=== PATIENT | male | born 1955 | race Caucasian/White ===

== ENCOUNTER 2019-02-27 08:40 | Inpatient (IN) ==
--- NOTE | 2019-02-27 09:02 | Emergency Department Note ---
Disposition Clinical Impression: Ulcer of left foot Qualifiers: Non-pressure ulcer stage: unspecified non-pressure ulcer stage Qualified Code(s): L97.529 - Non-pressure chronic ulcer of other part of left foot with unspecified severity Disposition: Admitted As Inpatient Condition: Good Forms: ED Satisfaction Letter Time of Disposition: 10:56 Extremity Problem HPI - General Chief complaint: ED Extremity Problem,Nontraumatic Stated complaint: Foot Wound Time Seen by Provider: 02/27/19 08:55 Source: patient Mode of arrival: wheelchair Limitations: no limitations Nursing Notes Reviewed: Yes Vital Signs Reviewed: Yes - History of Present Illness HPI Narrative: This is a 63-year-old male with a history of diabetes, status post recent debridement to the left great toe, currently on IV Ancef as per infectious disease 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 Patient reports he started having subjective fevers as well as chills yesterday. He was seen by podiatry today who sent him here for evaluation believing that his toe will need to be amputated. The patient denies any nausea vomiting or diarrhea. He does have pain in the first digit. Denies any other complaints. Pt Subjective Complaint: other (Left foot wound) Onset (ago): week(s) Pain Scale: 8 Improves with: nothing Worsens with: nothing Associated symptoms: Reports: fever - Related Data Home Medications Medication Instructions Recorded Confirmed Aspirin [Lo-Dose Aspirin EC] 81 mg PO DAILY 11/27/17 02/27/19 Cetirizine HCl [Zyrtec] 10 mg PO DAILY 11/27/17 02/27/19 Cyanocobalamin (Vitamin B-12) 1,000 mcg PO DAILY 11/27/17 02/27/19 [Vitamin B-12] Ferrous Gluconate 324 mg PO DAILY 11/27/17 02/27/19 Omeprazole [PriLOSEC] 20 mg PO DAILY 11/27/17 02/27/19 Potassium Chloride [K-Tab ER] 20 meq PO DAILY 11/27/17 02/27/19 Simvastatin [Zocor] 20 mg PO DAILY 11/27/17 02/27/19 metFORMIN [Glucophage] 1,000 mg PO BIDWM 11/27/17 02/27/19 Calcium Citrate/Vitamin D3 1 each PO DAILY 01/28/19 02/27/19 [Calcium Cit 315-Vit D3 250 Cpt] Fluticasone Propionate Nasal 50 mcg NS DAILY 01/28/19 02/27/19 [Flonase] Insulin Glargine [Lantus] 55 unit SQ BID 01/28/19 02/27/19 Ipratropium/Albuterol Neb [Duoneb] 3 ml IH Q6H PRN 01/28/19 02/27/19 Ketotifen Fumarate [Zaditor] 1 drp BOTH EYES BID 01/28/19 02/27/19 Magnesium Oxide [Magnesium] 400 mg PO DAILY 01/28/19 02/27/19 Montelukast [Singulair] 10 mg PO DAILY 01/28/19 02/27/19 Sennosides/Docusate Sodium 1 each PO BID 01/28/19 02/27/19 [Docusate Sodium-Senna Tablet] Venlafaxine HCl [Venlafaxine HCl 37.5 mg PO DAILY 01/28/19 02/27/19 ER] guaiFENesin [Guaifenesin] 800 mg PO BID 01/28/19 02/27/19 Previous Rx's Medication Instructions Recorded Insulin ASPART [NovoLOG] 0 unit SQ TIDWM #1 mls 02/10/19 Isosorbide MONOnitrate (24 HR) 120 mg PO DAILY #60 tab.er.24h 02/10/19 [Imdur] OxyCODONE Immed Rel [Roxicodone 5 15 mg PO Q3H PRN 7 Days #60 tablet 02/10/19 MG] Polyethylene Glycol 3350 [MiraLAX] 17 gm PO BID #60 powd.pack 02/10/19 amLODIPine [Norvasc] 5 mg PO DAILY #30 tablet 02/10/19 Carvedilol 3.125 mg PO BID #60 tab 02/11/19 Allergies Allergy/AdvReac Type Severity Reaction Status Date / Time bee venom protein (honey bee) Allergy Anaphylaxis Verified 01/28/19 14:25 tetracycline [Tetracycline] Allergy Hives Verified 01/28/19 14:25 influenza virus vacc AdvReac Weakness Verified 01/28/19 14:25 trivalent, split [From Fluzone] All systems ED: reviewed and negative except as stated. Constitutional: Reports: fever, chills Cardiovascular: Denies: chest pain Respiratory: Denies: dyspnea Gastrointestinal: Denies: abdominal pain, nausea, vomiting, diarrhea Neurological: Reports: paresthesias (Chronic lower extremities) Past Medical History - Past Medical History Attestation: Yes The following information was validated with the patient. Source: patient Medical history: Reports: CHF, COPD, coronary artery disease, diabetes, hyperlipidemia, hypertension Surgical history: Reports: appendectomy Psychiatric history: Reports: PTSD - Social History Smoking Status: Former smoker Smokeless Tobacco Status: No Alcohol use: Reports: none Drug use: Reports: none Physical Exam - General Limitations: no limitations General appearance: alert, in no apparent distress - Head Head exam: atraumatic, normocephalic - Eye Eye exam: Present: normal appearance - ENT ENT exam: normal exam - Neck Neck exam: Present: normal inspection - Chest Chest inspection: Present: normal inspection - Respiratory Respiratory exam: Present: normal lung sounds bilaterally - Cardiovascular Cardiovascular exam: Present: regular rate, normal rhythm, normal heart sounds - Abdominal Exam Abdominal exam: Present: soft, Non-Tender. Absent: tenderness, distention, rigidity - Extremities Exam Extremities exam: Present: normal inspection, full ROM - Expanded Upper Extremity Exam Shoulder exam: Present: normal inspection, full ROM Arm exam: Present: normal inspection, full ROM Elbow exam: Present: normal inspection, full ROM Forearm/Wrist exam: Present: normal inspection, full ROM Hand exam: Present: normal inspection, full ROM - Expanded Lower Extremity Exam Hip/Pelvis exam: Present: normal inspection, full ROM Upper leg exam: Present: normal inspection, full ROM Knee exam: Present: normal inspection, full ROM Lower leg exam: Present: normal inspection, full ROM Ankle exam: Present: normal inspection, full ROM 1 - There is a large ulceration to the medial aspect of the left first toe. No drainage currently. Neurovascular/Tendon exam: Present: sensory deficit, other (The foot is warm to the touch. Capillary refill less than 3 seconds. Does have a 1/4 posterior tibial pulse.) - Skin Skin exam: Present: warm, dry Course Course Narrative: Review prior admission with debridement on 02/04 by podiatry. The patient was bacteremic with MSSA and was seen by infectious disease and was placed on IV Ancef at discharge. Plan to recheck labs, imaging, and admission. - Reevaluation(s) Reevaluation #1: Patient had a brief fainting episode here. An Accu-Chek was checked and was normal. He returned to baseline almost immediately. Patient is complaining of pain again we will give him another dose of analgesics. Labs reviewed. Starting broad-spectrum antibiotics. - Consultations Consultation #1: I spoke with Dr. Kowalski with podiatry. Discussed the x-ray shows possible soft tissue gas. He will see the patient in consultation. Vital Signs Temperature 97.4 F L 02/27/19 08:50 Pulse Rate 84 02/27/19 08:50 Respiratory Rate 20 02/27/19 08:50 Blood Pressure 177/70 02/27/19 08:50 O2 Sat by Pulse Oximetry 99 02/27/19 08:50 Temperature 98.2 F 02/27/19 09:59 Pulse Rate 68 02/27/19 10:36 Respiratory Rate 13 02/27/19 10:36 Blood Pressure 171/75 02/27/19 10:36 O2 Sat by Pulse Oximetry 100 02/27/19 10:36 Oxygen Delivery Oxygen Delivery Room Air Extremity Problem, Nontraumati - MDM Narrative Medical decision making narrative: 63-year-old male presenting with left foot wound. Hemodynamically stable here. Labs are grossly unremarkable. Broad-spectrum anabiotic symptoms started. The patient is admitted to the hospitalist service with podiatric consultation. - Lab Data Lab results reviewed: Yes I reviewed the patient's lab results. Result diagrams: 02/27/19 09:16 02/27/19 09:16 Lab Results 02/27/19 02/27/19 02/27/19 Range/Units 09:16 09:16 09:16 WBC 7.1 (4.3-11.1) K/mcL RBC 3.96 L (4.19-5.50) M/mcL Hgb 11.6 L D (12.9-16.9) g/dL Hct 35.8 L (37.5-50.1) % MCV 90.4 (83.0-100.0) fL MCH 29.3 (28.0-33.3) pg MCHC 32.4 (31.6-35.5) g/dL RDW 14.2 (11.5-14.5) % Plt Count 60 L (140-400) K/mcL MPV 8.5 L (9.4-12.4) fL Immature Gran % 1.4 (0-4) % Seg Neutrophils % 75.0 % Lymphocytes % 15.2 % Monocytes % 7.5 % Eosinophils % 0.6 % Basophils % 0.3 % Neutrophils # 5.3 (1.6-8.9) K/mcL Lymphocytes # 1.1 (0.6-4.6) K/mcL Monocytes # 0.5 (0.0-1.3) K/mcL Eosinophils # 0.0 (0.0-0.6) K/mcL Basophils # 0.0 (0.0-0.2) K/mcL PT 14.8 H (9.4-12.1) Seconds INR 1.3 Sodium 138 (136-145) mEq/L Potassium 4.0 (3.5-5.1) mEq/L Chloride 105 (98-107) mEq/L Carbon Dioxide 27 (23-29) mEq/L BUN 16 (8-23) mg/dL Creatinine 0.99 (0.70-1.30) mg/dL Est GFR ( Amer) > 60 (> 60) Est GFR (Non-Af Amer) > 60 (> 60) BUN/Creatinine Ratio 16 (6-26) Glucose 129 H (70-105) mg/dL Calculated Osmolality 289 (280-300) Lactic Acid (0.5-2.2) mmol/L Calcium 9.4 (8.6-10.3) mg/dL 02/27/19 Range/Units 09:16 WBC (4.3-11.1) K/mcL RBC (4.19-5.50) M/mcL Hgb (12.9-16.9) g/dL Hct (37.5-50.1) % MCV (83.0-100.0) fL MCH (28.0-33.3) pg MCHC (31.6-35.5) g/dL RDW (11.5-14.5) % Plt Count (140-400) K/mcL MPV (9.4-12.4) fL Immature Gran % (0-4) % Seg Neutrophils % % Lymphocytes % % Monocytes % % Eosinophils % % Basophils % % Neutrophils # (1.6-8.9) K/mcL Lymphocytes # (0.6-4.6) K/mcL Monocytes # (0.0-1.3) K/mcL Eosinophils # (0.0-0.6) K/mcL Basophils # (0.0-0.2) K/mcL PT (9.4-12.1) Seconds INR Sodium (136-145) mEq/L Potassium (3.5-5.1) mEq/L Chloride (98-107) mEq/L Carbon Dioxide (23-29) mEq/L BUN (8-23) mg/dL Creatinine (0.70-1.30) mg/dL Est GFR ( Amer) (> 60) Est GFR (Non-Af Amer) (> 60) BUN/Creatinine Ratio (6-26) Glucose (70-105) mg/dL Calculated Osmolality (280-300) Lactic Acid 1.7 (0.5-2.2) mmol/L Calcium (8.6-10.3) mg/dL - Radiology Data Radiology results reviewed: Yes I reviewed the patient's radiology results. Foot X-Ray 02/27/19 09:06 IMPRESSION: Increasing soft tissue predominate in the 1st digit. Questionable soft tissue gas between the 1st and 2nd digit. No definite acute erosive changes to suggest osteomyelitis. D/ / Rosanna Robles MD / Rosanna Robles MD Interpreting Provider: oRsanna Robles MD S.Tani.Anita - SEricAKae Situation: Demographics, MOA Background: Presenting Complaint, Relevant PMH, Meds, & Allergies Assessment: Course and respsone to treatment, Exam Concerns, Patient/Family Expectation, Pertinant Lab Results Recommendation: Barrier(s) to disposition, Recommendation based on pending studies, treatments, or consults S.B.AKae Report Given to: Dr. Sandra Vargas Repor Time: 10:55
[2019-02-27] MEDS ORDERED: *HR* FentaNYL (PF) 100 MCG/2 ML VIAL IVP ONE (09:10)
[2019-02-27 09:30] LABS: Basophils % 0.3 %; Eosinophils % 0.6 %; Hematocrit 35.8 % (37.5-50.1); Immature Granulocytes % 1.4 % (0-4); Lymphocytes # 1.1 K/mcL (0.6-4.6); Lymphocytes % 15.2 %; Mean Corpuscular HGB Conc 32.4 g/dL (31.6-35.5); Mean Corpuscular Hemoglobin 29.3 pg (28.0-33.3); Mean Corpuscular Volume 90.4 fL (83.0-100.0); Mean Platelet Volume 8.5 fL (9.4-12.4); Monocytes # 0.5 K/mcL (0.0-1.3); Monocytes % 7.5 %; Neutrophils # 5.3 K/mcL (1.6-8.9); Red Blood Count 3.96 M/mcL (4.19-5.50); Red Cell Distribution Width 14.2 % (11.5-14.5); White Blood Count 7.1 K/mcL (4.3-11.1)
[2019-02-27 09:32] LABS: Hemoglobin 11.6 g/dL (12.9-16.9); Platelet Count 60 K/mcL (140-400)
[2019-02-27 09:37] LABS: INR 1.3; Prothrombin Time 14.8 Seconds (9.4-12.1)
[2019-02-27] MEDS ORDERED: 0.9 % Sodium Chloride 1,000 ML IVC ONE (09:39)
[2019-02-27 09:47] LABS: BUN/Creatinine Ratio 16 (6-26); Blood Urea Nitrogen 16 mg/dL (8-23); Calcium 9.4 mg/dL (8.6-10.3); Carbon Dioxide 27 mEq/L (23-29); Chloride 105 mEq/L (98-107); Glucose 129 mg/dL (70-105); Osmolality,Calculated 289 (280-300); Sodium 138 mEq/L (136-145); eGFR For African Americans > 60 (> 60); eGFR For Non-African Americans > 60 (> 60)
[2019-02-27] MEDS ORDERED: Piperacillin/Tazobactam 3.375 GM in 0.9 % Sodium Chloride Mini Bag 100 ML IVPB ONE (09:55)
[2019-02-27] MEDS ORDERED: *HR* HYDROmorphone (PF) 1 MG/ML SYRINGE IVP ONE (10:32)
--- NOTE | 2019-02-27 10:42 | Internal Med History&Physical ---
Date of Encounter: 02/27/19 Time of Encounter: 10:50 Internal Medicine - H&P: HPI Chief complaint: toe infection Admitted From: Home Plans for Post Hospital Care: Home History of present illness: Mr. Villagran is a 63 year old male chronic left great to diabetic wound, osteo, MSSA bactermia w recent admit for same, sent home on IV Ancef and following w Dr Roque and Dr Velázquez, HTN, DM on insulin, COPD, CAD, HLD, PTSD and chronic pain on opiates presents from Dr Hwang office due to worsened infection and need for likely surgicl intervention family at bedside. He is awake and alert. He has not had fevers, chills or vomiting at home.+ nausea. + pain in foot and LLE muscle cramping. Wound cont to become more expansive with yellow drainage and foot edema. Has been compliant with abx and follow up. He is otherwise in his usual state of health. Agreeable to any intervention that podiatry recommends. confirmed no new allergies, notes his ancef was changed but doesn't know to what, no other med changes remains full code gen- no wt loss, gain, sweats, fevers or chills cv- no cp, pressure, palpitations, syncope, presyncope or new le edema pulm- baseline sob without cough, wheezing, orthopnea, pnd, sputum production gi- no abd pain, , emesis diarrhea, + hx constipation on opiates Past Med Surg Social Fam HX - Past Medical History Medical history: CHF, COPD, coronary artery disease, diabetes, hyperlipidemia, hypertension Additional medical history: von willebrands factor Psychiatric history: PTSD - Past Surgical History Surgical History: appendectomy Additional surgical history: Back Surgery, Foot muscle repair, nose surgery - Social History Smoking Status: Former smoker Smokeless Tobacco Status: No Alcohol use: none Drug use: none - Family History Father Adopted: No Family Member Ethnicity: Non- Living Status: Hx Family Cardiac Disorders: No Hx Family Respiratory Disorders: No Hx Family Cancer: No Hx Family GI Disorders: No Hx Family Endocrine Disorder: No Hx Family Neuromuscular Disorders: No Hx Family Neurologic Disorders: No Hx Family HEENT Disorders: No Hx Family Autoimmune Disorders: No Mother Adopted: No Family Member Ethnicity: Non- Living Status: Hx Family Cardiac Disorders: Yes Hx Family Respiratory Disorders: No Hx Family Cancer: No Hx Family GI Disorders: No Hx Family Endocrine Disorder: Yes Hx Family Neuromuscular Disorders: No Hx Family Neurologic Disorders: No Hx Family HEENT Disorders: No Hx Family Autoimmune Disorders: No Internal Medicine - H&P: Meds Aspirin [Lo-Dose Aspirin EC] 81 mg PO DAILY 11/27/17 [History] Cetirizine HCl [Zyrtec] 10 mg PO DAILY 11/27/17 [History] Cyanocobalamin (Vitamin B-12) [Vitamin B-12] 1,000 mcg PO DAILY 11/27/17 [History] Ferrous Gluconate 324 mg PO DAILY 11/27/17 [History] Omeprazole [PriLOSEC] 20 mg PO DAILY 11/27/17 [History] Potassium Chloride [K-Tab ER] 20 meq PO DAILY 11/27/17 [History] Simvastatin [Zocor] 20 mg PO DAILY 11/27/17 [History] metFORMIN [Glucophage] 1,000 mg PO BIDWM 11/27/17 [History] Calcium Citrate/Vitamin D3 [Calcium Cit 315-Vit D3 250 Cpt] 1 each PO DAILY 01/28/19 [History] Fluticasone Propionate Nasal [Flonase] 50 mcg NS DAILY 01/28/19 [History] Insulin Glargine [Lantus] 55 unit SQ BID 01/28/19 [History] Ipratropium/Albuterol Neb [Duoneb] 3 ml IH Q6H PRN 01/28/19 [History] Ketotifen Fumarate [Zaditor] 1 drp BOTH EYES BID 01/28/19 [History] Magnesium Oxide [Magnesium] 400 mg PO DAILY 01/28/19 [History] Montelukast [Singulair] 10 mg PO DAILY 01/28/19 [History] Sennosides/Docusate Sodium [Docusate Sodium-Senna Tablet] 1 each PO BID 01/28/19 [History] Venlafaxine HCl [Venlafaxine HCl ER] 37.5 mg PO DAILY 01/28/19 [History] guaiFENesin [Guaifenesin] 800 mg PO BID 01/28/19 [History] Insulin ASPART [NovoLOG] 0 unit SQ TIDWM #1 mls 02/10/19 [Rx] Isosorbide MONOnitrate (24 HR) [Imdur] 120 mg PO DAILY #60 tab.er.24h 02/10/19 [Rx] OxyCODONE Immed Rel [Roxicodone 5 MG] 15 mg PO Q3H PRN 7 Days #60 tablet 02/10/19 [Rx] Polyethylene Glycol 3350 [MiraLAX] 17 gm PO BID #60 powd.pack 02/10/19 [Rx] amLODIPine [Norvasc] 5 mg PO DAILY #30 tablet 02/10/19 [Rx] Carvedilol 3.125 mg PO BID #60 tab 02/11/19 [Rx] Allergy/AdvReac Type Severity Reaction Status Date / Time bee venom protein (honey bee) Allergy Anaphylaxis Verified 01/28/19 14:25 tetracycline [Tetracycline] Allergy Hives Verified 01/28/19 14:25 influenza virus vacc AdvReac Weakness Verified 01/28/19 14:25 trivalent, split [From Fluzone] All Systems PM: A 10-system review of systems was performed and is negative for pertinent findings except as documented above in the HPI. - Constitutional Vitals: Temp Pulse Resp BP Pulse Ox 98.2 F 68 13 171/75 100 02/27/19 09:59 02/27/19 10:36 02/27/19 10:36 02/27/19 10:36 02/27/19 10:36 Exam: General: awake, alert, appears stated age, obese HEENT:EOM intact , pupils equal, round, moist mucus membranes Neck: supple, trachea midline Cardiovascular:regular rate and rhythm, normal S1 & S2, no rubs, murmurs or gallops. No JVD. trace pitting left lower extremity edema Lungs:Normal breath sounds, no wheezes, or crackles. Normal respiratory effort on o2 nc Abdomen:Soft, non-tender, non-distended, + bowel sounds Extremities:equal calf size bilaterally, visible muscle cramp of left calf Neurological: AAOx3, CN grossly intact Skin:left great toe w extensive wound, beefy appearance, no active bleeding/drainage currently, left second toe with necrotic appearing tissue Internal Med - H&P Results - Labs CBC & Chem 7: 02/27/19 09:16 02/27/19 09:16 Labs: Short CBC 02/27/19 Range/Units 09:16 WBC 7.1 (4.3-11.1) K/mcL Hgb 11.6 L D (12.9-16.9) g/dL Hct 35.8 L (37.5-50.1) % Plt Count 60 L (140-400) K/mcL Neutrophils # 5.3 (1.6-8.9) K/mcL BMP 02/27/19 09:16 Sodium 138 Potassium 4.0 Chloride 105 Carbon Dioxide 27 BUN 16 Creatinine 0.99 Glucose 129 H Calcium 9.4 - Assessment and Plan (1) Diabetic infection of left foot Current Visit: Yes Status: Chronic (2) MSSA bacteremia Current Visit: No Status: Chronic (3) Essential hypertension Current Visit: Yes Status: Chronic (4) Chronic back pain Current Visit: No Status: Chronic Qualifiers: Back pain location: low back pain Back pain laterality: bilateral Sciatica presence: with sciatica Sciatica laterality: bilateral sciatica Qualified Code(s): M54.42 - Lumbago with sciatica, left side; M54.41 - Lumbago with sciatica, right side; G89.29 - Other chronic pain (5) Diabetes mellitus Current Visit: Yes Status: Chronic Qualifiers: Diabetes mellitus type: type 2 Diabetes mellitus custodial insulin use: with travel attendants use Diabetes mellitus complication status: with circulatory complication Diabetes mellitus complication detail: with peripheral angiopathy without gangrene Qualified Code(s): E11.51 - Type 2 diabetes mellitus with diabetic peripheral angiopathy without gangrene; Z79.4 - shelter (current) use of insulin (6) Cramps of left lower extremity Current Visit: Yes Status: Chronic - Summary of Assessment and Plan Summary of Assessment and Plan: Diabetic Left Great Toe Wound, Chronic, progressively worsened Osteomyelitis Hx first and second ray left foot Sent from Dr Velázquez's office S/P Incision and drainage and debridement of all devitalized tissue multiple planes left great toe and foot and incision and drainage and debridement of all devitalized tissue multiple planes second toe left foot with Dr. Velázquez on 02/04/19 Intra op cxs MSSA He was following with ID and Podiatry outpt XR today with soft tissue gas, no bone erosion, Dr Velázquez updated to findings by ED and plan remains likely surgical intervention, non emergent at this time -cont IV vanc + zosyn based off prior cxs -ID and podiatry consulted for further recs -prn pain control -npo p mn MSSA Bacteremia hx, still on IV abx previously ancef though pt noting Dr Jude changed it to another abx, unknown to pt or family -ID consulted for further input, cont vanc + zosyn at this time based off prior cxs HTN - cont home meds, pain control DM- hold long acting 55 BID at this time as bs is 120s and he will be npo p mn, SSI + levemir 10 units HS ordered, hold metformin, will require further adjustments this admit LLE cramps in calf- check US LLE to rule out clot, check mag, K 4+ COPD- cont home meds/nebs CAD- cont home med regimen, hold ASA as may require intervention by podiatry HLD- cont home med regimen PTSD cont home med regimen Chronic pain on opiates with constipation- pain scal prns include his home oxy 15 mg q 3h prn severe pain + his home bowel regimen vte ppx is scd to right leg only at this time code status is full
[2019-02-27] MEDS ORDERED: Ondansetron 4 MG/2 ML VIAL IVP PRN (11:01)
[2019-02-27] MEDS ORDERED: Acetaminophen 325 MG TABLET PO PRN (11:01)
[2019-02-27] MEDS ORDERED: Naloxone 0.4 MG/ML INJ IVP PRN (11:01)
[2019-02-27] MEDS ORDERED: D5% in Water 1,000 ML IVC PRN (11:07)
[2019-02-27] MEDS ORDERED: Dextrose Gel 15 GM/37.5 ML TUBE PO PRN ×2 (11:07)
[2019-02-27] MEDS ORDERED: *HR* Dextrose 50 % in Water (Syg) 50 ML SYRINGE IVP PRN (11:07)
[2019-02-27] MEDS ORDERED: Ipratropium/Albuterol Neb 3 ML IH PRN (11:08)
[2019-02-27 11:18] LABS: Magnesium 2.1 mg/dL (1.6-2.6)
--- NOTE | 2019-02-27 11:28 | Podiatry Consult Note ---
Date of Encounter: 02/27/19 Time of Encounter: 11:28 Assessment and Plan (1) Diabetic infection of left foot Current visit: Yes Status: Chronic Assessment: Tyler grade III ulceration noted to left medial great toe Erythema and edema noted Ulceration noted to medial aspect of left great toe Left toe #2 with eschar noted to DIPJ Calf pain with squeeze WBC 7.1, afebrile, max temp 99.3 DAVID 01/27/19 Right PT 0.94 DP 1.01 Left PT 0.97 DP 0.99 TCPO2 01/29/19 Right ankle 19 foot 20 Left ankle 22 foot 10 MR 02/02/19 showed OM 1st and 2nd ray XR showed no OM but questionable for subcutaneous gas Plan: MR ordered for evaluation of gas/OM ESR, CRP ordered Venous duplex pending Local wound care Will allow for 48 hours of ATB prior to surgical intervention, discussed with Dr. Velázquez, will make patient NPO after MN Placed adaptic, 4x4 dry gauze, kerlix, and medipore tape Impression: XR/XR foot 2V LT IMPRESSION: Increasing soft tissue predominately in the 1st digit. Questionable soft tissue gas between the 1st and 2nd digit. No definite acute erosive changes to suggest osteomyelitis. D/ / 02/27/2019 11:01:34 Rosanna Robles MD / tremayne Interpreting Provider: Rosanna Robles MD 02/02/19 MR/MR foot LT wo/w con IMPRESSION: Osteomyelitis of the 1st and 2nd ray with cellulitis. Probable infectious tenosynovitis of the extensor hallucis tendon extending beyond field of view. Tenosynovitis of the flexor tendon of the 1st ray, with mild enhancement after contrast administration. Devitalized tissue of the distal ray. D/ / 02/02/2019 17:13:46 Geronimo Farias / leisa Interpreting Provider: Geronimo Farias (2) Osteomyelitis Current visit: No Status: Acute See above Qualifiers: Osteomyelitis type: acute hematogenous Osteomyelitis location: foot Laterality: left Qualified Code(s): M86.072 - Acute hematogenous osteomyelitis, left ankle and foot History of Present Illness HPI: Mr. Villagran is a 63 year old male who presented to the ER from the podiatry office. Family is present at bedside. Patient is known to the podiatry group and follows with Dr. Velázquez. PMH of CHF, DM, cellulitis, COPD, PTSD, diabetic wound, and chronic back pain. Briefly, patient is known to podiatry group. Recently was admitted to the hospital 3 weeks ago with bacteremia and left foot diabetic ulcer. Patient had ABIs completed on 01/27/19 Right PT 0.94 DP 1.01 Left PT 0.97 DP 0.99 and TCP02s completed on 01/29/19 right ankle 19 foot 20 and Left ankle 22 foot 10. Patient had positive blood cultures on 01/29 and positive surgical cultures on 02/04/19 testing positive for staph aureus. On 02/04/19 Incision and drainage and debridement of all devitalized tissue multiple planes left great toe and foot incision and drainage and debridement of all devitalized tissue multiple planes second toe left foot with Dr. Velázquez. Patient presented to office today for follow up appointment with worsening edema and erythema of left foot. Xray showed possible subcutaneous gas but does not suggest OM. Patient reports fevers and chills. Denies nausea, vomiting, or diarrhea. Denies any chest pain or shortness of breath. Reports left calf pain. No other questions or concerns at this time. Past Med Surg Social Fam HX - Past Medical History Medical history: CHF, COPD, coronary artery disease, diabetes, hyperlipidemia, hypertension Additional medical history: von willebrands factor Psychiatric history: PTSD - Past Surgical History Surgical History: appendectomy Additional surgical history: Back Surgery, Foot muscle repair, nose surgery - Social History Smoking Status: Former smoker Smokeless Tobacco Status: No Alcohol use: none Drug use: none - Family History Father Adopted: No Family Member Ethnicity: Non- Living Status: Hx Family Cardiac Disorders: No Hx Family Respiratory Disorders: No Hx Family Cancer: No Hx Family GI Disorders: No Hx Family Endocrine Disorder: No Hx Family Neuromuscular Disorders: No Hx Family Neurologic Disorders: No Hx Family HEENT Disorders: No Hx Family Autoimmune Disorders: No Mother Adopted: No Family Member Ethnicity: Non- Living Status: Hx Family Cardiac Disorders: Yes Hx Family Respiratory Disorders: No Hx Family Cancer: No Hx Family GI Disorders: No Hx Family Endocrine Disorder: Yes Hx Family Neuromuscular Disorders: No Hx Family Neurologic Disorders: No Hx Family HEENT Disorders: No Hx Family Autoimmune Disorders: No Medications and Allergies Aspirin [Lo-Dose Aspirin EC] 81 mg PO DAILY 11/27/17 [History] Cetirizine HCl [Zyrtec] 10 mg PO DAILY 11/27/17 [History] Cyanocobalamin (Vitamin B-12) [Vitamin B-12] 1,000 mcg PO DAILY 11/27/17 [History] Ferrous Gluconate 324 mg PO DAILY 11/27/17 [History] Omeprazole [PriLOSEC] 20 mg PO DAILY 11/27/17 [History] Potassium Chloride [K-Tab ER] 20 meq PO DAILY 11/27/17 [History] Simvastatin [Zocor] 20 mg PO DAILY 11/27/17 [History] metFORMIN [Glucophage] 1,000 mg PO BIDWM 11/27/17 [History] Calcium Citrate/Vitamin D3 [Calcium Cit 315-Vit D3 250 Cpt] 1 each PO DAILY 01/28/19 [History] Fluticasone Propionate Nasal [Flonase] 50 mcg NS DAILY 01/28/19 [History] Insulin Glargine [Lantus] 55 unit SQ BID 01/28/19 [History] Ipratropium/Albuterol Neb [Duoneb] 3 ml IH Q6H PRN 01/28/19 [History] Ketotifen Fumarate [Zaditor] 1 drp BOTH EYES BID 01/28/19 [History] Magnesium Oxide [Magnesium] 400 mg PO DAILY 01/28/19 [History] Montelukast [Singulair] 10 mg PO DAILY 01/28/19 [History] Sennosides/Docusate Sodium [Docusate Sodium-Senna Tablet] 1 each PO BID 01/28/19 [History] Venlafaxine HCl [Venlafaxine HCl ER] 37.5 mg PO DAILY 01/28/19 [History] guaiFENesin [Guaifenesin] 800 mg PO BID 01/28/19 [History] Insulin ASPART [NovoLOG] 0 unit SQ TIDWM #1 mls 02/10/19 [Rx] Isosorbide MONOnitrate (24 HR) [Imdur] 120 mg PO DAILY #60 tab.er.24h 02/10/19 [Rx] OxyCODONE Immed Rel [Roxicodone 5 MG] 15 mg PO Q3H PRN 7 Days #60 tablet 02/10/19 [Rx] Polyethylene Glycol 3350 [MiraLAX] 17 gm PO BID #60 powd.pack 02/10/19 [Rx] amLODIPine [Norvasc] 5 mg PO DAILY #30 tablet 02/10/19 [Rx] Carvedilol 3.125 mg PO BID #60 tab 02/11/19 [Rx] Allergy/AdvReac Type Severity Reaction Status Date / Time bee venom protein (honey bee) Allergy Anaphylaxis Verified 01/28/19 14:25 tetracycline [Tetracycline] Allergy Hives Verified 01/28/19 14:25 influenza virus vacc AdvReac Weakness Verified 01/28/19 14:25 trivalent, split [From Fluzone] All Systems Reviewed: The remainder of the systems were reviewed and are negative - Constitutional Constitutional: fever(s) - Cardiovascular Cardiovascular: leg edema, pedal edema, no chest pain, no dyspnea, no leg ulcers - Respiratory Respiratory: no dyspnea - Musculoskeletal Musculoskeletal: back pain, numbness Physical Exam - Constitutional Vitals: Temp Pulse Resp BP Pulse Ox 98.2 F 73 18 154/60 100 02/27/19 09:59 02/27/19 11:01 02/27/19 11:01 02/27/19 11:01 02/27/19 11:01 Exam: Constitiutional: Alert and oriented x 3. Confused at times. Well nourished. No acute distress noted Vascular: non-palpable DP LLE, 2/4 PT LLE, nonpalpable DP/PT RLE, CFT <3 sec to all digits LLE, warm to warm from tibia to toes LLE, no calf pain with squeeze LLE Neurologic: Diminished sensation to touch, normal plantar response Dermatologic: Digits #1-2 left foot with erythema noted, medial aspect of left foot with slough noted to wound bed, minimal eschar noted to periwound area, ulceration noted to lateral aspect great toe, slough noted to center of wound, sutures noted, edema, erythema, and eschar noted to toe #2 Musculoskeletal: 4/5 muscle strength and normal tone bilaterally. Results - Labs Result Diagrams: 02/27/19 09:16 02/27/19 09:16 Labs: Abnormal lab results RBC 3.96 M/mcL (4.19-5.50) L 02/27/19 09:16 Hgb 11.6 g/dL (12.9-16.9) L D 02/27/19 09:16 Hct 35.8 % (37.5-50.1) L 02/27/19 09:16 Plt Count 60 K/mcL (140-400) L 02/27/19 09:16 MPV 8.5 fL (9.4-12.4) L 02/27/19 09:16 PT 14.8 Seconds (9.4-12.1) H 02/27/19 09:16 Glucose 129 mg/dL (70-105) H 02/27/19 09:16 POC Glucose 140 mg/dL (70-99) H 02/27/19 09:33 H & H 02/27/19 Range/Units 09:16 Hgb 11.6 L D (12.9-16.9) g/dL Hct 35.8 L (37.5-50.1) % All other labs normal. - Diagnostic results Ankle/Foot x-ray: report reviewed Consult Discharge Plan - Plan [facility]errals: [facility] [Primary Care Provider] -
[2019-02-27 11:56] LABS: Bilirubin,Urine Negative (Negative); Blood,Urine Negative (Negative); Clarity,Urine Clear (Clear); Color,Urine Yellow (Yellow); Glucose,Urine (UA) Normal (Normal); Ketones,Urine Negative (Negative); Leukocyte Esterase,Urine Negative (Negative); Nitrite,Urine Negative (Negative); Protein,Urine Trace mg/dL (Neg-Trace); Specific Gravity,Urine 1.014 (1.010-1.025); Urobilinogen,Urine Normal (Normal)
[2019-02-27] MEDS ORDERED: Vancomycin 1,750 MG in 0.9 % Sodium Chloride 250 ML IVPB SCH (12:00)
[2019-02-27] MEDS: Insulin LISPRO 300 UNITS/3 ML VIAL SQ SCH ×3 (12:10→20:38)
--- NOTE | 2019-02-27 13:10 | Infectious Disease Consult ---
Infectious Disease-Consult - Encounter Date/Time Date of Encounter: 02/27/19 Time of Encounter: 13:08 - Data of Consult Patient: known to practice within the last 3 years Reason for consult: "pt of Dr Roque for left toe infection + MSSA bacteremia. sent in by podiatry for worsened wound and possible surg intervention. Please eval for cont abx treat recs as pt noting ancef was changed but unsure to what." Consult date: 02/27/19 Requesting Physician: Calista Emmanuel Primary Care Provider: [facility] - HPI HPI: Mr. Villagran is a 63-year-old male with past medical history of diabetes, CHF, COPD, CAD, hyperlipidemia, hypertension, von Willebrand's disease, and left great toe osteomyelitis. The patient was admitted to the hospital 02/27/19 for worsening left toe infection. We are consulted 02/27/19 for further workup and treatment recommendations for worsening left great toe infection. Briefly, the patient is a 63 year old male with a past medical history as stated above. The patient is well-known to the ID service as we were consulted on his case during his most recent hospitalization for MSSA bacteremia and left great toe OM. He was discharged home on IV cefazolin, but developed worsening thrombocytopenia and was transitioned to IV Nafcillin earlier this week. Two days ago, the patient reports onset of subjective fevers and chills with worsening of the left great toe wound. He saw Dr. Velázquez in the office today and was advised to come to the ER for evaluation. Upon arrival, he was afebrile and hemodynamically stable. His white blood cell count is normal. Lactic acid and renal function are within normal limits. Urinalysis was negative for pyuria. He had x-ray of the left foot that showed possible soft tissue gas between the first and second digit, but no bony erosion or osteomyelitis. Blood cultures were obtained 2 sets. He was started empirically on IV antibiotics and admitted to the hospital for further evaluation. Since admission, the patient has remained afebrile and hemodynamically stable. He has been evaluated by podiatry. He is scheduled to undergo venous Doppler study of the left lower extremity to rule out DVT. Currently, he is on vancomycin and Zosyn. We have been asked to evaluate and make further recommendations. During my exam today, the patient endorses a history as stated above. He endorses subjective fevers and chills. Denies headache or neck pain. Denies chest pain, shortness of breath, or cough. Denies nausea, vomiting, diarrhea, or constipation. Denies abdominal pain or urinary complaints. Denies oral thrush or skin rashes. States he has chronic back pain that is at baseline. Complains of increasing pain in the left foot with some muscle spasms that increases the pain. States there is some drainage that is somewhat foul smelling. Denies any redness or streaking up the leg. States his appetite has been okay. States his blood sugars up and well-controlled at home. The patient lives at home with his . 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 He has a dog, but denies any bites or scratches. Denies chronic infectious diseases. Denies any recent travel. Denies tobacco, alcohol, or illicit drug use. - ROS Review of Systems: All systems reviewed and no additional remarkable complaints except as stated. - Results CBC & Chem 7: 02/27/19 09:16 02/27/19 09:16 - Line Documentation Line Documentation: PICC Line (Right upper extremity) - Exam Vitals: Temp Pulse Resp BP Pulse Ox 99.3 F 73 19 177/90 97 02/27/19 12:02 02/27/19 12:02 02/27/19 12:02 02/27/19 12:02 02/27/19 12:02 Exam: Head: Atraumatic, normal inspection, normocephalic. Eye: EOMI, PERRLA, no scleral icterus noted. ENT: Mucous membranes moist. No odontogenic infection noted. Neck: Normal inspection, no meningismus. Respiratory: Clear to auscultation. No rales, respiratory distress, rhonchi, or wheezes noted. Cardiovascular: Regular rate and rhythm, S1 and S2 audible. No murmurs, rubs, or gallops. GI: Soft, obese, normal bowel sounds. Nontender. Extremities: No joint swelling, pedal edema, or tenderness noted. Venous stasis dermatitis noted to the bilateral lower extremities. Left foot dressing clean, dry, and intact. Back: Normal inspection. No vertebral tenderness noted. Neurological: Alert, oriented 3, no focal deficits. Psychiatric: normal affect, normal mood. Skin: Dry, intact, warm. Normal color. No rashes. Aspirin [Lo-Dose Aspirin EC] 81 mg PO DAILY 11/27/17 [History] Cetirizine HCl [Zyrtec] 10 mg PO DAILY 11/27/17 [History] Cyanocobalamin (Vitamin B-12) [Vitamin B-12] 1,000 mcg PO DAILY 11/27/17 [History] Ferrous Gluconate 324 mg PO DAILY 11/27/17 [History] Omeprazole [PriLOSEC] 20 mg PO DAILY 11/27/17 [History] Potassium Chloride [K-Tab ER] 20 meq PO DAILY 11/27/17 [History] Simvastatin [Zocor] 20 mg PO DAILY 11/27/17 [History] metFORMIN [Glucophage] 1,000 mg PO BIDWM 11/27/17 [History] Calcium Citrate/Vitamin D3 [Calcium Cit 315-Vit D3 250 Cpt] 1 each PO DAILY 01/28/19 [History] Fluticasone Propionate Nasal [Flonase] 50 mcg NS DAILY 01/28/19 [History] Insulin Glargine [Lantus] 55 unit SQ BID 01/28/19 [History] Ipratropium/Albuterol Neb [Duoneb] 3 ml IH Q6H PRN 01/28/19 [History] Ketotifen Fumarate [Zaditor] 1 drp BOTH EYES BID 01/28/19 [History] Magnesium Oxide [Magnesium] 400 mg PO DAILY 01/28/19 [History] Montelukast [Singulair] 10 mg PO DAILY 01/28/19 [History] Sennosides/Docusate Sodium [Docusate Sodium-Senna Tablet] 1 each PO BID 01/28/19 [History] Venlafaxine HCl [Venlafaxine HCl ER] 37.5 mg PO DAILY 01/28/19 [History] guaiFENesin [Guaifenesin] 800 mg PO BID 01/28/19 [History] Insulin ASPART [NovoLOG] 0 unit SQ TIDWM #1 mls 02/10/19 [Rx] Isosorbide MONOnitrate (24 HR) [Imdur] 120 mg PO DAILY #60 tab.er.24h 02/10/19 [Rx] OxyCODONE Immed Rel [Roxicodone 5 MG] 15 mg PO Q3H PRN 7 Days #60 tablet 02/10/19 [Rx] Polyethylene Glycol 3350 [MiraLAX] 17 gm PO BID #60 powd.pack 02/10/19 [Rx] amLODIPine [Norvasc] 5 mg PO DAILY #30 tablet 02/10/19 [Rx] Carvedilol 3.125 mg PO BID #60 tab 02/11/19 [Rx] Allergy/AdvReac Type Severity Reaction Status Date / Time bee venom protein (honey bee) Allergy Anaphylaxis Verified 01/28/19 14:25 tetracycline [Tetracycline] Allergy Hives Verified 01/28/19 14:25 influenza virus vacc AdvReac Weakness Verified 01/28/19 14:25 trivalent, split [From Fluzone] - Assessment and Plan (1) Diabetic infection of left foot Current Visit: Yes Status: Chronic Location: Left foot. Causative organism: Unclear. Previous cultures positive for MSSA. Failed outpatient IV antibiotics. Concern for additional causative organisms. X-ray negative for worsening osteomyelitis. No SIRS criteria. Blood cultures drawn 02/27/19 are pending. Podiatry consulted. Planning possible amputation of the toe. Currently on Vanc and Zosyn. SNOMED Code(s): 04924748 (2) Osteomyelitis Current Visit: No Status: Acute Location: First and second ray of the left foot. Causative organism: MSSA. Likely secondary to have excellent ulcer. MRI of the left foot showed osteomyelitis of the first and second ray with cellulitis with probable infectious tenosynovitis of the extensor hallucis tendon extending beyond the field of view as well as tenosynovitis of the flexor tendon of the first ray with mild enhancement after contrast administration. Podiatry consulted. Status post incision and drainage and debridement of all devitalized tissue multiple planes of the left great toe and foot and incision and drainage and debridement of all devitalized tissue multiple planes of the second toe left foot 02/04/[address] Velázquez. Operative note reviewed. Intraoperative cultures are positive for MSSA. No specimen sent for pathology. Discharged home on IV cefazolin. Transitioned to Nafcillin due to thrombocytopenia. Qualifiers: Osteomyelitis type: acute hematogenous Osteomyelitis location: foot Laterality: left Qualified Code(s): M86.072 - Acute hematogenous osteomyelitis, left ankle and foot SNOMED Code(s): 34401301 (3) Bacteremia Current Visit: No Status: Acute Causative organism: MSSA. Source: Left toe infection. Blood cultures drawn 01/27/19 were +2 out of 2 sets for MSSA. Repeat blood cultures on 01/29/19 were +2 out of 2 sets. Repeat blood cultures on 02/01/19 were negative 2 sets. Complicated due to osteomyelitis. Rheumatoid factor <10. TTE suboptimal to evaluate for endocarditis. VICKEY deferred. Was on cefazolin. Transitioned to Iv Nafcillin. SNOMED Code(s): 2785876 (4) Thrombocytopenia Current Visit: No Status: Resolved Etiology: Infection vs. antibiotic-related. No acute bleeding noted on exam. Continue to trend. SNOMED Code(s): 955610126 (5) Diabetes mellitus Current Visit: Yes Status: Chronic Uncontrolled. Hemoglobin A1c 8.5%. Recommend aggressive glucose monitoring and control to promote wound healing and prevent reinfection. Management per the primary team. Qualifiers: Diabetes mellitus type: type 2 Diabetes mellitus fdc insulin use: with fdc use Diabetes mellitus complication status: with circulatory complication Diabetes mellitus complication detail: with peripheral angiopathy without gangrene Qualified Code(s): E11.51 - Type 2 diabetes mellitus with diabetic peripheral angiopathy without gangrene; Z79.4 - FPC (current) use of insulin SNOMED Code(s): 17954669 (6) CAD (coronary artery disease) Current Visit: No Status: Chronic Qualifiers: Coronary Disease-Associated Artery/Lesion type: [place] artery [place] vs. transplanted heart: [place] heart Associated angina: without angina Qualified Code(s): I25.10 - Atherosclerotic heart disease of [place] coronary artery without angina pectoris SNOMED Code(s): 20011229 (7) Essential hypertension Current Visit: No Status: Chronic SNOMED Code(s): 50396777 (8) Mixed hyperlipidemia Current Visit: No Status: Acute SNOMED Code(s): 879074915 (9) Atherosclerosis of [place] arteries of left leg with ulceration of other part of foot Current Visit: No Status: Chronic Bilateral DAVID studies were normal. Bilateral TCP O2 monitoring showed ischemia. Arterial duplex study of the left lower extremity showed minimal plaque. SNOMED Code(s): 946628453207919, 336135893, 441504530536920 - Recommendations Recommendations: Await blood cultures to finalize. Await intraoperative cultures and findings. Wound care per the podiatry team. Continue vancomycin IV. Pharmacy to dose. Goal trough approximately 15. Continue Zosyn 3.375 g IV every 8 hours. Duration of treatment depends on the clinical picture. Monitor renal function and for drug toxicity and dose adjust antibiotics. Past Med Surg Social Fam HX - Past Medical History Medical history: CHF, COPD, coronary artery disease, diabetes, hyperlipidemia, hypertension Additional medical history: von wilderbran Psychiatric history: PTSD - Past Surgical History Surgical History: appendectomy Additional surgical history: Back Surgery, Foot muscle repair, nose surgery - Social History Smoking Status: Former smoker Smokeless Tobacco Status: No Alcohol use: none Drug use: none - Family History Father Adopted: No Family Member Ethnicity: Non- Living Status: Hx Family Cardiac Disorders: No Hx Family Respiratory Disorders: No Hx Family Cancer: No Hx Family GI Disorders: No Hx Family Endocrine Disorder: No Hx Family Neuromuscular Disorders: No Hx Family Neurologic Disorders: No Hx Family HEENT Disorders: No Hx Family Autoimmune Disorders: No Mother Adopted: No Family Member Ethnicity: Non- Living Status: Hx Family Cardiac Disorders: Yes Hx Family Respiratory Disorders: No Hx Family Cancer: No Hx Family GI Disorders: No Hx Family Endocrine Disorder: Yes Hx Family Neuromuscular Disorders: No Hx Family Neurologic Disorders: No Hx Family HEENT Disorders: No Hx Family Autoimmune Disorders: No Consult Discharge Plan - Plan [facility]errals: [facility] [Primary Care Provider] -
[2019-02-27] MEDS: amLODIPine 5 MG TABLET PO SCH (13:20)
[2019-02-27] MEDS: *HR* HYDROcodone/Acet 5/325 mg TABLET PO PRN (14:07)
[2019-02-27] MEDS ORDERED: Gadolinium Contrast Agent (WT Based) IV PRN (14:17)
[2019-02-27] MEDS: *HR* OxyCODONE Immed Rel 15 MG TABLET PO PRN ×3 (15:39→22:12)
[2019-02-27] MEDS ORDERED: Piperacillin/Tazobactam 3.375 GM in 0.9 % Sodium Chloride Mini Bag 100 ML IVPB SCH (16:00)
[2019-02-27] MEDS: Piperacillin/Tazobactam 3.375 GM in 0.9 % Sodium Chloride Mini Bag 100 ML IVPB SCH (20:32)
[2019-02-27] MEDS: Sennosides/Docusate Sodium TABLET PO SCH (20:32)
[2019-02-27] MEDS: Insulin DETEMIR 100 UNIT/ML X5UNITS SQ SCH (20:38)
[2019-02-27] MEDS ORDERED: KETOTIFEN FUMARATE BOTH EYES SCH (21:00)
[2019-02-28] MEDS: *HR* HYDROcodone/Acet 5/325 mg TABLET PO PRN ×2 (00:34→12:30)
[2019-02-28] MEDS: *HR* OxyCODONE Immed Rel 15 MG TABLET PO PRN ×7 (01:54→23:10)
[2019-02-28] MEDS: Piperacillin/Tazobactam 3.375 GM in 0.9 % Sodium Chloride Mini Bag 100 ML IVPB SCH ×3 (05:02→21:48)
[2019-02-28 05:34] LABS: Basophils % 0.2 %
[2019-02-28 05:36] LABS: Eosinophils # 0.1 K/mcL (0.0-0.6); Eosinophils % 1.3 %; Hematocrit 33.4 % (37.5-50.1); Hemoglobin 10.6 g/dL (12.9-16.9); Immature Granulocytes % 0.9 % (0-4); Immature Platelets 1.9 % (1.1-6.1); Lymphocytes # 1.1 K/mcL (0.6-4.6); Lymphocytes % 23.8 %; Mean Corpuscular HGB Conc 31.7 g/dL (31.6-35.5); Mean Corpuscular Hemoglobin 28.9 pg (28.0-33.3); Mean Platelet Volume 9.1 fL (9.4-12.4); Monocytes # 0.4 K/mcL (0.0-1.3); Monocytes % 7.5 %; Neutrophils # 3.1 K/mcL (1.6-8.9); Red Blood Count 3.67 M/mcL (4.19-5.50); Red Cell Distribution Width 14.1 % (11.5-14.5); Segmented Neutrophils % 66.3 %; White Blood Count 4.7 K/mcL (4.3-11.1)
[2019-02-28 05:38] LABS: Platelet Count 60 K/mcL (140-400)
[2019-02-28 05:42] LABS: INR 1.3; Prothrombin Time 15.1 Seconds (9.4-12.1)
[2019-02-28 05:52] LABS: BUN/Creatinine Ratio 16 (6-26); Blood Urea Nitrogen 15 mg/dL (8-23); Calcium 8.8 mg/dL (8.6-10.3); Carbon Dioxide 26 mEq/L (23-29); Chloride 105 mEq/L (98-107); Glucose 148 mg/dL (70-105); Magnesium 2.1 mg/dL (1.6-2.6); Osmolality,Calculated 290 (280-300); Potassium 3.8 mEq/L (3.5-5.1); Sodium 138 mEq/L (136-145); eGFR For African Americans > 60 (> 60); eGFR For Non-African Americans > 60 (> 60)
[2019-02-28] MEDS: Insulin LISPRO 300 UNITS/3 ML VIAL SQ SCH ×4 (08:07→21:23)
[2019-02-28] MEDS: Sennosides/Docusate Sodium TABLET PO SCH ×2 (08:17→21:47)
[2019-02-28] MEDS: Venlafaxine XR (24 HR) 37.5 MG CAP.ER.24H PO SCH (08:17)
[2019-02-28] MEDS: Cholecalciferol (D-3) 1,000 UNIT (25MCG) TABLET PO SCH (08:18)
[2019-02-28] MEDS: Cyanocobalamin (B-12) 1,000 MCG TABLET PO SCH (08:18)
[2019-02-28] MEDS: Isosorbide MONOnitrate (24 HR) 60 MG TAB.ER.24H PO SCH (08:19)
[2019-02-28] MEDS: Loratadine 10 MG TABLET PO SCH (08:19)
[2019-02-28] MEDS: amLODIPine 5 MG TABLET PO SCH (08:19)
[2019-02-28] MEDS: Fluticasone Propionate Nasal 50 MCG/SPRAY BOTTLE NS SCH (11:28)
--- NOTE | 2019-02-28 13:04 | Internal Med Progress Note ---
Hospitalist Progress Note - Encounter Date of Encounter: 02/28/19 Time of Encounter: 13:00 - Subjective Interval History: Patient was seen and examined at bedside. No acute events overnight. Patient was well-appearing and was complaining of some pain around his right great toe. Toe has not been increasingly painful or draining any pus or fluid. Denies any numbness or tingling. Patient otherwise denied any chest pain, shortness of breath, abdominal pain, nausea, vomiting, fevers, chills. Looking forward to getting surgery. - Exam Vitals: Temp Pulse Resp BP Pulse Ox 98.8 F 66 16 158/78 96 02/28/19 11:32 02/28/19 11:32 02/28/19 11:32 02/28/19 11:32 02/28/19 11:32 Exam: GEN: Well-appearing, NAD, conversant. HEAD: Normocephalic, atraumatic. EYES: PERRL, EOMI, anicteric. ENT: MMM. oropharynx without erythema or drainage. NECK: Supple. No LAD. No stiffness or restricted ROM. No tracheal deviation. HEART: Regular rate and regular rhythm, normal S1/S2, no m/r/g. LUNGS: CTAB, good air exchange bilaterally. No wheezing, rubs, or rhonchi. ABDO: Soft, nontender, nondistended with active bowel sounds. : No suprapubic tenderness or CVA tenderness. BACK: No obvious stepoffs or deformities. EXT: Without cyanosis, clubbing or edema. 4 cm diameter ulceration of the medial aspect of R great toe. 2 cm ulceration of lateral 5 toe. Non-draining. SKIN: Warm and dry without any rash. NEURO: Grossly nonfocal. Alert and oriented, moving all 4 extremities. CN not formally tested but appear grossly intact. PSYCH: Normal affect, no depressed or anxious mood. - Assessment and Plan (1) Diabetic infection of left foot Current Visit: Yes Status: Acute Assessment and Plan: Patient presented with worsening of left great toe infection. Was recently hospitalized for MSSA bacteremia and left great toe osteomyelitis Was originally discharged home with IV cefazolin, but developed worsening thrombocytopenia and was transitioned IV nafcillin. X-ray of the left foot showed possible soft tissue gas, but no bony erosion or osteomyelitis. MRI foot showed osteomyelitis of the first proximal phalanx, bone marrow edema, large deep to soft tissue defect along the first digit, no tenosynovitis. No SIRS criteria. Plan: - Treating infection with vancomycin and zosyn - Blood cultures pending, hx of MSSA - Surgery on Saturday with Dr. Velázquez for possible amputation - Consult to podiatry: 48hrs of antibiotics - Consult to ID: pending blood cultures, cont vanc/zosyn (2) Osteomyelitis Current Visit: Yes Status: Acute Assessment and Plan: Likely secondary to diabetic ulcer of L toe. MRI foot showed osteomyelitis of the first proximal phalanx, bone marrow edema, large deep to soft tissue defect along the first digit, no tenosynovitis. Podiatry/ID following Plan: - Continue antibiotics (3) Diabetes mellitus Current Visit: Yes Status: Chronic Assessment and Plan: Currently holding home meds. Held metformin. SSI and levemir 10 units HS ordered. (4) Thrombocytopenia Current Visit: Yes Status: Acute Assessment and Plan: Likely due to treatment with outpatient cefazolin. Will continue to trend with CBC. (5) CAD (coronary artery disease) Current Visit: No Status: Chronic Assessment and Plan: Cont home meds: coreg, simvastatin, imdur. Hold ASA for podiatry, scheduled surgery. (6) Chronic back pain Current Visit: Yes Status: Chronic Assessment and Plan: Continue home regimen. Does have coinciding constipation. Cont home oxycodone q3hrs PRN. Cont home bowel regiment. (7) Essential hypertension Current Visit: No Status: Chronic Assessment and Plan: - Cont home coreg (8) PTSD (post-traumatic stress disorder) Current Visit: Yes Status: Acute Assessment and Plan: Cont home meds: venlafaxine DVT Prophylaxis: Currently on SCDs on R foot only. - Time Spent with Patient Total time spent is greater than 50% in coordination of care (as documented) at patient's floor/unit and/or counseling patient: less than 15 minutes Plan of Care Discussed with: patient Internal Medicine: Result - Labs CBC & Chem 7: 02/28/19 05:17 02/28/19 05:17 Labs: Short CBC 02/28/19 Range/Units 05:17 WBC 4.7 (4.3-11.1) K/mcL Hgb 10.6 L (12.9-16.9) g/dL Hct 33.4 L (37.5-50.1) % Plt Count 60 L (140-400) K/mcL Neutrophils # 3.1 (1.6-8.9) K/mcL BMP 02/28/19 05:17 Sodium 138 Potassium 3.8 Chloride 105 Carbon Dioxide 26 BUN 15 Creatinine 0.91 Glucose 148 H Calcium 8.8 - ABG Interpretation ABG results: PT/INR, D-dimer PT 15.1 Seconds (9.4-12.1) H 02/28/19 05:17 - Impressions Impressions Foot X-Ray 02/27/19 09:06 IMPRESSION: Increasing soft tissue predominately in the 1st digit. Questionable soft tissue gas between the 1st and 2nd digit. No definite acute erosive changes to suggest osteomyelitis. D/ / 02/27/2019 11:01:34 Rosanna Robles MD / tremayne Interpreting Provider: Rosanna Robles MD Foot MRI 02/27/19 14:17 IMPRESSION: 1. Osteomyelitis of the 1st proximal phalanx. 2. Bone marrow edema without confluent decreased T1 signal throughout the 1st distal phalanx compatible with noninfectious reactive osteitis versus early osteomyelitis. 3. Large deep soft tissue defect along the medial aspect of the 1st digit with an adjacent lobular fluid collection versus phlegmon encasing the 1st proximal phalangeal shaft and extending dorsal to the 1st distal phalanx. D/ / Jean Marie Jose MD / Jean Marie Jose MD Interpreting Provider: Jean Marie Jose MD Consult Discharge Plan - Plan [facility]errals: [facility] [Primary Care Provider] - (2) Osteomyelitis Qualifiers: Osteomyelitis type: acute hematogenous Osteomyelitis location: foot Laterality: left Qualified Code(s): M86.072 - Acute hematogenous osteomyelitis, left ankle and foot (3) Diabetes mellitus Qualifiers: Diabetes mellitus type: type 2 Diabetes mellitus medical terminologist insulin use: with medical terminologist use Diabetes mellitus complication status: with circulatory complication Diabetes mellitus complication detail: with peripheral angiopathy without gangrene Qualified Code(s): E11.51 - Type 2 diabetes mellitus with diabetic peripheral angiopathy without gangrene; Z79.4 - skilled nursing (current) use of insulin (5) CAD (coronary artery disease) Qualifiers: Coronary Disease-Associated Artery/Lesion type: [place] artery [place] vs. transplanted heart: [place] heart Associated angina: without angina Qualified Code(s): I25.10 - Atherosclerotic heart disease of [place] coronary artery without angina pectoris (6) Chronic back pain Qualifiers: Back pain location: low back pain Back pain laterality: bilateral Sciatica presence: with sciatica Sciatica laterality: bilateral sciatica Qualified Code(s): M54.42 - Lumbago with sciatica, left side; M54.41 - Lumbago with sciatica, right side; G89.29 - Other chronic pain
[2019-02-28] MEDS: Insulin DETEMIR 100 UNIT/ML X5UNITS SQ SCH (21:47)
[2019-03-01] MEDS: *HR* OxyCODONE Immed Rel 15 MG TABLET PO PRN ×7 (01:52→21:36)
[2019-03-01] MEDS: Piperacillin/Tazobactam 3.375 GM in 0.9 % Sodium Chloride Mini Bag 100 ML IVPB SCH ×3 (04:32→21:34)
[2019-03-01 04:52] LABS: Hemoglobin 9.7 g/dL (12.9-16.9); Immature Granulocytes % 1.2 % (0-4)
[2019-03-01 04:54] LABS: Basophils % 0.5 %; Eosinophils # 0.1 K/mcL (0.0-0.6); Eosinophils % 2.9 %; Hematocrit 30.8 % (37.5-50.1); Lymphocytes # 1.1 K/mcL (0.6-4.6); Lymphocytes % 27.2 %; Mean Corpuscular HGB Conc 31.5 g/dL (31.6-35.5); Mean Corpuscular Hemoglobin 28.8 pg (28.0-33.3); Mean Corpuscular Volume 91.4 fL (83.0-100.0); Mean Platelet Volume 8.7 fL (9.4-12.4); Monocytes # 0.4 K/mcL (0.0-1.3); Monocytes % 8.7 %; Neutrophils # 2.5 K/mcL (1.6-8.9); Platelet Count 50 K/mcL (140-400); Red Blood Count 3.37 M/mcL (4.19-5.50); Red Cell Distribution Width 14.2 % (11.5-14.5); Segmented Neutrophils % 59.5 %; White Blood Count 4.2 K/mcL (4.3-11.1)
[2019-03-01 05:11] LABS: BUN/Creatinine Ratio 18 (6-26); Blood Urea Nitrogen 18 mg/dL (8-23); Calcium 8.5 mg/dL (8.6-10.3); Carbon Dioxide 25 mEq/L (23-29); Chloride 105 mEq/L (98-107); Glucose 194 mg/dL (70-105); Osmolality,Calculated 295 (280-300); Potassium 4.1 mEq/L (3.5-5.1); Sodium 139 mEq/L (136-145); eGFR For African Americans > 60 (> 60); eGFR For Non-African Americans > 60 (> 60)
[2019-03-01] MEDS: Sennosides/Docusate Sodium TABLET PO SCH ×2 (07:45→21:35)
[2019-03-01] MEDS: Cyanocobalamin (B-12) 1,000 MCG TABLET PO SCH (07:45)
[2019-03-01] MEDS: Isosorbide MONOnitrate (24 HR) 60 MG TAB.ER.24H PO SCH (07:45)
[2019-03-01] MEDS: Cholecalciferol (D-3) 1,000 UNIT (25MCG) TABLET PO SCH (07:45)
[2019-03-01] MEDS: Venlafaxine XR (24 HR) 37.5 MG CAP.ER.24H PO SCH (07:45)
[2019-03-01] MEDS: Loratadine 10 MG TABLET PO SCH (07:46)
[2019-03-01] MEDS: amLODIPine 5 MG TABLET PO SCH (07:46)
[2019-03-01] MEDS: Fluticasone Propionate Nasal 50 MCG/SPRAY BOTTLE NS SCH (07:49)
[2019-03-01] MEDS: Insulin LISPRO 300 UNITS/3 ML VIAL SQ SCH ×4 (07:50→21:34)
--- NOTE | 2019-03-01 12:54 | Internal Med Progress Note ---
Hospitalist Progress Note - Encounter Date of Encounter: 03/01/19 Time of Encounter: 12:51 - Subjective Interval History: Patient was seen and examined at bedside. No acute events overnight. Patient has not had any increased pain or swelling of his left lower extremity. He denies any chest pain, shortness of breath, abdominal pain, nausea, vomiting, f ed, chills. Is looking forward to surgery on Saturday. - Exam Vitals: Temp Pulse Resp BP Pulse Ox 98.1 F 70 18 170/56 96 03/01/19 11:11 03/01/19 11:11 03/01/19 11:11 03/01/19 11:11 03/01/19 11:11 Exam: GEN: Well-appearing, NAD, conversant. HEAD: Normocephalic, atraumatic. EYES: PERRL, EOMI, anicteric. ENT: MMM. oropharynx without erythema or drainage. NECK: Supple. No LAD. No stiffness or restricted ROM. No tracheal deviation. HEART: Regular rate and regular rhythm, normal S1/S2, no m/r/g. LUNGS: CTAB, good air exchange bilaterally. No wheezing, rubs, or rhonchi. ABDO: Soft, nontender, nondistended with active bowel sounds. : No suprapubic tenderness or CVA tenderness. BACK: No obvious stepoffs or deformities. EXT: Without cyanosis, clubbing or edema. 4 cm diameter ulceration of the medial aspect of R great toe. 2 cm ulceration of lateral 5 toe. Non-draining. SKIN: Warm and dry without any rash. NEURO: Grossly nonfocal. Alert and oriented, moving all 4 extremities. CN not formally tested but appear grossly intact. PSYCH: Normal affect, no depressed or anxious mood. - Assessment and Plan (1) Diabetic infection of left foot Current Visit: Yes Status: Acute Assessment and Plan: Patient presented with worsening of left great toe infection. Was recently hospitalized for MSSA bacteremia and left great toe osteomyelitis Was originally discharged home with IV cefazolin, but developed worsening thrombocytopenia and was transitioned IV nafcillin. X-ray of the left foot showed possible soft tissue gas, but no bony erosion or osteomyelitis. MRI L foot showed osteomyelitis of the first proximal phalanx, bone marrow edema, large deep to soft tissue defect along the first digit, no tenosynovitis. No SIRS criteria. Plan: - Treating infection with vancomycin and zosyn - Blood cultures pending with growth of gram-negative rods and gram-positive cocci, hx of MSSA - Surgery on Saturday with Dr. Velázquez for possible amputation - Consult to podiatry: 48hrs of antibiotics - Consult to ID: pending blood cultures, cont vanc/zosyn (2) Osteomyelitis Current Visit: Yes Status: Acute Assessment and Plan: Likely secondary to diabetic ulcer of L toe. MRI foot showed osteomyelitis of the first proximal phalanx, bone marrow edema, large deep to soft tissue defect along the first digit, no tenosynovitis. Podiatry/ID following Plan: - Continue antibiotics (3) Diabetes mellitus Current Visit: Yes Status: Chronic Assessment and Plan: Currently holding home meds. Held metformin. SSI and levemir 10 units HS ordered. (4) Thrombocytopenia Current Visit: Yes Status: Acute Assessment and Plan: Likely due to treatment with outpatient cefazolin. Will continue to trend with CBC. (5) CAD (coronary artery disease) Current Visit: No Status: Chronic Assessment and Plan: Cont home meds: coreg, simvastatin, imdur. Hold ASA for podiatry, scheduled surgery. (6) Chronic back pain Current Visit: Yes Status: Chronic Assessment and Plan: Continue home regimen. Does have coinciding constipation. Cont home oxycodone q3hrs PRN. Cont home bowel regiment. (7) Essential hypertension Current Visit: No Status: Chronic Assessment and Plan: - Cont home coreg (8) PTSD (post-traumatic stress disorder) Current Visit: Yes Status: Acute Assessment and Plan: Cont home meds: venlafaxine DVT Prophylaxis: Currently on SCDs on R foot only. - Time Spent with Patient Total time spent is greater than 50% in coordination of care (as documented) at patient's floor/unit and/or counseling patient: less than 15 minutes Plan of Care Discussed with: patient Internal Medicine: Result - Labs CBC & Chem 7: 03/01/19 04:39 03/01/19 04:39 Labs: Short CBC 03/01/19 Range/Units 04:39 WBC 4.2 L (4.3-11.1) K/mcL Hgb 9.7 L (12.9-16.9) g/dL Hct 30.8 L (37.5-50.1) % Plt Count 50 L (140-400) K/mcL Neutrophils # 2.5 (1.6-8.9) K/mcL BMP 03/01/19 04:39 Sodium 139 Potassium 4.1 Chloride 105 Carbon Dioxide 25 BUN 18 Creatinine 0.98 Glucose 194 H Calcium 8.5 L - ABG Interpretation ABG results: PT/INR, D-dimer PT 15.1 Seconds (9.4-12.1) H 02/28/19 05:17 Consult Discharge Plan - Plan Referrals: [facility] [Primary Care Provider] - (2) Osteomyelitis Qualifiers: Osteomyelitis type: acute hematogenous Osteomyelitis location: foot Laterality: left Qualified Code(s): M86.072 - Acute hematogenous osteomyelitis, left ankle and foot (3) Diabetes mellitus Qualifiers: Diabetes mellitus type: type 2 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 transplanted heart: [place] heart Associated angina: without angina Qualified Code(s): I25.10 - Atherosclerotic heart disease of [place] coronary artery without angina pectoris (6) Chronic back pain Qualifiers: Back pain location: low back pain Back pain laterality: bilateral Sciatica presence: with sciatica Sciatica laterality: bilateral sciatica Qualified Code(s): M54.42 - Lumbago with sciatica, left side; M54.41 - Lumbago with sciatica, right side; G89.29 - Other chronic pain
[2019-03-01] MEDS: Insulin DETEMIR 100 UNIT/ML X5UNITS SQ SCH (21:35)
[2019-03-02] MEDS: *HR* OxyCODONE Immed Rel 15 MG TABLET PO PRN ×8 (00:43→23:12)
[2019-03-02] MEDS: Piperacillin/Tazobactam 3.375 GM in 0.9 % Sodium Chloride Mini Bag 100 ML IVPB SCH ×2 (04:34→13:47)
[2019-03-02 04:49] LABS: Hemoglobin 9.6 g/dL (12.9-16.9); Mean Platelet Volume 8.6 fL (9.4-12.4)
[2019-03-02 04:51] LABS: Hematocrit 30.4 % (37.5-50.1); Immature Platelets 1.4 % (1.1-6.1); Mean Corpuscular HGB Conc 31.6 g/dL (31.6-35.5); Mean Corpuscular Hemoglobin 28.7 pg (28.0-33.3); Red Blood Count 3.34 M/mcL (4.19-5.50); Red Cell Distribution Width 14.2 % (11.5-14.5); White Blood Count 4.2 K/mcL (4.3-11.1)
[2019-03-02 05:06] LABS: BUN/Creatinine Ratio 18 (6-26); Blood Urea Nitrogen 17 mg/dL (8-23); Calcium 8.5 mg/dL (8.6-10.3); Carbon Dioxide 22 mEq/L (23-29); Chloride 108 mEq/L (98-107); Glucose 165 mg/dL (70-105); Osmolality,Calculated 293 (280-300); Sodium 139 mEq/L (136-145); eGFR For African Americans > 60 (> 60); eGFR For Non-African Americans > 60 (> 60)
[2019-03-02] MEDS: Insulin LISPRO 300 UNITS/3 ML VIAL SQ SCH ×4 (07:52→22:09)
[2019-03-02] MEDS: Isosorbide MONOnitrate (24 HR) 60 MG TAB.ER.24H PO SCH (07:54)
[2019-03-02] MEDS: Cyanocobalamin (B-12) 1,000 MCG TABLET PO SCH (07:55)
[2019-03-02] MEDS: amLODIPine 5 MG TABLET PO SCH (07:55)
[2019-03-02] MEDS: Venlafaxine XR (24 HR) 37.5 MG CAP.ER.24H PO SCH (07:55)
[2019-03-02] MEDS: Cholecalciferol (D-3) 1,000 UNIT (25MCG) TABLET PO SCH (07:55)
[2019-03-02] MEDS: Loratadine 10 MG TABLET PO SCH (07:56)
[2019-03-02] MEDS: Sennosides/Docusate Sodium TABLET PO SCH ×2 (07:56→22:08)
[2019-03-02] MEDS: Fluticasone Propionate Nasal 50 MCG/SPRAY BOTTLE NS SCH (07:58)
--- NOTE | 2019-03-02 09:21 | Infectious Disease Progress No ---
ID Progress Note Date of Encounter: 03/02/19 Time of Encounter: 08:50 - Subjective Subjective: Patient seen and examined. No acute events overnight. Patient states overall he feels better. Reports some sweating overnight, but denies any known fevers, chills, or rigors. Denies headache. Reports chronic neck pain. Denies chest pain, shortness of breath, or cough. Denies nausea, vomiting, or constipation. Reports 2 loose stools per day. Denies abdominal pain or urinary complaints. Complaints of pain in the left foot in his lower back. Denies oral thrush or skin rashes. - Objective CBC & Chem 7: 03/03/19 05:35 03/03/19 05:35 - Line Documentation Line Documentation: PICC Line (Right upper extremity) - Exam Vitals: Temp Pulse Resp BP Pulse Ox 98.5 F 73 16 158/76 98 03/02/19 06:50 03/02/19 06:50 03/02/19 06:50 03/02/19 06:50 03/02/19 06:50 Exam: Head: Atraumatic, normal inspection, normocephalic. Eye: EOMI, PERRLA, no scleral icterus noted. ENT: Mucous membranes moist. No odontogenic infection noted. Neck: Normal inspection, no meningismus. Respiratory: Clear to auscultation. No rales, respiratory distress, rhonchi, or wheezes noted. Cardiovascular: Regular rate and rhythm, S1 and S2 audible. No murmurs, rubs, or gallops. GI: Soft, obese, normal bowel sounds. Nontender. Extremities: No joint swelling, pedal edema, or tenderness noted. Venous stasis dermatitis noted to the bilateral lower extremities. Left foot dressing clean, dry, and intact. Neurological: Alert, oriented 3, no focal deficits. Psychiatric: normal affect, normal mood. Skin: Dry, intact, warm. Normal color. No rashes. - Assessment and Plan (1) Diabetic infection of left foot Current Visit: Yes Status: Acute Location: Left foot. Causative organism: Enterobacter cloacae, MSSA. Failed outpatient IV antibiotics. X-ray negative for worsening osteomyelitis. MRI of the left foot shows osteomyelitis of the first proximal phalanx as well as bone marrow edema with complaint of decreased T1 signal throughout the first distal phalanx compatible with noninfectious reactive osteitis versus early osteomyelitis. There is also a large deep soft tissue defect along the medial aspect of the first digit with an adjacent lobular fluid collection versus phlegmon encasing the first proximal phalangeal shaft and extending dorsal to the first distal phalanx. Blood cultures drawn 02/27/19 are no growth to date. Podiatry consulted. Planning possible amputation of the toe later today. Currently on Vanc and Zosyn. SNOMED Code(s): 10615665 (2) Osteomyelitis Current Visit: Yes Status: Acute Location: First and second ray of the left foot. Causative organism: MSSA. Likely secondary to have excellent ulcer. MRI of the left foot showed osteomyelitis of the first and second ray with cellulitis with probable infectious tenosynovitis of the extensor hallucis tendon extending beyond the field of view as well as tenosynovitis of the flexor tendon of the first ray with mild enhancement after contrast administration. Podiatry consulted. Status post incision and drainage and debridement of all devitalized tissue multiple planes of the left great toe and foot and incision and drainage and debridement of all devitalized tissue multiple planes of the second toe left foot 02/04/[address] Velázquez. Operative note reviewed. Intraopera tive cultures are positive for MSSA. No specimen sent for pathology. Discharged home on IV cefazolin. Transitioned to Nafcillin due to thrombocytopenia. MRI 63, CRP 12. MRI of the left foot 02/27/19 shows osteoarthritis of the first proximal phalanx and possible distal phalanx. Podiatry consult and following. Planning operative intervention later today. Qualifiers: Osteomyelitis type: acute hematogenous Osteomyelitis location: foot Laterality: left Qualified Code(s): M86.072 - Acute hematogenous osteomyelitis, left ankle and foot SNOMED Code(s): 06226925 (3) Bacteremia Current Visit: No Status: Acute Causative organism: MSSA. Source: Left toe infection. Blood cultures drawn 01/27/19 were +2 out of 2 sets for MSSA. Repeat blood cultures on 01/29/19 were +2 out of 2 sets. Repeat blood cultures on 02/01/19 were negative 2 sets. Complicated due to osteomyelitis. Rheumatoid factor <10. TTE suboptimal to evaluate for endocarditis. VICKEY deferred. Was on cefazolin. Transitioned to Iv Nafcillin. Repeat blood cultures drawn 02/27/19 are NGTD x 2 sets. SNOMED Code(s): 9653472 (4) Thrombocytopenia Current Visit: Yes Status: Acute Etiology: Infection vs. antibiotic-related. No acute bleeding noted on exam. Continue to trend. SNOMED Code(s): 390830439 (5) Diabetes mellitus Current Visit: Yes Status: Chronic Uncontrolled. Hemoglobin A1c 8.5%. Recommend aggressive glucose monitoring and control to promote wound healing and prevent reinfection. Management per the primary team. 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 transplanted heart: [place] heart Associated angina: without angina Qualified Code(s): I25.10 - Atherosclerotic heart disease of [place] coronary artery without angina pectoris SNOMED Code(s): 51256401 (7) Essential hypertension Current Visit: No Status: Chronic SNOMED Code(s): 61427082 (8) Mixed hyperlipidemia Current Visit: No Status: Acute SNOMED Code(s): 790484590 (9) Atherosclerosis of [place] arteries of left leg with ulceration of other part of foot Current Visit: No Status: Chronic Bilateral DAVID studies were normal. Bilateral TCP O2 monitoring showed ischemia. Arterial duplex study of the left lower extremity showed minimal plaque. SNOMED Code(s): 040851770978480, 486001255, [id number] - Recommendations Recommendations: Await blood cultures to finalize. Await intraoperative cultures and findings. Wound care per the podiatry team. Discontinue Vanc and Zosyn. Start Nafcillin 2 grams IV Q4H. Start Levaquin 750mg IV daily. Duration of treatment depends on the clinical picture, but likely 6 weeks. Monitor renal function and for drug toxicity and dose adjust antibiotics. Consult Discharge Plan - Plan Referrals: [facility] [Primary Care Provider] - - Attending Attestation I have personally performed a face to face evaluation on this patient. I have reviewed and agree with the care plan. History and Exam by me shows: Assessment and plan: Diabetic infection of the left foot causative organism Enterobacter and MSSA failed outpatient treatment Osteomyelitis first and second ray of the left foot Bacteremia with MSSA Thrombocytopenia was concerned to be antibiotics related patients with from cefazolin to nafcillin Recommendations: Await blood cultures to finalize. Await intraoperative cultures and findings. Wound care per the podiatry team. Discontinue Vanc and Zosyn. Start Nafcillin 2 grams IV Q4H. Start Levaquin 750mg IV daily. Duration of treatment depends on the clinical picture, but likely 6 weeks. Monitor renal function and for drug toxicity and dose adjust antibiotics.
[2019-03-02] MEDS ORDERED: Aminoglycoside Consult 1 EACH MC ONE (10:18)
--- NOTE | 2019-03-02 16:02 | Internal Med Progress Note ---
Hospitalist Progress Note - Encounter Date of Encounter: 03/02/19 Time of Encounter: 15:58 - Subjective Interval History: Patient was seen and examined at bedside. No acute events overnight. Patient has no complaints today. Patient denies any nausea, vomiting, fevers, chills. No abdominal pain, chest pain, shortness of breath. Has not had any pain or numbness/tingling of his feet. Is awaiting surgery with podiatry today. - Exam Vitals: Temp Pulse Resp BP Pulse Ox 98.0 F 69 17 168/76 98 03/02/19 11:16 03/02/19 11:16 03/02/19 11:16 03/02/19 11:16 03/02/19 11:16 Exam: GEN: Well-appearing, NAD, conversant. HEAD: Normocephalic, atraumatic. EYES: PERRL, EOMI, anicteric. ENT: MMM. oropharynx without erythema or drainage. NECK: Supple. No LAD. No stiffness or restricted ROM. No tracheal deviation. HEART: Regular rate and regular rhythm, normal S1/S2, no m/r/g. LUNGS: CTAB, good air exchange bilaterally. No wheezing, rubs, or rhonchi. ABDO: Soft, nontender, nondistended with active bowel sounds. : No suprapubic tenderness or CVA tenderness. BACK: No obvious stepoffs or deformities. EXT: Without cyanosis, clubbing or edema. 4 cm diameter ulceration of the medial aspect of R great toe. 2 cm ulceration of lateral 5 toe. Non-draining. SKIN: Warm and dry without any rash. NEURO: Grossly nonfocal. Alert and oriented, moving all 4 extremities. CN not formally tested but appear grossly intact. PSYCH: Normal affect, no depressed or anxious mood. - Assessment and Plan (1) Diabetic infection of left foot Current Visit: Yes Status: Acute Assessment and Plan: Patient presented with worsening of left great toe infection. Was recently hospitalized for MSSA bacteremia and left great toe osteomyelitis Was originally discharged home with IV cefazolin, but developed worsening thrombocytopenia and was transitioned IV nafcillin. X-ray of the left foot showed possible soft tissue gas, but no bony erosion or osteomyelitis. MRI L foot showed osteomyelitis of the first proximal phalanx, bone marrow edema, large deep to soft tissue defect along the first digit, no tenosynovitis. No SIRS criteria. Plan: - Treating infection with vancomycin and zosyn, now discontinued - Blood cultures pending with wound cultures growing Enterobacter cloacae and staph aureus, hx of MSSA - Surgery on Saturday with Dr. Velázquez for possible amputation - Consult to podiatry: surgery today - Consult to ID: pending blood cultures, start nafcillin and levaquin most likely for 6 weeks - Monitor renal function and for drug toxicity and dose adjust antibiotics. (2) Osteomyelitis Current Visit: Yes Status: Acute Assessment and Plan: Likely secondary to diabetic ulcer of L toe. MRI foot showed osteomyelitis of the first proximal phalanx, bone marrow edema, large deep to soft tissue defect along the first digit, no tenosynovitis. Podiatry/ID following Plan: - Continue new antibiotics (3) Diabetes mellitus Current Visit: Yes Status: Chronic Assessment and Plan: Currently holding home meds. Held metformin. SSI and levemir 10 units HS ordered. (4) Thrombocytopenia Current Visit: Yes Status: Acute Assessment and Plan: Likely due to treatment with outpatient cefazolin. Will continue to trend with CBC. (5) CAD (coronary artery disease) Current Visit: No Status: Chronic Assessment and Plan: Cont home meds: coreg, simvastatin, imdur. Hold ASA for podiatry, scheduled surgery. (6) Chronic back pain Current Visit: Yes Status: Chronic Assessment and Plan: Continue home regimen. Does have coinciding constipation. Cont home oxycodone q3hrs PRN. Cont home bowel regiment. (7) Essential hypertension Current Visit: No Status: Chronic Assessment and Plan: - Cont home coreg (8) PTSD (post-traumatic stress disorder) Current Visit: Yes Status: Acute Assessment and Plan: Cont home meds: venlafaxine DVT Prophylaxis: Currently on SCDs on R foot only. - Time Spent with Patient Total time spent is greater than 50% in coordination of care (as documented) at patient's floor/unit and/or counseling patient: less than 15 minutes Plan of Care Discussed with: patient Internal Medicine: Result - Labs CBC & Chem 7: 03/02/19 04:25 03/02/19 04:25 Labs: Short CBC 03/02/19 Range/Units 04:25 WBC 4.2 L (4.3-11.1) K/mcL Hgb 9.6 L (12.9-16.9) g/dL Hct 30.4 L (37.5-50.1) % Plt Count 49 L (140-400) K/mcL [facility] 03/02/19 04:25 Sodium 139 Potassium 4.0 Chloride 108 H Carbon Dioxide 22 L BUN 17 Creatinine 0.95 Glucose 165 H Calcium 8.5 L - ABG Interpretation ABG results: PT/INR, D-dimer PT 15.1 Seconds (9.4-12.1) H 02/28/19 05:17 Consult Discharge Plan - Plan [facility]errals: [facility] [Primary Care Provider] - (2) Osteomyelitis Qualifiers: Osteomyelitis type: acute hematogenous Osteomyelitis location: foot Laterality: left Qualified Code(s): M86.072 - Acute hematogenous osteomyelitis, left ankle and foot (3) Diabetes mellitus Qualifiers: Diabetes mellitus type: type 2 Diabetes mellitus shelter insulin use: with shelter use Diabetes mellitus complication status: with circulatory complication Diabetes mellitus complication detail: with peripheral angiopathy without gangrene Qualified Code(s): E11.51 - Type 2 diabetes mellitus with diabetic peripheral angiopathy without gangrene; Z79.4 - senior care (current) use of insulin (5) CAD (coronary artery disease) Qualifiers: Coronary Disease-Associated Artery/Lesion type: [place] artery [place] vs. transplanted heart: [place] heart Associated angina: without angina Qualified Code(s): I25.10 - Atherosclerotic heart disease of [place] coronary artery without angina pectoris (6) Chronic back pain Qualifiers: Back pain location: low back pain Back pain laterality: bilateral Sciatica presence: with sciatica Sciatica laterality: bilateral sciatica Qualified Code(s): M54.42 - Lumbago with sciatica, left side; M54.41 - Lumbago with sciatica, right side; G89.29 - Other chronic pain
[2019-03-02] MEDS: levoFLOXacin 750 MG/150 ML 750 MG/150 ML BAG IVPB SCH (19:17)
[2019-03-02] MEDS: Nafcillin 2,000 MG in 0.9 % Sodium Chloride Mini Bag 100 ML IVPB SCH (20:30)
[2019-03-02] MEDS: Insulin DETEMIR 100 UNIT/ML X5UNITS SQ SCH (22:13)
[2019-03-03] MEDS: Nafcillin 2,000 MG in 0.9 % Sodium Chloride Mini Bag 100 ML IVPB SCH ×6 (02:33→23:08)
[2019-03-03] MEDS: *HR* OxyCODONE Immed Rel 15 MG TABLET PO PRN ×5 (05:20→23:07)
[2019-03-03 06:02] LABS: Hemoglobin 10.3 g/dL (12.9-16.9); Mean Platelet Volume 9.1 fL (9.4-12.4); Red Cell Distribution Width 14.2 % (11.5-14.5)
[2019-03-03 06:04] LABS: Hematocrit 32.2 % (37.5-50.1); Immature Platelets 1.6 % (1.1-6.1); Mean Corpuscular Volume 90.7 fL (83.0-100.0); Red Blood Count 3.55 M/mcL (4.19-5.50); White Blood Count 5.6 K/mcL (4.3-11.1)
[2019-03-03 06:23] LABS: BUN/Creatinine Ratio 17 (6-26); Blood Urea Nitrogen 18 mg/dL (8-23); Calcium 8.9 mg/dL (8.6-10.3); Carbon Dioxide 23 mEq/L (23-29); Chloride 106 mEq/L (98-107); Glucose 164 mg/dL (70-105); Osmolality,Calculated 296 (280-300); Sodium 140 mEq/L (136-145); eGFR For African Americans > 60 (> 60); eGFR For Non-African Americans > 60 (> 60)
[2019-03-03] MEDS: Isosorbide MONOnitrate (24 HR) 60 MG TAB.ER.24H PO SCH (08:12)
[2019-03-03] MEDS: Cyanocobalamin (B-12) 1,000 MCG TABLET PO SCH (08:12)
[2019-03-03] MEDS: *HR* HYDROcodone/Acet 5/325 mg TABLET PO PRN (08:12)
[2019-03-03] MEDS: Venlafaxine XR (24 HR) 37.5 MG CAP.ER.24H PO SCH (08:12)
[2019-03-03] MEDS: Cholecalciferol (D-3) 1,000 UNIT (25MCG) TABLET PO SCH (08:12)
[2019-03-03] MEDS: Loratadine 10 MG TABLET PO SCH (08:12)
[2019-03-03] MEDS: amLODIPine 5 MG TABLET PO SCH (08:13)
[2019-03-03] MEDS: Sennosides/Docusate Sodium TABLET PO SCH (08:14)
[2019-03-03] MEDS: Insulin LISPRO 300 UNITS/3 ML VIAL SQ SCH ×3 (08:14→15:46)
[2019-03-03] MEDS: Fluticasone Propionate Nasal 50 MCG/SPRAY BOTTLE NS SCH (08:14)
--- NOTE | 2019-03-03 09:38 | Infectious Disease Progress No ---
ID Progress Note Date of Encounter: 03/03/19 Time of Encounter: 09:05 - Subjective Subjective: Patient seen and examined. No acute events overnight. Patient states overall he feels better. Denies any known fevers, chills, or rigors. Denies headache. Reports chronic neck pain. Denies chest pain, shortness of breath, or cough. Denies nausea, vomiting, or constipation. Reports 2 loose stools per day. Denies abdominal pain or urinary complaints. Complaints of pain in the left foot and in his lower back. Denies oral thrush or skin rashes. Pending OR today. - Objective CBC & Chem 7: 03/03/19 05:35 03/03/19 05:35 - Line Documentation Line Documentation: PICC Line (Right upper extremity) - Exam Vitals: Temp Pulse Resp BP Pulse Ox 98.5 F 72 18 188/82 97 03/03/19 06:51 03/03/19 06:51 03/03/19 06:51 03/03/19 06:51 03/03/19 06:51 Exam: Head: Atraumatic, normal inspection, normocephalic. Eye: EOMI, PERRLA, no scleral icterus noted. ENT: Mucous membranes moist. No odontogenic infection noted. Neck: Normal inspection, no meningismus. Respiratory: Clear to auscultation. No rales, respiratory distress, rhonchi, or wheezes noted. Cardiovascular: Regular rate and rhythm, S1 and S2 audible. No murmurs, rubs, or gallops. GI: Soft, obese, normal bowel sounds. Nontender. Extremities: No joint swelling, pedal edema, or tenderness noted. Venous stasis dermatitis noted to the bilateral lower extremities. Left foot dressing clean, dry, and intact. Neurological: Alert, oriented 3, no focal deficits. Psychiatric: normal affect, normal mood. Skin: Dry, intact, warm. Normal color. No rashes. - Assessment and Plan (1) Diabetic infection of left foot Current Visit: Yes Status: Acute Location: Left foot. Causative organism: Enterobacter cloacae, MSSA. Failed outpatient IV antibiotics. X-ray negative for worsening osteomyelitis. MRI of the left foot shows osteomyelitis of the first proximal phalanx as well as bone marrow edema with complaint of decreased T1 signal throughout the first distal phalanx compatible with noninfectious reactive osteitis versus early osteomyelitis. There is also a large deep soft tissue defect along the medial aspect of the first digit with an adjacent lobular fluid collection versus phlegmon encasing the first proximal phalangeal shaft and extending dorsal to the first distal phalanx. Blood cultures drawn 02/27/19 are no growth to date. Podiatry consulted. Planning possible amputation of the toe later today. Currently on Nafcillin and Levaquin. SNOMED Code(s): 23572073 (2) Osteomyelitis Current Visit: Yes Status: Acute Location: First and second ray of the left foot. Causative organism: MSSA. Likely secondary to have excellent ulcer. MRI of the left foot showed osteomyelitis of the first and second ray with cellulitis with probable infectious tenosynovitis of the extensor hallucis tendon extending beyond the field of view as well as tenosynovitis of the flexor tendon of the first ray with mild enhancement after contrast administration. Podiatry consulted. Status post incision and drainage and debridement of all devitalized tissue multiple planes of the left great toe and foot and incision and drainage and debridement of all devitalized tissue multiple planes of the second toe left foot 02/04/[address] Velázquez. Operative note reviewed. Intraoperative cultures are positive for MSSA. No specimen sent for pathology. Discharged home on IV cefazolin. Transitioned to Nafcillin due to thrombocytopenia. MRI 63, CRP 12. MRI of the left foot 02/27/19 shows osteomyelitis of the first proximal phalanx and possible distal phalanx. Podiatry consult and following. Planning operative intervention later today. Currently on Nafcillin and Levaquin. Qualifiers: Osteomyelitis type: acute hematogenous Osteomyelitis location: foot Laterality: left Qualified Code(s): M86.072 - Acute hematogenous osteomyelitis, left ankle and foot SNOMED Code(s): 65530847 (3) Bacteremia Current Visit: No Status: Acute Causative organism: MSSA. Source: Left toe infection. Blood cultures drawn 01/27/19 were +2 out of 2 sets for MSSA. Repeat blood cultures on 01/29/19 were +2 out of 2 sets. Repeat blood cultures on 02/01/19 were negative 2 sets. Complicated due to osteomyelitis. Rheumatoid factor <10. TTE suboptimal to evaluate for endocarditis. VICKEY deferred. Was on cefazolin. Transitioned to Iv Nafcillin. Repeat blood cultures drawn 02/27/19 are NGTD x 2 sets. SNOMED Code(s): 3931607 (4) Thrombocytopenia Current Visit: Yes Status: Acute Etiology: Infection vs. antibiotic-related. No acute bleeding noted on exam. Improved. Continue to trend. SNOMED Code(s): 167770981 (5) Diabetes mellitus Current Visit: Yes Status: Chronic Uncontrolled. Hemoglobin A1c 8.5%. Recommend aggressive glucose monitoring and control to promote wound healing and prevent reinfection. Management per the primary team. Qualifiers: Diabetes mellitus type: type 2 Diabetes mellitus middle or intermediate school principal insulin use: with correction use Diabetes mellitus complication status: with circulatory complication Diabetes mellitus complication detail: with peripheral angiopathy without gangrene Qualified Code(s): E11.51 - Type 2 diabetes mellitus with diabetic peripheral angiopathy without gangrene; Z79.4 - group home (current) use of insulin SNOMED Code(s): 36219865 (6) CAD (coronary artery disease) Current Visit: No Status: Chronic Qualifiers: Coronary Disease-Associated Artery/Lesion type: [place] artery [place] vs. transplanted heart: [place] heart Associated angina: without angina Qualified Code(s): I25.10 - Atherosclerotic heart disease of [place] coronary artery without angina pectoris SNOMED Code(s): 62957349 (7) Essential hypertension Current Visit: No Status: Chronic SNOMED Code(s): 47534348 (8) Mixed hyperlipidemia Current Visit: No Status: Acute SNOMED Code(s): 419790919 (9) Atherosclerosis of [place] arteries of left leg with ulceration of other part of foot Current Visit: No Status: Chronic Bilateral DAVID studies were normal. Bilateral TCP O2 monitoring showed ischemia. Arterial duplex study of the left lower extremity showed minimal plaque. SNOMED Code(s): 771170274614124, 973108878, [id number] - Recommendations Recommendations: Await blood cultures to finalize. Await intraoperative cultures and findings. Wound care per the podiatry team. Continue Nafcillin 2 grams IV Q4H. Continue Levaquin 750mg IV daily. Duration of treatment depends on the clinical picture, but likely 6 weeks. Monitor renal function and for drug toxicity and dose adjust antibiotics. Consult Discharge Plan - Plan Referrals: [facility] [Primary Care Provider] -
--- NOTE | 2019-03-03 09:48 | Podiatry Progress Note ---
Date of Encounter: 03/03/19 Time of Encounter: 09:25 - Assessment and Plan (1) Diabetic infection of left foot Current Visit: Yes Status: Acute Assessment: -Dressing dry and intact, no strike through noted -No calf pain with squeeze -WBC 5.6 -ESR 63, CRP 12 -DAVID 01/27/19 Right PT 0.94 DP 1.01 Left PT 0.97 DP 0.99 -TCPO2 01/29/19 Right ankle 19 foot 20 Left ankle 22 foot 10 -MR 02/27/19 1. Osteomyelitis of the 1st proximal phalanx. 2. Bone marrow edema without confluent decreased T1 signal throughout the 1st distal phalanx compatible with noninfectious reactive osteitis versus early osteomyelitis. 3. Large deep soft tissue defect along the medial aspect of the 1st digit with an adjacent lobular fluid collection versus phlegmon encasing the 1st proximal phalangeal shaft and extending dorsal to the 1st distal phalanx. -XR showed no OM but questionable for subcutaneous gas -Culture final for Enterobacter cloacae complex and Staph. aereus, Zosyn and Vanc discontinued, patient started on Levaquin and Nafcillin, ID onboard Plan: -OR today with Dr. Velázquez, remain NPO -Vascular consult for follow up from last visit, at that time Dr. Fuchs recommended ultimately angiography to confirm patency of distal tibial vessels, but given ABIs and waveforms podiatry could proceed with debridement. He was to follow up outpatient, but never followed up outpatient due to being admitted back to the hospital. Subjective Interval history: Patient is alert and oriented, no acute distress noted, sitting in chair at bedside. Patient reports minimal pain and rates his pain as a 5 and tolerable. He reports he is doing okay as long as he receives his pain medication in a timely manner. He denies any chest pain, shortness of breath, calf pain, or n/v/d. His is at bedside. He states he is ready for surgery. Patient reports [facility] and they are arranging support for him when he returns home to help with bathing and transportation. Objective - Vital Signs Vital Signs: Vital Signs Temp Pulse Resp BP Pulse Ox 03/03/19 06:51 98.5 F 72 18 188/82 97 03/03/19 03:47 98.2 F 70 20 152/68 96 03/02/19 23:12 98.1 F 73 20 173/90 97 03/02/19 19:11 98.2 F 63 20 172/82 97 03/02/19 16:50 98.2 F 74 16 188/78 98 03/02/19 11:16 98.0 F 69 17 168/76 98 Intake and Output 03/02/19 03/03/19 03/03/19 23:59 07:59 15:59 Intake Total 200 / 900 450 / 550 100 / 550 Output Total 200 / 200 Balance 200 / 200 250 / 350 100 / 350 Intake: IV Fluids 100 / 800 200 / 300 100 / 300 Nafcillin 2,000 MG In 0.9 % 100 / 100 200 / 300 100 / 300 Sodium Chloride (Mini-Bag +) 100 ML @ 200 mls/hr IVPB Q4HR [facility] Rx#:[id number] Oral 100 / 100 250 / 250 Output: Urine 200 / 200 Other: Stool Size Large Stool Consistency loose Stool Characteristics Tarry Stool Color Green # Voids 1 Weight 121.57 kg Blood Glucose* 139 162 Patient Weight 03/03/19 23:59 Weight 121.57 kg - Exam Exam: Constitutional: Alert and oriented x 3. Well nourished. No acute distress noted Vascular: No calf pain with squeeze LLE, skin warm to LLE Dermatological: Dressing dry and intact, no strike through noted Musculoskeletal: 4/5 muscle strength and normal tone bilaterally. - Lab Result Diagrams: 03/03/19 05:35 03/03/19 05:35 Labs: Abnormal lab results WBC 4.2 K/mcL (4.3-11.1) L 03/02/19 04:25 RBC 3.55 M/mcL (4.19-5.50) L 03/03/19 05:35 Hgb 10.3 g/dL (12.9-16.9) L 03/03/19 05:35 Hct 32.2 % (37.5-50.1) L 03/03/19 05:35 MCHC 31.5 g/dL (31.6-35.5) L 03/01/19 04:39 Plt Count 55 K/mcL (140-400) L 03/03/19 05:35 MPV 9.1 fL (9.4-12.4) L 03/03/19 05:35 Immature Plt Fraction 1.0 % (1.1-6.1) L 03/01/19 04:39 ESR 63 mm/hr (0-10) H 02/27/19 14:04 PT 15.1 Seconds (9.4-12.1) H 02/28/19 05:17 Chloride 108 mEq/L (98-107) H 03/02/19 04:25 Carbon Dioxide 22 mEq/L (23-29) L 03/02/19 04:25 Glucose 164 mg/dL (70-105) H 03/03/19 05:35 POC Glucose 139 mg/dL (70-99) H 03/02/19 20:08 Calcium 8.5 mg/dL (8.6-10.3) L 03/02/19 04:25 C-Reactive Protein 12 mg/L (Less than 10) H 02/27/19 14:04 Vancomycin Trough 16 mcg/mL (5-10) H 02/28/19 21:57 Microbiology, Last 48 Hours 02/28/19 02:12 Wound Culture - Final Left Great Toe Enterobacter cloacae complex Staphylococcus aureus Consult Discharge Plan - Plan [facility]errals: [facility] [Primary Care Provider] -
--- NOTE | 2019-03-03 14:09 | Internal Med Progress Note ---
Hospitalist Progress Note - Encounter Date of Encounter: 03/03/19 Time of Encounter: 14:07 - Subjective Interval History: Patient was seen and examined at bedside. No acute complaints at this time. He did not go into surgery yesterday, surgery will be today. Denies fevers, chills, headache, chest pain, shortness of breath, palpitations, cough, abdomin al pain, N/V/D/C, melena, hemoptysis, hematochezia, dysuria, urinary frequency/urgency, peripheral edema. - Exam Vitals: Temp Pulse Resp BP Pulse Ox 98.5 F 66 18 179/86 98 03/03/19 11:03 03/03/19 11:03 03/03/19 11:03 03/03/19 11:03 03/03/19 11:03 Exam: GEN: Well-appearing, NAD, conversant. HEAD: Normocephalic, atraumatic. EYES: PERRL, EOMI, anicteric. ENT: MMM. oropharynx without erythema or drainage. NECK: Supple. No LAD. No stiffness or restricted ROM. No tracheal deviation. HEART: Regular rate and regular rhythm, normal S1/S2, no m/r/g. LUNGS: CTAB, good air exchange bilaterally. No wheezing, rubs, or rhonchi. ABDO: Soft, nontender, nondistended with active bowel sounds. : No suprapubic tenderness or CVA tenderness. BACK: No obvious stepoffs or deformities. EXT: Without cyanosis, clubbing or edema. 4 cm diameter ulceration of the medial aspect of R great toe. 2 cm ulceration of lateral 5 toe. Non-draining. SKIN: Warm and dry without any rash. NEURO: Grossly nonfocal. Alert and oriented, moving all 4 extremities. CN not formally tested but appear grossly intact. PSYCH: Normal affect, no depressed or anxious mood. - Assessment and Plan (1) Diabetic infection of left foot Current Visit: Yes Status: Acute Assessment and Plan: - Patient presented with worsening of left great toe infection. Was recently hospitalized for MSSA bacteremia and left great toe osteomyelitis - Was originally discharged home with IV cefazolin, but developed worsening thrombocytopenia and was transitioned IV nafcillin. - X-ray of the left foot showed possible soft tissue gas, but no bony erosion or osteomyelitis. - MRI L foot showed osteomyelitis of the first proximal phalanx, bone marrow edema, large deep to soft tissue defect along the first digit, no tenosynovitis. - No SIRS criteria. - Treating infection with vancomycin and zosyn, now discontinued - wound cultures growing Enterobacter cloacae and staph aureus, hx of MSSA - Blood cultures results pending - ID recs: nafcillin and levaquin (day 2) most likely for 6 weeks - Monitor renal function (creatinine 1.03) and for drug toxicity and dose adjust antibiotics - Surgery planned for today 03/[address] Velázquez for possible amputation (2) Osteomyelitis Current Visit: Yes Status: Acute Assessment and Plan: Likely secondary to diabetic ulcer of L toe. MRI foot showed osteomyelitis of the first proximal phalanx, bone marrow edema, large deep to soft tissue defect along the first digit, no tenosynovitis. Podiatry/ID following Plan: - Continue new antibiotics, nafcillin and Levaquin (3) Diabetes mellitus Current Visit: Yes Status: Chronic Assessment and Plan: Currently holding home meds. Held metformin. SSI and levemir 10 units HS ordered. (4) Thrombocytopenia Current Visit: Yes Status: Acute Assessment and Plan: Likely due to treatment with outpatient cefazolin. Current platelets 55 (previous 49) Will continue to trend with CBC. (5) CAD (coronary artery disease) Current Visit: No Status: Chronic Assessment and Plan: Cont home meds: coreg, simvastatin, imdur. Hold ASA for podiatry, scheduled surgery. (6) Chronic back pain Current Visit: Yes Status: Chronic Assessment and Plan: Continue home regimen. Does have coinciding constipation. Cont home oxycodone q3hrs PRN. Cont home bowel regiment. Pain is well managed with medication. (7) Essential hypertension Current Visit: No Status: Chronic Assessment and Plan: - Cont home coreg (8) PTSD (post-traumatic stress disorder) Current Visit: Yes Status: Acute Assessment and Plan: Cont home meds: venlafaxine DVT Prophylaxis: Currently on SCDs on R foot only. - Time Spent with Patient Total time spent is greater than 50% in coordination of care (as documented) at patient's floor/unit and/or counseling patient: Internal Medicine: Result - Labs CBC & Chem 7: 03/03/19 05:35 03/03/19 05:35 Labs: Short CBC 03/03/19 Range/Units 05:35 WBC 5.6 (4.3-11.1) K/mcL Hgb 10.3 L (12.9-16.9) g/dL Hct 32.2 L (37.5-50.1) % Plt Count 55 L (140-400) K/mcL BMP 03/03/19 05:35 Sodium 140 Potassium 4.0 Chloride 106 Carbon Dioxide 23 BUN 18 Creatinine 1.03 Glucose 164 H Calcium 8.9 - ABG Interpretation ABG results: PT/INR, D-dimer PT 15.1 Seconds (9.4-12.1) H 02/28/19 05:17 Consult Discharge Plan - Plan [facility]errals: [facility] [Primary Care Provider] - (2) Osteomyelitis Qualifiers: Osteomyelitis type: acute hematogenous Osteomyelitis location: foot Laterality: left Qualified Code(s): M86.072 - Acute hematogenous osteomyelitis, left ankle and foot (3) Diabetes mellitus Qualifiers: Diabetes mellitus type: type 2 Diabetes mellitus snf insulin use: with snf use Diabetes mellitus complication status: with circulatory complication Diabetes mellitus complication detail: with peripheral angiopathy without gangrene Qualified Code(s): E11.51 - Type 2 diabetes mellitus with diabetic peripheral angiopathy without gangrene; Z79.4 - terminal gauger (current) use of insulin (5) CAD (coronary artery disease) Qualifiers: Coronary Disease-Associated Artery/Lesion type: [place] artery [place] vs. transplanted heart: [place] heart Associated angina: without angina Qualified Code(s): I25.10 - Atherosclerotic heart disease of [place] coronary artery without angina pectoris (6) Chronic back pain Qualifiers: Back pain location: low back pain Back pain laterality: bilateral Sciatica presence: with sciatica Sciatica laterality: bilateral sciatica Qualified Code(s): M54.42 - Lumbago with sciatica, left side; M54.41 - Lumbago with sciatica, right side; G89.29 - Other chronic pain
--- NOTE | 2019-03-03 15:37 | Event Note ---
Date of Encounter: 03/03/19 Time of Encounter: 15:30 Nature of the procedure, risks versus benefits, potential complications, consequences of surgery, and condition discussed. All questions and concerns addressed. Consent signed and placed in chart.
[2019-03-03] MEDS ORDERED: Calcium Gluconate 1,000 MG/10 ML VIAL ONE (17:02)
[2019-03-03] MEDS: levoFLOXacin 750 MG/150 ML 750 MG/150 ML BAG IVPB SCH (17:21)
--- NOTE | 2019-03-03 18:36 | Anesthesia Evaluation PreOp ---
Date of Encounter: 03/03/19 Time of Encounter: 18:36 - Past History Planned Operation: I&D/Amputation L-great toe Cardiac History: CHF, HTN, Hyperlipidemia, Other (PVDz) Pulmonary History: Former smoker (1ppd x 40+yrs. 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 Chronic Pain on Opiate regimen) Other Medical History: Bleeding (von [place]br[place] deficiency. Thrombocytopenia w/PLT = 55 today), Diabetes Type II Anesthesia History: No Prior Anesthetic Complications, Past Anesthesia (L-foot I&D, Back surgery, Nose/sinus surgery, Foot muscle repair) Alcohol Use: none Drug use: none Medications and Allergies Aspirin [Lo-Dose Aspirin EC] 81 mg PO DAILY 11/27/17 [History] Cetirizine HCl [Zyrtec] 10 mg PO DAILY 11/27/17 [History] Cyanocobalamin (Vitamin B-12) [Vitamin B-12] 1,000 mcg PO DAILY 11/27/17 [History] Ferrous Gluconate 324 mg PO DAILY 11/27/17 [History] Omeprazole [PriLOSEC] 20 mg PO DAILY 11/27/17 [History] Potassium Chloride [K-Tab ER] 20 meq PO DAILY 11/27/17 [History] Simvastatin [Zocor] 20 mg PO DAILY 11/27/17 [History] metFORMIN [Glucophage] 1,000 mg PO BIDWM 11/27/17 [History] Calcium Citrate/Vitamin D3 [Calcium Cit 315-Vit D3 250 Cpt] 1 each PO DAILY 01/28/19 [History] Fluticasone Propionate Nasal [Flonase] 50 mcg NS DAILY 01/28/19 [History] Insulin Glargine [Lantus] 55 unit SQ BID 01/28/19 [History] Ipratropium/Albuterol Neb [Duoneb] 3 ml IH Q6H PRN 01/28/19 [History] Ketotifen Fumarate [Zaditor] 1 drp BOTH EYES BID 01/28/19 [History] Magnesium Oxide [Magnesium] 400 mg PO DAILY 01/28/19 [History] Montelukast [Singulair] 10 mg PO DAILY 01/28/19 [History] Sennosides/Docusate Sodium [Docusate Sodium-Senna Tablet] 1 each PO BID 01/28/19 [History] Venlafaxine HCl [Venlafaxine HCl ER] 37.5 mg PO DAILY 01/28/19 [History] guaiFENesin [Guaifenesin] 800 mg PO BID 01/28/19 [History] Insulin ASPART [NovoLOG] 0 unit SQ TIDWM #1 mls 02/10/19 [Rx] Isosorbide MONOnitrate (24 HR) [Imdur] 120 mg PO DAILY #60 tab.er.24h 02/10/19 [Rx] OxyCODONE Immed Rel [Roxicodone 5 MG] 15 mg PO Q3H PRN 7 Days #60 tablet 02/10/19 [Rx] Polyethylene Glycol 3350 [MiraLAX] 17 gm PO BID #60 powd.pack 02/10/19 [Rx] amLODIPine [Norvasc] 5 mg PO DAILY #30 tablet 02/10/19 [Rx] Carvedilol 3.125 mg PO BID #60 tab 02/11/19 [Rx] Allergy/AdvReac Type Severity Reaction Status Date / Time bee venom protein (honey bee) Allergy Anaphylaxis Verified 01/28/19 14:25 tetracycline [Tetracycline] Allergy Hives Verified 01/28/19 14:25 influenza virus vacc AdvReac Weakness Verified 01/28/19 14:25 trivalent, split [From Fluzone] - Meds/Allergy Pre-op Review Medications Reviewed: Yes Allergies Reviewed: Yes Beta Blockers on Current Med List: No Anesthesia Results - Labs 03/03/19 05:35 03/03/19 05:35 Impressions Foot X-Ray 02/27/19 09:06 IMPRESSION: Increasing soft tissue predominately in the 1st digit. Questionable soft tissue gas between the 1st and 2nd digit. No definite acute erosive changes to suggest osteomyelitis. D/ / 02/27/2019 11:01:34 Rosanna Robles MD / [facility] Interpreting Provider: Rosanna Robles MD Foot MRI 02/27/19 14:17 IMPRESSION: 1. Osteomyelitis of the 1st proximal phalanx. 2. Bone marrow edema without confluent decreased T1 signal throughout the 1st distal phalanx compatible with noninfectious reactive osteitis versus early osteomyelitis. 3. Large deep soft tissue defect along the medial aspect of the 1st digit with an adjacent lobular fluid collection versus phlegmon encasing the 1st proximal phalangeal shaft and extending dorsal to the 1st distal phalanx. D/ / Jean Marie Jose MD / Jean Marie Jose MD Interpreting Provider: Jean Marie Jose MD Laboratory Results 03/03/19 03/03/19 11:05 11:43 POC Glucose 164 H Vancomycin Trough 13 H - Imaging EKG: report reviewed (59bpm - SINUS BRADYCARDIA WITH FIRST DEGREE AV BLOCK Electronically Signed On 10-09-2018 10:25:48 EDT by Randal Jeffries) Additional studies: ECHO 02/04/2019 EV/EV echocardiogram Impressions: LVEF 60-65%. Normal LV chamber size, wall thickness and function. Mild right ventricular dilatation with normal function. Mild aortic regurgitation. Unable to estimate RVSP due to lack of TR jet. Left Ventricular Wall Motion: Rest Echo Findings All wall segments showed normal motion. Anesthesia Exam Vital Signs Temp Pulse Resp BP Pulse Ox 03/03/19 15:39 97.8 F 72 18 185/83 98 03/03/19 11:03 98.5 F 66 18 179/86 98 03/03/19 06:51 98.5 F 72 18 188/82 97 03/03/19 03:47 98.2 F 70 20 152/68 96 03/02/19 23:12 98.1 F 73 20 173/90 97 03/02/19 19:11 98.2 F 63 20 172/82 97 Intake and Output 03/03/19 03/03/19 03/03/19 07:59 15:59 23:59 Intake Total 450 / 750 200 / 750 100 / 750 Output Total 200 / 200 Balance 250 / 550 200 / 550 100 / 550 Intake: IV Fluids 200 / 500 200 / 500 100 / 500 Nafcillin 2,000 MG In 0.9 % 200 / 500 200 / 500 100 / 500 Sodium Chloride (Mini-Bag +) 100 ML @ 200 mls/hr IVPB Q4HR [facility] Rx#:[id number] Oral 250 / 250 Output: Urine 200 / 200 Other: Stool Size Large Stool Consistency loose Stool Characteristics Tarry Stool Color Green # Voids 1 Weight 121.57 kg Blood Glucose* 162 164 Patient Weight 03/03/19 23:59 Weight 121.57 kg Height: 6'1" Weight: 279# BMI = 35.4 NPO (# of Hours): MNOc - HEENT Pupil (Motor): Pupils equal, EOMI Mallampati: III Teeth: Poor dentition Oral Opening: Less than or equal to 3 - TEMPLATE REPRODUCTION TECHNICIAN LOC: Oriented 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 Noemí Byrd MD
[2019-03-03] MEDS ORDERED: Lidocaine -MPF 2% 2 ML VIAL ONE (19:23)
[2019-03-03] MEDS ORDERED: Propofol 500 MG/50 ML INFUS..BTL ONE ×2 (19:24→20:50)
[2019-03-03] MEDS ORDERED: ROPIVACAINE/PF/NS 0.25% 1 EACH SYRINGE INTRAART ONE (20:01)
[2019-03-03] MEDS ORDERED: Acetaminophen IV 1,000 MG/100 ML INFUS..BTL ONE (20:57)
--- NOTE | 2019-03-03 21:46 | Orthopedic Operative Note ---
Date of procedure: 03/03/19 Pre-op diagnosis: #1: Ischemic left great toe with osteomyelitis ulceration necrosis Post-op diagnosis: same Procedure: 03/03/19 21:36 #1: Incision of bone for osteomyelitis left foot #2: Amputation of great toe and metatarsal left foot #3: Adjacent tissue transfer 03/09/19 08:52 Implants: None Complications: None Anesthesia: MAC, local Local Anesthetics: Other (Ropivacaine) Surgeon: Tad Velázquez Was there an personal assistant present: No Estimated blood loss (cc): 40 Tourniquet Time (Minutes): 0 Specimen: Metatarsal head #1 left foot Condition: stable Disposition: floor Procedure in Detail: 03/03/19 21:37 Details in summary of procedure: Patient brought to surgical suite and a sign in procedure was performed. Patient was then transferred the surgical table and positioned properly safely securely. Left foot leg elevated on a foam block. No tourniquet used. Anesthetic timeout taken. Left ankle prepped with alcohol 3 times. Ankle block carried out without difficulty or complication using ropivacaine plain. Left was then prepped and draped in usual sterile manner. Surgical timeout was taken. A large necrotic ulceration was noted the medial aspect of the left great toe extending on the dorsal aspect just proximal to the nailbed. The toe was edematous erythematous with complete necrosis within the nail bed as well as the ulceration. A planned incision was then begun the dorsal aspect of the medial proximal wound. It was begun medial aspect first metatarsal brought dorsally and distally. Incision was taken down to the interphalangeal joint. The bone was inspected and found to be clinically infected consistent with osteomyelitis. Soft tissue was reflected the level of periosteum. Obvious necrosis was noted later laterally and medially. At that point the incision was then lengthened to the distal aspect just proximal to the IP joint and then transversely across the toe to the lateral plantar skin junction and then proximally at the junction of the lateral plantar skin toward the webspace. He flap was then performed and we discovered even further necrosis of the bone. It was then decided to amputate the great toe. At that point a medial incision was then begun on the inferior aspect of the ulceration and brought plantarly and distally and a circumferential fashion around the ulceration toward the plantar aspect of the distal aspect of the great toe and then laterally circumventing the ulceration on the lateral aspect of the great toe meeting the dorsal incision and the webspace. Incisions were deepened directly down to bone. Flaps were raised dorsally and plantarly. The level of the MTPJ, capsulotomy was performed dorsally medially and laterally plantarly. The toe was then disarticulated from the first metatarsophalangeal joint. Any active bleeding was judiciously controlled with the use of a Bovie. Continued dissection revealed further necrosis on the plantar flap as well as a dorsal flap. It was then surgically excised with a, #15 scalpel pickup and Metzenbaum and pee. An ultrasonic Misonix debrider was also used to debride the wound thoroughly to ensure any nonviable tissue was removed. At that point the medial sesamoid protruded dorsally. It was then resected. Lateral sesamoid was found to be intact and of normal color texture density. The distal aspect the flexor tendon was frayed and nonviable it was resected to viable tissue. Unfortunately did not have enough tissue to close wound primarily at that point and undermining would not be appropriate considering his vascularity. It was then decided to resect the head of the first metatarsal to be able to close the wound primarily that was performed with a TPS command power saw. Metatarsal head was sent for gross and microscopic to examine for possible osteomyelitis. Fortunately the wound does not possess any active purulent drainage proximally. Satisfied we a clean wound closure, was accomplished with adjacent tissue transfer by advancing the dorsal flap distal and lateral in the plantar flap proximal and dorsal. Closure was uneventful by sewing the flexor tendon to the periosteum of dorsal aspect first metatarsal covering the distal aspect of the bone itself. When resecting the first metatarsal was noted, to possess normal color, texture, density. The surgical wound irrigated copiously with sterile saline numerous times . Closure of the deep layer consisted of suturing the flexor tendon to the dorsal periosteum of the distal first metatarsal. The closure of the wound by advan cing the dorsal flap distally the plantar flap proximally was uneventful using 3-0 Prolene. The wound was also sprayed with PRP after irrigation prior to closure. Hemostasis was achieved prior to closure. That point the wound was dressed with Adaptic 4 x 4's and Kerlix over the incision Xeroform gauze over the second toe wound 4 x 4's Kerlix and Preston wraps. No complications encountered. Capillary rebound time is less than 3 seconds to the remaining digits after application of dressing. Patient was then sent to holding room in good condition with vital signs stable. The estimated blood loss was 40 mL. 03/09/19 08:53
[2019-03-03] MEDS ORDERED: Dextrose Gel 15 GM/37.5 ML TUBE PO PRN ×2 (22:12)
[2019-03-03] MEDS ORDERED: Ipratropium/Albuterol Neb 3 ML IH PRN (22:12)
[2019-03-03] MEDS ORDERED: D5% in Water 1,000 ML IVC PRN (22:12)
[2019-03-03] MEDS ORDERED: *HR* Dextrose 50 % in Water (Syg) 50 ML SYRINGE IVP PRN (22:12)
[2019-03-03] MEDS ORDERED: Naloxone 0.4 MG/ML INJ IVP PRN (22:12)
[2019-03-03] MEDS ORDERED: Ondansetron 4 MG/2 ML VIAL IVP PRN (22:12)
[2019-03-03] MEDS ORDERED: *HR* HYDROcodone/Acet 5/325 mg TABLET PO PRN (22:12)
[2019-03-03] MEDS ORDERED: Acetaminophen 325 MG TABLET PO PRN (22:12)
[2019-03-03] MEDS ORDERED: *HR* Metoprolol 5 MG/5 ML VIAL IVP ONE (23:31)
[2019-03-04] MEDS: *HR* OxyCODONE Immed Rel 15 MG TABLET PO PRN ×7 (02:50→23:04)
[2019-03-04] MEDS: Nafcillin 2,000 MG in 0.9 % Sodium Chloride Mini Bag 100 ML IVPB SCH ×7 (05:30→23:57)
[2019-03-04 06:39] LABS: Hemoglobin 9.4 g/dL (12.9-16.9); Mean Corpuscular Volume 89.8 fL (83.0-100.0)
[2019-03-04 06:41] LABS: Basophils % 0.2 %; Eosinophils % 0.7 %; Hematocrit 28.9 % (37.5-50.1); Immature Granulocytes % 1.1 % (0-4); Immature Platelets 1.6 % (1.1-6.1); Lymphocytes # 0.8 K/mcL (0.6-4.6); Lymphocytes % 14.9 %; Mean Corpuscular HGB Conc 32.5 g/dL (31.6-35.5); Mean Corpuscular Hemoglobin 29.2 pg (28.0-33.3); Mean Platelet Volume 9.2 fL (9.4-12.4); Monocytes # 0.4 K/mcL (0.0-1.3); Monocytes % 7.4 %; Neutrophils # 4.1 K/mcL (1.6-8.9); Platelet Count 52 K/mcL (140-400); Red Blood Count 3.22 M/mcL (4.19-5.50); Red Cell Distribution Width 14.6 % (11.5-14.5); Segmented Neutrophils % 75.7 %; White Blood Count 5.4 K/mcL (4.3-11.1)
[2019-03-04 06:55] LABS: BUN/Creatinine Ratio 15 (6-26); Blood Urea Nitrogen 15 mg/dL (8-23); Calcium 8.7 mg/dL (8.6-10.3); Carbon Dioxide 25 mEq/L (23-29); Chloride 108 mEq/L (98-107); Glucose 166 mg/dL (70-105); Osmolality,Calculated 299 (280-300); Potassium 3.7 mEq/L (3.5-5.1); Sodium 142 mEq/L (136-145); eGFR For African Americans > 60 (> 60); eGFR For Non-African Americans > 60 (> 60)
[2019-03-04] MEDS: Venlafaxine XR (24 HR) 37.5 MG CAP.ER.24H PO SCH (08:19)
[2019-03-04] MEDS: Cholecalciferol (D-3) 1,000 UNIT (25MCG) TABLET PO SCH (08:19)
[2019-03-04] MEDS: Cyanocobalamin (B-12) 1,000 MCG TABLET PO SCH (08:20)
[2019-03-04] MEDS: Isosorbide MONOnitrate (24 HR) 60 MG TAB.ER.24H PO SCH (08:20)
[2019-03-04] MEDS: amLODIPine 5 MG TABLET PO SCH (08:20)
[2019-03-04] MEDS: Loratadine 10 MG TABLET PO SCH (08:20)
[2019-03-04] MEDS: Sennosides/Docusate Sodium TABLET PO SCH ×2 (08:21→19:58)
[2019-03-04] MEDS: Fluticasone Propionate Nasal 50 MCG/SPRAY BOTTLE NS SCH (08:21)
[2019-03-04] MEDS: Insulin LISPRO 300 UNITS/3 ML VIAL SQ SCH ×4 (08:21→20:40)
--- NOTE | 2019-03-04 09:03 | Internal Med Progress Note ---
<Wolfgang Gautam F - Last Filed: 03/04/19 14:20> Hospitalist Progress Note - Encounter Date of Encounter: 03/04/19 Time of Encounter: 09:03 - Subjective Interval History: Patient was seen and examined at bedside. No acute events overnight. Patient had injury of his left great toe the previous night which involved amputation of the digit as well as debridement of the bone and soft tissue due to diabetic ulcer. There were no complications associated with the surgery. Patient has no complaints this morning. There is no increased pain around his left foot, denies chest pain, shortness of breath, palpitations, nausea, vomiting, fevers, chills. No warmth or drainage from surgical site. - Exam Vitals: Temp Pulse Resp BP Pulse Ox 97.9 F 69 22 186/80 95 03/04/19 07:37 03/04/19 07:37 03/04/19 07:37 03/04/19 07:37 03/04/19 07:37 Exam: GEN: Well-appearing, NAD, conversant. HEAD: Normocephalic, atraumatic. EYES: PERRL, EOMI, anicteric. ENT: MMM. oropharynx without erythema or drainage. NECK: Supple. No LAD. No stiffness or restricted ROM. No tracheal deviation. HEART: Regular rate and regular rhythm, normal S1/S2, no m/r/g. LUNGS: CTAB, good air exchange bilaterally. No wheezing, rubs, or rhonchi. ABDO: Soft, nontender, nondistended with active bowel sounds. : No suprapubic tenderness or CVA tenderness. BACK: No obvious stepoffs or deformities. EXT: Without cyanosis, clubbing or edema. Amputated great toe of the left foot. No erythema or drainage from incision site. SKIN: Warm and dry without any rash. NEURO: Grossly nonfocal. Alert and oriented, moving all 4 extremities. CN not formally tested but appear grossly intact. PSYCH: Normal affect, no depressed or anxious mood. - Assessment and Plan (1) Diabetic infection of left foot Current Visit: Yes Status: Acute Assessment and Plan: - Patient presented with worsening of left great toe infection. Was recently hospitalized for MSSA bacteremia and left great toe osteomyelitis - Was originally discharged home with IV cefazolin, but developed worsening thrombocytopenia and was transitioned IV nafcillin. - X-ray of the left foot showed possible soft tissue gas, but no bony erosion or osteomyelitis. - MRI L foot showed osteomyelitis of the first proximal phalanx, bone marrow edema, large deep to soft tissue defect along the first digit, no tenosynovitis. - No SIRS criteria. - Treating infection initially with vancomycin and zosyn, now discontinued - Wound cultures growing Enterobacter cloacae and staph aureus, hx of MSSA - Blood cultures results no growth. 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 week after discharge, please schedule appointment prior to discharge (2) Osteomyelitis Current Visit: Yes Status: Acute Assessment and Plan: Likely secondary to diabetic ulcer of L toe. MRI foot showed osteomyelitis of the first proximal phalanx, bone marrow edema, large deep to soft tissue defect along the first digit, no tenosynovitis. Podiatry/ID following Plan: - Continue new antibiotics, nafcillin and Levaquin - Surgical incision of bone and amputation performed (3) Diabetes mellitus Current Visit: Yes Status: Chronic Assessment and Plan: Currently holding home meds. Held metformin. SSI and levemir 10 units HS ordered. (4) Thrombocytopenia Current Visit: Yes Status: Acute Assessment and Plan: Likely due to treatment with outpatient cefazolin. Current platelets 55 (previous 49) Will continue to trend with CBC. (5) CAD (coronary artery disease) Current Visit: Yes Status: Chronic Assessment and Plan: Cont home meds: coreg, simvastatin, imdur. Hold ASA for podiatry, scheduled surgery. (6) Chronic back pain Current Visit: Yes Status: Chronic Assessment and Plan: Continue home regimen. Does have coinciding constipation. Cont home oxycodone q3hrs PRN. Cont home bowel regiment. Pain is well managed with medication. (7) Essential hypertension Current Visit: Yes Status: Chronic Assessment and Plan: - Cont home coreg for BP control - Elevated BPs in the 160 to 170 systolic for past several days - Restarted losartan 50mg PO daily (8) PTSD (post-traumatic stress disorder) Current Visit: Yes Status: Acute Assessment and Plan: Cont home meds: venlafaxine DVT Prophylaxis: DVT ppx: SCDs and right foot only Activity: As tolerated, ambulatory Fluids: None Electrolytes: Replete as necessary Nutrition: Diabetic diet GI ppx: None Lines: 1x PIV Consults: Podiatry, vascular surgery, ID Code: Full code Dispo: Home pending further ABX treatment - Time Spent with Patient Total time spent is greater than 50% in coordination of care (as documented) at patient's floor/unit and/or counseling patient: less than 15 minutes Plan of Care Discussed with: patient Internal Medicine: Result - Labs CBC & Chem 7: 03/04/19 05:39 03/04/19 05:39 Labs: Short CBC 03/04/19 Range/Units 05:39 WBC 5.4 (4.3-11.1) K/mcL Hgb 9.4 L (12.9-16.9) g/dL Hct 28.9 L (37.5-50.1) % Plt Count 52 L (140-400) K/mcL Neutrophils # 4.1 (1.6-8.9) K/mcL BMP 03/04/19 05:39 Sodium 142 Potassium 3.7 Chloride 108 H Carbon Dioxide 25 BUN 15 Creatinine 1.02 Glucose 166 H Calcium 8.7 - ABG Interpretation ABG results: PT/INR, D-dimer PT 15.1 Seconds (9.4-12.1) H 02/28/19 05:17 - Impressions Impressions Foot X-Ray 03/03/19 22:12 IMPRESSION: Post transmetatarsal amputation of the 1st digit. D/ / Chris Warren MD / Chris Warren MD Interpreting Provider: Chris Warren MD Consult Discharge Plan - Plan [facility]errals: [facility]Primary Care Provider[facility] - <Tonia Carlton - Last Filed: 03/04/19 16:07> Hospitalist Progress Note - Encounter Date of Encounter: 03/04/19 - Exam Vitals: Temp Pulse Resp BP Pulse Ox 99.1 F 80 18 171/81 97 03/04/19 15:43 03/04/19 15:43 03/04/19 15:43 03/04/19 15:43 03/04/19 15:43 - Assessment and Plan (1) Diabetes mellitus Current Visit: Yes Status: Chronic (2) Chronic back pain Current Visit: Yes Status: Chronic (3) MSSA bacteremia Current Visit: No Status: Chronic (4) Diabetic infection of left foot Current Visit: Yes Status: Acute (5) Essential hypertension Current Visit: Yes Status: Chronic (6) Cramps of left lower extremity Current Visit: Yes Status: Chronic - Time Spent with Patient Total time spent is greater than 50% in coordination of care (as documented) at patient's floor/unit and/or counseling patient: Internal Medicine: Result - Labs CBC & Chem 7: 03/04/19 05:39 03/04/19 05:39 Labs: Short CBC 03/04/19 Range/Units 05:39 WBC 5.4 (4.3-11.1) K/mcL Hgb 9.4 L (12.9-16.9) g/dL Hct 28.9 L (37.5-50.1) % Plt Count 52 L (140-400) K/mcL Neutrophils # 4.1 (1.6-8.9) K/mcL BMP 03/04/19 05:39 Sodium 142 Potassium 3.7 Chloride 108 H Carbon Dioxide 25 BUN 15 Creatinine 1.02 Glucose 166 H Calcium 8.7 - ABG Interpretation ABG results: PT/INR, D-dimer PT 15.1 Seconds (9.4-12.1) H 02/28/19 05:17 - Impressions Impressions Foot X-Ray 03/03/19 22:12 IMPRESSION: Post transmetatarsal amputation of the 1st digit. D/ / Chris Warren MD / Chris Warren MD Interpreting Provider: Chris Warren MD - Attending Attestation I examined this patient and my medical decision-making was reviewed with the Resident Physician. I agree with the documented findings, disposition and treatment plan as described except to the extent set forth below. 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 transplanted heart: wiyot heart Associated angina: without angina Qualified Code(s): I25.10 - Atherosclerotic heart disease of [place] coronary artery without angina pectoris (6) Chronic back pain Qualifiers: Back pain location: low back pain Back pain laterality: bilateral Sciatica presence: with sciatica Sciatica laterality: bilateral sciatica Qualified Code(s): M54.42 - Lumbago with sciatica, left side; M54.41 - Lumbago with sciatica, right side; G89.29 - Other chronic pain <Tonia Carlton - Last Filed: 03/04/19 16:07> (1) Diabetes mellitus Qualifiers: Diabetes mellitus type: type 2 Diabetes mellitus terminal gauger supervisor insulin use: with terminal gauger supervisor use Diabetes mellitus complication status: with circulatory complication Diabetes mellitus complication detail: with peripheral angiopathy without gangrene Qualified Code(s): E11.51 - Type 2 diabetes mellitus with diabetic peripheral angiopathy without gangrene; Z79.4 - terminal press operator (current) use of insulin (2) Chronic back pain Qualifiers: Back pain location: low back pain Back pain laterality: bilateral Sciatica presence: with sciatica Sciatica laterality: bilateral sciatica Qualified Code(s): M54.42 - Lumbago with sciatica, left side; M54.41 - Lumbago with sciatica, right side; G89.29 - Other chronic pain
--- NOTE | 2019-03-04 12:39 | Podiatry Progress Note ---
Date of Encounter: 03/04/19 Time of Encounter: 11:25 - Assessment and Plan (1) Diabetic infection of left foot Current Visit: Yes Status: Acute Assessment: -Dressing dry and intact, no strike through noted -No calf pain with squeeze -WBC 5.4 -ESR 63, CRP 12 -DAVID 01/27/19 Right PT 0.94 DP 1.01 Left PT 0.97 DP 0.99 -TCPO2 01/29/19 Right ankle 19 foot 20 Left ankle 22 foot 10 -MR 02/27/19 1. Osteomyelitis of the 1st proximal phalanx. 2. Bone marrow edema without confluent decreased T1 signal throughout the 1st distal phalanx compatible with noninfectious reactive osteitis versus early osteomyelitis. 3. Large deep soft tissue defect along the medial aspect of the 1st digit with an adjacent lobular fluid collection versus phlegmon encasing the 1st proximal phalangeal shaft and extending dorsal to the 1st distal phalanx. -XR showed no OM but questionable for subcutaneous gas -Culture final for Enterobacter cloacae complex and Staph. aereus, Zosyn and Vanc discontinued, patient started on Levaquin and Nafcillin, ID onboard -Blood culture final for no growth Plan: -Will continue to monitor -Dressing dry and intact do no change unless become saturated, SENIOR RISK MANAGER will change tomorrow -Follow up with [facility] week after discharge, please schedule appointment prior to discharge Subjective Interval history: Post op day #1 #1: Incision of bone for osteomyelitis left foot #2: Amputation of great toe and metatarsal left foot by Dr. Velázquez on 03/03/2019 Patient is alert and oriented and no acute distress noted. Patient reports he is doing well s/p surgery. He denies any chest pain or shortness of breath. He does report tingling sensation left calf. He denies any fever, chills, n/v/d. Objective - Vital Signs Vital Signs: Vital Signs Temp Pulse Resp BP Pulse Ox 03/04/19 11:00 98.6 F 79 17 169/76 98 03/04/19 07:37 97.9 F 69 22 186/80 95 03/04/19 04:32 98.5 F 72 20 173/69 98 03/04/19 01:00 98.8 F 92 16 164/82 95 03/04/19 00:00 98.4 F 89 16 170/89 95 03/03/19 22:30 98.4 F 86 16 165/88 95 03/03/19 22:00 97.6 F 78 16 174/88 95 03/03/19 19:17 98.1 F 64 17 176/82 95 03/03/19 15:39 97.8 F 72 18 185/83 98 Intake and Output 03/03/19 03/04/19 03/04/19 23:59 07:59 15:59 Intake Total 200 / 850 100 / 680 580 / 680 Output Total 40 / 240 750 / 750 Balance 160 / 610 -650 / -70 580 / -70 Intake: IV Fluids 200 / 600 100 / 200 100 / 200 Nafcillin 2,000 MG In 0.9 % 200 / 600 100 / 200 100 / 200 Sodium Chloride (Mini-Bag +) 100 ML @ 200 mls/hr IVPB Q4HR ISSAC Rx#:[id number] Oral 480 / 480 Output: Urine 750 / 750 Estimated Blood Loss 40 / 40 Other: Meal Breakfast Percent of Meal Consumed 100% # Voids 1 1 # Bowel Movements 1 Weight 121.2 kg Blood Glucose* 196 233 Patient Weight 03/04/19 23:59 Weight 121.2 kg - Exam Exam: Constitutional: Alert and oriented x 3. Well nourished. No acute distress noted Vascular: No calf pain with squeeze LLE, skin warm to LLE Dermatological: Dressing dry and intact, no strike through noted Musculoskeletal: 4/5 muscle strength and normal tone bilaterally. - Lab Result Diagrams: 03/04/19 05:39 03/04/19 05:39 Labs: Abnormal lab results WBC 4.2 K/mcL (4.3-11.1) L 03/02/19 04:25 RBC 3.22 M/mcL (4.19-5.50) L 03/04/19 05:39 Hgb 9.4 g/dL (12.9-16.9) L 03/04/19 05:39 Hct 28.9 % (37.5-50.1) L 03/04/19 05:39 MCHC 31.5 g/dL (31.6-35.5) L 03/01/19 04:39 RDW 14.6 % (11.5-14.5) H 03/04/19 05:39 Plt Count 52 K/mcL (140-400) L 03/04/19 05:39 MPV 9.2 fL (9.4-12.4) L 03/04/19 05:39 Immature Plt Fraction 1.0 % (1.1-6.1) L 03/01/19 04:39 ESR 63 mm/hr (0-10) H 02/27/19 14:04 PT 15.1 Seconds (9.4-12.1) H 02/28/19 05:17 Chloride 108 mEq/L (98-107) H 03/04/19 05:39 Carbon Dioxide 22 mEq/L (23-29) L 03/02/19 04:25 Glucose 166 mg/dL (70-105) H 03/04/19 05:39 POC Glucose 233 mg/dL (70-99) H 03/04/19 11:26 Calcium 8.5 mg/dL (8.6-10.3) L 03/02/19 04:25 C-Reactive Protein 12 mg/L (Less than 10) H 02/27/19 14:04 Vancomycin Trough 13 mcg/mL (5-10) H 03/03/19 11:05 Microbiology, Last 48 Hours 02/27/19 09:26 Blood Culture - Final Central Venous Catheter No growth. Final report. 02/27/19 09:16 Blood Culture - Final Peripheral Venipuncture No growth. Final report. Consult Discharge Plan - Plan [facility]: [facility] [Primary Care Provider] -
[2019-03-04] MEDS: levoFLOXacin 750 MG/150 ML 750 MG/150 ML BAG IVPB SCH (17:21)
[2019-03-04] MEDS: Insulin DETEMIR 100 UNIT/ML X5UNITS SQ SCH (20:41)
[2019-03-05] MEDS: *HR* OxyCODONE Immed Rel 15 MG TABLET PO PRN ×6 (03:05→20:13)
[2019-03-05] MEDS: Nafcillin 2,000 MG in 0.9 % Sodium Chloride Mini Bag 100 ML IVPB SCH ×5 (04:13→20:14)
[2019-03-05 04:15] LABS: Red Cell Distribution Width 14.6 % (11.5-14.5)
[2019-03-05 04:17] LABS: Hematocrit 29.2 % (37.5-50.1); Hemoglobin 9.2 g/dL (12.9-16.9); Immature Platelets 1.4 % (1.1-6.1); Mean Corpuscular HGB Conc 31.5 g/dL (31.6-35.5); Mean Corpuscular Hemoglobin 28.7 pg (28.0-33.3); Mean Platelet Volume 9.1 fL (9.4-12.4); Red Blood Count 3.21 M/mcL (4.19-5.50); White Blood Count 4.9 K/mcL (4.3-11.1)
[2019-03-05 04:33] LABS: BUN/Creatinine Ratio 17 (6-26); Blood Urea Nitrogen 19 mg/dL (8-23); Calcium 8.6 mg/dL (8.6-10.3); Carbon Dioxide 22 mEq/L (23-29); Chloride 107 mEq/L (98-107); Glucose 187 mg/dL (70-105); Osmolality,Calculated 295 (280-300); Potassium 3.9 mEq/L (3.5-5.1); Sodium 139 mEq/L (136-145); eGFR For African Americans > 60 (> 60); eGFR For Non-African Americans > 60 (> 60)
--- NOTE | 2019-03-05 06:19 | Vascular/Endovasc Consult Note ---
Date of Encounter: 03/03/19 Time of Encounter: 17:00 Assessment and Plan (1) Atherosclerosis of left lower extremity with gangrene Current Visit: Yes Status: Acute The patient is a history of peripheral vascular disease. His nonhealing left great toe ulcer with gangrenous changes. He is scheduled for a left pleural debris with possible amputation today. His previous TCP O2 levels were not consistent with healing. His prior duplex imaging revealed no significant disease in the left lower extremity arteries, however the left tibial arteries were poorly identified. Given these findings further evaluation recommended. The patient was scheduled for diagnostic angiogram with possible intervention. The risks, benefits alternatives were discussed and all questions were answered. He expressed understanding and wishes to proceed. Qualifiers: Peripheral atherosclerosis artery type: hoh artery Qualified Code(s): I70.262 - Atherosclerosis of hoh arteries of extremities with gangrene, left leg (2) Cellulitis Current Visit: No Status: Acute Qualifiers: Site of cellulitis: extremity Site of cellulitis of extremity: lower extremity Laterality: left Qualified Code(s): L03.116 - Cellulitis of left lower limb (3) Diabetes mellitus Current Visit: Yes Status: Chronic Qualifiers: Diabetes mellitus type: type 2 Diabetes mellitus remote computer terminal operator insulin use: with remote computer terminal operator use Diabetes mellitus complication status: with circulatory complication Diabetes mellitus complication detail: with peripheral angiopathy without gangrene Qualified Code(s): E11.51 - Type 2 diabetes mellitus with diabetic peripheral angiopathy without gangrene; Z79.4 - [facility] (current) use of insulin (4) CAD (coronary artery disease) Current Visit: Yes Status: Chronic Qualifiers: Coronary Disease-Associated Artery/Lesion type: hoh artery [place] vs. transplanted heart: hoh heart Associated angina: without angina Qualified Code(s): I25.10 - Atherosclerotic heart disease of hoh coronary artery without angina pectoris (5) Essential hypertension Current Visit: Yes Status: Chronic The patient was counter atherosclerotic risk factor reduction. (6) Mixed hyperlipidemia Current Visit: No Status: Acute - History of Present Illness Consult date: 03/03/19 Requesting physician: Tad Velázquez Consult reason: Peripheral vascular disease with ulceration Chief complaint: Chronic left foot wound History of present illness: Mr. Villagran is a 63 year old male with a history of peripheral vascular disease with ulceration. He has a history of hypertension, coronary artery disease, COPD, hyperlipidemia and diabetes. The patient is previously admitted to [facility] left foot infection. After surgery is now patient. However the patient returned to [place] with recurrent symptoms he was treated with intravenous antibiotics. Despite this he has had progressive ulceration. Vascular surgery was counseled for further evaluation. The time of evaluation the patient is alert and oriented. He denies any fevers and chills. He denies any chest pain or shortness of breath. He reports his pain is adequately controlled. Past Med Surg Social Fam HX - Past Medical History Medical history: CHF, COPD, coronary artery disease, diabetes, hyperlipidemia, hypertension Additional medical history: dayana rao Psychiatric history: PTSD - Past Surgical History Surgical History: appendectomy Additional surgical history: Back Surgery, Foot muscle repair, nose surgery - Social History Smoking Status: Former smoker Smokeless Tobacco Status: No Alcohol use: none Drug use: none - Family History Father Adopted: No Family Member Ethnicity: Non- Living Status: Hx Family Cardiac Disorders: No Hx Family Respiratory Disorders: No Hx Family Cancer: No Hx Family GI Disorders: No Hx Family Endocrine Disorder: No Hx Family Neuromuscular Disorders: No Hx Family Neurologic Disorders: No Hx Family HEENT Disorders: No Hx Family Autoimmune Disorders: No Mother Adopted: No Family Member Ethnicity: Non- Living Status: Hx Family Cardiac Disorders: Yes Hx Family Respiratory Disorders: No Hx Family Cancer: No Hx Family GI Disorders: No Hx Family Endocrine Disorder: Yes Hx Family Neuromuscular Disorders: No Hx Family Neurologic Disorders: No Hx Family HEENT Disorders: No Hx Family Autoimmune Disorders: No Medications and Allergies Aspirin [Lo-Dose Aspirin EC] 81 mg PO DAILY 11/27/17 [History] Cetirizine HCl [Zyrtec] 10 mg PO DAILY 11/27/17 [History] Cyanocobalamin (Vitamin B-12) [Vitamin B-12] 1,000 mcg PO DAILY 11/27/17 [Histor y] Ferrous Gluconate 324 mg PO DAILY 11/27/17 [History] Omeprazole [PriLOSEC] 20 mg PO DAILY 11/27/17 [History] Potassium Chloride [K-Tab ER] 20 meq PO DAILY 11/27/17 [History] Simvastatin [Zocor] 20 mg PO DAILY 11/27/17 [History] metFORMIN [Glucophage] 1,000 mg PO BIDWM 11/27/17 [History] Calcium Citrate/Vitamin D3 [Calcium Cit 315-Vit D3 250 Cpt] 1 each PO DAILY 01/28/19 [History] Fluticasone Propionate Nasal [Flonase] 50 mcg NS DAILY 01/28/19 [History] Insulin Glargine [Lantus] 55 unit SQ BID 01/28/19 [History] Ipratropium/Albuterol Neb [Duoneb] 3 ml IH Q6H PRN 01/28/19 [History] Ketotifen Fumarate [Zaditor] 1 drp BOTH EYES BID 01/28/19 [History] Magnesium Oxide [Magnesium] 400 mg PO DAILY 01/28/19 [History] Montelukast [Singulair] 10 mg PO DAILY 01/28/19 [History] Sennosides/Docusate Sodium [Docusate Sodium-Senna Tablet] 1 each PO BID 01/28/19 [History] Venlafaxine HCl [Venlafaxine HCl ER] 37.5 mg PO DAILY 01/28/19 [History] guaiFENesin [Guaifenesin] 800 mg PO BID 01/28/19 [History] Insulin ASPART [NovoLOG] 0 unit SQ TIDWM #1 mls 02/10/19 [Rx] Isosorbide MONOnitrate (24 HR) [Imdur] 120 mg PO DAILY #60 tab.er.24h 02/10/19 [Rx] OxyCODONE Immed Rel [Roxicodone 5 MG] 15 mg PO Q3H PRN 7 Days #60 tablet 02/10/19 [Rx] Polyethylene Glycol 3350 [MiraLAX] 17 gm PO BID #60 powd.pack 02/10/19 [Rx] amLODIPine [Norvasc] 5 mg PO DAILY #30 tablet 02/10/19 [Rx] Carvedilol 3.125 mg PO BID #60 tab 02/11/19 [Rx] Allergy/AdvReac Type Severity Reaction Status Date / Time bee venom protein (honey bee) Allergy Anaphylaxis Verified 01/28/19 14:25 tetracycline [Tetracycline] Allergy Hives Verified 01/28/19 14:25 influenza virus vacc AdvReac Weakness Verified 01/28/19 14:25 trivalent, split [From Fluzone] All Systems Review: The remainder of the systems were reviewed and are negative Exam Vital Signs, Last 4 Hours Temp Pulse Resp BP Pulse Ox 03/05/19 03:42 98.8 F 72 16 180/82 95 General: Present: Conversant, No Apparent Distress HEENT: Present: Pupils equal Neck: Absent: JVD, Lymphadenopathy Cardiac: Present: Reg Rate and Rhythm Lungs: Present: Normal Breath Sounds, No Wheeze, Rales, Rhonchi Neuro: Present: Alert and responsive, Motor nerves grossly intact, Sensory nerves grossly intact Abdomen: Present: Soft, Non-tender. Absent: Masses Vascular: Present: Normal capillary refill (Right foot), Cyanosis (Left forefoot) Skin: Present: Wound/ulcer(s) (Left great toe chronic ulceration with gangrenous changes) Consult Discharge Plan - Plan [facility]errals: [facility] [Primary Care Provider] -
[2019-03-05] MEDS: Insulin LISPRO 300 UNITS/3 ML VIAL SQ SCH ×4 (07:47→20:14)
[2019-03-05] MEDS: Fluticasone Propionate Nasal 50 MCG/SPRAY BOTTLE NS SCH (07:47)
[2019-03-05] MEDS: Isosorbide MONOnitrate (24 HR) 60 MG TAB.ER.24H PO SCH (07:48)
[2019-03-05] MEDS: Sennosides/Docusate Sodium TABLET PO SCH ×2 (07:49→20:13)
[2019-03-05] MEDS: Loratadine 10 MG TABLET PO SCH (07:49)
[2019-03-05] MEDS: amLODIPine 5 MG TABLET PO SCH (07:49)
[2019-03-05] MEDS: Venlafaxine XR (24 HR) 37.5 MG CAP.ER.24H PO SCH (07:49)
[2019-03-05] MEDS: Cholecalciferol (D-3) 1,000 UNIT (25MCG) TABLET PO SCH (07:49)
[2019-03-05] MEDS: Cyanocobalamin (B-12) 1,000 MCG TABLET PO SCH (07:49)
--- NOTE | 2019-03-05 08:10 | Internal Med Progress Note ---
<Tonia Carlton - Last Filed: 03/05/19 14:19> Hospitalist Progress Note - Encounter Date of Encounter: 03/05/19 - Exam Vitals: Temp Pulse Resp BP Pulse Ox 97.6 F 77 18 151/69 96 03/05/19 09:26 03/05/19 09:26 03/05/19 09:26 03/05/19 09:26 03/05/19 09:26 - Assessment and Plan (1) Diabetes mellitus Current Visit: Yes Status: Chronic (2) Chronic back pain Current Visit: Yes Status: Chronic (3) MSSA bacteremia Current Visit: No Status: Chronic (4) Diabetic infection of left foot Current Visit: Yes Status: Acute (5) Essential hypertension Current Visit: Yes Status: Chronic (6) Cramps of left lower extremity Current Visit: Yes Status: Chronic - Time Spent with Patient Total time spent is greater than 50% in coordination of care (as documented) at patient's floor/unit and/or counseling patient: Internal Medicine: Result - Labs CBC & Chem 7: 03/05/19 04:00 03/05/19 04:00 Labs: Short CBC 03/05/19 Range/Units 04:00 WBC 4.9 (4.3-11.1) K/mcL Hgb 9.2 L (12.9-16.9) g/dL Hct 29.2 L (37.5-50.1) % Plt Count 54 L (140-400) K/mcL BMP 03/05/19 04:00 Sodium 139 Potassium 3.9 Chloride 107 Carbon Dioxide 22 L BUN 19 Creatinine 1.10 Glucose 187 H Calcium 8.6 - ABG Interpretation ABG results: PT/INR, D-dimer PT 15.1 Seconds (9.4-12.1) H 02/28/19 05:17 Consult Discharge Plan - Plan [facility]errals: [facility] [Primary Care Provider] - - Attending Attestation I examined this patient and my medical decision-making was reviewed with the Resident Physician. I agree with the documented findings, disposition and treatment plan as described except to the extent set forth below. <Ruthie Campos - Last Filed: 03/05/19 14:42> Hospitalist Progress Note - Encounter Date of Encounter: 03/05/19 Time of Encounter: 08:09 - Subjective Interval History: Patient was seen and examined at bedside. Was sitting comfortably in wheelchair. Pain well controlled with meds. No acute complaints. Denies fever, chills, headache, visual changes, chest pain, shortness of breath, cough, hemoptysis, palpitations, abdominal pain, N/V/D/C, melena, hematochezia, dysuria, urinary frequency/urgency, blood in urine, peripheral edema. - Exam Vitals: Temp Pulse Resp BP Pulse Ox 98.0 F 69 20 200/101 98 03/05/19 07:28 03/05/19 07:28 03/05/19 07:28 03/05/19 07:28 03/05/19 07:28 Exam: GEN: Well-appearing, NAD, conversant. HEAD: Normocephalic, atraumatic. EYES: PERRL, EOMI, anicteric. ENT: MMM. oropharynx without erythema or drainage. NECK: Supple. No LAD. No stiffness or restricted ROM. No tracheal deviation. HEART: Regular rate and regular rhythm, normal S1/S2, no m/r/g. LUNGS: CTAB, good air exchange bilaterally. No wheezing, rubs, or rhonchi. ABDO: Soft, nontender, nondistended with active bowel sounds. : No suprapubic tenderness or CVA tenderness. BACK: No obvious stepoffs or deformities. EXT: Without cyanosis, clubbing or edema. Amputated great toe of the left foot. No erythema or drainage from incision site. SKIN: Warm and dry without any rash. NEURO: Grossly nonfocal. Alert and oriented, moving all 4 extremities. CN not formally tested but appear grossly intact. PSYCH: Normal affect, no depressed or anxious mood. - Assessment and Plan (1) Diabetic infection of left foot Current Visit: Yes Status: Acute Assessment and Plan: - Patient presented with worsening of left great toe infection. Was recently hospitalized for MSSA bacteremia and left great toe osteomyelitis - Was originally discharged home with IV cefazolin, but developed worsening thrombocytopenia and was transitioned IV nafcillin. - X-ray of the left foot showed possible soft tissue gas, but no bony erosion or osteomyelitis. - MRI L foot showed osteomyelitis of the first proximal phalanx, bone marrow edema, large deep to soft tissue defect along the first digit, no tenosynovitis. - No SIRS criteria. - Treating infection initially with vancomycin and zosyn, now discontinued - Wound cultures growing Enterobacter cloacae and staph aureus, hx of MSSA - Blood cultures results no growth. - ID recs: nafcillin and levaquin (day 4) most likely for 6 weeks - Monitor renal function and for drug toxicity and dose adjust antibiotics - POD #2 after incision of bone for osteomyelitis and amputation of great toe and metatarsal lefty foot on 03/03; no complications - dressings are C/D/I - Vascular surgery consulted - Podiatry recs: Dressing changed this AM. Okay to discharge from podiatry. Follow up with Dr. Velázquez office within one week after discharge. - vascular recs: pending - ID recs: pending (2) Osteomyelitis Current Visit: Yes Status: Acute Assessment and Plan: Likely secondary to diabetic ulcer of L toe. MRI foot showed osteomyelitis of the first proximal phalanx, bone marrow edema, large deep to soft tissue defect along the first digit, no tenosynovitis. Podiatry/ID following Plan: - Continue nafcillin and Levaquin - ID recs: pending (3) Diabetes mellitus Current Visit: Yes Status: Chronic Assessment and Plan: Currently holding home meds. Held metformin. SSI and levemir 10 units HS ordered. (4) Thrombocytopenia Current Visit: Yes Status: Acute Assessment and Plan: Likely due to treatment with outpatient cefazolin. Current platelets 54 (previous 52) Will continue to trend with CBC. (5) CAD (coronary artery disease) Current Visit: Yes Status: Chronic Assessment and Plan: Cont home meds: coreg, simvastatin, imdur. Hold ASA for podiatry, scheduled surgery. (6) Chronic back pain Current Visit: Yes Status: Chronic Assessment and Plan: Continue home regimen. Does have coinciding constipation. Cont home oxycodone q3hrs PRN. Cont home bowel regiment. Pain is well managed with medication. (7) Essential hypertension Current Visit: Yes Status: Chronic Assessment and Plan: - SBP usually in the 140s at home. - Elevated BPs in the 160 to 170 systolic for past several days - Cont home coreg for BP control - Losartan dose increased to 100 mg daily - SBP decreased to 151 after morning dose of losartan 100 mg - Continue to monitor vitals (8) PTSD (post-traumatic stress disorder) Current Visit: Yes Status: Acute Assessment and Plan: Cont home meds: venlafaxine DVT Prophylaxis: DVT ppx: SCDs and right foot only Activity: As tolerated, ambulatory Fluids: None Electrolytes: Replete as necessary Nutrition: Diabetic diet GI ppx: None Lines: 1x PIV Consults: Podiatry, vascular surgery, ID Code: Full code Dispo: Home pending further ABX treatment - Time Spent with Patient Total time spent is greater than 50% in coordination of care (as documented) at patient's floor/unit and/or counseling patient: Internal Medicine: Result - Labs CBC & Chem 7: 03/05/19 04:00 03/05/19 04:00 Labs: Short CBC 03/05/19 Range/Units 04:00 WBC 4.9 (4.3-11.1) K/mcL Hgb 9.2 L (12.9-16.9) g/dL Hct 29.2 L (37.5-50.1) % Plt Count 54 L (140-400) K/mcL BMP 03/05/19 04:00 Sodium 139 Potassium 3.9 Chloride 107 Carbon Dioxide 22 L BUN 19 Creatinine 1.10 Glucose 187 H Calcium 8.6 - ABG Interpretation ABG results: PT/INR, D-dimer PT 15.1 Seconds (9.4-12.1) H 02/28/19 05:17 <Tonia Carlton - Last Filed: 03/05/19 14:19> (1) Diabetes mellitus Qualifiers: Diabetes mellitus type: type 2 Diabetes mellitus long-term insulin use: with joint terminal attack controller use Diabetes mellitus complication status: with circulatory complic ation Diabetes mellitus complication detail: with peripheral angiopathy without gangrene Qualified Code(s): E11.51 - Type 2 diabetes mellitus with diabetic peripheral angiopathy without gangrene; Z79.4 - [facility] (current) use of insulin (2) Chronic back pain Qualifiers: Back pain location: low back pain Back pain laterality: bilateral Sciatica presence: with sciatica Sciatica laterality: bilateral sciatica Qualified Cod e(s): M54.42 - Lumbago with sciatica, left side; M54.41 - Lumbago with sciatica, right side; G89.29 - Other chronic pain <Ruthie Campos - Last Filed: 03/05/19 14:42> (2) Osteomyelitis Qualifiers: Osteomyelitis type: acute hematogenous Osteomyelitis location: foot Laterality: left Qualified Code(s): M86.072 - Acute hematogenous osteomyelitis, left ankle and foot (3) Diabetes mellitus Qualifiers: Diabetes mellitus type: type 2 Diabetes mellitus joint terminal attack controller insulin use: with joint terminal attack controller use Diabetes mellitus complication status: with circulatory complication Diabetes mellitus complication detail: with peripheral angiopathy without gangrene Qualified Code(s): E11.51 - Type 2 diabetes mellitus with diabetic peripheral angiopathy without gangrene; Z79.4 - rn long term care (current) use of insulin (5) CAD (coronary artery disease) Qualifiers: Coronary Disease-Associated Artery/Lesion type: [place] artery [place] vs. transplanted heart: [place] heart Associated angina: without angina Qualified Code(s): I25.10 - Atherosclerotic heart disease of [place] coronary artery without angina pectoris (6) Chronic back pain Qualifiers: Back pain location: low back pain Back pain laterality: bilateral Sciatica presence: with sciatica Sciatica laterality: bilateral sciatica Qualified Code(s): M54.42 - Lumbago with sciatica, left side; M54.41 - Lumbago with sciatica, right side; G89.29 - Other chronic pain
--- NOTE | 2019-03-05 12:04 | Podiatry Progress Note ---
Date of Encounter: 03/05/19 Time of Encounter: 11:35 - Assessment and Plan (1) Diabetic infection of left foot Current Visit: Yes Status: Acute Assessment: -Surgical wound without signs of infection, no complications noted -Sutures intact and edges coapting -No calf pain with squeeze -WBC 4.9 -ESR 63, CRP 12 -DAVID 01/27/19 Right PT 0.94 DP 1.01 Left PT 0.97 DP 0.99 -TCPO2 01/29/19 Right ankle 19 foot 20 Left ankle 22 foot 10 -MR 02/27/19 1. Osteomyelitis of the 1st proximal phalanx. 2. Bone marrow edema without confluent decreased T1 signal throughout the 1st distal phalanx compatible with noninfectious reactive osteitis versus early osteomyelitis. 3. Large deep soft tissue defect along the medial aspect of the 1st digit with an adjacent lobular fluid collection versus phlegmon encasing the 1st proximal phalangeal shaft and extending dorsal to the 1st distal phalanx. -XR showed no OM but questionable for subcutaneous gas -Culture final for Enterobacter cloacae complex and Staph. aereus, Zosyn and Vanc discontinued, patient started on Levaquin and Nafcillin, possibly could switch to PO Levaquin, ID following and any recommendations greatly appreciate -Blood culture final for no growth -Path pending Plan: -Dressing removed and site flushed thoroughly with sterile normal saline and pat dry. Surgical wound painted with betadine paying careful attention to area of maceration. Betadine soaked adaptic was applied to surgical wound and covered with 4x4's. Xeroform was placed on left #2 ulcer and covered with 4x4. Left foot and lower extremity wrapped with Kerlix and SOULEYMANE. -Follow up with Dr. Velázquez in office within one week after discharge, please schedule appointment prior to discharge Subjective Interval history: Post op day #2 #1: Incision of bone for osteomyelitis left foot #2: Amputation of great toe and metatarsal left foot by Dr. Velázquez on 03/03/2019 Patient is alert and oriented and no acute distress noted sitting in wheelchair. Patient reports minimal pain and tingling sensation in his foot. He denies any chest pain, shortness of breath, or calf pain. He denies any fever, chills, n/v/d. Patient reports he is ready to go home. Objective - Vital Signs Vital Signs: Vital Signs Temp Pulse Resp BP Pulse Ox 03/05/19 09:26 97.6 F 77 18 151/69 96 03/05/19 07:28 98.0 F 69 20 200/101 98 03/05/19 03:42 98.8 F 72 16 180/82 95 03/04/19 23:13 98.6 F 68 17 172/74 98 03/04/19 19:45 99.2 F 81 17 187/74 97 03/04/19 15:43 99.1 F 80 18 171/81 97 Intake and Output 03/04/19 03/05/19 03/05/19 23:59 07:59 15:59 Intake Total 200 / 1100 200 / 680 480 / 680 Balance 200 / 350 200 / 680 480 / 680 Intake: IV Fluids 200 / 500 200 / 200 Nafcillin 2,000 MG In 0.9 % 200 / 500 200 / 200 Sodium Chloride (Mini-Bag +) 100 ML @ 200 mls/hr IVPB Q4HR [facility] Rx#:[id number] Oral 0 / 600 480 / 480 Other: Meal Breakfast Percent of Meal Consumed 100% # Voids 1 Blood Glucose* 204 190 - Exam Exam: Constitutional: Alert and oriented x 3. Well nourished. No acute distress noted Vascular: No calf pain with squeeze LLE, skin warm to LLE, cap refill less than 3 seconds to all digits Dermatological: Sutures intact and edges coapting left surgical wound 1st toe amputation, maceration of tissue noted middle of suture line, serosanguineous drainage noted on dressing, no complications or signs of infection noted. Neurological: Diminished sensation. Musculoskeletal: 4/5 muscle strength and normal tone bilaterally. - Lab Result Diagrams: 03/05/19 04:00 03/05/19 04:00 Labs: Abnormal lab results WBC 4.2 K/mcL (4.3-11.1) L 03/02/19 04:25 RBC 3.21 M/mcL (4.19-5.50) L 03/05/19 04:00 Hgb 9.2 g/dL (12.9-16.9) L 03/05/19 04:00 Hct 29.2 % (37.5-50.1) L 03/05/19 04:00 MCHC 31.5 g/dL (31.6-35.5) L 03/05/19 04:00 RDW 14.6 % (11.5-14.5) H 03/05/19 04:00 Plt Count 54 K/mcL (140-400) L 03/05/19 04:00 MPV 9.1 fL (9.4-12.4) L 03/05/19 04:00 Immature Plt Fraction 1.0 % (1.1-6.1) L 03/01/19 04:39 ESR 63 mm/hr (0-10) H 02/27/19 14:04 PT 15.1 Seconds (9.4-12.1) H 02/28/19 05:17 Chloride 108 mEq/L (98-107) H 03/04/19 05:39 Carbon Dioxide 22 mEq/L (23-29) L 03/05/19 04:00 Glucose 187 mg/dL (70-105) H 03/05/19 04:00 POC Glucose 187 mg/dL (70-99) H 03/04/19 16:31 Calcium 8.5 mg/dL (8.6-10.3) L 03/02/19 04:25 C-Reactive Protein 12 mg/L (Less than 10) H 02/27/19 14:04 Vancomycin Trough 13 mcg/mL (5-10) H 03/03/19 11:05 Microbiology, Last 48 Hours 02/27/19 09:26 Blood Culture - Final Central Venous Catheter No growth. Final report. 02/27/19 09:16 Blood Culture - Final Peripheral Venipuncture No growth. Final report. Consult Discharge Plan - Plan [facility]errals: [facility] [Primary Care Provider] -
[2019-03-05] MEDS: levoFLOXacin 750 MG/150 ML 750 MG/150 ML BAG IVPB SCH (17:07)
[2019-03-05] MEDS: Insulin DETEMIR 100 UNIT/ML X5UNITS SQ SCH (20:14)
[2019-03-06] MEDS: Nafcillin 2,000 MG in 0.9 % Sodium Chloride Mini Bag 100 ML IVPB SCH ×4 (00:01→12:13)
[2019-03-06] MEDS: *HR* OxyCODONE Immed Rel 15 MG TABLET PO PRN ×4 (00:02→12:12)
[2019-03-06 03:58] LABS: Mean Corpuscular Hemoglobin 29.1 pg (28.0-33.3); Monocytes % 8.9 %
[2019-03-06 04:00] LABS: Basophils % 0.3 %; Eosinophils # 0.1 K/mcL (0.0-0.6); Eosinophils % 1.5 %; Hematocrit 30.2 % (37.5-50.1); Hemoglobin 9.6 g/dL (12.9-16.9); Immature Granulocytes % 1.3 % (0-4); Immature Platelets 1.8 % (1.1-6.1); Lymphocytes # 1.2 K/mcL (0.6-4.6); Lymphocytes % 20.6 %; Mean Corpuscular HGB Conc 31.8 g/dL (31.6-35.5); Mean Corpuscular Volume 91.5 fL (83.0-100.0); Monocytes # 0.5 K/mcL (0.0-1.3); Red Cell Distribution Width 14.7 % (11.5-14.5); Segmented Neutrophils % 67.4 %
[2019-03-06 04:10] LABS: Platelet Count 68 K/mcL (140-400)
[2019-03-06 04:21] LABS: BUN/Creatinine Ratio 17 (6-26); Blood Urea Nitrogen 20 mg/dL (8-23); Calcium 8.8 mg/dL (8.6-10.3); Carbon Dioxide 25 mEq/L (23-29); Chloride 106 mEq/L (98-107); Glucose 197 mg/dL (70-105); Osmolality,Calculated 296 (280-300); Potassium 3.9 mEq/L (3.5-5.1); Sodium 139 mEq/L (136-145); eGFR For African Americans > 60 (> 60); eGFR For Non-African Americans > 60 (> 60)
[2019-03-06] MEDS: Loratadine 10 MG TABLET PO SCH (08:24)
[2019-03-06] MEDS: Cholecalciferol (D-3) 1,000 UNIT (25MCG) TABLET PO SCH (08:24)
[2019-03-06] MEDS: Venlafaxine XR (24 HR) 37.5 MG CAP.ER.24H PO SCH (08:24)
[2019-03-06] MEDS: Cyanocobalamin (B-12) 1,000 MCG TABLET PO SCH (08:24)
[2019-03-06] MEDS: Isosorbide MONOnitrate (24 HR) 60 MG TAB.ER.24H PO SCH (08:24)
[2019-03-06] MEDS: amLODIPine 5 MG TABLET PO SCH (08:24)
[2019-03-06] MEDS: Insulin LISPRO 300 UNITS/3 ML VIAL SQ SCH ×2 (08:30→12:13)
[2019-03-06] MEDS: Fluticasone Propionate Nasal 50 MCG/SPRAY BOTTLE NS SCH (08:31)
[2019-03-06] MEDS: Sennosides/Docusate Sodium TABLET PO SCH (08:31)
[2019-03-06] MEDS ORDERED: hydroCHLOROthiazide 25 MG TABLET PO SCH (09:13)
--- NOTE | 2019-03-06 10:20 | Internal Med Progress Note ---
Hospitalist Progress Note - Encounter Date of Encounter: 03/06/19 Time of Encounter: 10:20 - Subjective Interval History: Patient was seen and examined at bedside. Was sitting comfortably in wheelchair. Pain well controlled with meds. No acute complaints. Denies fever, chills, headache, visual changes, chest pain, shortness of breath, cough, hemoptysis, palpitations, abdominal pain, N/V/D/C, melena, hematochezia, dysuria, urinary frequency/urgency, blood in urine, peripheral edema. Unsure about taking HCTZ at home, will ask . - Exam Vitals: Temp Pulse Resp BP Pulse Ox 98.5 F 67 18 183/84 99 03/06/19 06:31 03/06/19 06:31 03/06/19 06:31 03/06/19 06:31 03/06/19 06:31 Exam: GEN: Well-appearing, NAD, conversant. HEAD: Normocephalic, atraumatic. EYES: PERRL, EOMI, anicteric. ENT: MMM. oropharynx without erythema or drainage. NECK: Supple. No LAD. No stiffness or restricted ROM. No tracheal deviation. HEART: Regular rate and regular rhythm, normal S1/S2, no m/r/g. LUNGS: CTAB, good air exchange bilaterally. No wheezing, rubs, or rhonchi. ABDO: Soft, nontender, nondistended with active bowel sounds. : No suprapubic tenderness or CVA tenderness. BACK: No obvious stepoffs or deformities. EXT: Without cyanosis, clubbing or edema. Amputated great toe of the left foot. No erythema or drainage from incision site. SKIN: Warm and dry without any rash. NEURO: Grossly nonfocal. Alert and oriented, moving all 4 extremities. CN not formally tested but appear grossly intact. PSYCH: Normal affect, no depressed or anxious mood. - Assessment and Plan (1) Diabetic infection of left foot Current Visit: Yes Status: Acute Assessment and Plan: - Patient presented with worsening of left great toe infection. Was recently hospitalized for MSSA bacteremia and left great toe osteomyelitis - Was originally discharged home with IV cefazolin, but developed worsening thrombocytopenia and was transitioned IV nafcillin. - X-ray of the left foot showed possible soft tissue gas, but no bony erosion or osteomyelitis. - MRI L foot showed osteomyelitis of the first proximal phalanx, bone marrow ed syeda, large deep to soft tissue defect along the first digit, no tenosynovitis. - No SIRS criteria. - Treating infection initially with vancomycin and zosyn, now discontinued - Wound cultures growing Enterobacter cloacae and staph aureus, hx of MSSA - Blood cultures results no growth. - ID recs: nafcillin and levaquin (day 4) most likely for 6 weeks - Monitor renal function and for drug toxicity and dose adjust antibiotics - POD #2 after incision of bone for osteomyelitis and amputation of great toe and metatarsal lefty foot on 03/03; no complications - dressings are C/D/I - Vascular surgery consulted - Podiatry recs: Okay to discharge from podiatry. Follow up with Dr. Velázquez office within one week after discharge. - vascular recs: pending - ID recs: pending (2) Osteomyelitis Current Visit: Yes Status: Acute Assessment and Plan: Likely secondary to diabetic ulcer of L toe. MRI foot showed osteomyelitis of the first proximal phalanx, bone marrow edema, large deep to soft tissue defect along the first digit, no tenosynovitis. Podiatry/ID following Plan: - Continue nafcillin and Levaquin - ID recs: pending (3) Diabetes mellitus Current Visit: Yes Status: Chronic Assessment and Plan: Currently holding home meds. Held metformin. SSI and levemir 10 units HS ordered. (4) Thrombocytopenia Current Visit: Yes Status: Acute Assessment and Plan: Likely due to treatment with outpatient cefazolin. Current platelets 68 (previous 54) Will continue to trend with CBC. (5) CAD (coronary artery disease) Current Visit: Yes Status: Chronic Assessment and Plan: Cont home meds: coreg, simvastatin, imdur. Hold ASA for podiatry, scheduled surgery. (6) Chronic back pain Current Visit: Yes Status: Chronic Assessment and Plan: Continue home regimen. Does have coinciding constipation. Cont home oxycodone q3hrs PRN. Cont home bowel regiment. Pain is well managed with medication. (7) Essential hypertension Current Visit: Yes Status: Chronic Assessment and Plan: - SBP usually in the 140s at home. - Elevated BPs in the 160 to 170 systolic for past several days - Cont home coreg for BP control - Losartan dose increased to 100 mg daily - SBP decreased to 151 after morning dose of losartan 100 mg - started on HCTZ 25mg once daily. pt unsure if he takes this at home, says he will ask his . - IV hydralazine 10m q6 prn if sbp>160 - Continue to monitor vitals (8) PTSD (post-traumatic stress disorder) Current Visit: Yes Status: Acute Assessment and Plan: Cont home meds: venlafaxine - Time Spent with Patient Total time spent is greater than 50% in coordination of care (as documented) at patient's floor/unit and/or counseling patient: Internal Medicine: Result - Labs CBC & Chem 7: 03/06/19 03:32 03/06/19 03:32 Labs: Short CBC 03/06/19 Range/Units 03:32 WBC 6.0 (4.3-11.1) K/mcL Hgb 9.6 L (12.9-16.9) g/dL Hct 30.2 L (37.5-50.1) % Plt Count 68 L (140-400) K/mcL Neutrophils # 4.0 (1.6-8.9) K/mcL BMP 03/06/19 03:32 Sodium 139 Potassium 3.9 Chloride 106 Carbon Dioxide 25 BUN 20 Creatinine 1.17 Glucose 197 H Calcium 8.8 - ABG Interpretation ABG results: PT/INR, D-dimer PT 15.1 Seconds (9.4-12.1) H 02/28/19 05:17 Consult Discharge Plan - Plan [facility]errals: [facility] [Primary Care Provider] - (2) Osteomyelitis Qualifiers: Osteomyelitis type: acute hematogenous Osteomyelitis location: foot Laterality: left Qualified Code(s): M86.072 - Acute hematogenous osteomyelitis, left ankle and foot (3) Diabetes mellitus Qualifiers: Diabetes mellitus type: type 2 Diabetes mellitus prison insulin use: with sales [employer] use Diabetes mellitus complication status: with circulatory complication Diabetes mellitus complication detail: with peripheral angiopathy without gangrene Qualified Code(s): E11.51 - Type 2 diabetes mellitus with diabetic peripheral angiopathy without gangrene; Z79.4 - jail (current) use of insulin (5) CAD (coronary artery disease) Qualifiers: Coronary Disease-Associated Artery/Lesion type: [place] artery [place] vs. transplanted heart: [place] heart Associated angina: without angina Qualified Code(s): I25.10 - Atherosclerotic heart disease of [place] coronary artery without angina pectoris (6) Chronic back pain Qualifiers: Back pain location: low back pain Back pain laterality: bilateral Sciatica presence: with sciatica Sciatica laterality: bilateral sciatica Qualified Code(s): M54.42 - Lumbago with sciatica, left side; M54.41 - Lumbago with sciatica, right side; G89.29 - Other chronic pain
--- NOTE | 2019-03-06 12:35 | Podiatry Progress Note ---
Date of Encounter: 03/06/19 Time of Encounter: 11:50 - Assessment and Plan (1) Diabetic infection of left foot Current Visit: Yes Status: Acute Assessment: -Surgical wound without signs of infection, no complications noted -Sutures intact and edges coapting -No calf pain with squeeze -WBC 6.0 -ESR 63, CRP 12 -DAVID 01/27/19 Right PT 0.94 DP 1.01 Left PT 0.97 DP 0.99 -TCPO2 01/29/19 Right ankle 19 foot 20 Left ankle 22 foot 10 -MR 02/27/19 1. Osteomyelitis of the 1st proximal phalanx. 2. Bone marrow edema without confluent decreased T1 signal throughout the 1st distal phalanx compatible with noninfectious reactive osteitis versus early osteomyelitis. 3. Large deep soft tissue defect along the medial aspect of the 1st digit with an adjacent lobular fluid collection versus phlegmon encasing the 1st proximal phalangeal shaft and extending dorsal to the 1st distal phalanx. -XR showed no OM but questionable for subcutaneous gas -Culture final for Enterobacter cloacae complex and Staph. aereus, Zosyn and Vanc discontinued, patient started on Levaquin and Nafcillin, possibly could switch to PO Levaquin, ID following and any recommendations greatly appreciate -Blood culture final for no growth -Path final for left foot great toe ulcer with supportive inflammation, acute osteomyelitis, and left foot metatarsal head bone with no diagnostic abnormality and no significant acute inflammation is identified Plan: -Dressing removed and site flushed thoroughly with sterile normal saline and pat dry. Surgical wound painted with betadine paying careful attention to area of maceration. Betadine soaked adaptic was applied to surgical wound and covered with 4x4's. Xeroform was placed on left #2 ulcer and covered with 4x4. Left foot and lower extremity wrapped with Kerlix and SOULEYMANE. -Follow up with Dr. Velázquez in office within one week after discharge, please schedule appointment prior to discharge Subjective Interval history: Post op day #3 #1: Incision of bone for osteomyelitis left foot #2: Amputation of great toe and metatarsal left foot by Dr. Velázquez on 03/03/2019 Patient is alert and oriented and no acute distress noted, sitting in wheelchair. Patient denies pain. He denies any chest pain, shortness of breath, or calf pain. He denies any fever, chills, n/v/d. Patient reports he is waiting for final antibiotic recommendations so he can go home. Objective - Vital Signs Vital Signs: Vital Signs Temp Pulse Resp BP Pulse Ox 03/06/19 12:20 166/79 03/06/19 10:53 98.2 F 75 18 181/79 97 03/06/19 06:31 98.5 F 67 18 183/84 99 03/06/19 04:16 98.3 F 71 18 161/83 97 03/06/19 00:53 165/70 03/05/19 23:55 98.9 F 73 17 175/76 98 03/05/19 20:15 95 03/05/19 18:35 98.8 F 80 18 171/79 95 03/05/19 16:50 97.9 F 77 18 167/90 97 Intake and Output 03/05/19 03/06/19 03/06/19 23:59 07:59 15:59 Intake Total 680 / 1800 200 / 540 340 / 540 Balance 680 / 1800 200 / 540 340 / 540 Intake: IV Fluids 200 / 600 200 / 300 100 / 300 Nafcillin 2,000 MG In 0.9 % 200 / 600 200 / 300 100 / 300 Sodium Chloride (Mini-Bag +) 100 ML @ 200 mls/hr IVPB Q4HR [facility] Rx#:[id number] Oral 480 / 1200 240 / 240 Other: Meal Breakfast Percent of Meal Consumed 100% 100% # Voids 1 1 Blood Glucose* 243 202 255 - Exam Exam: Constitutional: Alert and oriented x 3. Well nourished. No acute distress noted Vascular: No calf pain with squeeze LLE, skin warm to LLE, cap refill less than 3 seconds to all digits Dermatological: Sutures intact and edges coapting left surgical wound 1st toe amputation, maceration of tissue noted middle of suture line, serosanguineous drainage noted on dressing, no complications or signs of infection noted. Neurological: Diminished sensation. Musculoskeletal: 4/5 muscle strength and normal tone bilaterally. - Lab Result Diagrams: 03/06/19 03:32 03/06/19 03:32 Labs: Abnormal lab results WBC 4.2 K/mcL (4.3-11.1) L 03/02/19 04:25 RBC 3.30 M/mcL (4.19-5.50) L 03/06/19 03:32 Hgb 9.6 g/dL (12.9-16.9) L 03/06/19 03:32 Hct 30.2 % (37.5-50.1) L 03/06/19 03:32 MCHC 31.5 g/dL (31.6-35.5) L 03/05/19 04:00 RDW 14.7 % (11.5-14.5) H 03/06/19 03:32 Plt Count 68 K/mcL (140-400) L 03/06/19 03:32 MPV 9.0 fL (9.4-12.4) L 03/06/19 03:32 Immature Plt Fraction 1.0 % (1.1-6.1) L 03/01/19 04:39 ESR 63 mm/hr (0-10) H 02/27/19 14:04 PT 15.1 Seconds (9.4-12.1) H 02/28/19 05:17 Chloride 108 mEq/L (98-107) H 03/04/19 05:39 Carbon Dioxide 22 mEq/L (23-29) L 03/05/19 04:00 Glucose 197 mg/dL (70-105) H 03/06/19 03:32 POC Glucose 243 mg/dL (70-99) H 03/05/19 20:04 Calcium 8.5 mg/dL (8.6-10.3) L 03/02/19 04:25 C-Reactive Protein 12 mg/L (Less than 10) H 02/27/19 14:04 Vancomycin Trough 13 mcg/mL (5-10) H 03/03/19 11:05 Microbiology, Last 48 Hours 02/27/19 09:26 Blood Culture - Final Central Venous Catheter No growth. Final report. 02/27/19 09:16 Blood Culture - Final Peripheral Venipuncture No growth. Final report. Consult Discharge Plan - Plan [facility]errals: [facility] [Primary Care Provider] -
--- NOTE | 2019-03-06 14:45 | Discharge Summary ---
<Ruthie Campos S - Last Filed: 03/06/19 15:24> - NOTES TO OUTPATIENT PROVIDER Notes to Outpatient Provider: Mr. Villagran is a 59 4M who was admitted for worsening symptoms of diabetic diabetic wound on left great toe. He had a left great toe and metatarsal amputation on 03/03/19. He was started on IV nafcillin and levofloxacin before his surgery which she will continue for a total 6 week course. He has a follow-up with podiatry, Dr. Velázquez, in 1 week after discharge. He has an outpatient angiogram scheduled with vascular surgery on 03/11/19. He will need weekly CBC, BUN, creatinine, ESR, CRP. He will need to follow-up with Rae Cobb with infectious disease in 2-3 weeks after discharge. Date of Encounter: 03/06/19 Time of Encounter: 14:28 - Discharge Diagnosis (1) Diabetic infection of left foot Priority: Primary Status: Acute (2) Osteomyelitis Priority: Secondary Status: Acute Qualifiers: Osteomyelitis type: acute hematogenous Osteomyelitis location: foot Laterality: left Qualified Code(s): M86.072 - Acute hematogenous osteomyelitis, left ankle and foot (3) Diabetes mellitus Priority: Secondary Status: Chronic Qualifiers: Diabetes mellitus type: type 2 Diabetes mellitus termite inspector insulin use: with fpc use Diabetes mellitus complication status: with circulatory complication Diabetes mellitus complication detail: with peripheral angiopathy without gangrene Qualified Code(s): E11.51 - Type 2 diabetes mellitus with diabetic peripheral angiopathy without gangrene; Z79.4 - assisted (current) use of insulin (4) Thrombocytopenia Priority: Secondary Status: Acute (5) CAD (coronary artery disease) Priority: Secondary Status: Chronic Qualifiers: Coronary Disease-Associated Artery/Lesion type: [place] artery [place] vs. transplanted heart: [place] heart Associated angina: without angina Qualified Code(s): I25.10 - Atherosclerotic heart disease of [place] coronary artery without angina pectoris (6) Chronic back pain Priority: Secondary Status: Chronic Qualifiers: Back pain location: low back pain Back pain laterality: bilateral Sciatica presence: with sciatica Sciatica laterality: bilateral sciatica [place] lified Code(s): M54.42 - Lumbago with sciatica, left side; M54.41 - Lumbago with sciatica, right side; G89.29 - Other chronic pain (7) Essential hypertension Priority: Secondary Status: Chronic (8) PTSD (post-traumatic stress disorder) Priority: Secondary Status: Chronic Hospital course: Mr. Villagran is a 63-year-old male who is admitted for worsening diabetic wound of left great toe. PMH of chronic left great toe diabetic wound, osteomyelitis, MSSA bacteremia with recent admit for same, HTN, DM on insulin, COPD, CAD, PVD, HLD, PTSD, chronic pain on opioids. Was previously discharged with IV cefazolin, but switched to IV nafcillin due to worsening thrombocytopenia. MRI showed osteomyelitis of the left first proximal phalanx, bone marrow edema, large deep to soft tissue defect along the first digit, no tenosynovitis. Patient was treated inpatient with IV nafcillin and levofloxacin, per recommendation by infectious diseases. He was also seen by vascular surgery for nonhealing left toe ulcer with gangrenous changes. He was taken to the OR by podiatry on 03/03/19 for amputation of great toe and metatarsal of the left foot. His postoperative recovery was without complications. His pain was well managed with medication. He will be discharged home on 03/06/19 with instructions to follow-up for weekly CBC, BUN, creatinine, ESR, CRP. He will continue IV nafcillin and levofloxacin to finish a 6 week course. He will follow-up with Rae Cobb, with infectious diseases, in 2-3 weeks after discharge. He will also have an outpatient angiogram on 03/11/19 with vascular surgery. He will have a follow-up with Dr. Velázquez, podiatry, next week. - Time Spent with Patient Total time spent providing and/or coordinating discharge services: - Discharge Medications Prescriptions: New Acetaminophen [Tylenol] 500 mg PO Q6HR PRN 3 Days #12 tablet PRN Reason: Mild Pain/Fever Continued metFORMIN [Glucophage] 1,000 mg PO BIDWM Omeprazole [PriLOSEC] 20 mg PO DAILY Aspirin [Lo-Dose Aspirin EC] 81 mg PO DAILY Cyanocobalamin (Vitamin B-12) [Vitamin B-12] 1,000 mcg PO DAILY Simvastatin [Zocor] 20 mg PO DAILY Potassium Chloride [K-Tab ER] 20 meq PO DAILY Ferrous Gluconate 324 mg PO DAILY Cetirizine HCl [Zyrtec] 10 mg PO DAILY Montelukast [Singulair] 10 mg PO DAILY Magnesium Oxide [Magnesium] 400 mg PO DAILY Insulin Glargine [Lantus] 55 unit SQ BID guaiFENesin [Guaifenesin] 800 mg PO BID Fluticasone Propionate Nasal [Flonase] 50 mcg NS DAILY Sennosides/Docusate Sodium [Docusate Sodium-Senna Tablet] 1 each PO BID Calcium Citrate/Vitamin D3 [Calcium Cit 315-Vit D3 250 Cpt] 1 each PO DAILY Venlafaxine HCl [Venlafaxine HCl ER] 37.5 mg PO DAILY Ketotifen Fumarate [Zaditor] 1 drp BOTH EYES BID Ipratropium/Albuterol Neb [Duoneb] 3 ml IH Q6H PRN PRN Reason: Shortness Of Breath Isosorbide MONOnitrate (24 HR) [Imdur] 120 mg PO DAILY #60 tab.er.24h Polyethylene Glycol 3350 [MiraLAX] 17 gm PO BID #60 powd.pack Insulin ASPART [NovoLOG] 0 unit SQ TIDWM #1 mls amLODIPine [Norvasc] 5 mg PO DAILY #30 tablet Carvedilol 3.125 mg PO BID #60 tab OxyCODONE Immed Rel [Roxicodone 5 MG] 15 mg PO Q3H PRN 3 Days #24 tablet PRN Reason: Severe Pain Home Medications: Aspirin [Lo-Dose Aspirin EC] 81 mg PO DAILY 11/27/17 [History] Cetirizine HCl [Zyrtec] 10 mg PO DAILY 11/27/17 [History] Cyanocobalamin (Vitamin B-12) [Vitamin B-12] 1,000 mcg PO DAILY 11/27/17 [History] Ferrous Gluconate 324 mg PO DAILY 11/27/17 [History] Omeprazole [PriLOSEC] 20 mg PO DAILY 11/27/17 [History] Potassium Chloride [K-Tab ER] 20 meq PO DAILY 11/27/17 [History] Simvastatin [Zocor] 20 mg PO DAILY 11/27/17 [History] metFORMIN [Glucophage] 1,000 mg PO BIDWM 11/27/17 [History] Calcium Citrate/Vitamin D3 [Calcium Cit 315-Vit D3 250 Cpt] 1 each PO DAILY 01/28/19 [History] Fluticasone Propionate Nasal [Flonase] 50 mcg NS DAILY 01/28/19 [History] Insulin Glargine [Lantus] 55 unit SQ BID 01/28/19 [History] Ipratropium/Albuterol Neb [Duoneb] 3 ml IH Q6H PRN 01/28/19 [History] Ketotifen Fumarate [Zaditor] 1 drp BOTH EYES BID 01/28/19 [History] Magnesium Oxide [Magnesium] 400 mg PO DAILY 01/28/19 [History] Montelukast [Singulair] 10 mg PO DAILY 01/28/19 [History] Sennosides/Docusate Sodium [Docusate Sodium-Senna Tablet] 1 each PO BID 01/28/19 [History] Venlafaxine HCl [Venlafaxine HCl ER] 37.5 mg PO DAILY 01/28/19 [History] guaiFENesin [Guaifenesin] 800 mg PO BID 01/28/19 [History] Insulin ASPART [NovoLOG] 0 unit SQ TIDWM #1 mls 02/10/19 [Rx] Isosorbide MONOnitrate (24 HR) [Imdur] 120 mg PO DAILY #60 tab.er.24h 02/10/19 [Rx] Polyethylene Glycol 3350 [MiraLAX] 17 gm PO BID #60 powd.pack 02/10/19 [Rx] amLODIPine [Norvasc] 5 mg PO DAILY #30 tablet 02/10/19 [Rx] Carvedilol 3.125 mg PO BID #60 tab 02/11/19 [Rx] Acetaminophen [Tylenol] 500 mg PO Q6HR PRN 3 Days #12 tablet 03/06/19 [Rx] OxyCODONE Immed Rel [Roxicodone 5 MG] 15 mg PO Q3H PRN 3 Days #24 tablet 03/06/19 [Rx] Allergies/Adverse Reactions: Allergy/AdvReac Type Severity Reaction Status Date / Time bee venom protein (honey bee) Allergy Anaphylaxis Verified 01/28/19 14:25 tetracycline [Tetracycline] Allergy Hives Verified 01/28/19 14:25 influenza virus vacc AdvReac Weakness Verified 01/28/19 14:25 trivalent, split [From Fluzone] Date of admission: 02/27/19 11:07 [facility] care physician: [facility] Consults: 02/27/19 09:55 Consult to Podiatry [CONS] Stat Consulting Provider: [facility] Reason for Consult: Left foot wound Call Completed: No 02/27/19 10:58 Consult to Infectious Diseases [CONS] Routine Consulting Provider: [facility] [place] Reason for Consult: pt of Dr Roque for left toe infection + MSSA bacteremia. sent in by podiatry for worsened wound and possible surg intervention. Please eval for cont abx treat recs as pt noting ancef was changed but unsure to what. Call Completed: Yes 03/03/19 14:04 Consult to Vascular Surgery [CONS] Routine Consulting Provider: [facility] [place] Reason for Consult: Possible angiography to confirm patency of distal tibial vessels Time Notified: 13:55 Call Completed: Yes Discharging clinician: Ruthie Campos - Constitutional Vitals: Temp Pulse Resp BP Pulse Ox 98.2 F 75 18 166/79 97 03/06/19 10:53 03/06/19 10:53 03/06/19 10:53 03/06/19 12:20 03/06/19 10:53 Exam: GEN: Well-appearing, NAD, conversant. HEAD: Normocephalic, atraumatic. EYES: PERRL, EOMI, anicteric. ENT: MMM. oropharynx without erythema or drainage. NECK: Supple. No LAD. No stiffness or restricted ROM. No tracheal deviation. HEART: Regular rate and regular rhythm, normal S1/S2, no m/r/g. LUNGS: CTAB, good air exchange bilaterally. No wheezing, rubs, or rhonchi. ABDO: Soft, nontender, nondistended with active bowel sounds. : No suprapubic tenderness or CVA tenderness. BACK: No obvious stepoffs or deformities. EXT: Without cyanosis, clubbing or edema. Amputated great toe of the left foot. Dressings are C/D/I. No evidence of erythema or drainage from incision site. SKIN: Warm and dry without any rash. NEURO: Grossly nonfocal. Alert and oriented, moving all 4 extremities. CN not formally tested but appear grossly intact. PSYCH: Normal affect, no depressed or anxious mood. - Patient Status Disposition: Home Health Service Condition: Good Functional capacity at discharge: wheelchair bound Overall status at discharge: patient is progressing back to baseline - Discharge Instructions Follow Up With: Enrike Fuchs MD [Partnered Physician] - 03/11/19 Rae Cobb CNP [Advanced Practice Nurse] - Tad Velázquez DPM [Partnered Physician] - 03/16/19 9:15 am [facility] [Primary Care Provider] - (Please repeat weekly CBC, BUN, creatinine, ESR, CRP. Patient is receiving IV nafcillin and IV levofloxacin for total 6 week course. Patient has an angiogram scheduled outpatient with vascular surgery on 03/11/19. Patient has a follow-up with Dr. Velázquez with podiatry one week after discharge. Patient needs to follow up with Rae Cobb, with infectious disease, in 2-3 weeks after discharge.) Additional Instructions: Please follow-up with Dr. Velázquez one week after discharge at your scheduled time. Please follow-up with vascular surgery on 03/11/19 for your angiogram as per your scheduled time. Please continue with IV nafcillin and levofloxacin to finish a 6 week course. Please follow-up with Rae Cobb with infectious diseases in 2-3 weeks after discharge. Please continue home medications as instructed. Please take pain medications as needed per your prescriptions. Please follow up with PCP regarding your recent hospital stay within 3-5 days. Please repeat weekly CBC, BUN, creatinine, ESR, CRP. Please return to the emergency department if you experience fevers, chills, chest pain, shortness of breath, blood in stool or urine, or any other concerning or worsening symptoms. - Diet and Activity Activity: resume usual activities as tolerated Diet: diabetic diet, low salt diet <Tonia Carlton - Last Filed: 03/06/19 21:31> Date of Encounter: 03/06/19 - Discharge Diagnosis (1) Diabetes mellitus Status: Chronic Qualifiers: Diabetes mellitus type: type 2 Diabetes mellitus termite inspector insulin use: with termite inspector use Diabetes mellitus complication status: with circulatory complication Diabetes mellitus complication detail: with peripheral angiopathy without gangrene Qualified Code(s): E11.51 - Type 2 diabetes mellitus with diabetic peripheral angiopathy without gangrene; Z79.4 - assisted (current) use of insulin (2) Chronic back pain Status: Chronic Qualifiers: Back pain location: low back pain Back pain laterality: bilateral Sciatica presence: with sciatica Sciatica laterality: bilateral sciatica Qualified Code(s): M54.42 - Lumbago with sciatica, left side; M54.41 - Lumbago with sciatica, right side; G89.29 - Other chronic pain (3) MSSA bacteremia Status: Chronic (4) Diabetic infection of left foot Status: Acute (5) Essential hypertension Status: Chronic (6) Cramps of left lower extremity Status: Chronic Hospital course: Mr. Villagran is a 63 year old male - Time Spent with Patient Total time spent providing and/or coordinating discharge services: Date of admission: 02/27/19 11:07 Primary care physician: [facility] Consults: 02/27/19 09:55 Consult to Podiatry [CONS] Stat Consulting Provider: [facility] Reason for Consult: Left foot wound Call Completed: No 02/27/19 10:58 Consult to Infectious Diseases [CONS] Routine Consulting Provider: [facility] [place] Reason for Consult: pt of Dr Roque for left toe infection + MSSA bacteremia. sent in by podiatry for worsened wound and possible surg intervention. Please eval for cont abx treat recs as pt noting ancef was changed but unsure to what. Call Completed: Yes 03/03/19 14:04 Consult to Vascular Surgery [CONS] Routine Consulting Provider: [facility] [place] Reason for Consult: Possible angiography to confirm patency of distal tibial vessels Time Notified: 13:55 Call Completed: Yes - Constitutional Vitals: Temp Pulse Resp BP Pulse Ox 98.1 F 80 18 189/82 97 03/06/19 15:17 03/06/19 15:17 03/06/19 15:17 03/06/19 15:17 03/06/19 15:17 - Attending Attestation I examined this patient and my medical decision-making was reviewed with the resident physician. I agree with the documented findings, disposition and treatment plan as described except to the extent set forth below.
[2019-03-06 15:19] VITALS: BP 189/82
--- NOTE | 2019-03-06 15:22 | Physician Discharge Referral ---
Home Health/Hosp Referral Info Transfer to: Home Health Provider in Charge Post Discharge: PCP - Diagnosis (1) Diabetic infection of left foot Priority: Primary Status: Acute (2) Osteomyelitis Priority: Secondary Status: Acute (3) Diabetes mellitus Priority: Secondary Status: Chronic (4) Thrombocytopenia Priority: Secondary Status: Acute (5) CAD (coronary artery disease) Priority: Secondary Status: Chronic (6) Chronic back pain Priority: Secondary Status: Chronic (7) Essential hypertension Priority: Secondary Status: Chronic (8) PTSD (post-traumatic stress disorder) Priority: Secondary Status: Chronic - Respiratory Orders Smoking Cessation: Smoking cessation has been advised. For more information, call the [place] Tobacco Quit Line at 6-319-NUQV-NOW. - Diet/Nutrition Diet/Nutrition Orders: Cardiac, No Concentrated Sweets - Activity Activity Orders: Up ad adam - Services Needed Following services are medically necessary services: Nursing, Home Health Aide, Physical Therapy, Occupational Therapy, Med Social Work, Home Infusion - Transfer Medications Prescriptions: OxyCODONE Immed Rel [Roxicodone 5 MG] 15 mg PO Q3H PRN 3 Days #24 tablet PRN Reason: Severe Pain Acetaminophen [Tylenol] 500 mg PO Q6HR PRN 3 Days #12 tablet PRN Reason: Mild Pain/Fever Home Medications: Aspirin [Lo-Dose Aspirin EC] 81 mg PO DAILY 11/27/17 [History] Cetirizine HCl [Zyrtec] 10 mg PO DAILY 11/27/17 [History] Cyanocobalamin (Vitamin B-12) [Vitamin B-12] 1,000 mcg PO DAILY 11/27/17 [History] Ferrous Gluconate 324 mg PO DAILY 11/27/17 [History] Omeprazole [PriLOSEC] 20 mg PO DAILY 11/27/17 [History] Potassium Chloride [K-Tab ER] 20 meq PO DAILY 11/27/17 [History] Simvastatin [Zocor] 20 mg PO DAILY 11/27/17 [History] metFORMIN [Glucophage] 1,000 mg PO BIDWM 11/27/17 [History] Calcium Citrate/Vitamin D3 [Calcium Cit 315-Vit D3 250 Cpt] 1 each PO DAILY 01/28/19 [History] Fluticasone Propionate Nasal [Flonase] 50 mcg NS DAILY 01/28/19 [History] Insulin Glargine [Lantus] 55 unit SQ BID 01/28/19 [History] Ipratropium/Albuterol Neb [Duoneb] 3 ml IH Q6H PRN 01/28/19 [History] Ketotifen Fumarate [Zaditor] 1 drp BOTH EYES BID 01/28/19 [History] Magnesium Oxide [Magnesium] 400 mg PO DAILY 01/28/19 [History] Montelukast [Singulair] 10 mg PO DAILY 01/28/19 [History] Sennosides/Docusate Sodium [Docusate Sodium-Senna Tablet] 1 each PO BID 01/28/19 [History] Venlafaxine HCl [Venlafaxine HCl ER] 37.5 mg PO DAILY 01/28/19 [History] guaiFENesin [Guaifenesin] 800 mg PO BID 01/28/19 [History] Insulin ASPART [NovoLOG] 0 unit SQ TIDWM #1 mls 02/10/19 [Rx] Isosorbide MONOnitrate (24 HR) [Imdur] 120 mg PO DAILY #60 tab.er.24h 02/10/19 [Rx] Polyethylene Glycol 3350 [MiraLAX] 17 gm PO BID #60 powd.pack 02/10/19 [Rx] amLODIPine [Norvasc] 5 mg PO DAILY #30 tablet 02/10/19 [Rx] Carvedilol 3.125 mg PO BID #60 tab 02/11/19 [Rx] Acetaminophen [Tylenol] 500 mg PO Q6HR PRN 3 Days #12 tablet 03/06/19 [Rx] OxyCODONE Immed Rel [Roxicodone 5 MG] 15 mg PO Q3H PRN 3 Days #24 tablet 03/06/19 [Rx] Allergies/Adverse Reactions: Allergy/AdvReac Type Severity Reaction Status Date / Time bee venom protein (honey bee) Allergy Anaphylaxis Verified 01/28/19 14:25 tetracycline [Tetracycline] Allergy Hives Verified 01/28/19 14:25 influenza virus vacc AdvReac Weakness Verified 01/28/19 14:25 trivalent, split [From Fluzone] Certification: Further, I certify that my clinical findings support that this patient is homebound (i.e. absences from home require considerable and taxing effort and are for medical reasons or baptism services or infrequently or short duration when for other reasons) because: Homebound Reason: Patient requires assistance of a person or device to safely leave home Attestation: My signature below is to certify that this patient is under my care and that I, or nurse practitioner, or a physician's residential living assistant working with me, has a [id number] encounter with this patient.
--- NOTE | 2019-03-06 23:16 | Infectious Disease Progress No ---
ID Progress Note Date of Encounter: 03/06/19 Time of Encounter: 23:14 - Subjective Subjective: Patient seen and examined. No acute events overnight. Patient states overall he feels better. Reports some sweating overnight, but denies any known fevers, chills, or rigors. Denies headache. Reports chronic neck pain. Denies chest pain, shortness of breath, or cough. Denies nausea, vomiting, or constipation. Reports 2 loose stools per day. Denies abdominal pain or urinary complaints. Complaints of pain in the left foot in his lower back. Denies oral thrush or skin rashes. - Objective CBC & Chem 7: 03/06/19 03:32 03/06/19 03:32 - Line Documentation Line Documentation: PICC Line (Right upper extremity) - Exam Vitals: Temp Pulse Resp BP Pulse Ox 98.1 F 80 18 189/82 97 03/06/19 15:17 03/06/19 15:17 03/06/19 15:17 03/06/19 15:17 03/06/19 15:17 Exam: Head: Atraumatic, normal inspection, normocephalic. Eye: EOMI, PERRLA, no scleral icterus noted. ENT: Mucous membranes moist. No odontogenic infection noted. Neck: Normal inspection, no meningismus. Respiratory: Clear to auscultation. No rales, respiratory distress, rhonchi, or wheezes noted. Cardiovascular: Regular rate and rhythm, S1 and S2 audible. No murmurs, rubs, or gallops. GI: Soft, obese, normal bowel sounds. Nontender. Extremities: No joint swelling, pedal edema, or tenderness noted. Venous stasis dermatitis noted to the bilateral lower extremities. Left foot dressing clean, dry, and intact. Neurological: Alert, oriented 3, no focal deficits. Psychiatric: normal affect, normal mood. Skin: Dry, intact, warm. Normal color. No rashes. - Assessment and Plan (1) Diabetic infection of left foot Status: Acute Location: Left foot. Causative organism: Enterobacter cloacae, MSSA. Failed outpatient IV antibiotics. X-ray negative for worsening osteomyelitis. MRI of the left foot shows osteomyelitis of the first proximal phalanx as well as bone marrow edema with complaint of decreased T1 signal throughout the first distal phalanx compatible with noninfectious reactive osteitis versus early osteomyelitis. There is also a large deep soft tissue defect along the medial aspect of the first digit with an adjacent lobular fluid collection versus phlegmon encasing the first proximal phalangeal shaft and extending dorsal to the first distal phalanx. Blood cultures drawn 02/27/19 are no growth to date. Podiatry consulted. Planning possible amputation of the toe later today. Currently on Vanc and Zosyn. SNOMED Code(s): 91349188 (2) Osteomyelitis Status: Acute Location: First and second ray of the left foot. Causative organism: MSSA. Likely secondary to have excellent ulcer. MRI of the left foot showed osteomyelitis of the first and second ray with cellulitis with probable infectious tenosynovitis of the extensor hallucis tendon extending beyond the field of view as well as tenosynovitis of the flexor tendon of the first ray with mild enhancement after contrast administration. Podiatry consulted. Status post incision and drainage and debridement of all devitalized tissue multiple planes of the left great toe and foot and incision and drainage and debridement of all devitalized tissue multiple planes of the second toe left foot 02/04/[address] Velázquez. Operative note reviewed. I ntraoperative cultures are positive for MSSA. No specimen sent for pathology. Discharged home on IV cefazolin. Transitioned to Nafcillin due to thrombocytopenia. MRI 63, CRP 12. MRI of the left foot 02/27/19 shows osteoarthritis of the first proximal phalanx and possible distal phalanx. Podiatry consult and following. Planning operative intervention later today. Qualifiers: Osteomyelitis type: acute hematogenous Osteomyelitis location: foot Laterality: left Qualified Code(s): M86.072 - Acute hematogenous osteomyelitis, left ankle and foot SNOMED Code(s): 32895414 (3) Bacteremia Status: Acute Causative organism: MSSA. Source: Left toe infection. Blood cultures drawn 01/27/19 were +2 out of 2 sets for MSSA. Repeat blood cultures on 01/29/19 were +2 out of 2 sets. Repeat blood cultures on 02/01/19 were negative 2 sets. Complicated due to osteomyelitis. Rheumatoid factor <10. TTE suboptimal to evaluate for endocarditis. VICKEY deferred. Was on cefazolin. Transitioned to Iv Nafcillin. Repeat blood cultures drawn 02/27/19 are NGTD x 2 sets. SNOMED Code(s): 0764174 (4) Thrombocytopenia Status: Acute Etiology: Infection vs. antibiotic-related. No acute bleeding noted on exam. Continue to trend. SNOMED Code(s): 872961442 (5) Diabetes mellitus Status: Chronic Uncontrolled. Hemoglobin A1c 8.5%. Recommend aggressive glucose monitoring and control to promote wound healing and prevent reinfection. Management per the primary team. Qualifiers: Diabetes mellitus type: type 2 Diabetes mellitus [place] insulin use: with detention use Diabetes mellitus complication status: with circulatory complication Diabetes mellitus complication detail: with peripheral angiopathy without gangrene Qualified Code(s): E11.51 - Type 2 diabetes mellitus with diabetic peripheral angiopathy without gangrene; Z79.4 - public health (current) use of insulin SNOMED Code(s): 51254983 (6) CAD (coronary artery disease) Status: Chronic Qualifiers: Coronary Disease-Associated Artery/Lesion type: [place] artery [place] vs. transplanted heart: [place] heart Associated angina: without angina Qualified Code(s): I25.10 - Atherosclerotic heart disease of [place] coronary artery wi thout angina pectoris SNOMED Code(s): 80444454 (7) Essential hypertension Status: Chronic SNOMED Code(s): 53080174 (8) Mixed hyperlipidemia Status: Acute SNOMED Code(s): 126967036 (9) Atherosclerosis of [place] arteries of left leg with ulceration of other part of foot Status: Chronic Bilateral DAVID studies were normal. Bilateral TCP O2 monitoring showed ischemia. Arterial duplex study of the left lower extremity showed minimal plaque. SNOMED Code(s): 807179119709872, 783957248, 073488142681420 - Recommendations Recommendations: Patient ready for discharge he's doing great clinically will d/c on nafcillin/levofloxacin duration of treatment likely 6 weeks all scripts written by me monitor labs closely including platelets level weekly cbc, BUN/Cr, ESR and CRP follow up with Rae Cobb CNP in 2 weeks d/w hospitalist team and case management Consult Discharge Plan - Plan Additional Instructions: Please follow-up with Dr. Velázquez one week after discharge at your scheduled time. Please follow-up with vascular surgery on 03/11/19 for your angiogram as per your scheduled time. Please continue with IV nafcillin and levofloxacin to finish a 6 week course. Please follow-up with Rae Cobb with infectious diseases in 2-3 weeks after discharge. Please continue home medications as instructed. Please take pain medications as needed per your prescriptions. Please follow up with PCP regarding your recent hospital stay within 3-5 days. Please repeat weekly CBC, BUN, creatinine, ESR, CRP. Please return to the emergency department if you experience fevers, chills, chest pain, shortness of breath, blood in stool or urine, or any other c oncerning or worsening symptoms. Referrals: Enrike Fuchs MD [Partnered Physician] - 03/11/19 Rae Cobb, ANESTHESIA TECHNICIAN [Advanced Practice Nurse] - Tad Velázquez DPM [Partnered Physician] - 03/16/19 9:15 am [facility],PCP [Primary Care Provider] - (Please repeat weekly CBC, BUN, creatinine, ESR, CRP. Patient is receiving IV nafcillin and IV levofloxacin for total 6 w [place] course. Patient has an angiogram scheduled outpatient with vascular surgery on 03/11/19. Patient has a follow-up with Dr. Velázquez with podiatry one week after discharge. Patient needs to follow up with Rae Cobb, with infectious disease, in 2-3 weeks after discharge.) Prescriptions: OxyCODONE Immed Rel [Roxicodone 5 MG] 15 mg PO Q3H PRN 3 Days #24 tablet PRN Reason: Severe Pain Acetaminophen [Tylenol] 500 mg PO Q6HR PRN 3 Days #12 tablet PRN Reason: Mild Pain/Fever
== END 2019-03-06 16:45 | disposition home health service (06) | DRG 617 ==
LOC: 3NENU 08:40 → EMEROOARM 08:40 → OBSVTOIN 11:07 → SUATTDRO 11:07 → 3NENU 11:50
PROVIDERS: ADMIT Internal Medicine; ATTEND Student in an Organized Health Care Education/Training Program

== ENCOUNTER 2020-12-07 13:48 | Inpatient (IN) ==
[2020-12-07] MEDS ORDERED: Piperacillin/Tazobactam 3.375 GM in 0.9 % Sodium Chloride Mini Bag 100 ML IVPB ONE (14:12)
[2020-12-07 15:00] LABS: Hematocrit 29.3 % (37.5-50.1); Hemoglobin 8.7 g/dL (12.9-16.9); Mean Corpuscular HGB Conc 29.7 g/dL (31.6-35.5); Nucleated Red Blood Cells 0.2 /100 WBC (0)
[2020-12-07 15:02] LABS: Immature Platelets 4.5 % (1.1-6.1); Mean Corpuscular Hemoglobin 30.4 pg (28.0-33.3); Mean Corpuscular Volume 102.4 fL (83.0-100.0); Mean Platelet Volume 9.1 fL (9.4-12.4); Red Blood Count 2.86 M/mcL (4.19-5.50)
[2020-12-07 15:05] LABS: Platelet Count 76 K/mcL (140-400); White Blood Count 51.5 K/mcL (4.3-11.1)
[2020-12-07 15:09] LABS: Calcium 8.9 mg/dL (8.6-10.3); Potassium 4.3 mEq/L (3.5-5.1)
[2020-12-07 16:01] LABS: Lymphocytes # 2.6 K/mcL (0.6-4.6); Monocytes # 8.2 K/mcL (0.0-1.3); Neutrophils # 34.5 K/mcL (1.6-8.9)
[2020-12-07 16:03] LABS: Platelet Estimate Decreased (Normal)
[2020-12-07] MEDS ORDERED: Vancomycin 1,750 MG/517.5 ML IV.SOLN IVPB STA (16:46)
[2020-12-07] MEDS ORDERED: *HR* OxyCODONE Immed Rel 5 MG TABLET PO PRN (17:23)
[2020-12-07] MEDS ORDERED: Acetaminophen 325 MG TABLET PO PRN (17:23)
[2020-12-07] MEDS ORDERED: MOM Conc 10 ML UD.LIQ PO PRN (17:23)
[2020-12-07] MEDS ORDERED: *HR* Dextrose 50 % in Water (Vial) 50 ML VIAL IVP PRN (17:23)
[2020-12-07] MEDS ORDERED: D5% in Water 1,000 ML IVC PRN (17:23)
[2020-12-07] MEDS ORDERED: Naloxone 0.4 MG/ML INJ IVP PRN (17:23)
[2020-12-07] MEDS ORDERED: Ondansetron ODT 4 MG TAB.RAPDIS SL PRN (17:23)
[2020-12-07] MEDS ORDERED: Mag Hydrox/Al Hydrox/Simeth 30 ML UDC PO PRN (17:23)
[2020-12-07] MEDS ORDERED: Dextrose Gel 15 GM/37.5 ML TUBE PO PRN ×2 (17:23)
[2020-12-07] MEDS: Insulin LISPRO 300 UNITS/3 ML VIAL SUBQ SCH (20:46)
[2020-12-07] MEDS: *HR* Heparin 5,000 UNIT/ML VIAL SQ SCH (20:48)
[2020-12-07] MEDS: *HR* OxyCODONE Immed Rel 5 MG TABLET PO PRN (23:57)
[2020-12-07] MEDS: Piperacillin/Tazobactam 3.375 GM in 0.9 % Sodium Chloride Mini Bag 100 ML IVPB SCH (23:58)
[2020-12-08 02:55] LABS: Eosinophils % 0.3 %; Hematocrit 26.3 % (37.5-50.1); Mean Corpuscular Volume 103.5 fL (83.0-100.0); Nucleated Red Blood Cells 0.3 /100 WBC (0); Red Blood Count 2.54 M/mcL (4.19-5.50)
[2020-12-08 02:57] LABS: Basophils # 0.9 K/mcL (0.0-0.2); Eosinophils # 0.1 K/mcL (0.0-0.6); Hemoglobin 7.7 g/dL (12.9-16.9); Immature Platelets 5.3 % (1.1-6.1); Lymphocytes # 3.3 K/mcL (0.6-4.6); Lymphocytes % 7.2 %; Mean Corpuscular HGB Conc 29.3 g/dL (31.6-35.5); Mean Corpuscular Hemoglobin 30.3 pg (28.0-33.3); Monocytes # 6.5 K/mcL (0.0-1.3); Monocytes % 14.3 %; Neutrophils # 22.8 K/mcL (1.6-8.9); Segmented Neutrophils % 50.2 %
[2020-12-08 03:06] LABS: Platelet Count 64 K/mcL (140-400)
[2020-12-08 03:07] LABS: White Blood Count 45.4 K/mcL (4.3-11.1)
[2020-12-08 03:12] LABS: Calcium 8.6 mg/dL (8.6-10.3); Magnesium 2.1 mg/dL (1.6-2.6); Potassium 4.4 mEq/L (3.5-5.1)
[2020-12-08 03:48] LABS: Platelet Estimate Decreased (Normal)
[2020-12-08] MEDS: *HR* OxyCODONE Immed Rel 5 MG TABLET PO PRN ×4 (03:59→20:49)
[2020-12-08] MEDS: Vancomycin 1,500 MG/265 ML IV.SOLN IVPB SCH ×2 (05:04→17:15)
[2020-12-08] MEDS: Fluticasone Propionate Nasal 50 MCG/SPRAY BOTTLE NS SCH (05:08)
[2020-12-08] MEDS: *HR* Heparin 5,000 UNIT/ML VIAL SQ SCH (05:09)
[2020-12-08] MEDS: Piperacillin/Tazobactam 3.375 GM in 0.9 % Sodium Chloride Mini Bag 100 ML IVPB SCH ×2 (07:53→17:17)
[2020-12-08] MEDS: Insulin LISPRO 300 UNITS/3 ML VIAL SUBQ SCH ×4 (07:54→21:01)
[2020-12-08] MEDS ORDERED: Triamcinolone Acet 0.1% CRM 15 GM TUBE TP PRN (10:37)
[2020-12-08] MEDS ORDERED: Clobetasol Propionate 0.05% TP PRN (10:37)
[2020-12-08] MEDS ORDERED: *HR* OxyCODONE Immed Rel 15 MG TABLET PO PRN (10:37)
[2020-12-08] MEDS ORDERED: hydrOXYzine pamoate 25 MG CAPSULE PO PRN (10:37)
[2020-12-08] MEDS ORDERED: Insulin DETEMIR 100 UNIT/ML X5UNITS SUBQ SCH (11:15)
[2020-12-08 12:11] LABS: Estimated Average Glucose 169 mg/dl; Hemoglobin A1C 7.5 %
[2020-12-08] MEDS: Artificial Tears SOLN 15 ML BOTTLE BOTH EYES SCH ×2 (17:13→21:02)
[2020-12-08] MEDS: carvediloL 6.25 MG TABLET PO SCH (17:15)
[2020-12-08] MEDS: Mirtazapine 15 MG TABLET PO SCH (20:49)
[2020-12-08] MEDS: polyethylene glycoL 3350 17 GM POWD.PACK PO SCH (20:50)
[2020-12-08] MEDS ORDERED: KETOTIFEN BOTH EYES SCH (21:00)
[2020-12-08] MEDS: Insulin DETEMIR 100 UNIT/ML X5UNITS SUBQ SCH (21:02)
[2020-12-08] MEDS: Ammonium Lactate 30 APPL/225 GM BOTTLE TP SCH (21:03)
[2020-12-09] MEDS: *HR* OxyCODONE Immed Rel 5 MG TABLET PO PRN ×7 (00:06→23:36)
[2020-12-09] MEDS: Piperacillin/Tazobactam 3.375 GM in 0.9 % Sodium Chloride Mini Bag 100 ML IVPB SCH ×4 (00:07→23:37)
[2020-12-09 04:12] LABS: Mean Platelet Volume 9.6 fL (9.4-12.4); Nucleated Red Blood Cells 0.3 /100 WBC (0); Red Blood Count 2.66 M/mcL (4.19-5.50)
[2020-12-09 04:14] LABS: Hematocrit 27.2 % (37.5-50.1); Hemoglobin 8.2 g/dL (12.9-16.9); Immature Platelets 3.6 % (1.1-6.1); Mean Corpuscular HGB Conc 30.1 g/dL (31.6-35.5); Mean Corpuscular Hemoglobin 30.8 pg (28.0-33.3); Mean Corpuscular Volume 102.3 fL (83.0-100.0); Red Cell Distribution Width 16.6 % (11.5-14.5)
[2020-12-09 04:22] LABS: Platelet Count 69 K/mcL (140-400); White Blood Count 37.8 K/mcL (4.3-11.1)
[2020-12-09 04:30] LABS: Calcium 8.6 mg/dL (8.6-10.3); Phosphorous 5.5 mg/dL (2.7-4.5); Potassium 3.8 mEq/L (3.5-5.1)
[2020-12-09 05:27] LABS: Anisocytosis 1+ (Not Present); Lymphocytes # 3.8 K/mcL (0.6-4.6); Neutrophils # 25.7 K/mcL (1.6-8.9)
[2020-12-09 05:28] LABS: Platelet Estimate Decreased (Normal); Polychromasia 1+ (Not Present)
[2020-12-09] MEDS: polyethylene glycoL 3350 17 GM POWD.PACK PO SCH ×2 (07:48→20:30)
[2020-12-09] MEDS: allopurinoL 300 MG TABLET PO SCH (07:49)
[2020-12-09] MEDS: Aspirin Enteric Coated 81 MG Tablet PO SCH (07:49)
[2020-12-09] MEDS: Isosorbide MONOnitrate (24 HR) 60 MG TAB.ER.24H PO SCH (07:49)
[2020-12-09] MEDS: amLODIPine 5 MG TABLET PO SCH (07:50)
[2020-12-09] MEDS: hydroCHLOROthiazide 25 MG TABLET PO SCH (07:50)
[2020-12-09] MEDS: carvediloL 6.25 MG TABLET PO SCH ×2 (07:50→16:17)
[2020-12-09] MEDS: Cyanocobalamin (B-12) 1,000 MCG TABLET PO SCH (07:50)
[2020-12-09] MEDS: Fluticasone Propionate Nasal 50 MCG/SPRAY BOTTLE NS SCH (07:51)
[2020-12-09] MEDS: Ammonium Lactate 30 APPL/225 GM BOTTLE TP SCH ×2 (07:51→20:33)
[2020-12-09] MEDS: Insulin LISPRO 300 UNITS/3 ML VIAL SUBQ SCH ×4 (07:52→20:33)
[2020-12-09] MEDS: Artificial Tears SOLN 15 ML BOTTLE BOTH EYES SCH ×3 (07:52→20:31)
[2020-12-09] MEDS: Venlafaxine XR (24 HR) 37.5 MG CAP.ER.24H PO SCH (07:59)
[2020-12-09] MEDS ORDERED: Vancomycin 1,500 MG/265 ML IV.SOLN IVPB SCH (17:00)
[2020-12-09] MEDS: Mirtazapine 15 MG TABLET PO SCH (20:28)
[2020-12-09] MEDS: Insulin DETEMIR 100 UNIT/ML X5UNITS SUBQ SCH (20:32)
[2020-12-10] MEDS: *HR* OxyCODONE Immed Rel 5 MG TABLET PO PRN ×4 (03:48→20:59)
[2020-12-10 05:50] LABS: Nucleated Red Blood Cells 0.3 /100 WBC (0)
[2020-12-10 05:52] LABS: Hematocrit 26.1 % (37.5-50.1); Hemoglobin 7.6 g/dL (12.9-16.9); Immature Platelets 4.6 % (1.1-6.1); Mean Corpuscular HGB Conc 29.1 g/dL (31.6-35.5); Mean Corpuscular Hemoglobin 30.2 pg (28.0-33.3); Mean Corpuscular Volume 103.6 fL (83.0-100.0); Mean Platelet Volume 9.5 fL (9.4-12.4); Red Blood Count 2.52 M/mcL (4.19-5.50); Red Cell Distribution Width 16.7 % (11.5-14.5)
[2020-12-10 05:55] LABS: Platelet Count 68 K/mcL (140-400)
[2020-12-10 05:57] LABS: White Blood Count 34.4 K/mcL (4.3-11.1)
[2020-12-10 06:08] LABS: Calcium 8.3 mg/dL (8.6-10.3); Magnesium 2.2 mg/dL (1.6-2.6); Phosphorous 5.5 mg/dL (2.7-4.5); Potassium 3.9 mEq/L (3.5-5.1)
[2020-12-10 06:44] LABS: Anisocytosis 1+ (Not Present); Lymphocytes # 7.6 K/mcL (0.6-4.6); Monocytes # 1.4 K/mcL (0.0-1.3); Neutrophils # 23.4 K/mcL (1.6-8.9); Platelet Estimate Decreased (Normal); Reactive Lymphocytes Present (Not Present); Toxic Granulation Present (Not Present)
[2020-12-10] MEDS: Cyanocobalamin (B-12) 1,000 MCG TABLET PO SCH (07:58)
[2020-12-10] MEDS: allopurinoL 300 MG TABLET PO SCH (07:58)
[2020-12-10] MEDS: hydroCHLOROthiazide 25 MG TABLET PO SCH (07:58)
[2020-12-10] MEDS: Aspirin Enteric Coated 81 MG Tablet PO SCH (07:58)
[2020-12-10] MEDS: Isosorbide MONOnitrate (24 HR) 60 MG TAB.ER.24H PO SCH (07:59)
[2020-12-10] MEDS: carvediloL 6.25 MG TABLET PO SCH ×2 (07:59→16:44)
[2020-12-10] MEDS: Artificial Tears SOLN 15 ML BOTTLE BOTH EYES SCH ×3 (07:59→21:02)
[2020-12-10] MEDS: Sulfamethoxazole/Trimeth DS 1 EACH TABLET PO SCH ×2 (07:59→21:01)
[2020-12-10] MEDS: Venlafaxine XR (24 HR) 37.5 MG CAP.ER.24H PO SCH (07:59)
[2020-12-10] MEDS: Insulin LISPRO 300 UNITS/3 ML VIAL SUBQ SCH ×4 (07:59→21:03)
[2020-12-10] MEDS: amLODIPine 5 MG TABLET PO SCH (07:59)
[2020-12-10] MEDS: polyethylene glycoL 3350 17 GM POWD.PACK PO SCH ×2 (08:00→21:02)
[2020-12-10] MEDS: Fluticasone Propionate Nasal 50 MCG/SPRAY BOTTLE NS SCH (08:00)
[2020-12-10] MEDS: Ammonium Lactate 30 APPL/225 GM BOTTLE TP SCH ×2 (08:00→21:02)
[2020-12-10] MEDS ORDERED: Isovue-250 100 ML INFUS..BTL ONE (11:54)
[2020-12-10] MEDS ORDERED: *HR* Heparin 10,000 UNIT/10 ML VIAL ONE (11:54)
[2020-12-10] MEDS ORDERED: Isovue-300 200 mL Infus..BTL ONE (11:54)
[2020-12-10] MEDS ORDERED: Heparin 1,000 UNITS/500 mL 500 ML ONE (11:54)
[2020-12-10] MEDS ORDERED: 0.9 % Sodium Chloride 1,000 ML ONE ×2 (11:54→11:55)
[2020-12-10] MEDS ORDERED: 0.9 % Sodium Chloride 250 ML ONE (13:59)
[2020-12-10] MEDS: Mirtazapine 15 MG TABLET PO SCH (21:00)
[2020-12-10] MEDS: Insulin DETEMIR 100 UNIT/ML X5UNITS SUBQ SCH (21:03)
[2020-12-11] MEDS: *HR* OxyCODONE Immed Rel 5 MG TABLET PO PRN ×2 (01:50→06:14)
[2020-12-11 05:50] LABS: Hematocrit 28.9 % (37.5-50.1); Hemoglobin 8.6 g/dL (12.9-16.9); Immature Platelets 7.4 % (1.1-6.1); Mean Corpuscular HGB Conc 29.8 g/dL (31.6-35.5); Mean Corpuscular Hemoglobin 30.4 pg (28.0-33.3); Mean Corpuscular Volume 102.1 fL (83.0-100.0); Nucleated Red Blood Cells 0.4 /100 WBC (0); Red Blood Count 2.83 M/mcL (4.19-5.50); Red Cell Distribution Width 17.2 % (11.5-14.5)
[2020-12-11 05:56] LABS: Platelet Count 49 K/mcL (140-400)
[2020-12-11 06:02] LABS: White Blood Count 32.5 K/mcL (4.3-11.1)
[2020-12-11 06:08] LABS: Calcium 8.6 mg/dL (8.6-10.3); Magnesium 2.2 mg/dL (1.6-2.6); Phosphorous 4.7 mg/dL (2.7-4.5); Potassium 4.2 mEq/L (3.5-5.1)
[2020-12-11 06:20] LABS: Anisocytosis 1+ (Not Present); Lymphocytes # 5.9 K/mcL (0.6-4.6); Monocytes # 1.3 K/mcL (0.0-1.3); Neutrophils # 24.1 K/mcL (1.6-8.9); Reactive Lymphocytes Present (Not Present); Toxic Granulation Present (Not Present)
[2020-12-11 06:34] VITALS: BP 131/72
[2020-12-11] MEDS: carvediloL 6.25 MG TABLET PO SCH (08:11)
[2020-12-11] MEDS: Sulfamethoxazole/Trimeth DS 1 EACH TABLET PO SCH (08:11)
[2020-12-11] MEDS: allopurinoL 300 MG TABLET PO SCH (08:11)
[2020-12-11] MEDS: Isosorbide MONOnitrate (24 HR) 60 MG TAB.ER.24H PO SCH (08:11)
[2020-12-11] MEDS: hydroCHLOROthiazide 25 MG TABLET PO SCH (08:11)
[2020-12-11] MEDS: Venlafaxine XR (24 HR) 37.5 MG CAP.ER.24H PO SCH (08:11)
[2020-12-11] MEDS: Cyanocobalamin (B-12) 1,000 MCG TABLET PO SCH (08:11)
[2020-12-11] MEDS: amLODIPine 5 MG TABLET PO SCH (08:11)
[2020-12-11] MEDS: Aspirin Enteric Coated 81 MG Tablet PO SCH (08:11)
[2020-12-11] MEDS: polyethylene glycoL 3350 17 GM POWD.PACK PO SCH (08:12)
[2020-12-11] MEDS: Insulin LISPRO 300 UNITS/3 ML VIAL SUBQ SCH (08:12)
[2020-12-11] MEDS: Artificial Tears SOLN 15 ML BOTTLE BOTH EYES SCH (08:12)
[2020-12-11] MEDS: Ammonium Lactate 30 APPL/225 GM BOTTLE TP SCH (08:12)
[2020-12-11] MEDS: Fluticasone Propionate Nasal 50 MCG/SPRAY BOTTLE NS SCH (08:12)
== END 2020-12-11 09:50 | disposition home or self-care (01) | DRG 638 ==
LOC: EMEROOARM 13:48 → 2ANU 13:48
PROVIDERS: ADMIT Internal Medicine; ATTEND Internal Medicine

== ENCOUNTER 2021-01-11 13:47 | Observation (INO) ==
[2021-01-11] MEDS ORDERED: Ondansetron 4 MG/2 ML VIAL IVP PRN (16:21)
[2021-01-11] MEDS ORDERED: *HR* HYDROcodone/Acet 5/325 mg TABLET PO PRN (16:21)
[2021-01-11] MEDS ORDERED: Naloxone 0.4 MG/ML INJ IVP PRN (16:21)
[2021-01-11] MEDS ORDERED: *HR* Dextrose 50 % in Water (Vial) 50 ML VIAL IVP PRN (16:23)
[2021-01-11] MEDS ORDERED: Piperacillin/Tazobactam 3.375 GM in 0.9 % Sodium Chloride Mini Bag 100 ML IVPB SCH (16:23)
[2021-01-11] MEDS ORDERED: Dextrose Gel 15 GM/37.5 ML TUBE PO PRN ×2 (16:23)
[2021-01-11] MEDS ORDERED: D5% in Water 1,000 ML IVC PRN (16:23)
[2021-01-11 17:04] LABS: Hematocrit 28.8 % (37.5-50.1); Hemoglobin 8.5 g/dL (12.9-16.9); Immature Platelets 4.8 % (1.1-6.1); Mean Corpuscular HGB Conc 29.5 g/dL (31.6-35.5); Mean Corpuscular Hemoglobin 30.9 pg (28.0-33.3); Mean Corpuscular Volume 104.7 fL (83.0-100.0); Mean Platelet Volume 9.4 fL (9.4-12.4); Nucleated Red Blood Cells 0.1 /100 WBC (0); Red Blood Count 2.75 M/mcL (4.19-5.50); Red Cell Distribution Width 17.2 % (11.5-14.5)
[2021-01-11 17:11] LABS: INR 1.4; Prothrombin Time 16.1 Seconds (9.4-12.1)
[2021-01-11 17:13] LABS: Activated Partial Thrombo Time 30.2 Seconds (26.0-36.0)
[2021-01-11 17:15] LABS: Platelet Count 74 K/mcL (140-400); White Blood Count 64.7 K/mcL (4.3-11.1)
[2021-01-11 17:25] LABS: Albumin 3.8 g/dL (3.5-5.7); Albumin/Globulin Ratio 1.1 (1.1-2.2); Bilirubin,Total 0.3 mg/dL (0.3-1.0); Calcium 9.2 mg/dL (8.6-10.3); Globulin 3.6 g/dL (2.4-3.5); Magnesium 2.1 mg/dL (1.6-2.6); Phosphorous 4.4 mg/dL (2.7-4.5); Potassium 4.2 mEq/L (3.5-5.1); Total Protein 7.4 g/dL (6.4-8.9)
[2021-01-11] MEDS: Insulin LISPRO 300 UNITS/3 ML VIAL SUBQ SCH (17:47)
[2021-01-11] MEDS: levoFLOXacin 750 MG/150 ML 750 MG/150 ML BAG IVPB SCH (17:48)
[2021-01-11] MEDS ORDERED: hydrOXYzine pamoate 25 MG CAPSULE PO PRN (17:49)
[2021-01-11] MEDS ORDERED: 0.9 % Sodium Chloride 500 ML IVC SCH (18:00)
[2021-01-11] MEDS: *HR* OxyCODONE Immed Rel 15 MG TABLET PO PRN (18:45)
[2021-01-11] MEDS: carvediloL 6.25 MG TABLET PO SCH (20:51)
[2021-01-11] MEDS: Mirtazapine 15 MG TABLET PO SCH (20:52)
[2021-01-12] MEDS: *HR* OxyCODONE Immed Rel 15 MG TABLET PO PRN ×5 (00:11→20:48)
[2021-01-12] MEDS: levoFLOXacin 750 MG/150 ML 750 MG/150 ML BAG IVPB SCH (09:21)
[2021-01-12] MEDS: Cyanocobalamin (B-12) 1,000 MCG TABLET PO SCH (09:23)
[2021-01-12] MEDS: Isosorbide MONOnitrate (24 HR) 60 MG TAB.ER.24H PO SCH (09:23)
[2021-01-12] MEDS: Venlafaxine XR (24 HR) 37.5 MG CAP.ER.24H PO SCH (09:23)
[2021-01-12] MEDS: amLODIPine 5 MG TABLET PO SCH (09:24)
[2021-01-12] MEDS: Fluticasone Propionate Nasal 50 MCG/SPRAY BOTTLE NS SCH (09:24)
[2021-01-12] MEDS: Magnesium Oxide 400 MG TABLET PO SCH (09:24)
[2021-01-12] MEDS: Aspirin Enteric Coated 81 MG Tablet PO SCH (09:24)
[2021-01-12] MEDS: allopurinoL 300 MG TABLET PO SCH (09:24)
[2021-01-12] MEDS: carvediloL 6.25 MG TABLET PO SCH ×2 (09:24→16:16)
[2021-01-12] MEDS: Insulin LISPRO 300 UNITS/3 ML VIAL SUBQ SCH ×4 (09:25→16:16)
[2021-01-12 10:30] LABS: Hemoglobin 8.2 g/dL (12.9-16.9); Nucleated Red Blood Cells 0.1 /100 WBC (0)
[2021-01-12 10:32] LABS: Hematocrit 27.6 % (37.5-50.1); Immature Platelets 11.8 % (1.1-6.1); Mean Corpuscular HGB Conc 29.7 g/dL (31.6-35.5); Mean Corpuscular Hemoglobin 30.7 pg (28.0-33.3); Mean Corpuscular Volume 103.4 fL (83.0-100.0); Red Blood Count 2.67 M/mcL (4.19-5.50); Red Cell Distribution Width 17.2 % (11.5-14.5)
[2021-01-12 10:40] LABS: Platelet Count 49 K/mcL (140-400)
[2021-01-12 10:50] LABS: Albumin 3.7 g/dL (3.5-5.7); Albumin/Globulin Ratio 1.1 (1.1-2.2); Bilirubin,Total 0.3 mg/dL (0.3-1.0); Calcium 8.8 mg/dL (8.6-10.3); Globulin 3.3 g/dL (2.4-3.5); Magnesium 2.1 mg/dL (1.6-2.6); Phosphorous 5.1 mg/dL (2.7-4.5); Potassium 4.2 mEq/L (3.5-5.1)
[2021-01-12 11:19] LABS: Lymphocytes # 2.6 K/mcL (0.6-4.6); Monocytes # 2.6 K/mcL (0.0-1.3); Neutrophils # 34.8 K/mcL (1.6-8.9)
[2021-01-12 11:20] LABS: Anisocytosis 1+ (Not Present); Platelet Estimate Decreased (Normal)
[2021-01-12 15:20] LABS: Lymphocytes # 1.3 K/mcL (0.6-4.6); Neutrophils # 36.9 K/mcL (1.6-8.9)
[2021-01-12 15:33] LABS: Bilirubin,Urine Negative (Negative); Blood,Urine Trace (Negative); Clarity,Urine Clear (Clear); Color,Urine Yellow (Yellow); Glucose,Urine (UA) Normal (Normal); Hyaline Casts,Urine Few per lpf (None Seen); Ketones,Urine Negative (Negative); Leukocyte Esterase,Urine Small (Negative); Mucus,Urine Few per lpf (None-Few); Nitrite,Urine Negative (Negative); PH,Urine 5.5 pH Units (5.0-8.0); Protein,Urine 50 mg/dL (Neg-Trace); Specific Gravity,Urine 1.024 (1.010-1.025); Squamous Epithelial Cell,Urine Few per hpf (None-Few); Urobilinogen,Urine Normal (Normal)
[2021-01-12 15:50] LABS: Anisocytosis 1+ (Not Present); Platelet Estimate Decreased (Normal)
[2021-01-12] MEDS: Mirtazapine 15 MG TABLET PO SCH (20:49)
[2021-01-12] MEDS: polyethylene glycoL 3350 17 GM POWD.PACK PO SCH (20:49)
[2021-01-12] MEDS: Insulin DETEMIR 100 UNIT/ML X5UNITS SUBQ SCH (20:51)
[2021-01-12] MEDS ORDERED: NON-FORMULARY MEDICATION 1 EACH EACH (Ketotifen Fumarate [Zaditor] 5 ML Drops) BOTH EYES SCH (21:00)
[2021-01-13] MEDS: *HR* OxyCODONE Immed Rel 15 MG TABLET PO PRN ×5 (03:10→23:42)
[2021-01-13 05:04] LABS: Mean Corpuscular Hemoglobin 30.8 pg (28.0-33.3); Nucleated Red Blood Cells 0.2 /100 WBC (0)
[2021-01-13 05:06] LABS: Immature Platelets 6.1 % (1.1-6.1); Mean Corpuscular HGB Conc 29.6 g/dL (31.6-35.5); Mean Corpuscular Volume 103.8 fL (83.0-100.0); Mean Platelet Volume 9.7 fL (9.4-12.4); Red Cell Distribution Width 16.6 % (11.5-14.5)
[2021-01-13 05:07] LABS: Platelet Count 69 K/mcL (140-400)
[2021-01-13 05:12] LABS: White Blood Count 51.2 K/mcL (4.3-11.1)
[2021-01-13 05:25] LABS: Albumin 3.7 g/dL (3.5-5.7); Albumin/Globulin Ratio 1.1 (1.1-2.2); Bilirubin,Total 0.3 mg/dL (0.3-1.0); Calcium 8.9 mg/dL (8.6-10.3); Globulin 3.3 g/dL (2.4-3.5); Magnesium 2.1 mg/dL (1.6-2.6)
[2021-01-13 05:34] LABS: Anisocytosis 1+ (Not Present); Lymphocytes # 9.2 K/mcL (0.6-4.6); Monocytes # 2.1 K/mcL (0.0-1.3); Neutrophils # 28.7 K/mcL (1.6-8.9); Platelet Estimate Slight Decrease (Normal); Reactive Lymphocytes Present (Not Present); Smudge Cells Present (Not Present)
[2021-01-13 05:47] LABS: Estimated Average Glucose 157 mg/dl; Hemoglobin A1C 7.1 %
[2021-01-13 05:48] LABS: Folate 9.9 ng/mL (3.0-16.0)
[2021-01-13 05:51] LABS: Vitamin B12 > 1500 pg/mL (250-1100)
[2021-01-13] MEDS: amLODIPine 5 MG TABLET PO SCH (08:39)
[2021-01-13] MEDS: levoFLOXacin 750 MG/150 ML 750 MG/150 ML BAG IVPB SCH (08:39)
[2021-01-13] MEDS: Fluticasone Propionate Nasal 50 MCG/SPRAY BOTTLE NS SCH (08:39)
[2021-01-13] MEDS: Insulin DETEMIR 100 UNIT/ML X5UNITS SUBQ SCH ×2 (08:39→21:07)
[2021-01-13] MEDS: Isosorbide MONOnitrate (24 HR) 60 MG TAB.ER.24H PO SCH (08:40)
[2021-01-13] MEDS: Aspirin Enteric Coated 81 MG Tablet PO SCH (08:40)
[2021-01-13] MEDS: Venlafaxine XR (24 HR) 37.5 MG CAP.ER.24H PO SCH (08:40)
[2021-01-13] MEDS: Loratadine 10 MG TABLET PO SCH (08:40)
[2021-01-13] MEDS: carvediloL 6.25 MG TABLET PO SCH ×2 (08:40→18:50)
[2021-01-13] MEDS: allopurinoL 300 MG TABLET PO SCH (08:41)
[2021-01-13] MEDS: polyethylene glycoL 3350 17 GM POWD.PACK PO SCH ×2 (08:41→20:36)
[2021-01-13] MEDS: Cyanocobalamin (B-12) 1,000 MCG TABLET PO SCH (08:41)
[2021-01-13] MEDS: Magnesium Oxide 400 MG TABLET PO SCH (08:41)
[2021-01-13] MEDS: Insulin LISPRO 300 UNITS/3 ML VIAL SUBQ SCH ×6 (08:43→18:51)
[2021-01-13] MEDS: Mirtazapine 15 MG TABLET PO SCH (20:36)
[2021-01-14] MEDS ORDERED: Iron Sucrose Complex 400 MG in 0.9 % Sodium Chloride 250 ML IVPB ONE (07:30)
[2021-01-14] MEDS: *HR* OxyCODONE Immed Rel 15 MG TABLET PO PRN (07:57)
[2021-01-14] MEDS: levoFLOXacin 750 MG/150 ML 750 MG/150 ML BAG IVPB SCH (08:00)
[2021-01-14] MEDS: Isosorbide MONOnitrate (24 HR) 60 MG TAB.ER.24H PO SCH (08:00)
[2021-01-14] MEDS: Venlafaxine XR (24 HR) 37.5 MG CAP.ER.24H PO SCH (08:00)
[2021-01-14] MEDS: polyethylene glycoL 3350 17 GM POWD.PACK PO SCH (08:00)
[2021-01-14] MEDS: Magnesium Oxide 400 MG TABLET PO SCH (08:00)
[2021-01-14] MEDS: allopurinoL 300 MG TABLET PO SCH (08:01)
[2021-01-14] MEDS: amLODIPine 5 MG TABLET PO SCH (08:01)
[2021-01-14] MEDS: Aspirin Enteric Coated 81 MG Tablet PO SCH (08:01)
[2021-01-14] MEDS: Loratadine 10 MG TABLET PO SCH (08:01)
[2021-01-14] MEDS: carvediloL 6.25 MG TABLET PO SCH (08:01)
[2021-01-14] MEDS: Fluticasone Propionate Nasal 50 MCG/SPRAY BOTTLE NS SCH (08:13)
[2021-01-14] MEDS: Insulin DETEMIR 100 UNIT/ML X5UNITS SUBQ SCH (08:13)
[2021-01-14] MEDS: Insulin LISPRO 300 UNITS/3 ML VIAL SUBQ SCH ×2 (08:14)
[2021-01-14 09:30] LABS: Mean Corpuscular Volume 103.6 fL (83.0-100.0)
[2021-01-14 09:32] LABS: Hematocrit 28.9 % (37.5-50.1); Hemoglobin 8.6 g/dL (12.9-16.9); Immature Platelets 5.9 % (1.1-6.1); Mean Corpuscular HGB Conc 29.8 g/dL (31.6-35.5); Mean Corpuscular Hemoglobin 30.8 pg (28.0-33.3); Nucleated Red Blood Cells 0.2 /100 WBC (0); Platelet Count 81 K/mcL (140-400); Red Blood Count 2.79 M/mcL (4.19-5.50); Red Cell Distribution Width 16.6 % (11.5-14.5)
[2021-01-14 09:50] LABS: Albumin 3.8 g/dL (3.5-5.7); Albumin/Globulin Ratio 1.1 (1.1-2.2); Bilirubin,Total 0.3 mg/dL (0.3-1.0); Globulin 3.6 g/dL (2.4-3.5); Magnesium 2.1 mg/dL (1.6-2.6); Phosphorous 5.1 mg/dL (2.7-4.5); Potassium 3.6 mEq/L (3.5-5.1); Total Protein 7.4 g/dL (6.4-8.9)
[2021-01-14 10:10] LABS: Lymphocytes # 6.1 K/mcL (0.6-4.6); Monocytes # 4.1 K/mcL (0.0-1.3); Neutrophils # 28.6 K/mcL (1.6-8.9)
[2021-01-14 10:11] LABS: Platelet Estimate Decreased (Normal)
[2021-01-14] MEDS ORDERED: levoFLOXacin 750 MG TABLET PO ONE (11:00)
[2021-01-14 12:17] VITALS: BP 128/70
== END 2021-01-14 12:51 | disposition home or self-care (01) ==
LOC: 3ANU → SUATTDRO 15:28
PROVIDERS: ADMIT Internal Medicine; ATTEND Internal Medicine

== ENCOUNTER 2021-05-07 20:19 | Inpatient (IN) ==
[2021-05-07 21:04] LABS: Mean Platelet Volume 8.9 fL (9.4-12.4); Nucleated Red Blood Cells 0.1 /100 WBC (0)
[2021-05-07 21:06] LABS: Hematocrit 25.7 % (37.5-50.1); Hemoglobin 7.6 g/dL (12.9-16.9); Immature Platelets 3.1 % (1.1-6.1); Mean Corpuscular HGB Conc 29.6 g/dL (31.6-35.5); Mean Corpuscular Hemoglobin 32.1 pg (28.0-33.3); Mean Corpuscular Volume 108.4 fL (83.0-100.0); Red Blood Count 2.37 M/mcL (4.19-5.50); Red Cell Distribution Width 22.7 % (11.5-14.5)
[2021-05-07 21:13] LABS: White Blood Count 87.8 K/mcL (4.3-11.1)
[2021-05-07 21:14] LABS: Platelet Count 53 K/mcL (140-400)
[2021-05-07 21:30] LABS: BUN/Creatinine Ratio 18 (6-26); Blood Urea Nitrogen 30 mg/dL (8-23); Calcium 8.9 mg/dL (8.6-10.3); Carbon Dioxide 25 mEq/L (23-29); Chloride 102 mEq/L (98-107); Glucose 201 mg/dL (70-105); Osmolality,Calculated 294 (280-300); Sodium 136 mEq/L (136-145); Troponin I < 0.03 ng/mL (< 0.04); eGFR For African Americans 50 (> 60); eGFR For Non-African Americans 42 (> 60)
[2021-05-07 22:09] LABS: Eosinophils # 3.5 K/mcL (0.0-0.6); Monocytes # 42.1 K/mcL (0.0-1.3); Neutrophils # 42.1 K/mcL (1.6-8.9)
[2021-05-07] MEDS ORDERED: Nitroglycerin 0.4 MG TAB.SUBL SL PRN (22:20)
[2021-05-07 22:31] LABS: Alanine Aminotransferase 7 Units/L (7-52); Albumin 3.8 g/dL (3.5-5.7); Albumin/Globulin Ratio 1.1 (1.1-2.2); Alkaline Phosphatase 57 Units/L (34-104); Aspartate Amino Transferase 9 Units/L (13-39); Bilirubin,Direct 0.1 mg/dL (0.0-0.2); Bilirubin,Indirect 0.2 mg/dL (0.0-1.0); Bilirubin,Total 0.3 mg/dL (0.3-1.0); Globulin 3.4 g/dL (2.4-3.5); Total Protein 7.2 g/dL (6.4-8.9)
[2021-05-07] MEDS ORDERED: 0.9 % Sodium Chloride 1,000 ML IV ONE (23:17)
[2021-05-08] MEDS ORDERED: Perflutren Lipid Microsphere 1.3 ML in 0.9 % Sodium Chloride 8.7 ML IVP PRN (01:50)
[2021-05-08] MEDS ORDERED: Acetaminophen 325 MG TABLET PO PRN (01:51)
[2021-05-08] MEDS ORDERED: Naloxone 0.4 MG/ML INJ IVP PRN (01:51)
[2021-05-08] MEDS ORDERED: Ondansetron 4 MG/2 ML VIAL IVP PRN (01:51)
[2021-05-08] MEDS ORDERED: D5% in Water 1,000 ML IVC PRN (02:15)
[2021-05-08] MEDS ORDERED: *HR* Dextrose 50 % in Water (Syg) 50 ML SYRINGE IVP PRN (02:15)
[2021-05-08] MEDS ORDERED: Dextrose Gel 15 GM/37.5 ML TUBE PO PRN ×2 (02:15)
[2021-05-08] MEDS ORDERED: hydrOXYzine pamoate 25 MG CAPSULE PO PRN (02:21)
[2021-05-08] MEDS: *HR* OxyCODONE Immed Rel 15 MG TABLET PO PRN ×4 (02:36→21:55)
[2021-05-08 04:57] LABS: INR 1.5; Prothrombin Time 16.3 Seconds (9.4-12.1)
[2021-05-08 05:02] LABS: Estimated Average Glucose 171 mg/dl; Hemoglobin A1C 7.6 %
[2021-05-08 05:05] LABS: Mean Corpuscular Volume 108.7 fL (83.0-100.0); Nucleated Red Blood Cells 0.1 /100 WBC (0); Red Cell Distribution Width 22.8 % (11.5-14.5)
[2021-05-08 05:07] LABS: Hematocrit 22.6 % (37.5-50.1); Hemoglobin 6.8 g/dL (12.9-16.9); Immature Platelets 6.3 % (1.1-6.1); Mean Corpuscular HGB Conc 30.1 g/dL (31.6-35.5); Mean Corpuscular Hemoglobin 32.7 pg (28.0-33.3); Mean Platelet Volume 9.9 fL (9.4-12.4); Red Blood Count 2.08 M/mcL (4.19-5.50)
[2021-05-08 05:09] LABS: Platelet Count 44 K/mcL (140-400); White Blood Count 74.9 K/mcL (4.3-11.1)
[2021-05-08 05:10] LABS: Alanine Aminotransferase 5 Units/L (7-52); Albumin 3.3 g/dL (3.5-5.7); Albumin/Globulin Ratio 1.1 (1.1-2.2); Alkaline Phosphatase 48 Units/L (34-104); Aspartate Amino Transferase 8 Units/L (13-39); BUN/Creatinine Ratio 16 (6-26); Bilirubin,Total 0.3 mg/dL (0.3-1.0); Blood Urea Nitrogen 26 mg/dL (8-23); Calcium 8.3 mg/dL (8.6-10.3); Carbon Dioxide 24 mEq/L (23-29); Chloride 105 mEq/L (98-107); Chol/HDL Ratio 2.8 (0-4.9); Cholesterol 45 mg/dL (< 200); Globulin 3.1 g/dL (2.4-3.5); Glucose 163 mg/dL (70-105); HDL Cholesterol 16 mg/dL (40-59); LDL Cholesterol,Calculated 3 mg/dL (< 100); Osmolality,Calculated 292 (280-300); Potassium 3.6 mEq/L (3.5-5.1); Sodium 137 mEq/L (136-145); Total Protein 6.4 g/dL (6.4-8.9); Triglycerides 132 mg/dL (< 150); Troponin I < 0.03 ng/mL (< 0.04); eGFR For African Americans 51 (> 60); eGFR For Non-African Americans 42 (> 60)
[2021-05-08 05:35] LABS: Lymphocytes # 7.5 K/mcL (0.6-4.6)
[2021-05-08 05:36] LABS: Anisocytosis 2+ (Not Present); Hypochromasia Present (Not Present); Platelet Estimate Decreased (Normal)
[2021-05-08] MEDS ORDERED: Regadenoson 0.4 MG/5 ML SYRINGE IVP ONE (06:27)
[2021-05-08] MEDS: Insulin LISPRO 300 UNITS/3 ML VIAL SUBQ SCH ×3 (06:27→17:02)
[2021-05-08] MEDS ORDERED: Insulin LISPRO 300 UNITS/3 ML VIAL SUBQ SCH ×2 (07:30→21:00)
[2021-05-08] MEDS: carvediloL 6.25 MG TABLET PO SCH ×2 (09:48→17:02)
[2021-05-08] MEDS: Isosorbide MONOnitrate (24 HR) 60 MG TAB.ER.24H PO SCH (09:49)
[2021-05-08] MEDS: predniSONE 20 MG TABLET PO SCH (09:49)
[2021-05-08] MEDS: Cyanocobalamin (B-12) 1,000 MCG TABLET PO SCH (09:49)
[2021-05-08] MEDS: allopurinoL 300 MG TABLET PO SCH (09:49)
[2021-05-08] MEDS: amLODIPine 5 MG TABLET PO SCH (09:49)
[2021-05-08 10:37] LABS: Hemoglobin 7.5 g/dL (12.9-16.9)
[2021-05-08 10:39] LABS: Hematocrit 25.2 % (37.5-50.1)
[2021-05-08] MEDS ORDERED: Furosemide 20 MG/2 ML VIAL IVP ONE (13:26)
[2021-05-08] MEDS: Mirtazapine 15 MG TABLET PO SCH (19:55)
[2021-05-08] MEDS ORDERED: Insulin DETEMIR 100 UNIT/ML X5UNITS SUBQ SCH (21:00)
[2021-05-09] MEDS: *HR* OxyCODONE Immed Rel 15 MG TABLET PO PRN ×5 (01:01→21:45)
[2021-05-09] MEDS: Insulin LISPRO 300 UNITS/3 ML VIAL SUBQ SCH ×5 (02:25→18:25)
[2021-05-09 03:26] LABS: Hemoglobin 6.7 g/dL (12.9-16.9); Mean Corpuscular Hemoglobin 32.7 pg (28.0-33.3); Red Blood Count 2.05 M/mcL (4.19-5.50)
[2021-05-09 03:28] LABS: Hematocrit 22.7 % (37.5-50.1); Immature Platelets 8.6 % (1.1-6.1); Mean Corpuscular HGB Conc 29.5 g/dL (31.6-35.5); Mean Corpuscular Volume 110.7 fL (83.0-100.0); Mean Platelet Volume 10.5 fL (9.4-12.4); Red Cell Distribution Width 22.8 % (11.5-14.5)
[2021-05-09 03:36] LABS: White Blood Count 84.5 K/mcL (4.3-11.1)
[2021-05-09 03:59] LABS: Calcium 8.7 mg/dL (8.6-10.3)
[2021-05-09] MEDS ORDERED: 0.9 % Sodium Chloride 250 ML ONE (05:58)
[2021-05-09] MEDS: amLODIPine 5 MG TABLET PO SCH (07:58)
[2021-05-09] MEDS: Isosorbide MONOnitrate (24 HR) 60 MG TAB.ER.24H PO SCH (07:58)
[2021-05-09] MEDS: Cyanocobalamin (B-12) 1,000 MCG TABLET PO SCH (07:58)
[2021-05-09] MEDS: allopurinoL 300 MG TABLET PO SCH (07:58)
[2021-05-09] MEDS: predniSONE 20 MG TABLET PO SCH (07:58)
[2021-05-09] MEDS: carvediloL 6.25 MG TABLET PO SCH ×2 (07:59→16:24)
[2021-05-09] MEDS: Albumin 25% 25gram/100mL 25 GM/100 ML IV.SOLN IVPB SCH (16:25)
[2021-05-09] MEDS ORDERED: Hydroxyurea 500 MG CAPSULE PO SCH (18:00)
[2021-05-09] MEDS ORDERED: cefTRIAXone 1,000 MG in 0.9 % Sodium Chloride Mini Bag 100 ML IVPB SCH (18:00)
[2021-05-09] MEDS ORDERED: Insulin LISPRO 300 UNITS/3 ML VIAL SUBQ SCH (21:00)
[2021-05-09] MEDS ORDERED: Insulin DETEMIR 100 UNIT/ML X5UNITS SUBQ SCH (21:00)
[2021-05-09] MEDS: Mirtazapine 15 MG TABLET PO SCH (21:46)
[2021-05-10] MEDS: Albumin 25% 25gram/100mL 25 GM/100 ML IV.SOLN IVPB SCH ×2 (00:01→09:07)
[2021-05-10] MEDS: *HR* OxyCODONE Immed Rel 15 MG TABLET PO PRN ×2 (03:47→11:31)
[2021-05-10 06:32] VITALS: O2SAT 93
[2021-05-10 06:32] LABS: Hemoglobin 7.5 g/dL (12.9-16.9)
[2021-05-10 06:34] LABS: Hematocrit 25.9 % (37.5-50.1); Immature Platelets 4.3 % (1.1-6.1); Mean Corpuscular Hemoglobin 31.4 pg (28.0-33.3); Mean Corpuscular Volume 108.4 fL (83.0-100.0); Mean Platelet Volume 9.6 fL (9.4-12.4); Red Blood Count 2.39 M/mcL (4.19-5.50); Red Cell Distribution Width 24.8 % (11.5-14.5)
[2021-05-10 06:46] LABS: White Blood Count 91.3 K/mcL (4.3-11.1)
[2021-05-10 06:59] LABS: Calcium 8.9 mg/dL (8.6-10.3); Potassium 3.6 mEq/L (3.5-5.1)
[2021-05-10] MEDS: Insulin LISPRO 300 UNITS/3 ML VIAL SUBQ SCH ×2 (07:23→11:02)
[2021-05-10] MEDS ORDERED: Venlafaxine XR (24 HR) 37.5 MG CAP.ER.24H PO SCH (09:00)
[2021-05-10] MEDS ORDERED: Aspirin Enteric Coated 81 MG Tablet PO SCH (09:00)
[2021-05-10] MEDS ORDERED: Hydroxyurea 500 MG CAPSULE PO SCH (09:00)
[2021-05-10] MEDS: predniSONE 20 MG TABLET PO SCH (09:06)
[2021-05-10] MEDS: allopurinoL 300 MG TABLET PO SCH (09:06)
[2021-05-10] MEDS: carvediloL 6.25 MG TABLET PO SCH (09:06)
[2021-05-10] MEDS: Isosorbide MONOnitrate (24 HR) 60 MG TAB.ER.24H PO SCH (09:06)
[2021-05-10] MEDS: Cyanocobalamin (B-12) 1,000 MCG TABLET PO SCH (09:06)
[2021-05-10] MEDS: amLODIPine 5 MG TABLET PO SCH (09:07)
[2021-05-10 10:51] VITALS: BP 109/56; PULSE 74; TEMP 98.2
== END 2021-05-10 12:24 | disposition home or self-care (01) | DRG 313 ==
LOC: 3BNU 20:19 → EMEROOARM 20:19 → SUATTDRO 05-08 00:21 → 3BNU 05-08 01:00
PROVIDERS: ADMIT Internal Medicine; ATTEND Registered Nurse

== ENCOUNTER 2021-07-02 06:07 | Inpatient (IN) ==
[2021-07-02 07:22] LABS: Nucleated Red Blood Cells 0.1 /100 WBC (0)
[2021-07-02 07:24] LABS: Hematocrit 22.9 % (37.5-50.1); Hemoglobin 6.9 g/dL (12.9-16.9); Immature Platelets 2.8 % (1.1-6.1); Mean Corpuscular HGB Conc 30.1 g/dL (31.6-35.5); Mean Corpuscular Hemoglobin 33.8 pg (28.0-33.3); Mean Corpuscular Volume 112.3 fL (83.0-100.0); Mean Platelet Volume 9.2 fL (9.4-12.4); Red Blood Count 2.04 M/mcL (4.19-5.50); Red Cell Distribution Width 23.5 % (11.5-14.5)
[2021-07-02 07:36] LABS: INR 1.6; Prothrombin Time 18.2 Seconds (9.4-12.1)
[2021-07-02 07:38] LABS: Albumin 3.8 g/dL (3.5-5.7); Albumin/Globulin Ratio 1.2 (1.1-2.2); Bilirubin,Direct 0.1 mg/dL (0.0-0.2); Bilirubin,Indirect 0.3 mg/dL (0.0-1.0); Bilirubin,Total 0.4 mg/dL (0.3-1.0); Calcium 8.5 mg/dL (8.6-10.3); Globulin 3.1 g/dL (2.4-3.5); Potassium 3.7 mEq/L (3.5-5.1); Total Protein 6.9 g/dL (6.4-8.9)
[2021-07-02 07:39] LABS: Activated Partial Thrombo Time 35.5 Seconds (26.0-36.0)
[2021-07-02 07:42] LABS: Platelet Count 69 K/mcL (140-400)
[2021-07-02 07:43] LABS: White Blood Count 158.8 K/mcL (4.3-11.1)
[2021-07-02 08:14] LABS: Anisocytosis 2+ (Not Present); Lymphocytes # 3.2 K/mcL (0.6-4.6); Macrocytosis Present (Not Present); Monocytes # 47.6 K/mcL (0.0-1.3); Neutrophils # 82.6 K/mcL (1.6-8.9); Platelet Estimate Decreased (Normal)
[2021-07-02] MEDS ORDERED: 0.9 % Sodium Chloride 500 ML IV ONE (08:40)
[2021-07-02] MEDS ORDERED: Ondansetron 4 MG/2 ML VIAL IVP ONE (08:40)
[2021-07-02 09:57] LABS: Bilirubin,Urine Negative (Negative); Blood,Urine Trace-intact (Negative); Clarity,Urine Clear (Clear); Color,Urine Yellow (Yellow); Glucose,Urine (UA) Normal (Normal); Ketones,Urine Negative (Negative); Leukocyte Esterase,Urine Negative (Negative); Nitrite,Urine Negative (Negative); PH,Urine 5.5 pH Units (5.0-8.0); Protein,Urine 100 mg/dL (Neg-Trace); Specific Gravity,Urine 1.025 (1.010-1.025); Urobilinogen,Urine Normal (Normal)
[2021-07-02 10:01] LABS: Influenza A PCR Negative (Negative); Influenza B PCR Negative (Negative); Resp. Syncytial Virus PCR Negative (Negative)
[2021-07-02 10:02] LABS: SARS-CoV-2 by PCR (In House) Positive (Negative)
[2021-07-02] MEDS ORDERED: Azithromycin 500 MG in 0.9 % Sodium Chloride 250 ML IVPB ONE (10:05)
[2021-07-02 10:07] LABS: Mucus,Urine Few per lpf (None-Few); RBC,Urine 0-3 per hpf (0-3); Squamous Epithelial Cell,Urine Few per hpf (None-Few)
[2021-07-02] MEDS ORDERED: Cefepime HCl 1,000 MG in 0.9 % Sodium Chloride Mini Bag 100 ML IVPB ONE (10:07)
[2021-07-02] MEDS ORDERED: Naloxone 0.4 MG/ML INJ IVP PRN (11:39)
[2021-07-02] MEDS ORDERED: *HR* Dextrose 50 % in Water (Syg) 50 ML SYRINGE IVP PRN (11:56)
[2021-07-02] MEDS ORDERED: Dextrose Gel 15 GM/37.5 ML TUBE PO PRN ×2 (11:56)
[2021-07-02] MEDS ORDERED: D5% in Water 1,000 ML IVC PRN (11:56)
[2021-07-02] MEDS ORDERED: Hydroxyurea 500 MG CAPSULE PO SCH (12:15)
[2021-07-02] MEDS: Insulin LISPRO 300 UNITS/3 ML VIAL SUBQ SCH ×3 (13:06→16:13)
[2021-07-02] MEDS ORDERED: Remdesivir 200 MG in 0.9 % Sodium Chloride 100 ML IVPB ONE (14:00)
[2021-07-02] MEDS ORDERED: levoFLOXacin 500 MG/100 ML 500 MG/100 ML BAG IVPB ONE (15:45)
[2021-07-02] MEDS: Ondansetron 4 MG/2 ML VIAL IVP PRN ×2 (16:10→22:46)
[2021-07-02] MEDS: *HR* OxyCODONE Immed Rel 15 MG TABLET PO PRN (16:10)
[2021-07-02 17:08] LABS: Hematocrit 21.7 % (37.5-50.1); Hemoglobin 6.5 g/dL (12.9-16.9)
[2021-07-02] MEDS ORDERED: 0.9 % Sodium Chloride 250 ML IVC SCH (18:00)
[2021-07-02] MEDS: Fluticasone Propionate Nasal 50 MCG/SPRAY BOTTLE NS SCH (22:14)
[2021-07-02] MEDS: GuaiFENesin Liq 200 MG/10 ML UDC PO SCH (22:15)
[2021-07-02] MEDS: Ammonium Lactate 30 APPL/225 GM BOTTLE TP SCH (22:15)
[2021-07-02] MEDS: Cholecalciferol (D-3) 1,000 UNIT (25MCG) TABLET PO SCH (22:16)
[2021-07-02] MEDS: carvediloL 6.25 MG TABLET PO SCH (22:17)
[2021-07-02] MEDS: hydrOXYzine pamoate 25 MG CAPSULE PO SCH (22:17)
[2021-07-02] MEDS: Mirtazapine 15 MG TABLET PO SCH (22:17)
[2021-07-02] MEDS: polyethylene glycoL 3350 17 GM POWD.PACK PO SCH (22:18)
[2021-07-02] MEDS: (Ketotifen Fumarate [Zaditor] 5 ML Drops) OP SCH (22:19)
[2021-07-02] MEDS: allopurinoL 100 MG TABLET PO SCH (22:27)
[2021-07-02] MEDS: Insulin DETEMIR 100 UNIT/ML X5UNITS SUBQ SCH (22:28)
[2021-07-03] MEDS: *HR* OxyCODONE Immed Rel 15 MG TABLET PO PRN ×3 (00:14→20:41)
[2021-07-03] MEDS: Cefepime HCl 2,000 MG in 0.9 % Sodium Chloride Mini Bag 100 ML IVPB SCH ×2 (01:48→13:54)
[2021-07-03 03:09] LABS: Nucleated Red Blood Cells 0.1 /100 WBC (0)
[2021-07-03 03:11] LABS: Immature Platelets 4.3 % (1.1-6.1); Mean Corpuscular HGB Conc 30.4 g/dL (31.6-35.5); Mean Corpuscular Hemoglobin 32.6 pg (28.0-33.3); Mean Platelet Volume 9.4 fL (9.4-12.4); Red Blood Count 2.15 M/mcL (4.19-5.50)
[2021-07-03 03:18] LABS: Platelet Count 52 K/mcL (140-400); White Blood Count 136.1 K/mcL (4.3-11.1)
[2021-07-03 03:31] LABS: Albumin 3.3 g/dL (3.5-5.7); Albumin/Globulin Ratio 1.1 (1.1-2.2); Bilirubin,Direct 0.1 mg/dL (0.0-0.2); Bilirubin,Indirect 0.2 mg/dL (0.0-1.0); Bilirubin,Total 0.3 mg/dL (0.3-1.0); Calcium 8.2 mg/dL (8.6-10.3); Globulin 2.9 g/dL (2.4-3.5); Magnesium 1.8 mg/dL (1.6-2.6); Potassium 3.9 mEq/L (3.5-5.1); Total Protein 6.2 g/dL (6.4-8.9)
[2021-07-03 03:39] LABS: Lymphocytes # 13.6 K/mcL (0.6-4.6); Monocytes # 46.3 K/mcL (0.0-1.3); Neutrophils # 76.2 K/mcL (1.6-8.9)
[2021-07-03 03:40] LABS: Anisocytosis 2+ (Not Present); Macrocytosis Present (Not Present); Platelet Estimate Decreased (Normal); Stomatocytes 1+ (Not Present)
[2021-07-03] MEDS ORDERED: *HR* Enoxaparin 40 MG/0.4 ML SYRINGE SQ SCH (06:00)
[2021-07-03] MEDS: GuaiFENesin Liq 200 MG/10 ML UDC PO SCH ×3 (10:38→20:38)
[2021-07-03] MEDS: hydrOXYzine pamoate 25 MG CAPSULE PO SCH (10:39)
[2021-07-03] MEDS: Aspirin Enteric Coated 81 MG Tablet PO SCH (10:40)
[2021-07-03] MEDS: Isosorbide MONOnitrate (24 HR) 60 MG TAB.ER.24H PO SCH (10:40)
[2021-07-03] MEDS: amLODIPine 5 MG TABLET PO SCH (10:41)
[2021-07-03] MEDS: Magnesium Oxide 400 MG TABLET PO SCH (10:41)
[2021-07-03] MEDS: carvediloL 6.25 MG TABLET PO SCH ×2 (10:41→20:50)
[2021-07-03] MEDS: allopurinoL 100 MG TABLET PO SCH (10:41)
[2021-07-03] MEDS: Loratadine 10 MG TABLET PO SCH (10:41)
[2021-07-03] MEDS: Venlafaxine XR (24 HR) 37.5 MG CAP.ER.24H PO SCH (10:41)
[2021-07-03] MEDS: Insulin LISPRO 300 UNITS/3 ML VIAL SUBQ SCH ×6 (10:50→17:51)
[2021-07-03] MEDS: Fluticasone Propionate Nasal 50 MCG/SPRAY BOTTLE NS SCH ×2 (10:53→20:49)
[2021-07-03] MEDS: Ammonium Lactate 30 APPL/225 GM BOTTLE TP SCH ×2 (10:53→20:51)
[2021-07-03] MEDS: polyethylene glycoL 3350 17 GM POWD.PACK PO SCH ×2 (10:53→20:37)
[2021-07-03] MEDS: (Ketotifen Fumarate [Zaditor] 5 ML Drops) OP SCH (10:54)
[2021-07-03] MEDS: Insulin DETEMIR 100 UNIT/ML X5UNITS SUBQ SCH ×2 (10:56→21:03)
[2021-07-03] MEDS: Remdesivir 100 MG in 0.9 % Sodium Chloride 100 ML IVPB SCH (15:13)
[2021-07-03] MEDS ORDERED: SODIUM CHLORIDE 0.9% IV ONE (15:38)
[2021-07-03] MEDS ORDERED: RASBURICASE IV ONE (15:38)
[2021-07-03] MEDS: Cholecalciferol (D-3) 1,000 UNIT (25MCG) TABLET PO SCH (20:37)
[2021-07-03] MEDS: Mirtazapine 15 MG TABLET PO SCH (20:38)
[2021-07-04] MEDS: Cefepime HCl 2,000 MG in 0.9 % Sodium Chloride Mini Bag 100 ML IVPB SCH ×2 (01:01→18:10)
[2021-07-04] MEDS: hydrOXYzine pamoate 25 MG CAPSULE PO SCH ×3 (01:31→21:32)
[2021-07-04] MEDS: *HR* OxyCODONE Immed Rel 15 MG TABLET PO PRN ×2 (02:29→14:49)
[2021-07-04 08:54] LABS: Hemoglobin 7.2 g/dL (12.9-16.9); Nucleated Red Blood Cells 0.1 /100 WBC (0)
[2021-07-04 08:56] LABS: Hematocrit 23.4 % (37.5-50.1); Immature Platelets 4.1 % (1.1-6.1); Mean Corpuscular HGB Conc 30.8 g/dL (31.6-35.5); Mean Corpuscular Hemoglobin 33.6 pg (28.0-33.3); Mean Corpuscular Volume 109.3 fL (83.0-100.0); Mean Platelet Volume 9.4 fL (9.4-12.4); Red Blood Count 2.14 M/mcL (4.19-5.50); Red Cell Distribution Width 25.3 % (11.5-14.5)
[2021-07-04 08:57] LABS: Estimated Average Glucose 148 mg/dl; Hemoglobin A1C 6.8 %
[2021-07-04 09:06] LABS: Platelet Count 55 K/mcL (140-400)
[2021-07-04 09:30] LABS: Eosinophils # 1.4 K/mcL (0.0-0.6); Lymphocytes # 7.2 K/mcL (0.6-4.6); Monocytes # 58.6 K/mcL (0.0-1.3); Neutrophils # 68.6 K/mcL (1.6-8.9); Platelet Estimate Decreased (Normal)
[2021-07-04 09:31] LABS: Anisocytosis 1+ (Not Present)
[2021-07-04 09:33] LABS: Macrocytosis Present (Not Present)
[2021-07-04] MEDS: GuaiFENesin Liq 200 MG/10 ML UDC PO SCH ×3 (10:54→21:33)
[2021-07-04] MEDS: Isosorbide MONOnitrate (24 HR) 60 MG TAB.ER.24H PO SCH (10:55)
[2021-07-04] MEDS: allopurinoL 100 MG TABLET PO SCH (10:55)
[2021-07-04] MEDS: Magnesium Oxide 400 MG TABLET PO SCH (10:56)
[2021-07-04] MEDS: Venlafaxine XR (24 HR) 37.5 MG CAP.ER.24H PO SCH (10:56)
[2021-07-04] MEDS: Loratadine 10 MG TABLET PO SCH (10:56)
[2021-07-04] MEDS: amLODIPine 5 MG TABLET PO SCH (10:56)
[2021-07-04] MEDS: carvediloL 6.25 MG TABLET PO SCH ×2 (10:56→21:32)
[2021-07-04] MEDS: Fluticasone Propionate Nasal 50 MCG/SPRAY BOTTLE NS SCH ×2 (10:57→21:33)
[2021-07-04] MEDS: Insulin LISPRO 300 UNITS/3 ML VIAL SUBQ SCH ×6 (11:01→17:58)
[2021-07-04] MEDS: Insulin DETEMIR 100 UNIT/ML X5UNITS SUBQ SCH ×2 (11:03→21:33)
[2021-07-04] MEDS: Ammonium Lactate 30 APPL/225 GM BOTTLE TP SCH (11:04)
[2021-07-04 13:27] LABS: Alanine Aminotransferase 5 Units/L (7-52); Albumin 3.2 g/dL (3.5-5.7); Albumin/Globulin Ratio 1.2 (1.1-2.2); Alkaline Phosphatase 40 Units/L (34-104); Aspartate Amino Transferase 11 Units/L (13-39); BUN/Creatinine Ratio 18 (6-26); Bilirubin,Direct 0.1 mg/dL (0.0-0.2); Bilirubin,Indirect 0.2 mg/dL (0.0-1.0); Bilirubin,Total 0.3 mg/dL (0.3-1.0); Blood Urea Nitrogen 38 mg/dL (8-23); C-Reactive Protein 48 mg/L (Less than 10); Calcium 8.2 mg/dL (8.6-10.3); Carbon Dioxide 25 mEq/L (23-29); Chloride 103 mEq/L (98-107); Globulin 2.7 g/dL (2.4-3.5); Glucose 78 mg/dL (70-105); Osmolality,Calculated 290 (280-300); Potassium 3.4 mEq/L (3.5-5.1); Sodium 136 mEq/L (136-145); Total Protein 5.9 g/dL (6.4-8.9); Uric Acid < 1.5 mg/dL (2.3-7.6); eGFR For African Americans 37 (> 60); eGFR For Non-African Americans 30 (> 60)
[2021-07-04] MEDS: Remdesivir 100 MG in 0.9 % Sodium Chloride 100 ML IVPB SCH (14:49)
[2021-07-04] MEDS ORDERED: levoFLOXacin 750 MG/150 ML 750 MG/150 ML BAG IVPB SCH (16:00)
[2021-07-04] MEDS: polyethylene glycoL 3350 17 GM POWD.PACK PO SCH ×2 (17:56→21:33)
[2021-07-04] MEDS: Aspirin Enteric Coated 81 MG Tablet PO SCH (17:56)
[2021-07-04] MEDS: Mirtazapine 15 MG TABLET PO SCH (21:32)
[2021-07-04] MEDS: Cholecalciferol (D-3) 1,000 UNIT (25MCG) TABLET PO SCH (21:32)
[2021-07-05] MEDS: *HR* OxyCODONE Immed Rel 15 MG TABLET PO PRN ×4 (01:37→20:23)
[2021-07-05] MEDS: Cefepime HCl 2,000 MG in 0.9 % Sodium Chloride Mini Bag 100 ML IVPB SCH ×2 (01:37→14:34)
[2021-07-05] MEDS: Ammonium Lactate 30 APPL/225 GM BOTTLE TP SCH ×3 (01:39→19:59)
[2021-07-05 06:40] LABS: Hemoglobin 6.6 g/dL (12.9-16.9); Nucleated Red Blood Cells 0.1 /100 WBC (0)
[2021-07-05 06:42] LABS: Immature Platelets 3.7 % (1.1-6.1); Mean Corpuscular Hemoglobin 33.5 pg (28.0-33.3); Mean Corpuscular Volume 111.7 fL (83.0-100.0); Mean Platelet Volume 9.5 fL (9.4-12.4); Red Blood Count 1.97 M/mcL (4.19-5.50); Red Cell Distribution Width 25.2 % (11.5-14.5)
[2021-07-05 06:55] LABS: White Blood Count 143.1 K/mcL (4.3-11.1)
[2021-07-05 06:56] LABS: Platelet Count 55 K/mcL (140-400)
[2021-07-05 07:03] LABS: Albumin/Globulin Ratio 1.2 (1.1-2.2); Bilirubin,Direct 0.1 mg/dL (0.0-0.2); Bilirubin,Indirect 0.2 mg/dL (0.0-1.0); Bilirubin,Total 0.3 mg/dL (0.3-1.0); Calcium 7.8 mg/dL (8.6-10.3); Globulin 2.6 g/dL (2.4-3.5); Potassium 3.9 mEq/L (3.5-5.1); Total Protein 5.6 g/dL (6.4-8.9)
[2021-07-05 07:06] LABS: Anisocytosis 1+ (Not Present); Eosinophils # 2.9 K/mcL (0.0-0.6); Monocytes # 40.1 K/mcL (0.0-1.3); Neutrophils # 91.6 K/mcL (1.6-8.9); Platelet Estimate Decreased (Normal)
[2021-07-05 07:07] LABS: Macrocytosis Present (Not Present)
[2021-07-05] MEDS ORDERED: 0.9 % Sodium Chloride 250 ML IVC SCH (07:30)
[2021-07-05] MEDS: Insulin LISPRO 300 UNITS/3 ML VIAL SUBQ SCH ×3 (08:05→17:04)
[2021-07-05] MEDS: Isosorbide MONOnitrate (24 HR) 60 MG TAB.ER.24H PO SCH (08:13)
[2021-07-05] MEDS: Loratadine 10 MG TABLET PO SCH (08:13)
[2021-07-05] MEDS: Aspirin Enteric Coated 81 MG Tablet PO SCH (08:13)
[2021-07-05] MEDS: amLODIPine 5 MG TABLET PO SCH (08:13)
[2021-07-05] MEDS: GuaiFENesin Liq 200 MG/10 ML UDC PO SCH ×3 (08:13→19:59)
[2021-07-05] MEDS: polyethylene glycoL 3350 17 GM POWD.PACK PO SCH ×2 (08:13→19:59)
[2021-07-05] MEDS: Venlafaxine XR (24 HR) 37.5 MG CAP.ER.24H PO SCH (08:13)
[2021-07-05] MEDS: allopurinoL 100 MG TABLET PO SCH (08:13)
[2021-07-05] MEDS: Magnesium Oxide 400 MG TABLET PO SCH (08:14)
[2021-07-05] MEDS: carvediloL 6.25 MG TABLET PO SCH ×2 (08:14→19:58)
[2021-07-05] MEDS: hydrOXYzine pamoate 25 MG CAPSULE PO SCH ×2 (08:14→19:58)
[2021-07-05] MEDS: Fluticasone Propionate Nasal 50 MCG/SPRAY BOTTLE NS SCH ×2 (08:30→19:57)
[2021-07-05] MEDS: Insulin DETEMIR 100 UNIT/ML X5UNITS SUBQ SCH ×2 (10:56→21:01)
[2021-07-05] MEDS: Remdesivir 100 MG in 0.9 % Sodium Chloride 100 ML IVPB SCH (14:22)
[2021-07-05 19:54] LABS: Hemoglobin 7.8 g/dL (12.9-16.9)
[2021-07-05] MEDS: Mirtazapine 15 MG TABLET PO SCH (19:58)
[2021-07-05] MEDS: Cholecalciferol (D-3) 1,000 UNIT (25MCG) TABLET PO SCH (19:58)
[2021-07-06] MEDS: Cefepime HCl 2,000 MG in 0.9 % Sodium Chloride Mini Bag 100 ML IVPB SCH ×2 (01:43→13:21)
[2021-07-06 02:12] LABS: Hemoglobin 7.6 g/dL (12.9-16.9); Nucleated Red Blood Cells 0.1 /100 WBC (0); Red Cell Distribution Width 26.5 % (11.5-14.5)
[2021-07-06 02:14] LABS: Hematocrit 25.4 % (37.5-50.1); Immature Platelets 4.7 % (1.1-6.1); Mean Corpuscular HGB Conc 29.9 g/dL (31.6-35.5); Mean Corpuscular Hemoglobin 32.2 pg (28.0-33.3); Mean Corpuscular Volume 107.6 fL (83.0-100.0); Mean Platelet Volume 9.7 fL (9.4-12.4); Red Blood Count 2.36 M/mcL (4.19-5.50)
[2021-07-06 02:35] LABS: Platelet Count 60 K/mcL (140-400); White Blood Count 172.9 K/mcL (4.3-11.1)
[2021-07-06 02:37] LABS: Eosinophils # 3.5 K/mcL (0.0-0.6); Monocytes # 65.7 K/mcL (0.0-1.3); Neutrophils # 100.3 K/mcL (1.6-8.9); Platelet Estimate Decreased (Normal)
[2021-07-06 02:59] LABS: Albumin 3.1 g/dL (3.5-5.7); Albumin/Globulin Ratio 1.1 (1.1-2.2); Bilirubin,Direct 0.1 mg/dL (0.0-0.2); Bilirubin,Indirect 0.3 mg/dL (0.0-1.0); Bilirubin,Total 0.4 mg/dL (0.3-1.0); Calcium 7.7 mg/dL (8.6-10.3); Globulin 2.7 g/dL (2.4-3.5); Potassium 4.3 mEq/L (3.5-5.1); Total Protein 5.8 g/dL (6.4-8.9)
[2021-07-06] MEDS: *HR* OxyCODONE Immed Rel 15 MG TABLET PO PRN ×3 (03:06→19:52)
[2021-07-06] MEDS: Insulin LISPRO 300 UNITS/3 ML VIAL SUBQ SCH ×3 (08:53→16:51)
[2021-07-06] MEDS: Insulin DETEMIR 100 UNIT/ML X5UNITS SUBQ SCH ×2 (08:54→20:18)
[2021-07-06] MEDS: Aspirin Enteric Coated 81 MG Tablet PO SCH (08:59)
[2021-07-06] MEDS: hydrOXYzine pamoate 25 MG CAPSULE PO SCH ×2 (08:59→19:53)
[2021-07-06] MEDS: allopurinoL 100 MG TABLET PO SCH (08:59)
[2021-07-06] MEDS: carvediloL 6.25 MG TABLET PO SCH ×2 (08:59→19:53)
[2021-07-06] MEDS: GuaiFENesin Liq 200 MG/10 ML UDC PO SCH ×3 (08:59→19:53)
[2021-07-06] MEDS: Magnesium Oxide 400 MG TABLET PO SCH (08:59)
[2021-07-06] MEDS: amLODIPine 5 MG TABLET PO SCH (08:59)
[2021-07-06] MEDS: Loratadine 10 MG TABLET PO SCH (08:59)
[2021-07-06] MEDS: polyethylene glycoL 3350 17 GM POWD.PACK PO SCH ×2 (09:00→19:52)
[2021-07-06] MEDS: Isosorbide MONOnitrate (24 HR) 60 MG TAB.ER.24H PO SCH (09:03)
[2021-07-06] MEDS: Venlafaxine XR (24 HR) 37.5 MG CAP.ER.24H PO SCH (09:03)
[2021-07-06] MEDS: Fluticasone Propionate Nasal 50 MCG/SPRAY BOTTLE NS SCH ×2 (09:03→19:54)
[2021-07-06] MEDS: Ammonium Lactate 30 APPL/225 GM BOTTLE TP SCH ×2 (09:04→20:23)
[2021-07-06] MEDS: Dexamethasone Sodium Phos/PF 10 MG/ML VIAL IVP SCH (10:34)
[2021-07-06] MEDS: Ipratropium 1 PUFF INHALER IH SCH ×4 (11:18→23:15)
[2021-07-06] MEDS ORDERED: Saline Nasal Spray 44 ML BOTTLE NS PRN (12:12)
[2021-07-06] MEDS: Remdesivir 100 MG in 0.9 % Sodium Chloride 100 ML IVPB SCH (14:01)
[2021-07-06] MEDS: Mirtazapine 15 MG TABLET PO SCH (19:53)
[2021-07-06] MEDS: Cholecalciferol (D-3) 1,000 UNIT (25MCG) TABLET PO SCH (19:54)
[2021-07-06] MEDS: Hydroxyurea 500 MG CAPSULE PO SCH ×2 (19:54→20:18)
[2021-07-06] MEDS ORDERED: Hydroxyurea 500 MG CAPSULE PO SCH (21:00)
[2021-07-07] MEDS: Cefepime HCl 2,000 MG in 0.9 % Sodium Chloride Mini Bag 100 ML IVPB SCH ×2 (00:21→13:36)
[2021-07-07] MEDS: Ipratropium 1 PUFF INHALER IH SCH ×6 (03:38→23:53)
[2021-07-07 04:52] LABS: Eosinophils % 0.5 %; Hemoglobin 7.4 g/dL (12.9-16.9)
[2021-07-07 04:54] LABS: Basophils % 1.3 %; Immature Granulocytes % 14.4 % (0-4); Immature Platelets 3.7 % (1.1-6.1); Lymphocytes # 7.9 K/mcL (0.6-4.6); Lymphocytes % 3.5 %; Mean Corpuscular HGB Conc 29.6 g/dL (31.6-35.5); Mean Corpuscular Hemoglobin 32.2 pg (28.0-33.3); Mean Corpuscular Volume 108.7 fL (83.0-100.0); Mean Platelet Volume 9.3 fL (9.4-12.4); Monocytes % 38.2 %; Nucleated Red Blood Cells 0.1 /100 WBC (0); Red Cell Distribution Width 26.5 % (11.5-14.5); Segmented Neutrophils % 42.1 %
[2021-07-07 05:00] LABS: Albumin 3.2 g/dL (3.5-5.7); Albumin/Globulin Ratio 1.2 (1.1-2.2); Bilirubin,Direct 0.1 mg/dL (0.0-0.2); Bilirubin,Indirect 0.3 mg/dL (0.0-1.0); Bilirubin,Total 0.4 mg/dL (0.3-1.0); Calcium 7.7 mg/dL (8.6-10.3); Globulin 2.7 g/dL (2.4-3.5); Potassium 4.3 mEq/L (3.5-5.1); Total Protein 5.9 g/dL (6.4-8.9)
[2021-07-07 05:09] LABS: Basophils # 2.9 K/mcL (0.0-0.2); Eosinophils # 1.1 K/mcL (0.0-0.6); Neutrophils # 94.7 K/mcL (1.6-8.9); Platelet Count 51 K/mcL (140-400)
[2021-07-07 07:08] LABS: Anisocytosis 1+ (Not Present)
[2021-07-07 07:09] LABS: Macrocytosis Present (Not Present); Platelet Estimate Decreased (Normal)
[2021-07-07] MEDS: Dexamethasone Sodium Phos/PF 10 MG/ML VIAL IVP SCH (08:03)
[2021-07-07] MEDS: GuaiFENesin Liq 200 MG/10 ML UDC PO SCH ×3 (08:03→20:39)
[2021-07-07] MEDS: Aspirin Enteric Coated 81 MG Tablet PO SCH (08:04)
[2021-07-07] MEDS: Loratadine 10 MG TABLET PO SCH (08:05)
[2021-07-07] MEDS: Isosorbide MONOnitrate (24 HR) 60 MG TAB.ER.24H PO SCH (08:05)
[2021-07-07] MEDS: hydrOXYzine pamoate 25 MG CAPSULE PO SCH ×2 (08:05→20:37)
[2021-07-07] MEDS: amLODIPine 5 MG TABLET PO SCH (08:06)
[2021-07-07] MEDS: Magnesium Oxide 400 MG TABLET PO SCH (08:06)
[2021-07-07] MEDS: allopurinoL 100 MG TABLET PO SCH (08:06)
[2021-07-07] MEDS: carvediloL 6.25 MG TABLET PO SCH ×2 (08:06→20:26)
[2021-07-07] MEDS: Acetaminophen 325 MG TABLET PO PRN (08:07)
[2021-07-07] MEDS: Venlafaxine XR (24 HR) 37.5 MG CAP.ER.24H PO SCH (08:07)
[2021-07-07] MEDS: Hydroxyurea 500 MG CAPSULE PO SCH ×2 (08:09→20:26)
[2021-07-07] MEDS: Insulin LISPRO 300 UNITS/3 ML VIAL SUBQ SCH ×3 (08:09→18:12)
[2021-07-07] MEDS: Fluticasone Propionate Nasal 50 MCG/SPRAY BOTTLE NS SCH ×2 (08:09→20:39)
[2021-07-07] MEDS: Ammonium Lactate 30 APPL/225 GM BOTTLE TP SCH ×2 (08:10→20:39)
[2021-07-07] MEDS: polyethylene glycoL 3350 17 GM POWD.PACK PO SCH ×2 (08:10→20:39)
[2021-07-07] MEDS: Insulin DETEMIR 100 UNIT/ML X5UNITS SUBQ SCH ×2 (08:11→20:39)
[2021-07-07] MEDS ORDERED: Furosemide 20 MG/2 ML VIAL IVP ONE ×2 (08:25→11:30)
[2021-07-07] MEDS: *HR* OxyCODONE Immed Rel 15 MG TABLET PO PRN ×2 (10:57→20:25)
[2021-07-07] MEDS: Cholecalciferol (D-3) 1,000 UNIT (25MCG) TABLET PO SCH (20:23)
[2021-07-07] MEDS: Benzonatate 100 MG CAPSULE PO PRN (20:24)
[2021-07-07] MEDS: Mirtazapine 15 MG TABLET PO SCH (20:24)
[2021-07-07] MEDS: Melatonin 3 MG TABLET PO PRN (20:25)
[2021-07-08] MEDS: Cefepime HCl 2,000 MG in 0.9 % Sodium Chloride Mini Bag 100 ML IVPB SCH ×2 (02:30→16:59)
[2021-07-08] MEDS: Ipratropium 1 PUFF INHALER IH SCH ×5 (03:56→20:21)
[2021-07-08 04:30] LABS: Red Cell Distribution Width 26.7 % (11.5-14.5)
[2021-07-08 04:32] LABS: Hemoglobin 7.4 g/dL (12.9-16.9); Immature Platelets 4.5 % (1.1-6.1); Mean Corpuscular HGB Conc 29.6 g/dL (31.6-35.5); Mean Corpuscular Hemoglobin 32.9 pg (28.0-33.3); Mean Corpuscular Volume 111.1 fL (83.0-100.0); Red Blood Count 2.25 M/mcL (4.19-5.50)
[2021-07-08 04:34] LABS: Platelet Count 49 K/mcL (140-400)
[2021-07-08 04:37] LABS: White Blood Count 253.3 K/mcL (4.3-11.1)
[2021-07-08 04:47] LABS: Albumin 3.4 g/dL (3.5-5.7); Albumin/Globulin Ratio 1.3 (1.1-2.2); Bilirubin,Total 0.3 mg/dL (0.3-1.0); Globulin 2.7 g/dL (2.4-3.5); Potassium 4.2 mEq/L (3.5-5.1); Total Protein 6.1 g/dL (6.4-8.9)
[2021-07-08 06:10] LABS: Anisocytosis 1+ (Not Present); Macrocytosis Present (Not Present); Neutrophils # 106.4 K/mcL (1.6-8.9); Platelet Estimate Decreased (Normal); Poikilocytosis 1+ (Not Present); Smudge Cells Present (Not Present)
[2021-07-08] MEDS: Insulin LISPRO 300 UNITS/3 ML VIAL SUBQ SCH ×4 (08:17→17:00)
[2021-07-08] MEDS: Ammonium Lactate 30 APPL/225 GM BOTTLE TP SCH ×2 (08:42→22:08)
[2021-07-08] MEDS: Insulin DETEMIR 100 UNIT/ML X5UNITS SUBQ SCH ×2 (08:43→22:06)
[2021-07-08] MEDS: Venlafaxine XR (24 HR) 37.5 MG CAP.ER.24H PO SCH (08:44)
[2021-07-08] MEDS: GuaiFENesin Liq 200 MG/10 ML UDC PO SCH ×3 (08:45→22:06)
[2021-07-08] MEDS: polyethylene glycoL 3350 17 GM POWD.PACK PO SCH ×2 (08:45→22:08)
[2021-07-08] MEDS: Hydroxyurea 500 MG CAPSULE PO SCH ×2 (08:46→22:05)
[2021-07-08] MEDS: Isosorbide MONOnitrate (24 HR) 60 MG TAB.ER.24H PO SCH (08:47)
[2021-07-08] MEDS: Dexamethasone Sodium Phos/PF 10 MG/ML VIAL IVP SCH (08:49)
[2021-07-08] MEDS: amLODIPine 5 MG TABLET PO SCH (08:50)
[2021-07-08] MEDS: carvediloL 6.25 MG TABLET PO SCH ×2 (08:50→22:05)
[2021-07-08] MEDS: allopurinoL 100 MG TABLET PO SCH (08:50)
[2021-07-08] MEDS: Loratadine 10 MG TABLET PO SCH (08:50)
[2021-07-08] MEDS: Magnesium Oxide 400 MG TABLET PO SCH (08:50)
[2021-07-08] MEDS: hydrOXYzine pamoate 25 MG CAPSULE PO SCH ×2 (08:50→22:06)
[2021-07-08] MEDS: Aspirin Enteric Coated 81 MG Tablet PO SCH (08:51)
[2021-07-08] MEDS: Fluticasone Propionate Nasal 50 MCG/SPRAY BOTTLE NS SCH ×2 (08:52→22:07)
[2021-07-08] MEDS ORDERED: Furosemide 20 MG/2 ML VIAL IVP ONE (14:04)
[2021-07-08] MEDS: *HR* OxyCODONE Immed Rel 15 MG TABLET PO PRN (17:30)
[2021-07-08] MEDS: Cholecalciferol (D-3) 1,000 UNIT (25MCG) TABLET PO SCH (22:06)
[2021-07-08] MEDS: Mirtazapine 15 MG TABLET PO SCH (22:06)
[2021-07-09] MEDS: Ipratropium 1 PUFF INHALER IH SCH ×7 (00:13→23:57)
[2021-07-09] MEDS: Cefepime HCl 2,000 MG in 0.9 % Sodium Chloride Mini Bag 100 ML IVPB SCH ×2 (01:05→14:10)
[2021-07-09] MEDS: *HR* OxyCODONE Immed Rel 15 MG TABLET PO PRN ×3 (02:38→21:27)
[2021-07-09 09:36] LABS: Nucleated Red Blood Cells 0.1 /100 WBC (0); Red Cell Distribution Width 26.3 % (11.5-14.5)
[2021-07-09 09:38] LABS: Hemoglobin 7.5 g/dL (12.9-16.9); Immature Platelets 4.1 % (1.1-6.1); Mean Corpuscular Hemoglobin 32.8 pg (28.0-33.3); Mean Corpuscular Volume 109.2 fL (83.0-100.0); Mean Platelet Volume 9.2 fL (9.4-12.4); Red Blood Count 2.29 M/mcL (4.19-5.50)
[2021-07-09 09:43] LABS: Platelet Count 53 K/mcL (140-400); White Blood Count 242.5 K/mcL (4.3-11.1)
[2021-07-09 09:45] LABS: Fibrinogen 213 mg/dL (169-393)
[2021-07-09 09:46] LABS: D-Dimer 1347 ng/mLFEU (0-500)
[2021-07-09 09:58] LABS: Alanine Aminotransferase 14 Units/L (7-52); Albumin 3.5 g/dL (3.5-5.7); Albumin/Globulin Ratio 1.3 (1.1-2.2); Alkaline Phosphatase 40 Units/L (34-104); Aspartate Amino Transferase 13 Units/L (13-39); BUN/Creatinine Ratio 29 (6-26); Bilirubin,Total 0.4 mg/dL (0.3-1.0); Blood Urea Nitrogen 53 mg/dL (8-23); C-Reactive Protein < 5 mg/L (Less than 10); Calcium 8.2 mg/dL (8.6-10.3); Carbon Dioxide 20 mEq/L (23-29); Chloride 111 mEq/L (98-107); Globulin 2.8 g/dL (2.4-3.5); Glucose 112 mg/dL (70-105); Lactate Dehydrogenase 356 Units/L (140-271); Osmolality,Calculated 307 (280-300); Potassium 3.6 mEq/L (3.5-5.1); Sodium 141 mEq/L (136-145); Total Protein 6.3 g/dL (6.4-8.9); eGFR For African Americans 46 (> 60); eGFR For Non-African Americans 38 (> 60)
[2021-07-09 10:08] LABS: Eosinophils # 4.9 K/mcL (0.0-0.6); Lymphocytes # 38.8 K/mcL (0.6-4.6); Monocytes # 4.9 K/mcL (0.0-1.3); Neutrophils # 150.4 K/mcL (1.6-8.9)
[2021-07-09 10:09] LABS: Anisocytosis 3+ (Not Present); Platelet Estimate Decreased (Normal)
[2021-07-09 10:15] LABS: Ferritin 667 ng/mL (20-250)
[2021-07-09] MEDS: Insulin LISPRO 300 UNITS/3 ML VIAL SUBQ SCH ×3 (11:50→18:42)
[2021-07-09] MEDS: Venlafaxine XR (24 HR) 37.5 MG CAP.ER.24H PO SCH (11:52)
[2021-07-09] MEDS: hydrOXYzine pamoate 25 MG CAPSULE PO SCH ×2 (11:52→20:32)
[2021-07-09] MEDS: Aspirin Enteric Coated 81 MG Tablet PO SCH (11:52)
[2021-07-09] MEDS: Magnesium Oxide 400 MG TABLET PO SCH (11:52)
[2021-07-09] MEDS: Isosorbide MONOnitrate (24 HR) 60 MG TAB.ER.24H PO SCH (11:53)
[2021-07-09] MEDS: allopurinoL 100 MG TABLET PO SCH (11:53)
[2021-07-09] MEDS: amLODIPine 5 MG TABLET PO SCH (11:53)
[2021-07-09] MEDS: carvediloL 6.25 MG TABLET PO SCH ×2 (11:53→20:32)
[2021-07-09] MEDS: Loratadine 10 MG TABLET PO SCH (11:54)
[2021-07-09] MEDS: polyethylene glycoL 3350 17 GM POWD.PACK PO SCH ×2 (11:54→20:18)
[2021-07-09] MEDS: GuaiFENesin Liq 200 MG/10 ML UDC PO SCH ×3 (11:54→21:30)
[2021-07-09] MEDS: Fluticasone Propionate Nasal 50 MCG/SPRAY BOTTLE NS SCH ×2 (11:55→20:35)
[2021-07-09] MEDS: Dexamethasone Sodium Phos/PF 10 MG/ML VIAL IVP SCH (11:55)
[2021-07-09] MEDS: Insulin DETEMIR 100 UNIT/ML X5UNITS SUBQ SCH ×2 (12:05→20:35)
[2021-07-09] MEDS: Ammonium Lactate 30 APPL/225 GM BOTTLE TP SCH ×2 (18:29→20:35)
[2021-07-09] MEDS: Mirtazapine 15 MG TABLET PO SCH (20:31)
[2021-07-09] MEDS: Hydroxyurea 500 MG CAPSULE PO SCH (20:32)
[2021-07-09] MEDS: Cholecalciferol (D-3) 1,000 UNIT (25MCG) TABLET PO SCH (20:33)
[2021-07-10] MEDS: Cefepime HCl 2,000 MG in 0.9 % Sodium Chloride Mini Bag 100 ML IVPB SCH ×2 (01:14→18:25)
[2021-07-10] MEDS: *HR* OxyCODONE Immed Rel 15 MG TABLET PO PRN ×3 (03:18→18:44)
[2021-07-10 03:33] LABS: Hemoglobin 7.2 g/dL (12.9-16.9); Immature Granulocytes % 17.4 % (0-4)
[2021-07-10 03:35] LABS: Eosinophils # 0.5 K/mcL (0.0-0.6); Eosinophils % 0.2 %; Immature Platelets 3.5 % (1.1-6.1); Lymphocytes % 4.1 %; Mean Corpuscular Hemoglobin 32.9 pg (28.0-33.3); Mean Corpuscular Volume 109.6 fL (83.0-100.0); Mean Platelet Volume 10.2 fL (9.4-12.4); Monocytes % 40.5 %; Red Blood Count 2.19 M/mcL (4.19-5.50); Red Cell Distribution Width 25.8 % (11.5-14.5); Segmented Neutrophils % 36.8 %
[2021-07-10 03:39] LABS: Basophils # 2.4 K/mcL (0.0-0.2); Lymphocytes # 9.7 K/mcL (0.6-4.6); Monocytes # 95.9 K/mcL (0.0-1.3); Neutrophils # 87.2 K/mcL (1.6-8.9); Platelet Count 53 K/mcL (140-400); White Blood Count 236.9 K/mcL (4.3-11.1)
[2021-07-10 03:51] LABS: Albumin 3.5 g/dL (3.5-5.7); Albumin/Globulin Ratio 1.3 (1.1-2.2); Bilirubin,Total 0.4 mg/dL (0.3-1.0); Calcium 8.1 mg/dL (8.6-10.3); Globulin 2.7 g/dL (2.4-3.5); Total Protein 6.2 g/dL (6.4-8.9)
[2021-07-10] MEDS: Ipratropium 1 PUFF INHALER IH SCH ×6 (04:04→20:12)
[2021-07-10 04:07] LABS: Anisocytosis 2+ (Not Present); Platelet Estimate Decreased (Normal)
[2021-07-10] MEDS: Loratadine 10 MG TABLET PO SCH (10:15)
[2021-07-10] MEDS: amLODIPine 5 MG TABLET PO SCH (10:15)
[2021-07-10] MEDS: carvediloL 6.25 MG TABLET PO SCH ×2 (10:15→21:57)
[2021-07-10] MEDS: Aspirin Enteric Coated 81 MG Tablet PO SCH (10:15)
[2021-07-10] MEDS: hydrOXYzine pamoate 25 MG CAPSULE PO SCH ×2 (10:15→21:56)
[2021-07-10] MEDS: Magnesium Oxide 400 MG TABLET PO SCH (10:15)
[2021-07-10] MEDS: allopurinoL 100 MG TABLET PO SCH (10:15)
[2021-07-10] MEDS: GuaiFENesin Liq 200 MG/10 ML UDC PO SCH ×3 (10:16→21:55)
[2021-07-10] MEDS: Furosemide 20 MG/2 ML VIAL IVP SCH (10:16)
[2021-07-10] MEDS: Ammonium Lactate 30 APPL/225 GM BOTTLE TP SCH ×2 (10:17→21:58)
[2021-07-10] MEDS: Fluticasone Propionate Nasal 50 MCG/SPRAY BOTTLE NS SCH ×2 (10:17→21:57)
[2021-07-10] MEDS: Insulin LISPRO 300 UNITS/3 ML VIAL SUBQ SCH ×3 (10:17→18:27)
[2021-07-10] MEDS: Isosorbide MONOnitrate (24 HR) 60 MG TAB.ER.24H PO SCH (10:24)
[2021-07-10] MEDS: Venlafaxine XR (24 HR) 37.5 MG CAP.ER.24H PO SCH (10:24)
[2021-07-10] MEDS: Hydroxyurea 500 MG CAPSULE PO SCH ×2 (10:25→21:55)
[2021-07-10] MEDS: Dexamethasone Sodium Phos/PF 10 MG/ML VIAL IVP SCH (10:26)
[2021-07-10] MEDS: polyethylene glycoL 3350 17 GM POWD.PACK PO SCH ×2 (10:29→21:57)
[2021-07-10] MEDS: Insulin DETEMIR 100 UNIT/ML X5UNITS SUBQ SCH ×2 (10:32→21:56)
[2021-07-10] MEDS ORDERED: *HR* FentaNYL (PF) 100 MCG/2 ML VIAL IVP ONE (14:40)
[2021-07-10] MEDS: Benzonatate 100 MG CAPSULE PO PRN (21:56)
[2021-07-10] MEDS: Mirtazapine 15 MG TABLET PO SCH (21:56)
[2021-07-10] MEDS: Acetaminophen 325 MG TABLET PO PRN (21:56)
[2021-07-10] MEDS: Cholecalciferol (D-3) 1,000 UNIT (25MCG) TABLET PO SCH (21:56)
[2021-07-10] MEDS: Melatonin 3 MG TABLET PO PRN (21:56)
[2021-07-11] MEDS: Ipratropium 1 PUFF INHALER IH SCH ×6 (00:05→20:37)
[2021-07-11] MEDS: Cefepime HCl 2,000 MG in 0.9 % Sodium Chloride Mini Bag 100 ML IVPB SCH ×2 (00:12→12:43)
[2021-07-11 02:48] LABS: Fibrinogen 197 mg/dL (169-393)
[2021-07-11 02:50] LABS: D-Dimer 947 ng/mLFEU (0-500)
[2021-07-11 03:03] LABS: C-Reactive Protein < 5 mg/L (Less than 10); Lactate Dehydrogenase 412 Units/L (140-271)
[2021-07-11] MEDS: *HR* OxyCODONE Immed Rel 15 MG TABLET PO PRN ×3 (05:40→17:48)
[2021-07-11] MEDS: Insulin LISPRO 300 UNITS/3 ML VIAL SUBQ SCH ×3 (07:39→17:51)
[2021-07-11] MEDS: amLODIPine 5 MG TABLET PO SCH (07:49)
[2021-07-11] MEDS: GuaiFENesin Liq 200 MG/10 ML UDC PO SCH ×3 (07:49→20:43)
[2021-07-11] MEDS: Venlafaxine XR (24 HR) 37.5 MG CAP.ER.24H PO SCH (07:50)
[2021-07-11] MEDS: Isosorbide MONOnitrate (24 HR) 60 MG TAB.ER.24H PO SCH (07:50)
[2021-07-11] MEDS: Aspirin Enteric Coated 81 MG Tablet PO SCH (07:50)
[2021-07-11] MEDS: Hydroxyurea 500 MG CAPSULE PO SCH ×2 (07:50→20:34)
[2021-07-11] MEDS: allopurinoL 100 MG TABLET PO SCH (07:50)
[2021-07-11] MEDS: Magnesium Oxide 400 MG TABLET PO SCH (07:50)
[2021-07-11] MEDS: Furosemide 20 MG/2 ML VIAL IVP SCH (07:51)
[2021-07-11] MEDS: carvediloL 6.25 MG TABLET PO SCH ×2 (07:51→20:35)
[2021-07-11] MEDS: Insulin DETEMIR 100 UNIT/ML X5UNITS SUBQ SCH ×2 (07:51→20:34)
[2021-07-11] MEDS: polyethylene glycoL 3350 17 GM POWD.PACK PO SCH ×2 (07:51→20:36)
[2021-07-11] MEDS: hydrOXYzine pamoate 25 MG CAPSULE PO SCH ×2 (07:51→20:35)
[2021-07-11] MEDS: Loratadine 10 MG TABLET PO SCH (07:51)
[2021-07-11] MEDS: Ammonium Lactate 30 APPL/225 GM BOTTLE TP SCH ×2 (07:53→20:36)
[2021-07-11] MEDS: Fluticasone Propionate Nasal 50 MCG/SPRAY BOTTLE NS SCH ×2 (07:53→20:36)
[2021-07-11] MEDS: Dexamethasone Sodium Phos/PF 10 MG/ML VIAL IVP SCH (08:04)
[2021-07-11 15:02] LABS: Ferritin 616 ng/mL (20-250)
[2021-07-11] MEDS: Mirtazapine 15 MG TABLET PO SCH (20:35)
[2021-07-11] MEDS: Benzonatate 100 MG CAPSULE PO PRN (20:35)
[2021-07-11] MEDS: Cholecalciferol (D-3) 1,000 UNIT (25MCG) TABLET PO SCH (20:35)
[2021-07-11] MEDS: Melatonin 3 MG TABLET PO PRN (20:35)
[2021-07-11] MEDS: Acetaminophen 325 MG TABLET PO PRN (20:35)
[2021-07-12] MEDS: Ipratropium 1 PUFF INHALER IH SCH ×6 (00:03→19:57)
[2021-07-12] MEDS: Cefepime HCl 2,000 MG in 0.9 % Sodium Chloride Mini Bag 100 ML IVPB SCH ×2 (00:38→19:41)
[2021-07-12] MEDS: Dexamethasone Sodium Phos/PF 10 MG/ML VIAL IVP SCH (09:20)
[2021-07-12] MEDS: Furosemide 20 MG/2 ML VIAL IVP SCH (09:20)
[2021-07-12] MEDS: GuaiFENesin Liq 200 MG/10 ML UDC PO SCH ×3 (09:20→20:33)
[2021-07-12] MEDS: carvediloL 6.25 MG TABLET PO SCH ×2 (09:21→20:32)
[2021-07-12] MEDS: Insulin LISPRO 300 UNITS/3 ML VIAL SUBQ SCH ×3 (09:21→18:25)
[2021-07-12] MEDS: amLODIPine 5 MG TABLET PO SCH (09:21)
[2021-07-12] MEDS: Aspirin Enteric Coated 81 MG Tablet PO SCH (09:21)
[2021-07-12] MEDS: allopurinoL 100 MG TABLET PO SCH (09:21)
[2021-07-12] MEDS: Magnesium Oxide 400 MG TABLET PO SCH (09:21)
[2021-07-12] MEDS: hydrOXYzine pamoate 25 MG CAPSULE PO SCH ×2 (09:21→20:33)
[2021-07-12] MEDS: Loratadine 10 MG TABLET PO SCH (09:21)
[2021-07-12] MEDS: Ammonium Lactate 30 APPL/225 GM BOTTLE TP SCH ×2 (09:22→20:34)
[2021-07-12] MEDS: Fluticasone Propionate Nasal 50 MCG/SPRAY BOTTLE NS SCH ×2 (09:34→20:33)
[2021-07-12] MEDS: polyethylene glycoL 3350 17 GM POWD.PACK PO SCH ×2 (09:39→20:33)
[2021-07-12] MEDS: Venlafaxine XR (24 HR) 37.5 MG CAP.ER.24H PO SCH (09:41)
[2021-07-12] MEDS: Hydroxyurea 500 MG CAPSULE PO SCH ×2 (09:41→20:33)
[2021-07-12] MEDS: Isosorbide MONOnitrate (24 HR) 60 MG TAB.ER.24H PO SCH (09:41)
[2021-07-12] MEDS: Insulin DETEMIR 100 UNIT/ML X5UNITS SUBQ SCH ×2 (09:42→20:32)
[2021-07-12] MEDS: *HR* OxyCODONE Immed Rel 15 MG TABLET PO PRN ×2 (11:27→18:24)
[2021-07-12 11:44] LABS: Hemoglobin 8.1 g/dL (12.9-16.9)
[2021-07-12 11:47] LABS: Hematocrit 27.5 % (37.5-50.1); Immature Platelets 4.1 % (1.1-6.1); Mean Corpuscular HGB Conc 29.5 g/dL (31.6-35.5); Mean Corpuscular Hemoglobin 33.1 pg (28.0-33.3); Mean Corpuscular Volume 112.2 fL (83.0-100.0); Nucleated Red Blood Cells 0.2 /100 WBC (0); Red Blood Count 2.45 M/mcL (4.19-5.50); Red Cell Distribution Width 25.9 % (11.5-14.5)
[2021-07-12 11:49] LABS: White Blood Count 212.7 K/mcL (4.3-11.1)
[2021-07-12 11:50] LABS: Platelet Count 73 K/mcL (140-400)
[2021-07-12 13:21] LABS: Anisocytosis 1+ (Not Present); Macrocytosis Present (Not Present)
[2021-07-12 13:22] LABS: Platelet Estimate Decreased (Normal); Tear Drop Cells 1+ (Not Present)
[2021-07-12 13:40] LABS: Lymphocytes # 8.5 K/mcL (0.6-4.6); Monocytes # 85.1 K/mcL (0.0-1.3); Neutrophils # 97.8 K/mcL (1.6-8.9)
[2021-07-12] MEDS: Mirtazapine 15 MG TABLET PO SCH (20:33)
[2021-07-12] MEDS: Cholecalciferol (D-3) 1,000 UNIT (25MCG) TABLET PO SCH (20:33)
[2021-07-13] MEDS: Ipratropium 1 PUFF INHALER IH SCH ×4 (00:19→11:53)
[2021-07-13 01:13] LABS: Hemoglobin 7.2 g/dL (12.9-16.9)
[2021-07-13 01:15] LABS: Hematocrit 23.9 % (37.5-50.1); Immature Platelets 5.6 % (1.1-6.1); Mean Corpuscular HGB Conc 30.1 g/dL (31.6-35.5); Mean Corpuscular Hemoglobin 33.5 pg (28.0-33.3); Mean Corpuscular Volume 111.2 fL (83.0-100.0); Mean Platelet Volume 10.4 fL (9.4-12.4); Red Blood Count 2.15 M/mcL (4.19-5.50); Red Cell Distribution Width 25.8 % (11.5-14.5)
[2021-07-13 01:32] LABS: Fibrinogen 191 mg/dL (169-393)
[2021-07-13 01:33] LABS: C-Reactive Protein < 5 mg/L (Less than 10); Lactate Dehydrogenase 566 Units/L (140-271)
[2021-07-13 01:34] LABS: D-Dimer 1248 ng/mLFEU (0-500)
[2021-07-13 02:05] LABS: Albumin 3.8 g/dL (3.5-5.7); Albumin/Globulin Ratio 1.5 (1.1-2.2); Bilirubin,Total 0.4 mg/dL (0.3-1.0); Globulin 2.6 g/dL (2.4-3.5); Potassium 4.8 mEq/L (3.5-5.1); Total Protein 6.4 g/dL (6.4-8.9)
[2021-07-13] MEDS: *HR* OxyCODONE Immed Rel 15 MG TABLET PO PRN ×2 (05:15→12:27)
[2021-07-13] MEDS: Cefepime HCl 2,000 MG in 0.9 % Sodium Chloride Mini Bag 100 ML IVPB SCH ×2 (05:16→12:26)
[2021-07-13] MEDS: Insulin LISPRO 300 UNITS/3 ML VIAL SUBQ SCH ×2 (08:26→12:26)
[2021-07-13] MEDS: hydrOXYzine pamoate 25 MG CAPSULE PO SCH (08:37)
[2021-07-13] MEDS: amLODIPine 5 MG TABLET PO SCH (08:37)
[2021-07-13] MEDS: Loratadine 10 MG TABLET PO SCH (08:38)
[2021-07-13] MEDS: carvediloL 6.25 MG TABLET PO SCH (08:38)
[2021-07-13] MEDS: allopurinoL 100 MG TABLET PO SCH (08:38)
[2021-07-13] MEDS: Aspirin Enteric Coated 81 MG Tablet PO SCH (08:38)
[2021-07-13] MEDS: Isosorbide MONOnitrate (24 HR) 60 MG TAB.ER.24H PO SCH (08:38)
[2021-07-13] MEDS: Venlafaxine XR (24 HR) 37.5 MG CAP.ER.24H PO SCH (08:38)
[2021-07-13] MEDS: Magnesium Oxide 400 MG TABLET PO SCH (08:38)
[2021-07-13] MEDS: Hydroxyurea 500 MG CAPSULE PO SCH (08:38)
[2021-07-13] MEDS: Dexamethasone Sodium Phos/PF 10 MG/ML VIAL IVP SCH (08:38)
[2021-07-13] MEDS: GuaiFENesin Liq 200 MG/10 ML UDC PO SCH (08:39)
[2021-07-13] MEDS: Fluticasone Propionate Nasal 50 MCG/SPRAY BOTTLE NS SCH (08:39)
[2021-07-13] MEDS: polyethylene glycoL 3350 17 GM POWD.PACK PO SCH (08:39)
[2021-07-13 09:46] LABS: Ferritin > 1500 ng/mL (20-250)
[2021-07-13] MEDS: Insulin DETEMIR 100 UNIT/ML X5UNITS SUBQ SCH (10:15)
[2021-07-13 12:17] VITALS: BP 105/41; PULSE 72; TEMP 97.2; O2SAT 99
[2021-07-13] MEDS: Ammonium Lactate 30 APPL/225 GM BOTTLE TP SCH (14:50)
== END 2021-07-13 14:57 | disposition home health service (06) | DRG 871 ==
LOC: EMEROOARM 06:07 → 3NENU 13:22 → SUATTDRO 13:22 → 3NENU 14:29
PROVIDERS: ADMIT Hospitalist; ATTEND Family Medicine

== ENCOUNTER 2021-07-23 09:40 | Inpatient (IN) ==
[2021-07-23] MEDS ORDERED: 0.9 % Sodium Chloride 500 ML IVC ONE (12:39)
[2021-07-23] MEDS ORDERED: Isovue-370 500 ML BOTTLE IVP ONE (12:39)
[2021-07-23] MEDS ORDERED: Vancomycin 1,500 MG/265 ML IV.SOLN IVPB ONE (12:59)
[2021-07-23] MEDS ORDERED: Piperacillin/Tazobactam 3.375 GM in 0.9 % Sodium Chloride Mini Bag 100 ML IVPB ONE (12:59)
[2021-07-23 13:58] LABS: Red Cell Distribution Width 25.1 % (11.5-14.5)
[2021-07-23 13:59] LABS: Hematocrit 22.8 % (37.5-50.1); Hemoglobin 6.8 g/dL (12.9-16.9); Mean Corpuscular HGB Conc 29.8 g/dL (31.6-35.5); Mean Corpuscular Hemoglobin 32.7 pg (28.0-33.3); Mean Corpuscular Volume 109.6 fL (83.0-100.0); Mean Platelet Volume 10.5 fL (9.4-12.4); Red Blood Count 2.08 M/mcL (4.19-5.50)
[2021-07-23 14:03] LABS: White Blood Count 220.2 K/mcL (4.3-11.1)
[2021-07-23 14:19] LABS: Albumin 3.6 g/dL (3.5-5.7); Albumin/Globulin Ratio 1.6 (1.1-2.2); Bilirubin,Direct 0.1 mg/dL (0.0-0.2); Bilirubin,Indirect 0.2 mg/dL (0.0-1.0); Bilirubin,Total 0.3 mg/dL (0.3-1.0); Calcium 7.9 mg/dL (8.6-10.3); Globulin 2.3 g/dL (2.4-3.5); Potassium 4.1 mEq/L (3.5-5.1); Total Protein 5.9 g/dL (6.4-8.9)
[2021-07-23] MEDS ORDERED: Mag Hydrox/Al Hydrox/Simeth 30 ML UDC PO PRN (17:04)
[2021-07-23] MEDS ORDERED: Acetaminophen 325 MG TABLET PO PRN (17:04)
[2021-07-23] MEDS ORDERED: Naloxone 0.4 MG/ML INJ IVP PRN (17:04)
[2021-07-23] MEDS ORDERED: Melatonin 3 MG TABLET PO PRN (17:04)
[2021-07-23] MEDS ORDERED: Ondansetron ODT 4 MG TAB.RAPDIS SL PRN (17:04)
[2021-07-23] MEDS ORDERED: *HR* HYDROcodone/Acet 5/325 mg TABLET PO PRN (17:04)
[2021-07-23] MEDS ORDERED: D5% in Water 1,000 ML IVC PRN (18:05)
[2021-07-23] MEDS ORDERED: *HR* Dextrose 50 % in Water (Syg) 50 ML SYRINGE IVP PRN (18:05)
[2021-07-23] MEDS ORDERED: Dextrose Gel 15 GM/37.5 ML TUBE PO PRN ×2 (18:05)
[2021-07-23 18:12] LABS: Bacteria,Urine Few per hpf (None-Few); Bilirubin,Urine Negative (Negative); Blood,Urine Negative (Negative); Clarity,Urine Turbid (Clear); Color,Urine Light-Yellow (Yellow); Glucose,Urine (UA) 70 mg/dL (Normal); Ketones,Urine Negative (Negative); Leukocyte Esterase,Urine Negative (Negative); Mucus,Urine Few per lpf (None-Few); Nitrite,Urine Negative (Negative); PH,Urine 5.5 pH Units (5.0-8.0); Protein,Urine 30 mg/dL (Neg-Trace); RBC,Urine 0-3 per hpf (0-3); Specific Gravity,Urine 1.026 (1.010-1.025); Squamous Epithelial Cell,Urine Few per hpf (None-Few); Urobilinogen,Urine Normal (Normal); WBC,Urine 0-3 per hpf (0-3)
[2021-07-23] MEDS ORDERED: 0.9 % Sodium Chloride 250 ML IVC SCH ×2 (18:15)
[2021-07-23] MEDS: Hydroxyurea 500 MG CAPSULE PO SCH (18:43)
[2021-07-23] MEDS: *HR* OxyCODONE Immed Rel 5 MG TABLET PO PRN (18:55)
[2021-07-23] MEDS: Mirtazapine 15 MG TABLET PO SCH (20:08)
[2021-07-23] MEDS: Insulin DETEMIR 100 UNIT/ML X5UNITS SUBQ SCH (20:09)
[2021-07-23] MEDS: Insulin LISPRO 300 UNITS/3 ML VIAL SUBQ SCH (20:09)
[2021-07-23] MEDS: hydrOXYzine pamoate 25 MG CAPSULE PO SCH (20:09)
[2021-07-23] MEDS: carvediloL 6.25 MG TABLET PO SCH (20:09)
[2021-07-23] MEDS: polyethylene glycoL 3350 17 GM POWD.PACK PO SCH (20:09)
[2021-07-23] MEDS: *HR* OxyCODONE Immed Rel 15 MG TABLET PO SCH (21:06)
[2021-07-23] MEDS: Cefepime HCl 2,000 MG in 0.9 % Sodium Chloride Mini Bag 100 ML IVPB SCH (23:43)
[2021-07-24] MEDS: *HR* OxyCODONE Immed Rel 15 MG TABLET PO SCH ×9 (00:20→23:46)
[2021-07-24] MEDS: Insulin LISPRO 300 UNITS/3 ML VIAL SUBQ SCH ×4 (09:07→19:53)
[2021-07-24] MEDS: allopurinoL 100 MG TABLET PO SCH (09:24)
[2021-07-24] MEDS: amLODIPine 5 MG TABLET PO SCH (09:24)
[2021-07-24] MEDS: Ascorbic Acid 500 MG TABLET PO SCH (09:26)
[2021-07-24] MEDS: hydroCHLOROthiazide 25 MG TABLET PO SCH (09:26)
[2021-07-24] MEDS: hydrOXYzine pamoate 25 MG CAPSULE PO SCH ×2 (09:26→20:11)
[2021-07-24] MEDS: Cyanocobalamin (B-12) 1,000 MCG TABLET PO SCH (09:26)
[2021-07-24] MEDS: Loratadine 10 MG TABLET PO SCH (09:27)
[2021-07-24] MEDS: carvediloL 6.25 MG TABLET PO SCH ×2 (09:27→20:10)
[2021-07-24] MEDS: Isosorbide MONOnitrate (24 HR) 60 MG TAB.ER.24H PO SCH (09:27)
[2021-07-24] MEDS: Magnesium Oxide 400 MG TABLET PO SCH (09:27)
[2021-07-24] MEDS: Hydroxyurea 500 MG CAPSULE PO SCH ×2 (09:34→18:43)
[2021-07-24] MEDS: Venlafaxine XR (24 HR) 37.5 MG CAP.ER.24H PO SCH (09:34)
[2021-07-24] MEDS: Insulin DETEMIR 100 UNIT/ML X5UNITS SUBQ SCH ×2 (09:34→21:11)
[2021-07-24] MEDS: Cefepime HCl 2,000 MG in 0.9 % Sodium Chloride Mini Bag 100 ML IVPB SCH ×2 (09:35→21:12)
[2021-07-24] MEDS: polyethylene glycoL 3350 17 GM POWD.PACK PO SCH ×2 (09:35→21:25)
[2021-07-24 09:57] LABS: Hematocrit 25.5 % (37.5-50.1); Red Blood Count 2.41 M/mcL (4.19-5.50)
[2021-07-24 09:58] LABS: Mean Corpuscular Volume 105.8 fL (83.0-100.0)
[2021-07-24 10:00] LABS: Hemoglobin 7.7 g/dL (12.9-16.9); Immature Platelets 4.4 % (1.1-6.1); Mean Corpuscular HGB Conc 30.2 g/dL (31.6-35.5); Mean Platelet Volume 9.8 fL (9.4-12.4); Nucleated Red Blood Cells 0.1 /100 WBC (0)
[2021-07-24 10:12] LABS: Platelet Count 43 K/mcL (140-400)
[2021-07-24 10:17] LABS: Calcium 7.9 mg/dL (8.6-10.3); Potassium 3.6 mEq/L (3.5-5.1)
[2021-07-24 10:18] LABS: White Blood Count 197.2 K/mcL (4.3-11.1)
[2021-07-24 11:59] LABS: Anisocytosis 1+ (Not Present); Lymphocytes # 5.9 K/mcL (0.6-4.6); Monocytes # 53.2 K/mcL (0.0-1.3); Neutrophils # 112.4 K/mcL (1.6-8.9); Platelet Estimate Marked Decrease (Normal)
[2021-07-24] MEDS: Vancomycin 1,500 MG/265 ML IV.SOLN IVPB SCH (14:54)
[2021-07-24] MEDS: *HR* OxyCODONE Immed Rel 5 MG TABLET PO PRN (20:11)
[2021-07-24] MEDS: Mirtazapine 15 MG TABLET PO SCH (20:11)
[2021-07-24] MEDS ORDERED: Saline Nasal Spray 44 ML BOTTLE NS PRN (20:35)
[2021-07-25] MEDS: *HR* OxyCODONE Immed Rel 15 MG TABLET PO SCH ×8 (02:31→22:57)
[2021-07-25] MEDS: Insulin LISPRO 300 UNITS/3 ML VIAL SUBQ SCH ×4 (08:07→20:12)
[2021-07-25] MEDS: Insulin DETEMIR 100 UNIT/ML X5UNITS SUBQ SCH ×2 (08:26→22:07)
[2021-07-25] MEDS: Venlafaxine XR (24 HR) 37.5 MG CAP.ER.24H PO SCH (08:27)
[2021-07-25] MEDS: Cyanocobalamin (B-12) 1,000 MCG TABLET PO SCH (08:27)
[2021-07-25] MEDS: hydrOXYzine pamoate 25 MG CAPSULE PO SCH ×2 (08:27→20:09)
[2021-07-25] MEDS: carvediloL 6.25 MG TABLET PO SCH ×2 (08:27→20:09)
[2021-07-25] MEDS: Isosorbide MONOnitrate (24 HR) 60 MG TAB.ER.24H PO SCH (08:27)
[2021-07-25] MEDS: hydroCHLOROthiazide 25 MG TABLET PO SCH (08:28)
[2021-07-25] MEDS: Magnesium Oxide 400 MG TABLET PO SCH (08:28)
[2021-07-25] MEDS: amLODIPine 5 MG TABLET PO SCH (08:28)
[2021-07-25] MEDS: allopurinoL 100 MG TABLET PO SCH (08:28)
[2021-07-25] MEDS: Loratadine 10 MG TABLET PO SCH (08:28)
[2021-07-25] MEDS: Ascorbic Acid 500 MG TABLET PO SCH (08:28)
[2021-07-25] MEDS: Hydroxyurea 500 MG CAPSULE PO SCH ×2 (08:28→17:43)
[2021-07-25] MEDS: Cefepime HCl 2,000 MG in 0.9 % Sodium Chloride Mini Bag 100 ML IVPB SCH ×2 (08:29→20:10)
[2021-07-25] MEDS: polyethylene glycoL 3350 17 GM POWD.PACK PO SCH ×2 (08:30→20:10)
[2021-07-25] MEDS ORDERED: 0.9 % Sodium Chloride 500 ML IVC ONE (11:52)
[2021-07-25] MEDS: Vancomycin 1,500 MG/265 ML IV.SOLN IVPB SCH (14:07)
[2021-07-25 15:42] LABS: Hemoglobin 6.7 g/dL (12.9-16.9); Nucleated Red Blood Cells 0.1 /100 WBC (0)
[2021-07-25 15:44] LABS: Hematocrit 22.2 % (37.5-50.1); Immature Platelets 4.9 % (1.1-6.1); Mean Corpuscular HGB Conc 30.2 g/dL (31.6-35.5); Mean Corpuscular Hemoglobin 32.5 pg (28.0-33.3); Mean Corpuscular Volume 107.8 fL (83.0-100.0); Mean Platelet Volume 10.4 fL (9.4-12.4); Red Blood Count 2.06 M/mcL (4.19-5.50); Red Cell Distribution Width 24.9 % (11.5-14.5)
[2021-07-25 15:57] LABS: White Blood Count 137.6 K/mcL (4.3-11.1)
[2021-07-25 15:58] LABS: Platelet Count 29 K/mcL (140-400)
[2021-07-25 16:21] LABS: Eosinophils # 2.8 K/mcL (0.0-0.6); Lymphocytes # 8.3 K/mcL (0.6-4.6); Monocytes # 60.5 K/mcL (0.0-1.3); Neutrophils # 63.3 K/mcL (1.6-8.9)
[2021-07-25 16:23] LABS: Reactive Lymphocytes Present (Not Present); Smudge Cells Present (Not Present)
[2021-07-25 16:24] LABS: Anisocytosis 2+ (Not Present); Platelet Estimate Marked Decrease (Normal)
[2021-07-25 16:45] LABS: Calcium 6.8 mg/dL (8.6-10.3); Potassium 4.7 mEq/L (3.5-5.1)
[2021-07-25] MEDS ORDERED: Calcium Gluconate 1gm/50mL 1 GM/50 ML BAG IVPB ONE (16:50)
[2021-07-25] MEDS ORDERED: 0.9 % Sodium Chloride 250 ML IVC SCH (17:00)
[2021-07-25] MEDS: Mirtazapine 15 MG TABLET PO SCH (20:09)
[2021-07-26] MEDS: *HR* OxyCODONE Immed Rel 15 MG TABLET PO SCH ×4 (01:39→12:26)
[2021-07-26] MEDS: Cefepime HCl 2,000 MG in 0.9 % Sodium Chloride Mini Bag 100 ML IVPB SCH (08:43)
[2021-07-26] MEDS: Hydroxyurea 500 MG CAPSULE PO SCH (08:46)
[2021-07-26] MEDS: amLODIPine 5 MG TABLET PO SCH (08:46)
[2021-07-26] MEDS: Ascorbic Acid 500 MG TABLET PO SCH (08:46)
[2021-07-26] MEDS: allopurinoL 100 MG TABLET PO SCH (08:46)
[2021-07-26] MEDS: Cyanocobalamin (B-12) 1,000 MCG TABLET PO SCH (08:47)
[2021-07-26] MEDS: Isosorbide MONOnitrate (24 HR) 60 MG TAB.ER.24H PO SCH (08:47)
[2021-07-26] MEDS: Loratadine 10 MG TABLET PO SCH (08:47)
[2021-07-26] MEDS: hydroCHLOROthiazide 25 MG TABLET PO SCH (08:47)
[2021-07-26] MEDS: Magnesium Oxide 400 MG TABLET PO SCH (08:47)
[2021-07-26] MEDS: hydrOXYzine pamoate 25 MG CAPSULE PO SCH (08:47)
[2021-07-26] MEDS: carvediloL 6.25 MG TABLET PO SCH (08:47)
[2021-07-26] MEDS: Insulin LISPRO 300 UNITS/3 ML VIAL SUBQ SCH ×2 (08:47→12:14)
[2021-07-26] MEDS: Venlafaxine XR (24 HR) 37.5 MG CAP.ER.24H PO SCH (08:47)
[2021-07-26] MEDS: polyethylene glycoL 3350 17 GM POWD.PACK PO SCH (08:48)
[2021-07-26 08:52] LABS: Nucleated Red Blood Cells 0.1 /100 WBC (0)
[2021-07-26] MEDS: Insulin DETEMIR 100 UNIT/ML X5UNITS SUBQ SCH (08:52)
[2021-07-26 08:54] LABS: Hematocrit 26.9 % (37.5-50.1); Hemoglobin 8.2 g/dL (12.9-16.9); Immature Platelets 5.6 % (1.1-6.1); Mean Corpuscular HGB Conc 30.5 g/dL (31.6-35.5); Mean Corpuscular Hemoglobin 31.5 pg (28.0-33.3); Mean Corpuscular Volume 103.5 fL (83.0-100.0); Mean Platelet Volume 10.1 fL (9.4-12.4); Red Cell Distribution Width 24.9 % (11.5-14.5)
[2021-07-26 09:06] LABS: Platelet Count 26 K/mcL (140-400); White Blood Count 134.8 K/mcL (4.3-11.1)
[2021-07-26 09:15] LABS: Calcium 7.8 mg/dL (8.6-10.3)
[2021-07-26 11:05] VITALS: BP 127/65; PULSE 78; TEMP 98.1; O2SAT 94
[2021-07-26 11:14] LABS: Lymphocytes # 16.2 K/mcL (0.6-4.6); Monocytes # 41.8 K/mcL (0.0-1.3); Neutrophils # 59.3 K/mcL (1.6-8.9)
[2021-07-26 11:20] LABS: Platelet Estimate Marked Decrease (Normal); Reactive Lymphocytes Present (Not Present)
[2021-07-26 11:21] LABS: Anisocytosis 1+ (Not Present)
== END 2021-07-26 13:42 | disposition home health service (06) | DRG 638 ==
LOC: 4WAOSI 09:40 → EMEROOARM 09:40 → SUATTDRO 17:10 → 4WAOSI 18:10
PROVIDERS: ADMIT Family Medicine; ATTEND Family Medicine

== ENCOUNTER 2021-09-12 09:26 | Observation (INO) ==
[2021-09-12] MEDS ORDERED: Isovue-370 500 ML BOTTLE IVP ONE (09:37)
[2021-09-12] MEDS ORDERED: Morphine Sulfate 2 MG/ML SYRINGE IVP ONE (09:42)
[2021-09-12 09:59] LABS: Nucleated Red Blood Cells 0.1 /100 WBC (0); Red Cell Distribution Width 25.5 % (11.5-14.5)
[2021-09-12 09:59] LABS: VBG HCO3 24 mEq/L (21-27); VBG PCO2 43 mmHg (41-51); VBG PH 7.36 pH Units (7.32-7.42); VBG PO2 57 mmHg (25-50)
[2021-09-12 10:01] LABS: Hemoglobin 6.9 g/dL (12.9-16.9); Immature Platelets 4.9 % (1.1-6.1); Mean Corpuscular Hemoglobin 33.2 pg (28.0-33.3); Mean Corpuscular Volume 110.6 fL (83.0-100.0); Mean Platelet Volume 10.6 fL (9.4-12.4); Red Blood Count 2.08 M/mcL (4.19-5.50)
[2021-09-12 10:08] LABS: INR 1.5; Prothrombin Time 16.9 Seconds (9.4-12.1)
[2021-09-12 10:18] LABS: Alanine Aminotransferase 5 Units/L (7-52); Albumin 3.7 g/dL (3.5-5.7); Albumin/Globulin Ratio 1.4 (1.1-2.2); Alkaline Phosphatase 48 Units/L (34-104); Aspartate Amino Transferase 8 Units/L (13-39); BUN/Creatinine Ratio 17 (6-26); Bilirubin,Direct 0.1 mg/dL (0.0-0.2); Bilirubin,Indirect 0.3 mg/dL (0.0-1.0); Bilirubin,Total 0.4 mg/dL (0.3-1.0); Blood Urea Nitrogen 32 mg/dL (8-23); Calcium 8.7 mg/dL (8.6-10.3); Carbon Dioxide 24 mEq/L (23-29); Chloride 103 mEq/L (98-107); Globulin 2.7 g/dL (2.4-3.5); Glucose 242 mg/dL (70-105); Lipase 21 Units/L (11-82); Magnesium 1.6 mg/dL (1.6-2.6); Osmolality,Calculated 299 (280-300); Potassium 3.8 mEq/L (3.5-5.1); Sodium 137 mEq/L (136-145); Total Protein 6.4 g/dL (6.4-8.9); eGFR For African Americans 43 (> 60); eGFR For Non-African Americans 35 (> 60)
[2021-09-12 10:28] LABS: Platelet Count 36 K/mcL (140-400)
[2021-09-12] MEDS ORDERED: 0.9 % Sodium Chloride 1,000 ML IVC ONE (10:43)
[2021-09-12] MEDS ORDERED: cefTRIAXone 1,000 MG in 0.9 % Sodium Chloride 10 ML IVP ONE (10:43)
[2021-09-12 10:52] LABS: Eosinophils # 1.6 K/mcL (0.0-0.6); Lymphocytes # 9.5 K/mcL (0.6-4.6); Monocytes # 26.9 K/mcL (0.0-1.3); Neutrophils # 37.9 K/mcL (1.6-8.9)
[2021-09-12 10:54] LABS: Anisocytosis 1+ (Not Present); Platelet Estimate Marked Decrease (Normal)
[2021-09-12 10:55] LABS: Macrocytosis Present (Not Present)
[2021-09-12 11:16] LABS: Adenovirus Not Detected (Not Detect); Bordetella Pertussis Not Detected (Not Detect); Chlamydophila pneumoniae Not Detected (Not Detect); Coronavirus 229E Not Detected (Not Detect); Coronavirus HKU1 Not Detected (Not Detect); Coronavirus NL63 Not Detected (Not Detect); Coronavirus OC43 Not Detected (Not Detect); Human Metapneumovirus Not Detected (Not Detect); Human Rhinovirus/Enterovirus Not Detected (Not Detect); Influenza A Subtype 2009 H1 Not Detected (Not Detect); Influenza B Not Detected (Not Detect); Mycoplasma pneumoniae Not Detected (Not Detect); Parainfluenza Virus 1 Not Detected (Not Detect); Parainfluenza Virus 2 Not Detected (Not Detect); Parainfluenza Virus 3 Not Detected (Not Detect); Parainfluenza Virus 4 Not Detected (Not Detect); Respiratory Syncytial Virus Not Detected (Not Detect); SARS-CoV-2 Not Detected (Not Detect)
[2021-09-12 12:05] LABS: Troponin I < 0.03 ng/mL (< 0.04)
[2021-09-12] MEDS ORDERED: Ondansetron ODT 4 MG TAB.RAPDIS SL PRN (12:36)
[2021-09-12] MEDS ORDERED: D5% in Water 1,000 ML IVC PRN (13:32)
[2021-09-12] MEDS ORDERED: *HR* Dextrose 50 % in Water (Syg) 50 ML SYRINGE IVP PRN (13:32)
[2021-09-12] MEDS ORDERED: Dextrose Gel 15 GM/37.5 ML TUBE PO PRN ×2 (13:32)
[2021-09-12 13:50] LABS: Hematocrit 21.7 % (37.5-50.1); Hemoglobin 6.5 g/dL (12.9-16.9)
[2021-09-12] MEDS: Insulin LISPRO 300 UNITS/3 ML VIAL SUBQ SCH ×2 (17:23→19:46)
[2021-09-12 18:04] LABS: Bilirubin,Urine Negative (Negative); Blood,Urine Small (Negative); Clarity,Urine Turbid (Clear); Color,Urine Light-Yellow (Yellow); Glucose,Urine (UA) Normal (Normal); Hyaline Casts,Urine Few per lpf (None Seen); Ketones,Urine Negative (Negative); Leukocyte Esterase,Urine Large (Negative); Nitrite,Urine Negative (Negative); Protein,Urine 70 mg/dL (Neg-Trace); Specific Gravity,Urine 1.016 (1.010-1.025); Squamous Epithelial Cell,Urine Few per hpf (None-Few); Urobilinogen,Urine Normal (Normal); WBC,Urine TNTC per hpf (0-3)
[2021-09-12] MEDS: Azithromycin 500 MG in 0.9 % Sodium Chloride 250 ML IVPB SCH (18:13)
[2021-09-12 18:24] LABS: Hemoglobin 6.1 g/dL (12.9-16.9)
[2021-09-12 18:26] LABS: Hematocrit 20.6 % (37.5-50.1)
[2021-09-12] MEDS: carvediloL 6.25 MG TABLET PO SCH (20:33)
[2021-09-12] MEDS: Insulin DETEMIR 100 UNIT/ML X5UNITS SUBQ SCH (20:33)
[2021-09-12] MEDS ORDERED: 0.9 % Sodium Chloride 250 ML ONE (21:04)
[2021-09-13 02:45] LABS: Hemoglobin 6.6 g/dL (12.9-16.9); Nucleated Red Blood Cells 0.1 /100 WBC (0)
[2021-09-13 02:47] LABS: Hematocrit 21.6 % (37.5-50.1); Immature Platelets 5.4 % (1.1-6.1); Mean Corpuscular HGB Conc 30.6 g/dL (31.6-35.5); Mean Platelet Volume 10.3 fL (9.4-12.4); Red Cell Distribution Width 24.8 % (11.5-14.5)
[2021-09-13 02:49] LABS: Platelet Count 31 K/mcL (140-400)
[2021-09-13 02:51] LABS: White Blood Count 63.7 K/mcL (4.3-11.1)
[2021-09-13 02:54] LABS: Calcium 8.5 mg/dL (8.6-10.3); Potassium 3.8 mEq/L (3.5-5.1)
[2021-09-13 03:23] LABS: Lymphocytes # 7.6 K/mcL (0.6-4.6); Monocytes # 17.8 K/mcL (0.0-1.3); Neutrophils # 34.4 K/mcL (1.6-8.9); Platelet Estimate Marked Decrease (Normal)
[2021-09-13] MEDS ORDERED: 0.9 % Sodium Chloride 250 ML ONE (06:37)
[2021-09-13] MEDS: cefTRIAXone 1,000 MG in 0.9 % Sodium Chloride 10 ML IVP SCH (08:42)
[2021-09-13] MEDS: Insulin LISPRO 300 UNITS/3 ML VIAL SUBQ SCH ×4 (08:44→20:38)
[2021-09-13] MEDS: carvediloL 6.25 MG TABLET PO SCH ×2 (08:45→18:00)
[2021-09-13] MEDS: Isosorbide MONOnitrate (24 HR) 60 MG TAB.ER.24H PO SCH (08:45)
[2021-09-13] MEDS: amLODIPine 5 MG TABLET PO SCH (08:46)
[2021-09-13] MEDS: Insulin DETEMIR 100 UNIT/ML X5UNITS SUBQ SCH ×2 (08:55→20:37)
[2021-09-13] MEDS: *HR* OxyCODONE/APAP 5/325 TABLET PO PRN ×3 (10:16→21:51)
[2021-09-13] MEDS: Venlafaxine XR (24 HR) 37.5 MG CAP.ER.24H PO SCH (10:48)
[2021-09-13] MEDS ORDERED: Perflutren Lipid Microsphere 1.3 ML in 0.9 % Sodium Chloride 8.7 ML IVP PRN (10:54)
[2021-09-13 11:47] LABS: Mean Corpuscular Volume 104.6 fL (83.0-100.0); Nucleated Red Blood Cells 0.1 /100 WBC (0)
[2021-09-13 11:49] LABS: Hematocrit 24.8 % (37.5-50.1); Hemoglobin 7.8 g/dL (12.9-16.9); Immature Platelets 5.1 % (1.1-6.1); Mean Corpuscular HGB Conc 31.5 g/dL (31.6-35.5); Mean Corpuscular Hemoglobin 32.9 pg (28.0-33.3); Monocytes # 29.6 K/mcL (0.0-1.3); Red Blood Count 2.37 M/mcL (4.19-5.50); Red Cell Distribution Width 23.7 % (11.5-14.5)
[2021-09-13 11:54] LABS: Platelet Count 31 K/mcL (140-400); White Blood Count 70.4 K/mcL (4.3-11.1)
[2021-09-13 12:24] LABS: Anisocytosis 2+ (Not Present); Eosinophils # 1.4 K/mcL (0.0-0.6); Lymphocytes # 4.2 K/mcL (0.6-4.6); Neutrophils # 28.2 K/mcL (1.6-8.9); Platelet Estimate Marked Decrease (Normal)
[2021-09-13] MEDS: Azithromycin 500 MG in 0.9 % Sodium Chloride 250 ML IVPB SCH (18:00)
[2021-09-14] MEDS: *HR* OxyCODONE/APAP 5/325 TABLET PO PRN (01:58)
[2021-09-14 07:02] LABS: Nucleated Red Blood Cells 0.1 /100 WBC (0)
[2021-09-14 07:07] LABS: Mean Corpuscular Volume 104.7 fL (83.0-100.0); Mean Platelet Volume 10.3 fL (9.4-12.4)
[2021-09-14 07:09] LABS: Hematocrit 24.3 % (37.5-50.1); Hemoglobin 7.7 g/dL (12.9-16.9); Immature Platelets 5.3 % (1.1-6.1); Mean Corpuscular HGB Conc 31.7 g/dL (31.6-35.5); Mean Corpuscular Hemoglobin 33.2 pg (28.0-33.3); Red Blood Count 2.32 M/mcL (4.19-5.50); Red Cell Distribution Width 24.1 % (11.5-14.5)
[2021-09-14 07:27] VITALS: BP 133/67; PULSE 69; TEMP 97.8; O2SAT 100
[2021-09-14 07:32] LABS: Calcium 8.5 mg/dL (8.6-10.3); Magnesium 1.7 mg/dL (1.6-2.6); Phosphorous 4.7 mg/dL (2.7-4.5); Potassium 3.7 mEq/L (3.5-5.1)
[2021-09-14] MEDS: Isosorbide MONOnitrate (24 HR) 60 MG TAB.ER.24H PO SCH (08:06)
[2021-09-14] MEDS: Venlafaxine XR (24 HR) 37.5 MG CAP.ER.24H PO SCH (08:08)
[2021-09-14 08:11] LABS: Platelet Count 28 K/mcL (140-400)
[2021-09-14] MEDS: cefTRIAXone 1,000 MG in 0.9 % Sodium Chloride 10 ML IVP SCH (08:15)
[2021-09-14] MEDS: Insulin LISPRO 300 UNITS/3 ML VIAL SUBQ SCH (08:18)
[2021-09-14 08:26] LABS: Lymphocytes # 4.4 K/mcL (0.6-4.6); Monocytes # 25.2 K/mcL (0.0-1.3); Platelet Estimate Decreased (Normal); Reactive Lymphocytes Present (Not Present)
[2021-09-14] MEDS: carvediloL 6.25 MG TABLET PO SCH (08:37)
[2021-09-14] MEDS: amLODIPine 5 MG TABLET PO SCH (08:37)
[2021-09-14] MEDS: Insulin DETEMIR 100 UNIT/ML X5UNITS SUBQ SCH (08:38)
[2021-09-14] MEDS ORDERED: Clobetasol Propionate 0.05% 15 GM Cream Tube TP PRN (09:17)
[2021-09-14] MEDS ORDERED: Hydroxyurea 500 MG CAPSULE PO SCH ×2 (09:30→18:00)
[2021-09-14] MEDS ORDERED: GuaiFENesin Liq 200 MG/10 ML UDC PO SCH (13:00)
[2021-09-14] MEDS ORDERED: Cholecalciferol (D-3) 1,000 UNIT (25MCG) TABLET PO SCH (21:00)
[2021-09-14] MEDS ORDERED: Ammonium Lactate 30 APPL/225 GM BOTTLE TP SCH (21:00)
[2021-09-14] MEDS ORDERED: Fluticasone Propionate Nasal 50 MCG/SPRAY BOTTLE NS SCH (21:00)
[2021-09-15] MEDS ORDERED: allopurinoL 100 MG TABLET PO SCH (09:00)
[2021-09-15] MEDS ORDERED: Ascorbic Acid 500 MG TABLET PO SCH (09:00)
[2021-09-15] MEDS ORDERED: Loratadine 10 MG TABLET PO SCH (09:00)
[2021-09-15] MEDS ORDERED: Cyanocobalamin (B-12) 1,000 MCG TABLET PO SCH (09:00)
== END 2021-09-14 12:15 | disposition home or self-care (01) ==
LOC: 2ANU 09:26 → EMEROOARM 09:26 → 2ANU 12:10
PROVIDERS: ADMIT Internal Medicine; ATTEND Internal Medicine

== ENCOUNTER 2021-12-13 03:05 | Observation (INO) ==
[2021-12-13 03:48] LABS: Nucleated Red Blood Cells 0.1 /100 WBC (0)
[2021-12-13 03:50] LABS: Hemoglobin 6.6 g/dL (12.9-16.9); Immature Platelets 4.6 % (1.1-6.1); Mean Corpuscular HGB Conc 31.4 g/dL (31.6-35.5); Mean Corpuscular Hemoglobin 32.2 pg (28.0-33.3); Mean Corpuscular Volume 102.4 fL (83.0-100.0); Mean Platelet Volume 9.9 fL (9.4-12.4); Red Blood Count 2.05 M/mcL (4.19-5.50); Red Cell Distribution Width 22.7 % (11.5-14.5)
[2021-12-13] MEDS ORDERED: Isovue-370 500 ML BOTTLE IVP ONE (04:08)
[2021-12-13 04:10] LABS: Platelet Count 54 K/mcL (140-400)
[2021-12-13 04:11] LABS: White Blood Count 215.3 K/mcL (4.3-11.1)
[2021-12-13 04:16] LABS: Alanine Aminotransferase 6 Units/L (7-52); Albumin 3.3 g/dL (3.5-5.7); Alkaline Phosphatase 70 Units/L (34-104); Aspartate Amino Transferase 8 Units/L (13-39); BUN/Creatinine Ratio 14 (6-26); Bilirubin,Direct 0.1 mg/dL (0.0-0.2); Bilirubin,Indirect 0.3 mg/dL (0.0-1.0); Bilirubin,Total 0.4 mg/dL (0.3-1.0); Blood Urea Nitrogen 29 mg/dL (8-23); Calcium 7.3 mg/dL (8.6-10.3); Carbon Dioxide 22 mEq/L (23-29); Chloride 108 mEq/L (98-107); Globulin 3.4 g/dL (2.4-3.5); Glucose 151 mg/dL (70-105); Osmolality,Calculated 299 (280-300); Sodium 140 mEq/L (136-145); Total Protein 6.7 g/dL (6.4-8.9); Troponin I < 0.03 ng/mL (< 0.04); eGFR For African Americans 40 (> 60); eGFR For Non-African Americans 33 (> 60)
[2021-12-13 04:23] LABS: Eosinophils # 2.2 K/mcL (0.0-0.6); Lymphocytes # 4.3 K/mcL (0.6-4.6); Neutrophils # 88.3 K/mcL (1.6-8.9); Platelet Estimate Decreased (Normal)
[2021-12-13 04:24] LABS: Anisocytosis 2+ (Not Present); Macrocytosis Present (Not Present); Polychromasia 1+ (Not Present)
[2021-12-13 04:46] LABS: Influenza A PCR Negative (Negative); Influenza B PCR Negative (Negative); Resp. Syncytial Virus PCR Negative (Negative)
[2021-12-13 04:52] LABS: SARS-CoV-2 by PCR (In House) Negative (Negative)
[2021-12-13] MEDS ORDERED: 0.9 % Sodium Chloride 250 ML ONE ×2 (06:50→14:11)
[2021-12-13] MEDS ORDERED: Potassium Chloride Elixir 20 MEQ/15 ML UDC PO ONE (07:34)
[2021-12-13] MEDS ORDERED: Nitroglycerin 0.4 MG TAB.SUBL SL STA (09:38)
[2021-12-13] MEDS ORDERED: Aspirin 325 MG TABLET PO ONE (09:38)
[2021-12-13] MEDS ORDERED: Naloxone 0.4 MG/ML INJ IVP PRN (10:45)
[2021-12-13 11:03] LABS: Hematocrit 22.9 % (37.5-50.1); Hemoglobin 7.3 g/dL (12.9-16.9)
[2021-12-13 11:26] LABS: Calcium 7.3 mg/dL (8.6-10.3); Magnesium 1.3 mg/dL (1.6-2.6); Phosphorous 4.6 mg/dL (2.7-4.5); Potassium 4.2 mEq/L (3.5-5.1)
[2021-12-13] MEDS ORDERED: Dextrose 4 GM Chewable Tablets PO PRN ×2 (12:48)
[2021-12-13] MEDS ORDERED: D5% in Water 1,000 ML IVC PRN (12:48)
[2021-12-13] MEDS ORDERED: *HR* Dextrose 50 % in Water (Syg) 50 ML SYRINGE IVP PRN (12:48)
[2021-12-13] MEDS ORDERED: *HR* OxyCODONE Immed Rel 15 MG TABLET PO PRN (14:30)
[2021-12-13] MEDS: Insulin LISPRO 300 UNITS/3 ML VIAL SUBQ SCH ×2 (14:59→17:29)
[2021-12-13] MEDS: Ranolazine 500 MG TAB.ER.12H PO SCH ×2 (16:02→20:45)
[2021-12-13] MEDS ORDERED: Nitroglycerin 0.4 MG TAB.SUBL SL PRN (18:56)
[2021-12-13] MEDS ORDERED: GuaiFENesin/Pseudophedrine TABLET PO PRN (18:56)
[2021-12-13] MEDS: Artificial Tears SOLN 15 ML BOTTLE BOTH EYES SCH (20:42)
[2021-12-13] MEDS: carvediloL 6.25 MG TABLET PO SCH (20:44)
[2021-12-13] MEDS: Fluticasone Propionate Nasal 50 MCG/SPRAY BOTTLE NS SCH (20:45)
[2021-12-13] MEDS: Hydroxyurea 500 MG CAPSULE PO SCH (20:45)
[2021-12-13] MEDS: polyethylene glycoL 3350 17 GM POWD.PACK PO SCH (20:46)
[2021-12-13] MEDS ORDERED: Mirtazapine 15 MG TABLET PO SCH (21:00)
[2021-12-13] MEDS ORDERED: Insulin DETEMIR 100 UNIT/ML X5UNITS SUBQ SCH (21:00)
[2021-12-13] MEDS ORDERED: Insulin LISPRO 300 UNITS/3 ML VIAL SUBQ SCH (21:00)
[2021-12-14 04:41] LABS: Nucleated Red Blood Cells 0.1 /100 WBC (0); Red Cell Distribution Width 21.7 % (11.5-14.5)
[2021-12-14 04:44] LABS: Hematocrit 24.4 % (37.5-50.1); Hemoglobin 7.9 g/dL (12.9-16.9); Immature Platelets 3.7 % (1.1-6.1); Mean Corpuscular HGB Conc 32.4 g/dL (31.6-35.5); Mean Corpuscular Hemoglobin 32.4 pg (28.0-33.3); Mean Platelet Volume 9.9 fL (9.4-12.4); Red Blood Count 2.44 M/mcL (4.19-5.50)
[2021-12-14 05:09] LABS: Calcium 7.6 mg/dL (8.6-10.3); Phosphorous 4.1 mg/dL (2.7-4.5); Potassium 3.3 mEq/L (3.5-5.1)
[2021-12-14 05:16] LABS: Platelet Count 50 K/mcL (140-400)
[2021-12-14 06:03] LABS: Eosinophils # 2.3 K/mcL (0.0-0.6); Lymphocytes # 27.9 K/mcL (0.6-4.6); Monocytes # 109.2 K/mcL (0.0-1.3)
[2021-12-14 06:04] LABS: Anisocytosis 2+ (Not Present); Hypochromasia Present (Not Present); Platelet Estimate Decreased (Normal); Polychromasia 2+ (Not Present)
[2021-12-14 06:57] LABS: White Blood Count 232.3 K/mcL (4.3-11.1)
[2021-12-14] MEDS: Insulin LISPRO 300 UNITS/3 ML VIAL SUBQ SCH ×2 (08:33→11:33)
[2021-12-14] MEDS: carvediloL 6.25 MG TABLET PO SCH (08:35)
[2021-12-14] MEDS: Artificial Tears SOLN 15 ML BOTTLE BOTH EYES SCH (08:39)
[2021-12-14] MEDS: Ranolazine 500 MG TAB.ER.12H PO SCH (08:39)
[2021-12-14] MEDS: polyethylene glycoL 3350 17 GM POWD.PACK PO SCH (08:40)
[2021-12-14] MEDS: Hydroxyurea 500 MG CAPSULE PO SCH (08:54)
[2021-12-14] MEDS ORDERED: Cyanocobalamin (B-12) 1,000 MCG TABLET PO SCH (09:00)
[2021-12-14] MEDS ORDERED: Insulin DETEMIR 100 UNIT/ML X5UNITS SUBQ SCH (09:00)
[2021-12-14] MEDS ORDERED: Isosorbide MONOnitrate (24 HR) 60 MG TAB.ER.24H PO SCH (09:00)
[2021-12-14] MEDS ORDERED: amLODIPine 5 MG TABLET PO SCH (09:00)
[2021-12-14] MEDS ORDERED: allopurinoL 100 MG TABLET PO SCH (09:00)
[2021-12-14] MEDS ORDERED: Venlafaxine XR (24 HR) 37.5 MG CAP.ER.24H PO SCH (09:00)
[2021-12-14] MEDS ORDERED: Loratadine 10 MG TABLET PO SCH (09:00)
[2021-12-14] MEDS ORDERED: Magnesium Oxide 400 MG TABLET PO SCH (09:00)
[2021-12-14] MEDS ORDERED: Furosemide 40 MG TABLET PO SCH (09:00)
[2021-12-14] MEDS: Fluticasone Propionate Nasal 50 MCG/SPRAY BOTTLE NS SCH (11:34)
[2021-12-14 13:34] VITALS: BP 109/46; PULSE 72; TEMP 96.7; O2SAT 96
== END 2021-12-14 13:30 | disposition home health service (06) ==
LOC: EMEROOARM 03:05 → 2NENU 03:05
PROVIDERS: ADMIT Internal Medicine; ATTEND Internal Medicine

== ENCOUNTER 2022-01-25 18:40 | Inpatient (IN) ==
[2022-01-25 19:59] LABS: Mean Platelet Volume 10.1 fL (9.4-12.4); Nucleated Red Blood Cells 0.1 /100 WBC (0)
[2022-01-25 20:00] LABS: Bilirubin,Urine Negative (Negative); Blood,Urine Moderate (Negative); Clarity,Urine Ex.Turbid (Clear); Color,Urine Yellow (Yellow); Glucose,Urine (UA) Normal (Normal); Hemoglobin 8.2 g/dL (12.9-16.9); Immature Platelets 5.9 % (1.1-6.1); Ketones,Urine Negative (Negative); Leukocyte Esterase,Urine Large (Negative); Mean Corpuscular HGB Conc 31.5 g/dL (31.6-35.5); Mean Corpuscular Hemoglobin 29.6 pg (28.0-33.3); Mean Corpuscular Volume 93.9 fL (83.0-100.0); Nitrite,Urine Negative (Negative); Protein,Urine 100 mg/dL (Neg-Trace); RBC,Urine 50-100 per hpf (0-3); Red Blood Count 2.77 M/mcL (4.19-5.50); Red Cell Distribution Width 20.6 % (11.5-14.5); Specific Gravity,Urine 1.013 (1.010-1.025); Urobilinogen,Urine Normal (Normal); WBC,Urine TNTC per hpf (0-3)
[2022-01-25] MEDS ORDERED: *HR* FentaNYL (PF) 100 MCG/2 ML VIAL IVP ONE (20:01)
[2022-01-25 20:08] LABS: Platelet Count 40 K/mcL (140-400)
[2022-01-25 20:18] LABS: Albumin 3.1 g/dL (3.5-5.7); Albumin/Globulin Ratio 0.9 (1.1-2.2); Bilirubin,Total 0.5 mg/dL (0.3-1.0); Globulin 3.4 g/dL (2.4-3.5); Potassium 3.5 mEq/L (3.5-5.1); Total Protein 6.5 g/dL (6.4-8.9)
[2022-01-25 20:21] LABS: Eosinophils # 4.9 K/mcL (0.0-0.6); Monocytes # 58.3 K/mcL (0.0-1.3); Neutrophils # 119.1 K/mcL (1.6-8.9)
[2022-01-25 20:22] LABS: Platelet Estimate Decreased (Normal); Smudge Cells Present (Not Present)
[2022-01-25] MEDS ORDERED: Acetaminophen 325 MG TABLET PO PRN (20:47)
[2022-01-25] MEDS ORDERED: Ondansetron 4 MG/2 ML VIAL IVP PRN (20:47)
[2022-01-25] MEDS ORDERED: Naloxone 0.4 MG/ML INJ IVP PRN (20:47)
[2022-01-25] MEDS ORDERED: Melatonin 3 MG TABLET PO PRN (20:47)
[2022-01-25] MEDS ORDERED: *HR* Dextrose 50 % in Water (Syg) 50 ML SYRINGE IVP PRN (20:54)
[2022-01-25] MEDS ORDERED: Dextrose Gel 15 GM/37.5 ML TUBE PO PRN ×2 (20:54)
[2022-01-25] MEDS ORDERED: D5% in Water 1,000 ML IVC PRN (20:54)
[2022-01-25] MEDS: Ringers Solution, Lactated 1,000 ML IVC SCH (22:18)
[2022-01-25] MEDS ORDERED: cefTRIAXone 2,000 MG in 0.9 % Sodium Chloride Mini Bag 100 ML IVPB SCH (23:00)
[2022-01-25] MEDS ORDERED: Ipratropium/Albuterol Neb 3 ML IH PRN (23:12)
[2022-01-26] MEDS: Piperacillin/Tazobactam 3.375 GM in 0.9 % Sodium Chloride Mini Bag 100 ML IVPB SCH ×3 (00:08→21:56)
[2022-01-26] MEDS: *HR* OxyCODONE Immed Rel 5 MG TABLET PO PRN (01:24)
[2022-01-26] MEDS: *HR* HYDROcodone/Acet 5/325 mg TABLET PO PRN ×3 (04:56→21:55)
[2022-01-26 05:56] LABS: Mean Corpuscular Volume 96.7 fL (83.0-100.0); Nucleated Red Blood Cells 0.1 /100 WBC (0)
[2022-01-26 05:58] LABS: Hematocrit 26.2 % (37.5-50.1); Immature Platelets 6.1 % (1.1-6.1); Mean Corpuscular HGB Conc 30.5 g/dL (31.6-35.5); Mean Corpuscular Hemoglobin 29.5 pg (28.0-33.3); Mean Platelet Volume 10.6 fL (9.4-12.4); Red Blood Count 2.71 M/mcL (4.19-5.50); Red Cell Distribution Width 20.7 % (11.5-14.5)
[2022-01-26 06:04] LABS: INR 1.6; Prothrombin Time 18.1 Seconds (9.4-12.1)
[2022-01-26 06:06] LABS: Platelet Count 40 K/mcL (140-400)
[2022-01-26 06:07] LABS: Activated Partial Thrombo Time 37.1 Seconds (26.0-36.0)
[2022-01-26 06:14] LABS: Albumin 3.1 g/dL (3.5-5.7); Albumin/Globulin Ratio 0.9 (1.1-2.2); Bilirubin,Total 0.5 mg/dL (0.3-1.0); Calcium 7.9 mg/dL (8.6-10.3); Globulin 3.3 g/dL (2.4-3.5); Magnesium 1.5 mg/dL (1.6-2.6); Phosphorous 4.8 mg/dL (2.7-4.5); Potassium 3.4 mEq/L (3.5-5.1); Total Protein 6.4 g/dL (6.4-8.9)
[2022-01-26 06:44] LABS: Anisocytosis 2+ (Not Present); Eosinophils # 9.6 K/mcL (0.0-0.6); Lymphocytes # 4.8 K/mcL (0.6-4.6); Monocytes # 81.3 K/mcL (0.0-1.3); Neutrophils # 114.7 K/mcL (1.6-8.9); Platelet Estimate Decreased (Normal)
[2022-01-26] MEDS ORDERED: Chlorhexidine Rinse 15 ML MOUTHWASH MM SCH (09:00)
[2022-01-26] MEDS ORDERED: Fluconazole 100 MG TABLET PO SCH (09:45)
[2022-01-26] MEDS: Ringers Solution, Lactated 1,000 ML IVC SCH (10:10)
[2022-01-26] MEDS: Insulin DETEMIR 100 UNIT/ML X5UNITS SUBQ SCH ×2 (10:12→21:57)
[2022-01-26] MEDS: Lactobacillus 1 EACH CAP.SPRINK PO SCH ×2 (10:12→21:55)
[2022-01-26] MEDS ORDERED: Fluconazole 100 MG TABLET PO ONE (16:06)
[2022-01-27] MEDS: Piperacillin/Tazobactam 3.375 GM in 0.9 % Sodium Chloride Mini Bag 100 ML IVPB SCH ×4 (05:11→20:24)
[2022-01-27 05:47] LABS: Mean Platelet Volume 10.7 fL (9.4-12.4); Red Blood Count 2.43 M/mcL (4.19-5.50)
[2022-01-27 05:49] LABS: Hematocrit 23.1 % (37.5-50.1); Hemoglobin 7.3 g/dL (12.9-16.9); Immature Platelets 5.4 % (1.1-6.1); Mean Corpuscular HGB Conc 31.6 g/dL (31.6-35.5); Mean Corpuscular Volume 95.1 fL (83.0-100.0); Nucleated Red Blood Cells 0.1 /100 WBC (0); Red Cell Distribution Width 20.4 % (11.5-14.5)
[2022-01-27 05:57] LABS: Calcium 7.9 mg/dL (8.6-10.3); Potassium 3.2 mEq/L (3.5-5.1); Uric Acid 8.9 mg/dL (2.3-7.6)
[2022-01-27 06:01] LABS: Platelet Count 40 K/mcL (140-400)
[2022-01-27 06:03] LABS: White Blood Count 205.2 K/mcL (4.3-11.1)
[2022-01-27 06:40] LABS: Lymphocytes # 114.9 K/mcL (0.6-4.6); Monocytes # 8.2 K/mcL (0.0-1.3); Neutrophils # 65.7 K/mcL (1.6-8.9); Platelet Estimate Decreased (Normal)
[2022-01-27] MEDS: *HR* OxyCODONE Immed Rel 5 MG TABLET PO PRN ×3 (08:14→22:55)
[2022-01-27] MEDS: Insulin DETEMIR 100 UNIT/ML X5UNITS SUBQ SCH ×2 (08:15→20:26)
[2022-01-27] MEDS: Lactobacillus 1 EACH CAP.SPRINK PO SCH ×2 (08:15→20:26)
[2022-01-27] MEDS ORDERED: GuaiFENesin Liq 200 MG/10 ML UDC PO PRN (14:53)
[2022-01-27] MEDS: *HR* HYDROcodone/Acet 5/325 mg TABLET PO PRN (17:45)
[2022-01-27] MEDS: Fluticasone Propionate Nasal 50 MCG/SPRAY BOTTLE NS SCH (20:25)
[2022-01-27] MEDS: Mirtazapine 15 MG TABLET PO SCH (20:26)
[2022-01-28] MEDS: *HR* OxyCODONE Immed Rel 5 MG TABLET PO PRN ×3 (03:11→23:22)
[2022-01-28 03:34] LABS: Lymphocytes % 2.9 %; Nucleated Red Blood Cells 0.1 /100 WBC (0); Red Cell Distribution Width 20.5 % (11.5-14.5)
[2022-01-28 03:36] LABS: Basophils % 1.2 %; Eosinophils % 0.7 %; Hematocrit 24.5 % (37.5-50.1); Hemoglobin 7.6 g/dL (12.9-16.9); Immature Platelets 5.2 % (1.1-6.1); Mean Corpuscular Hemoglobin 29.5 pg (28.0-33.3); Mean Platelet Volume 10.1 fL (9.4-12.4); Monocytes % 46.3 %; Red Blood Count 2.58 M/mcL (4.19-5.50); Segmented Neutrophils % 32.9 %
[2022-01-28 03:48] LABS: Calcium 7.7 mg/dL (8.6-10.3); Potassium 3.4 mEq/L (3.5-5.1)
[2022-01-28 03:50] LABS: Eosinophils # 1.7 K/mcL (0.0-0.6); Lymphocytes # 7.2 K/mcL (0.6-4.6); Monocytes # 115.3 K/mcL (0.0-1.3)
[2022-01-28 03:51] LABS: Neutrophils # 81.9 K/mcL (1.6-8.9); Platelet Count 44 K/mcL (140-400)
[2022-01-28 03:55] LABS: Platelet Estimate Decreased (Normal)
[2022-01-28] MEDS: Piperacillin/Tazobactam 3.375 GM in 0.9 % Sodium Chloride Mini Bag 100 ML IVPB SCH ×3 (04:45→20:46)
[2022-01-28] MEDS: Lactobacillus 1 EACH CAP.SPRINK PO SCH ×2 (08:35→20:41)
[2022-01-28] MEDS: amLODIPine 5 MG TABLET PO SCH (08:35)
[2022-01-28] MEDS: Loratadine 10 MG TABLET PO SCH (08:35)
[2022-01-28] MEDS: Cyanocobalamin (B-12) 1,000 MCG TABLET PO SCH (08:35)
[2022-01-28] MEDS: Magnesium Oxide 400 MG TABLET PO SCH (08:35)
[2022-01-28] MEDS: Fluconazole 100 MG TABLET PO SCH (08:36)
[2022-01-28] MEDS: Insulin DETEMIR 100 UNIT/ML X5UNITS SUBQ SCH ×2 (08:36→20:46)
[2022-01-28] MEDS: polyethylene glycoL 3350 17 GM POWD.PACK PO SCH (08:38)
[2022-01-28] MEDS: Fluticasone Propionate Nasal 50 MCG/SPRAY BOTTLE NS SCH ×2 (08:38→20:46)
[2022-01-28] MEDS: *HR* HYDROcodone/Acet 5/325 mg TABLET PO PRN ×2 (08:46→13:44)
[2022-01-28] MEDS ORDERED: Triamcinolone Acet 0.1% CRM 80 GM Tube TP SCH (09:00)
[2022-01-28] MEDS ORDERED: 0.9 % Sodium Chloride 500 ML IVC SCH (09:45)
[2022-01-28] MEDS: Triamcinolone Acet 0.1% CRM 15 GM TUBE TP SCH (10:04)
[2022-01-28] MEDS: carvediloL 6.25 MG TABLET PO SCH (17:07)
[2022-01-28] MEDS: Mirtazapine 15 MG TABLET PO SCH (20:40)
[2022-01-29 03:44] LABS: Basophils % 1.1 %; Eosinophils # 2.4 K/mcL (0.0-0.6); Hematocrit 23.3 % (37.5-50.1); Hemoglobin 7.5 g/dL (12.9-16.9); Immature Granulocytes % 16.3 % (0-4); Lymphocytes # 9.1 K/mcL (0.6-4.6); Lymphocytes % 3.8 %; Mean Corpuscular HGB Conc 32.2 g/dL (31.6-35.5); Mean Corpuscular Hemoglobin 30.7 pg (28.0-33.3); Mean Corpuscular Volume 95.5 fL (83.0-100.0); Mean Platelet Volume 10.9 fL (9.4-12.4); Monocytes % 42.9 %; Nucleated Red Blood Cells 0.1 /100 WBC (0); Red Blood Count 2.44 M/mcL (4.19-5.50); Red Cell Distribution Width 20.6 % (11.5-14.5); Segmented Neutrophils % 34.9 %
[2022-01-29 03:47] LABS: Basophils # 2.6 K/mcL (0.0-0.2); Monocytes # 102.8 K/mcL (0.0-1.3); White Blood Count 239.6 K/mcL (4.3-11.1)
[2022-01-29 03:48] LABS: Neutrophils # 83.6 K/mcL (1.6-8.9); Platelet Count 46 K/mcL (140-400)
[2022-01-29 04:00] LABS: Platelet Estimate Decreased (Normal)
[2022-01-29 04:02] LABS: Calcium 7.7 mg/dL (8.6-10.3); Potassium 3.8 mEq/L (3.5-5.1)
[2022-01-29] MEDS: Piperacillin/Tazobactam 3.375 GM in 0.9 % Sodium Chloride Mini Bag 100 ML IVPB SCH (05:04)
[2022-01-29] MEDS: *HR* HYDROcodone/Acet 5/325 mg TABLET PO PRN ×4 (07:30→22:00)
[2022-01-29] MEDS: amLODIPine 5 MG TABLET PO SCH (07:30)
[2022-01-29] MEDS: Lactobacillus 1 EACH CAP.SPRINK PO SCH ×2 (07:30→19:59)
[2022-01-29] MEDS: Loratadine 10 MG TABLET PO SCH (07:30)
[2022-01-29] MEDS: carvediloL 6.25 MG TABLET PO SCH ×2 (07:30→17:42)
[2022-01-29] MEDS: Magnesium Oxide 400 MG TABLET PO SCH (07:31)
[2022-01-29] MEDS: polyethylene glycoL 3350 17 GM POWD.PACK PO SCH (07:31)
[2022-01-29] MEDS: Fluconazole 100 MG TABLET PO SCH (07:31)
[2022-01-29] MEDS: Cyanocobalamin (B-12) 1,000 MCG TABLET PO SCH (08:44)
[2022-01-29] MEDS: Isosorbide MONOnitrate (24 HR) 60 MG TAB.ER.24H PO SCH (08:44)
[2022-01-29] MEDS: Insulin DETEMIR 100 UNIT/ML X5UNITS SUBQ SCH ×2 (08:45→20:00)
[2022-01-29 10:41] LABS: Uric Acid 9.2 mg/dL (2.3-7.6)
[2022-01-29] MEDS: Triamcinolone Acet 0.1% CRM 15 GM TUBE TP SCH (12:44)
[2022-01-29] MEDS: Fluticasone Propionate Nasal 50 MCG/SPRAY BOTTLE NS SCH ×2 (12:45→20:00)
[2022-01-29] MEDS ORDERED: 0.9 % Sodium Chloride 1,000 ML IV ONE (18:23)
[2022-01-29] MEDS: Mirtazapine 15 MG TABLET PO SCH (19:59)
[2022-01-30 01:00] LABS: Sodium, Urine 78.4 mEq/L
[2022-01-30] MEDS ORDERED: *HR* HYDROmorphone (PF) 1 MG/ML SYRINGE IVP ONE (01:53)
[2022-01-30] MEDS: *HR* HYDROcodone/Acet 5/325 mg TABLET PO PRN ×2 (02:12→09:52)
[2022-01-30 05:27] LABS: Nucleated Red Blood Cells 0.1 /100 WBC (0)
[2022-01-30 05:29] LABS: Hematocrit 22.3 % (37.5-50.1); Mean Corpuscular HGB Conc 31.4 g/dL (31.6-35.5); Mean Corpuscular Hemoglobin 30.2 pg (28.0-33.3); Mean Corpuscular Volume 96.1 fL (83.0-100.0); Mean Platelet Volume 9.8 fL (9.4-12.4); Red Blood Count 2.32 M/mcL (4.19-5.50)
[2022-01-30 05:36] LABS: Platelet Count 42 K/mcL (140-400)
[2022-01-30 05:37] LABS: Calcium 7.6 mg/dL (8.6-10.3); Potassium 3.7 mEq/L (3.5-5.1)
[2022-01-30 05:38] LABS: White Blood Count 222.3 K/mcL (4.3-11.1)
[2022-01-30 06:20] LABS: Lymphocytes # 26.7 K/mcL (0.6-4.6); Neutrophils # 84.5 K/mcL (1.6-8.9)
[2022-01-30 06:21] LABS: Anisocytosis 3+ (Not Present); Hypochromasia Present (Not Present); Platelet Estimate Decreased (Normal)
[2022-01-30] MEDS: Lactobacillus 1 EACH CAP.SPRINK PO SCH ×2 (07:43→20:28)
[2022-01-30] MEDS: Insulin DETEMIR 100 UNIT/ML X5UNITS SUBQ SCH ×2 (07:43→20:28)
[2022-01-30] MEDS: Isosorbide MONOnitrate (24 HR) 60 MG TAB.ER.24H PO SCH (07:43)
[2022-01-30] MEDS: Venlafaxine XR (24 HR) 37.5 MG CAP.ER.24H PO SCH (07:43)
[2022-01-30] MEDS: carvediloL 6.25 MG TABLET PO SCH ×2 (07:44→16:59)
[2022-01-30] MEDS: Loratadine 10 MG TABLET PO SCH (07:44)
[2022-01-30] MEDS: *HR* OxyCODONE Immed Rel 5 MG TABLET PO PRN ×2 (07:44→16:59)
[2022-01-30] MEDS: Magnesium Oxide 400 MG TABLET PO SCH (07:45)
[2022-01-30] MEDS: Cyanocobalamin (B-12) 1,000 MCG TABLET PO SCH (07:45)
[2022-01-30] MEDS: Fluconazole 100 MG TABLET PO SCH (07:45)
[2022-01-30] MEDS: amLODIPine 5 MG TABLET PO SCH (07:45)
[2022-01-30] MEDS: polyethylene glycoL 3350 17 GM POWD.PACK PO SCH (07:46)
[2022-01-30] MEDS: Triamcinolone Acet 0.1% CRM 15 GM TUBE TP SCH (07:54)
[2022-01-30] MEDS: Fluticasone Propionate Nasal 50 MCG/SPRAY BOTTLE NS SCH ×2 (07:55→20:28)
[2022-01-30] MEDS: Mirtazapine 15 MG TABLET PO SCH (20:28)
[2022-01-30] MEDS ORDERED: 0.9 % Sodium Chloride 250 ML ONE (23:56)
[2022-01-31 04:58] LABS: Red Blood Count 2.45 M/mcL (4.19-5.50); Red Cell Distribution Width 19.9 % (11.5-14.5)
[2022-01-31 05:00] LABS: Basophils # 2.5 K/mcL (0.0-0.2); Basophils % 1.2 %; Eosinophils % 1.1 %; Hematocrit 23.4 % (37.5-50.1); Hemoglobin 7.4 g/dL (12.9-16.9); Immature Granulocytes % 16.8 % (0-4); Immature Platelets 5.8 % (1.1-6.1); Lymphocytes % 3.9 %; Mean Corpuscular HGB Conc 31.6 g/dL (31.6-35.5); Mean Corpuscular Hemoglobin 30.2 pg (28.0-33.3); Mean Corpuscular Volume 95.5 fL (83.0-100.0); Mean Platelet Volume 9.5 fL (9.4-12.4); Monocytes % 41.1 %; Neutrophils # 74.7 K/mcL (1.6-8.9); Segmented Neutrophils % 35.9 %
[2022-01-31 05:03] LABS: Eosinophils # 2.3 K/mcL (0.0-0.6); Lymphocytes # 8.1 K/mcL (0.6-4.6); Monocytes # 85.5 K/mcL (0.0-1.3); Platelet Count 38 K/mcL (140-400)
[2022-01-31 05:16] LABS: Platelet Estimate Decreased (Normal)
[2022-01-31 05:17] LABS: Anisocytosis 1+ (Not Present)
[2022-01-31 05:20] LABS: Calcium 7.7 mg/dL (8.6-10.3); Potassium 3.8 mEq/L (3.5-5.1)
[2022-01-31] MEDS: amLODIPine 5 MG TABLET PO SCH (07:57)
[2022-01-31] MEDS: Insulin DETEMIR 100 UNIT/ML X5UNITS SUBQ SCH ×2 (07:57→22:23)
[2022-01-31] MEDS: Lactobacillus 1 EACH CAP.SPRINK PO SCH ×2 (07:57→22:19)
[2022-01-31] MEDS: Isosorbide MONOnitrate (24 HR) 60 MG TAB.ER.24H PO SCH (07:58)
[2022-01-31] MEDS: carvediloL 6.25 MG TABLET PO SCH ×2 (07:58→17:40)
[2022-01-31] MEDS: Fluconazole 100 MG TABLET PO SCH (07:58)
[2022-01-31] MEDS: Loratadine 10 MG TABLET PO SCH (07:58)
[2022-01-31] MEDS: Magnesium Oxide 400 MG TABLET PO SCH (07:58)
[2022-01-31] MEDS: Cyanocobalamin (B-12) 1,000 MCG TABLET PO SCH (07:59)
[2022-01-31] MEDS: *HR* OxyCODONE Immed Rel 5 MG TABLET PO PRN (07:59)
[2022-01-31] MEDS: Venlafaxine XR (24 HR) 37.5 MG CAP.ER.24H PO SCH (07:59)
[2022-01-31] MEDS: Fluticasone Propionate Nasal 50 MCG/SPRAY BOTTLE NS SCH ×2 (08:00→22:23)
[2022-01-31] MEDS: Triamcinolone Acet 0.1% CRM 15 GM TUBE TP SCH (08:00)
[2022-01-31] MEDS: polyethylene glycoL 3350 17 GM POWD.PACK PO SCH (08:00)
[2022-01-31 08:21] LABS: Hematocrit 24.5 % (37.5-50.1); Hemoglobin 7.8 g/dL (12.9-16.9)
[2022-01-31] MEDS: *HR* HYDROcodone/Acet 5/325 mg TABLET PO PRN ×2 (17:40→22:19)
[2022-01-31 18:54] LABS: Complement C3 86 mg/dL (87-200)
[2022-01-31] MEDS: Mirtazapine 15 MG TABLET PO SCH (22:19)
[2022-02-01 03:47] LABS: Hemoglobin 6.9 g/dL (12.9-16.9)
[2022-02-01 03:48] LABS: Nucleated Red Blood Cells 0.1 /100 WBC (0)
[2022-02-01 03:49] LABS: Mean Corpuscular HGB Conc 31.4 g/dL (31.6-35.5); Mean Corpuscular Hemoglobin 29.9 pg (28.0-33.3); Mean Corpuscular Volume 95.2 fL (83.0-100.0); Mean Platelet Volume 9.9 fL (9.4-12.4); Red Blood Count 2.31 M/mcL (4.19-5.50); Red Cell Distribution Width 20.5 % (11.5-14.5)
[2022-02-01 03:52] LABS: Platelet Count 41 K/mcL (140-400)
[2022-02-01 03:54] LABS: White Blood Count 217.8 K/mcL (4.3-11.1)
[2022-02-01 04:07] LABS: Calcium 7.7 mg/dL (8.6-10.3); Potassium 3.6 mEq/L (3.5-5.1)
[2022-02-01 04:24] LABS: Eosinophils # 4.4 K/mcL (0.0-0.6); Lymphocytes # 26.1 K/mcL (0.6-4.6); Monocytes # 74.1 K/mcL (0.0-1.3); Neutrophils # 113.3 K/mcL (1.6-8.9); Platelet Estimate Decreased (Normal)
[2022-02-01] MEDS ORDERED: 0.9 % Sodium Chloride 500 ML ONE (04:26)
[2022-02-01] MEDS ORDERED: 0.9 % Sodium Chloride 250 ML IVC SCH (07:30)
[2022-02-01] MEDS: Magnesium Oxide 400 MG TABLET PO SCH (09:47)
[2022-02-01] MEDS: Lactobacillus 1 EACH CAP.SPRINK PO SCH ×2 (09:47→21:43)
[2022-02-01] MEDS: Fluconazole 100 MG TABLET PO SCH (09:47)
[2022-02-01] MEDS: Loratadine 10 MG TABLET PO SCH (09:47)
[2022-02-01] MEDS: Isosorbide MONOnitrate (24 HR) 60 MG TAB.ER.24H PO SCH (09:47)
[2022-02-01] MEDS: amLODIPine 5 MG TABLET PO SCH (09:48)
[2022-02-01] MEDS: Venlafaxine XR (24 HR) 37.5 MG CAP.ER.24H PO SCH (09:48)
[2022-02-01] MEDS: polyethylene glycoL 3350 17 GM POWD.PACK PO SCH (09:49)
[2022-02-01] MEDS: Cyanocobalamin (B-12) 1,000 MCG TABLET PO SCH (09:49)
[2022-02-01] MEDS: carvediloL 6.25 MG TABLET PO SCH ×2 (09:52→16:43)
[2022-02-01] MEDS: Fluticasone Propionate Nasal 50 MCG/SPRAY BOTTLE NS SCH (09:56)
[2022-02-01] MEDS: Insulin DETEMIR 100 UNIT/ML X5UNITS SUBQ SCH ×2 (09:57→21:44)
[2022-02-01 10:53] LABS: Hematocrit 25.6 % (37.5-50.1); Hemoglobin 8.3 g/dL (12.9-16.9)
[2022-02-01] MEDS: Triamcinolone Acet 0.1% CRM 15 GM TUBE TP SCH (13:03)
[2022-02-01] MEDS: *HR* OxyCODONE Immed Rel 5 MG TABLET PO PRN ×2 (14:02→18:04)
[2022-02-01] MEDS: Mirtazapine 15 MG TABLET PO SCH (21:43)
[2022-02-01] MEDS: *HR* HYDROcodone/Acet 5/325 mg TABLET PO PRN (21:44)
[2022-02-02] MEDS: Fluticasone Propionate Nasal 50 MCG/SPRAY BOTTLE NS SCH ×3 (03:18→21:34)
[2022-02-02] MEDS: *HR* OxyCODONE Immed Rel 5 MG TABLET PO PRN ×5 (04:33→21:28)
[2022-02-02 04:52] LABS: Hematocrit 25.2 % (37.5-50.1); Hemoglobin 8.1 g/dL (12.9-16.9); Mean Corpuscular HGB Conc 32.1 g/dL (31.6-35.5); Nucleated Red Blood Cells 0.1 /100 WBC (0)
[2022-02-02 04:54] LABS: Basophils % 1.6 %; Eosinophils # 2.3 K/mcL (0.0-0.6); Immature Granulocytes % 17.9 % (0-4); Immature Platelets 6.7 % (1.1-6.1); Mean Corpuscular Hemoglobin 30.7 pg (28.0-33.3); Mean Corpuscular Volume 95.5 fL (83.0-100.0); Mean Platelet Volume 9.9 fL (9.4-12.4); Monocytes % 40.7 %; Red Blood Count 2.64 M/mcL (4.19-5.50); Red Cell Distribution Width 20.6 % (11.5-14.5); Segmented Neutrophils % 34.8 %
[2022-02-02 04:58] LABS: Basophils # 3.7 K/mcL (0.0-0.2); Lymphocytes # 9.2 K/mcL (0.6-4.6); Monocytes # 93.2 K/mcL (0.0-1.3); Neutrophils # 79.7 K/mcL (1.6-8.9); Platelet Count 37 K/mcL (140-400)
[2022-02-02 04:59] LABS: White Blood Count 228.9 K/mcL (4.3-11.1)
[2022-02-02 05:11] LABS: Calcium 7.9 mg/dL (8.6-10.3)
[2022-02-02 05:43] LABS: Platelet Estimate Decreased (Normal)
[2022-02-02] MEDS: Cyanocobalamin (B-12) 1,000 MCG TABLET PO SCH (09:04)
[2022-02-02] MEDS: amLODIPine 5 MG TABLET PO SCH (09:05)
[2022-02-02] MEDS: Lactobacillus 1 EACH CAP.SPRINK PO SCH ×2 (09:05→21:29)
[2022-02-02] MEDS: Magnesium Oxide 400 MG TABLET PO SCH (09:05)
[2022-02-02] MEDS: Fluconazole 100 MG TABLET PO SCH (09:05)
[2022-02-02] MEDS: carvediloL 6.25 MG TABLET PO SCH ×2 (09:06→17:04)
[2022-02-02] MEDS: Venlafaxine XR (24 HR) 37.5 MG CAP.ER.24H PO SCH (09:06)
[2022-02-02] MEDS: Isosorbide MONOnitrate (24 HR) 60 MG TAB.ER.24H PO SCH (09:06)
[2022-02-02] MEDS: Loratadine 10 MG TABLET PO SCH (09:06)
[2022-02-02] MEDS: Triamcinolone Acet 0.1% CRM 15 GM TUBE TP SCH (09:10)
[2022-02-02] MEDS: polyethylene glycoL 3350 17 GM POWD.PACK PO SCH (09:11)
[2022-02-02] MEDS: Insulin DETEMIR 100 UNIT/ML X5UNITS SUBQ SCH (09:12)
[2022-02-02] MEDS ORDERED: Insulin DETEMIR 100 UNIT/ML X5UNITS SUBQ SCH (21:00)
[2022-02-02] MEDS: Mirtazapine 15 MG TABLET PO SCH (21:29)
[2022-02-03] MEDS: *HR* OxyCODONE Immed Rel 5 MG TABLET PO PRN ×2 (04:59→09:34)
[2022-02-03 05:26] LABS: Hemoglobin 7.6 g/dL (12.9-16.9); Nucleated Red Blood Cells 0.1 /100 WBC (0)
[2022-02-03 05:29] LABS: Immature Platelets 6.1 % (1.1-6.1); Mean Corpuscular HGB Conc 31.7 g/dL (31.6-35.5); Mean Corpuscular Hemoglobin 30.4 pg (28.0-33.3); Mean Platelet Volume 9.4 fL (9.4-12.4); Red Cell Distribution Width 20.2 % (11.5-14.5)
[2022-02-03 06:09] LABS: Platelet Count 39 K/mcL (140-400)
[2022-02-03 06:14] LABS: Lymphocytes # 4.3 K/mcL (0.6-4.6); Monocytes # 125.9 K/mcL (0.0-1.3); Neutrophils # 73.8 K/mcL (1.6-8.9)
[2022-02-03 06:15] LABS: Anisocytosis 2+ (Not Present); Platelet Estimate Decreased (Normal)
[2022-02-03] MEDS: Isosorbide MONOnitrate (24 HR) 60 MG TAB.ER.24H PO SCH (09:33)
[2022-02-03] MEDS: Lactobacillus 1 EACH CAP.SPRINK PO SCH (09:34)
[2022-02-03] MEDS: Loratadine 10 MG TABLET PO SCH (09:34)
[2022-02-03] MEDS: Magnesium Oxide 400 MG TABLET PO SCH (09:34)
[2022-02-03] MEDS: Cyanocobalamin (B-12) 1,000 MCG TABLET PO SCH (09:34)
[2022-02-03] MEDS: amLODIPine 5 MG TABLET PO SCH (09:34)
[2022-02-03] MEDS: Fluticasone Propionate Nasal 50 MCG/SPRAY BOTTLE NS SCH (09:35)
[2022-02-03] MEDS: carvediloL 6.25 MG TABLET PO SCH (09:35)
[2022-02-03] MEDS: Fluconazole 100 MG TABLET PO SCH (09:35)
[2022-02-03] MEDS: Venlafaxine XR (24 HR) 37.5 MG CAP.ER.24H PO SCH (09:37)
[2022-02-03] MEDS: polyethylene glycoL 3350 17 GM POWD.PACK PO SCH (09:38)
[2022-02-03 11:21] VITALS: TEMP 97.8
[2022-02-03 15:34] VITALS: BP 115/52; PULSE 78; O2SAT 100
== END 2022-02-03 18:06 | disposition home health service (06) | DRG 690 ==
LOC: EMEROOARM 18:40 → 2ANU 18:40 → SUATTDRO 20:40 → 2ANU 21:08 → SUATTDRO 01-28 19:14
PROVIDERS: ADMIT Internal Medicine; ATTEND General Practice

== ENCOUNTER 2022-02-14 08:27 | Inpatient (IN) ==
[2022-02-14] MEDS ORDERED: 0.9 % Sodium Chloride 1,000 ML IVC ONE ×2 (08:53→11:38)
[2022-02-14] MEDS ORDERED: Iopamidol - 370 500 ML MLS IVP ONE (09:08)
[2022-02-14 09:39] LABS: Hematocrit 20.6 % (37.5-50.1); Nucleated Red Blood Cells 0.1 /100 WBC (0)
[2022-02-14 09:41] LABS: Hemoglobin 6.6 g/dL (12.9-16.9); Immature Platelets 6.5 % (1.1-6.1); Mean Corpuscular Hemoglobin 31.3 pg (28.0-33.3); Mean Corpuscular Volume 97.6 fL (83.0-100.0); Mean Platelet Volume 10.2 fL (9.4-12.4); Red Blood Count 2.11 M/mcL (4.19-5.50); Red Cell Distribution Width 20.1 % (11.5-14.5)
[2022-02-14 09:47] LABS: Platelet Count 56 K/mcL (140-400); White Blood Count 332.9 K/mcL (4.3-11.1)
[2022-02-14 09:53] LABS: Bilirubin,Urine Negative (Negative); Blood,Urine Large (Negative); Clarity,Urine Ex.Turbid (Clear); Color,Urine Light-Brown (Yellow); Glucose,Urine (UA) Normal (Normal); Ketones,Urine Negative (Negative); Leukocyte Esterase,Urine Large (Negative); Nitrite,Urine Negative (Negative); Protein,Urine 200 mg/dL (Neg-Trace); Specific Gravity,Urine 1.016 (1.010-1.025); Urobilinogen,Urine Normal (Normal)
[2022-02-14 09:54] LABS: Albumin 3.1 g/dL (3.5-5.7); Bilirubin,Total 0.5 mg/dL (0.3-1.0); Globulin 3.2 g/dL (2.4-3.5); Magnesium 1.7 mg/dL (1.6-2.6); Potassium 3.9 mEq/L (3.5-5.1); Total Protein 6.3 g/dL (6.4-8.9); Troponin I 0.03 ng/mL (< 0.04)
[2022-02-14 10:07] LABS: Eosinophils # 13.3 K/mcL (0.0-0.6); Lymphocytes # 33.3 K/mcL (0.6-4.6); Monocytes # 46.6 K/mcL (0.0-1.3); Neutrophils # 146.5 K/mcL (1.6-8.9)
[2022-02-14 10:08] LABS: Microcytosis Present (Not Present); Platelet Estimate Marked Decrease (Normal)
[2022-02-14] MEDS ORDERED: *HR* OxyCODONE Immed Rel 5 MG TABLET PO ONE (10:10)
[2022-02-14 10:19] LABS: WBC,Urine TNTC per hpf (0-3)
[2022-02-14 10:20] LABS: RBC,Urine Present per hpf (0-3); Renal Epithelial Cells,Urine Present per hpf (None-Few); Transitional Epi Cells,Urine Present per hpf (None-Few)
[2022-02-14 10:21] LABS: Bacteria,Urine Present per hpf (None-Few)
[2022-02-14 10:22] LABS: Mucus,Urine Present per lpf (None-Few); Squamous Epithelial Cell,Urine Present per hpf (None-Few)
[2022-02-14 10:39] LABS: Adenovirus Not Detected (Not Detect); Coronavirus 229E Not Detected (Not Detect); Coronavirus HKU1 Not Detected (Not Detect); Coronavirus NL63 Not Detected (Not Detect); Coronavirus OC43 Not Detected (Not Detect); Human Metapneumovirus Not Detected (Not Detect); Human Rhinovirus/Enterovirus Not Detected (Not Detect); Influenza A Subtype 2009 H1 Not Detected (Not Detect); Influenza B Not Detected (Not Detect); Parainfluenza Virus 1 Not Detected (Not Detect); Parainfluenza Virus 2 Not Detected (Not Detect); Parainfluenza Virus 3 Not Detected (Not Detect); Parainfluenza Virus 4 Not Detected (Not Detect); SARS-CoV-2 Not Detected (Not Detect)
[2022-02-14 10:40] LABS: Bordetella Pertussis Not Detected (Not Detect); Chlamydophila pneumoniae Not Detected (Not Detect); Mycoplasma pneumoniae Not Detected (Not Detect); Respiratory Syncytial Virus Not Detected (Not Detect)
[2022-02-14] MEDS ORDERED: Piperacillin/Tazobactam 3.375 GM in 0.9 % Sodium Chloride Mini Bag 100 ML IVPB ONE (10:58)
[2022-02-14] MEDS ORDERED: Vancomycin 1,500 MG/265 ML IV.SOLN IVPB ONE (12:00)
[2022-02-14] MEDS ORDERED: Naloxone 0.4 MG/ML INJ IVP PRN (13:23)
[2022-02-14] MEDS ORDERED: *HR* OxyCODONE Immed Rel 5 MG TABLET PO PRN (13:23)
[2022-02-14] MEDS ORDERED: Acetaminophen 325 MG TABLET PO PRN (13:23)
[2022-02-14] MEDS ORDERED: D5% in Water 1,000 ML IVC PRN (13:23)
[2022-02-14] MEDS ORDERED: Dextrose Gel 15 GM/37.5 ML TUBE PO PRN ×2 (13:23)
[2022-02-14] MEDS ORDERED: Ondansetron 4 MG/2 ML VIAL IVP PRN (13:23)
[2022-02-14] MEDS ORDERED: *HR* Dextrose 50 % in Water (Syg) 50 ML SYRINGE IVP PRN (13:23)
[2022-02-14] MEDS ORDERED: 0.9 % Sodium Chloride 250 ML ONE (14:22)
[2022-02-14 14:38] LABS: Estimated Average Glucose 163 mg/dl; Hemoglobin A1C 7.3 %
[2022-02-14] MEDS ORDERED: *HR* LORazepam 2 MG/ML VIAL IVP ONE (15:44)
[2022-02-14] MEDS ORDERED: *HR* LORazepam 2 MG/ML VIAL ONE (15:46)
[2022-02-14] MEDS: Insulin LISPRO 300 UNITS/3 ML VIAL SUBQ SCH (17:15)
[2022-02-14] MEDS: Ringers Solution, Lactated 1,000 ML IVC SCH (17:46)
[2022-02-14] MEDS: Piperacillin/Tazobactam 3.375 GM in 0.9 % Sodium Chloride Mini Bag 100 ML IVPB SCH (20:08)
[2022-02-14] MEDS ORDERED: Insulin LISPRO 300 UNITS/3 ML VIAL SUBQ SCH (21:00)
[2022-02-15 01:48] LABS: A.calcoaceticus-baumannii cplx Not Detected (Not Detect); Bacteroides fragilis by PCR Not Detected (Not Detect); CTX-M ESBL Gene Not Detected (Not Detect); Candida albicans by PCR Not Detected (Not Detect); Candida auris by PCR Not Detected (Not Detect); Candida glabrata by PCR Not Detected (Not Detect); Candida krusei by PCR Not Detected (Not Detect); Candida parapsilosis by PCR Not Detected (Not Detect); Candida tropicalis by PCR Not Detected (Not Detect); Crypto. neoformans/gattii PCR Not Detected (Not Detect); Enterobacter cloacae Cmplx PCR DETECTED (Not Detect); Enterobacterales by PCR Not Detected (Not Detect); Enterococcus faecalis by PCR Not Detected (Not Detect); Enterococcus faecium by PCR Not Detected (Not Detect); Escherichia coli by PCR Not Detected (Not Detect); IMP Carbapenem-Resist Gene Not Detected (Not Detect); Klebs. pneumoniae group by PCR Not Detected (Not Detect); Klebsiella aerogenes by PCR Not Detected (Not Detect); Klebsiella oxytoca by PCR Not Detected (Not Detect); NDM Carbapenem-Resist Gene Not Detected (Not Detect); OXA-48-like Carbap-Resist Gene Not Detected (Not Detect); Proteus by PCR Not Detected (Not Detect); Pseudomonas aeruginosa by PCR Not Detected (Not Detect); Salmonella species by PCR Not Detected (Not Detect); Serratia marcescens by PCR Not Detected (Not Detect); Staph epidermidis by PCR Not Detected (Not Detect); Staph lugdunensis by PCR Not Detected (Not Detect); Staphylococcus aureus by PCR Not Detected (Not Detect); Staphylococcus by PCR Not Detected (Not Detect); Stenotrophomonas maltophilia Not Detected (Not Detect); Streptococcus agalactiae(B)PCR Not Detected (Not Detect); Streptococcus by PCR Not Detected (Not Detect); Streptococcus pneumoniae PCR Not Detected (Not Detect); Streptococcus pyogenes (A) PCR Not Detected (Not Detect); VIM Carbapenem-Resist Gene Not Detected (Not Detect); blaKPC Carbapenem-Resist Gene Not Detected (Not Detect); mcr-1 Colistin-Resist Gene Not Detected (Not Detect)
[2022-02-15] MEDS: Ringers Solution, Lactated 1,000 ML IVC SCH (02:48)
[2022-02-15] MEDS: Piperacillin/Tazobactam 3.375 GM in 0.9 % Sodium Chloride Mini Bag 100 ML IVPB SCH ×4 (03:59→22:50)
[2022-02-15 04:34] LABS: Hemoglobin 6.7 g/dL (12.9-16.9); Nucleated Red Blood Cells 0.1 /100 WBC (0)
[2022-02-15 04:36] LABS: Hematocrit 21.1 % (37.5-50.1); Mean Corpuscular HGB Conc 31.8 g/dL (31.6-35.5); Mean Corpuscular Hemoglobin 30.6 pg (28.0-33.3); Mean Corpuscular Volume 96.3 fL (83.0-100.0); Mean Platelet Volume 10.5 fL (9.4-12.4); Red Blood Count 2.19 M/mcL (4.19-5.50); Red Cell Distribution Width 20.4 % (11.5-14.5)
[2022-02-15 04:54] LABS: Albumin 2.7 g/dL (3.5-5.7); Albumin/Globulin Ratio 0.9 (1.1-2.2); Bilirubin,Total 0.6 mg/dL (0.3-1.0); Calcium 7.6 mg/dL (8.6-10.3); Globulin 3.1 g/dL (2.4-3.5); Magnesium 1.7 mg/dL (1.6-2.6); Phosphorous 5.4 mg/dL (2.7-4.5); Total Protein 5.8 g/dL (6.4-8.9)
[2022-02-15 05:02] LABS: Platelet Count 57 K/mcL (140-400)
[2022-02-15 05:07] LABS: White Blood Count 317.6 K/mcL (4.3-11.1)
[2022-02-15 05:21] LABS: Monocytes # 177.9 K/mcL (0.0-1.3); Neutrophils # 133.4 K/mcL (1.6-8.9); Platelet Estimate Decreased (Normal)
[2022-02-15] MEDS ORDERED: 0.9 % Sodium Chloride 250 ML ONE (10:07)
[2022-02-15] MEDS ORDERED: Sodium Bicarbonate 150 MEQ in Water for inj. (sterile) 1,000 ML IVC SCH (10:30)
[2022-02-15] MEDS: Insulin LISPRO 300 UNITS/3 ML VIAL SUBQ SCH (10:39)
[2022-02-15] MEDS ORDERED: Cefepime HCl 1,000 MG in 0.9 % Sodium Chloride Mini Bag 100 ML IVPB SCH (11:00)
[2022-02-15] MEDS ORDERED: *HR* FentaNYL (PF) 100 MCG/2 ML VIAL ONE (11:56)
[2022-02-15] MEDS ORDERED: *HR* Succinylcholine 200 MG/10 ML VIAL IVP ONE (11:56)
[2022-02-15] MEDS ORDERED: Lidocaine HCL 4 ML Topical Solution (Laryng-O-Jet Kit Sterile Pak) TP ONE (11:56)
[2022-02-15] MEDS ORDERED: Lidocaine -MPF 2% 5 ML VIAL ONE (11:56)
[2022-02-15] MEDS ORDERED: Ondansetron 4 MG/2 ML VIAL ONE (11:56)
[2022-02-15] MEDS ORDERED: *HR* Propofol 200 MG/20 ML VIAL IVP ONE (11:57)
[2022-02-15] MEDS ORDERED: *HR* Etomidate 40 MG/20 ML VIAL IVP ONE ×2 (12:24→14:01)
[2022-02-15] MEDS ORDERED: Iopamidol - 300 50 ML VIAL ONE (12:41)
[2022-02-15] MEDS ORDERED: Heparin 1,000 UNITS/500 mL 500 ML ONE (13:31)
[2022-02-15 13:53] LABS: ABG Base Excess -18 mEq/L (-2 to 3); ABG Chloride 116 mEq/L (98-107); ABG Glucose 115 mg/dL (60-95); ABG HCO3 14 mEq/L (21-27); ABG Ionized Calcium 1.19 mmol/L (1.15-1.35); ABG Oxygen Saturation 81 % (95-98); ABG PCO2 56 mmHg (35-45); ABG PH 7.01 pH Units (7.32-7.45); ABG PO2 68 mmHg (85-104); ABG TCO2 16 mEq/L (20-26)
[2022-02-15] MEDS ORDERED: FentaNYL (PF) 1,000 MCG/100 ML IV.SOLN IVC SCH (14:00)
[2022-02-15] MEDS ORDERED: *HR* Rocuronium Bromide 50 MG/5 ML VIAL ONE (14:01)
[2022-02-15] MEDS ORDERED: Naloxone 0.4 MG/ML INJ IVP PRN (14:04)
[2022-02-15] MEDS ORDERED: Dextrose Gel 15 GM/37.5 ML TUBE PO PRN ×2 (14:04)
[2022-02-15] MEDS ORDERED: *HR* Dextrose 50 % in Water (Syg) 50 ML SYRINGE IVP PRN (14:04)
[2022-02-15] MEDS ORDERED: Acetaminophen 325 MG TABLET PO PRN (14:04)
[2022-02-15] MEDS ORDERED: Ondansetron 4 MG/2 ML VIAL IVP PRN (14:04)
[2022-02-15] MEDS ORDERED: D5% in Water 1,000 ML IVC PRN (14:04)
[2022-02-15] MEDS ORDERED: *HR* Norepinephrine 4 MG/4 ML VIAL IVC ONE (14:14)
[2022-02-15 14:45] LABS: ABG Base Excess -14 mEq/L (-2 to 3); ABG HCO3 18 mEq/L (21-27); ABG Oxygen Saturation 73 % (95-98); ABG PCO2 72 mmHg (35-45); ABG PH 7.01 pH Units (7.32-7.45); ABG PO2 58 mmHg (85-104); ABG TCO2 21 mEq/L (20-26); Blood Gas Modality ASSIST CONTROL; Blood Gas VT 500 cc
[2022-02-15] MEDS ORDERED: Artificial Tears SOLN 15 ML BOTTLE BOTH EYES PRN (14:51)
[2022-02-15] MEDS: FentaNYL (PF) 1,000 MCG/100 ML IV.SOLN IVC SCH ×2 (14:55→21:13)
[2022-02-15] MEDS: Sodium Bicarbonate 150 MEQ in Water for inj. (sterile) 1,000 ML IVC SCH ×2 (14:56→23:42)
[2022-02-15] MEDS: Norepinephrine 4 MG/254 ML IV.SOLN IVC SCH ×3 (14:57→20:46)
[2022-02-15] MEDS ORDERED: Dexmedetomidine HCl 400 MCG/100 ML MLS IVC SCH (15:00)
[2022-02-15] MEDS ORDERED: Pantoprazole 40 MG VIAL IVP SCH (15:00)
[2022-02-15 16:02] LABS: Hematocrit 26.3 % (37.5-50.1); Nucleated Red Blood Cells 0.1 /100 WBC (0)
[2022-02-15] MEDS: Artificial Tears SOLN 15 ML BOTTLE BOTH EYES SCH ×2 (16:04→20:11)
[2022-02-15 16:05] LABS: Hemoglobin 8.3 g/dL (12.9-16.9); Immature Platelets 5.9 % (1.1-6.1); Mean Corpuscular HGB Conc 31.6 g/dL (31.6-35.5); Mean Corpuscular Hemoglobin 30.1 pg (28.0-33.3); Mean Corpuscular Volume 95.3 fL (83.0-100.0); Red Blood Count 2.76 M/mcL (4.19-5.50); Red Cell Distribution Width 21.8 % (11.5-14.5)
[2022-02-15 16:06] LABS: VBG Ionized Calcium 1.05 mmol/L (1.15-1.35)
[2022-02-15 16:12] LABS: Platelet Count 51 K/mcL (140-400); White Blood Count 421.6 K/mcL (4.3-11.1)
[2022-02-15] MEDS: Albumin Human 5% 12.5 GM/250 ML IV.SOLN IVC SCH ×2 (16:18→20:10)
[2022-02-15 16:24] LABS: Complement C3 67 mg/dL (87-200)
[2022-02-15 16:28] LABS: INR 1.8; Prothrombin Time 19.9 Seconds (9.4-12.1)
[2022-02-15 16:30] LABS: Activated Partial Thrombo Time 38.2 Seconds (26.0-36.0)
[2022-02-15] MEDS ORDERED: Insulin LISPRO 300 UNITS/3 ML VIAL SUBQ SCH ×2 (16:30→21:00)
[2022-02-15 16:38] LABS: Eosinophils # 8.4 K/mcL (0.0-0.6); Monocytes # 295.1 K/mcL (0.0-1.3); Neutrophils # 101.2 K/mcL (1.6-8.9)
[2022-02-15 16:45] LABS: Albumin 2.9 g/dL (3.5-5.7); Albumin/Globulin Ratio 0.9 (1.1-2.2); Bilirubin,Direct 0.2 mg/dL (0.0-0.2); Bilirubin,Indirect 0.3 mg/dL (0.0-1.0); Bilirubin,Total 0.5 mg/dL (0.3-1.0); Calcium 7.5 mg/dL (8.6-10.3); Carcinoembryonic Antigen 7.4 ng/mL (Less than 5.0); Globulin 3.4 g/dL (2.4-3.5); Phosphorous 9.7 mg/dL (2.7-4.5); Potassium 5.8 mEq/L (3.5-5.1); Total Protein 6.3 g/dL (6.4-8.9); Uric Acid 11.5 mg/dL (2.3-7.6)
[2022-02-15 16:48] LABS: Protein/Creatinine Ratio,Urine 19.6 mg/mg (0.00-0.20); Sodium, Urine 82.9 mEq/L
[2022-02-15] MEDS: Cisatracurium 200 MG in 0.9 % Sodium Chloride 80 ML IVC SCH (16:55)
[2022-02-15] MEDS ORDERED: Vancomycin 1 EACH in 0.9 % Sodium Chloride 250 ML IVPB PRN (17:00)
[2022-02-15] MEDS ORDERED: Vancomycin 1,250 MG/262.5 ML IV.SOLN IVPB ONE (17:00)
[2022-02-15 18:09] LABS: ABG Base Excess -14 mEq/L (-2 to 3); ABG HCO3 16 mEq/L (21-27); ABG Oxygen Saturation 99 % (95-98); ABG PCO2 54 mmHg (35-45); ABG PH 7.08 pH Units (7.32-7.45); ABG PO2 196 mmHg (85-104); ABG TCO2 18 mEq/L (20-26); Blood Gas Modality PC; Blood Gas Pressure Support 30 cm H2O
[2022-02-15 18:13] LABS: VBG HCO3 16 mEq/L (21-27); VBG PCO2 59 mmHg (41-51); VBG PH 7.03 pH Units (7.32-7.42); VBG PO2 60 mmHg (25-50)
[2022-02-15] MEDS: SODIUM ZIRCONIUM CYCLOSILICATE 5 GM POWD.PACK PO SCH ×2 (18:18→20:43)
[2022-02-15 19:45] VITALS: O2SAT 100
[2022-02-15 19:57] LABS: ABG Base Excess -11 mEq/L (-2 to 3); ABG HCO3 19 mEq/L (21-27); ABG Oxygen Saturation 99 % (95-98); ABG PCO2 61 mmHg (35-45); ABG PO2 161 mmHg (85-104); ABG TCO2 21 mEq/L (20-26); Blood Gas Modality ASSIST CONTROL; Blood Gas VT 450 cc
[2022-02-15] MEDS ORDERED: Heparin 25,000UNIT/250ML 1/2NS 25,000 UNIT/250 ML IV.SOLN IVC SCH (20:00)
[2022-02-15] MEDS ORDERED: *HR* Heparin 5,000 UNIT/ML VIAL IVP PRN ×2 (20:26)
[2022-02-15] MEDS ORDERED: Chlorhexidine Rinse 15 ML MOUTHWASH MM SCH (21:00)
[2022-02-15] MEDS ORDERED: Cefepime HCl 1,000 MG in 0.9 % Sodium Chloride 10 ML IVPB SCH (23:00)
[2022-02-15] MEDS ORDERED: NOREPINEPHRINE IVC SCH (23:30)
[2022-02-15] MEDS ORDERED: SODIUM CHLORIDE IVC SCH (23:30)
[2022-02-16] LABS: ABG Base Excess -12 mEq/L (-2 to 3); ABG HCO3 19 mEq/L (21-27); ABG Oxygen Saturation 100 % (95-98); ABG PCO2 64 mmHg (35-45); ABG PH 7.08 pH Units (7.32-7.45); ABG PO2 288 mmHg (85-104); ABG TCO2 21 mEq/L (20-26); Blood Gas Modality ASSIST CONTROL; Blood Gas VT 450 cc
[2022-02-16] MEDS: Artificial Tears SOLN 15 ML BOTTLE BOTH EYES SCH ×2 (00:13→02:36)
[2022-02-16] MEDS: Cisatracurium 200 MG in 0.9 % Sodium Chloride 80 ML IVC SCH (00:18)
[2022-02-16] MEDS ORDERED: Vasopressin 40 UNIT in D5% in Water 100 ML IVC SCH (01:30)
[2022-02-16] MEDS ORDERED: EPINEPHrine 5 MG in D5% in Water 250 ML IVC SCH (03:15)
[2022-02-16 03:31] VITALS: TEMP 102.2
[2022-02-16 04:16] LABS: Nucleated Red Blood Cells 0.2 /100 WBC (0); Red Cell Distribution Width 23.5 % (11.5-14.5)
[2022-02-16 04:18] LABS: Hematocrit 26.1 % (37.5-50.1); Immature Platelets 8.2 % (1.1-6.1); Mean Corpuscular HGB Conc 30.7 g/dL (31.6-35.5); Mean Corpuscular Hemoglobin 30.5 pg (28.0-33.3); Mean Corpuscular Volume 99.6 fL (83.0-100.0); Mean Platelet Volume 10.4 fL (9.4-12.4); Red Blood Count 2.62 M/mcL (4.19-5.50)
[2022-02-16 04:21] LABS: VBG Ionized Calcium 0.88 mmol/L (1.15-1.35)
[2022-02-16 04:24] LABS: Heparin anti-factor XA UFH 0.2 IU/mL (0.30-0.70); INR 1.9; Prothrombin Time 21.3 Seconds (9.4-12.1)
[2022-02-16 04:26] LABS: Platelet Count 46 K/mcL (140-400); White Blood Count > 440.0 K/mcL (4.3-11.1)
[2022-02-16 04:33] LABS: ABG Base Excess -18 mEq/L (-2 to 3); ABG HCO3 13 mEq/L (21-27); ABG Oxygen Saturation 99 % (95-98); ABG PCO2 49 mmHg (35-45); ABG PH 7.02 pH Units (7.32-7.45); ABG PO2 195 mmHg (85-104); ABG TCO2 14 mEq/L (20-26); Blood Gas Modality ASSIST CONTROL; Blood Gas VT 500 cc
[2022-02-16 04:40] LABS: Albumin 3.1 g/dL (3.5-5.7); Bilirubin,Direct 0.3 mg/dL (0.0-0.2); Bilirubin,Indirect 0.3 mg/dL (0.0-1.0); Bilirubin,Total 0.6 mg/dL (0.3-1.0); Calcium 7.1 mg/dL (8.6-10.3); Globulin 3.1 g/dL (2.4-3.5); Magnesium 2.3 mg/dL (1.6-2.6); Phosphorous 14.3 mg/dL (2.7-4.5); Potassium 6.3 mEq/L (3.5-5.1); Total Protein 6.2 g/dL (6.4-8.9)
[2022-02-16 04:42] LABS: Lymphocytes # 17.6 K/mcL (0.6-4.6); Monocytes # 237.6 K/mcL (0.0-1.3); Neutrophils # 184.8 K/mcL (1.6-8.9); Platelet Estimate Decreased (Normal)
[2022-02-16] MEDS ORDERED: Calcium Gluconate 1,000 MG/10 ML VIAL IVP ONE (04:46)
[2022-02-16 05:37] VITALS: BP 50/34; PULSE 73
[2022-02-16] MEDS ORDERED: Vancomycin 500 MG in 0.9 % Sodium Chloride Mini Bag 100 ML IVPB ONE (18:00)
== END 2022-02-16 09:10 | disposition expired | DRG 853 ==
LOC: 2NENU 08:27 → EMEROOARM 08:27 → SUATTDRO 14:26 → 2NENU 16:01 → ICNU 02-15 14:48 → SUATTDRO 02-15 14:51
PROVIDERS: ADMIT Family Medicine; ATTEND Pediatrics